=== PATIENT | female | born 1935 | race Caucasian/White ===

== ENCOUNTER 2017-06-20 13:46 | Inpatient (IN) | payer MEDICARE, OTHER ==
[~2017-06-20] VITALS: Ht 157.5 cm; Wt 68.0 kg
--- OUTSIDE RECORDS SUMMARY | ~2017-06-20 | XMS | Clinical Summary ---
Demographics + + + | Address | [address] | | | [place] [address] | + + + | Home Phone | | + + + | Preferred Language | Unknown | + + + | Marital Status | | + + + | Latter-Day Affiliation | 1077 | + + + | Race | Unknown | + + + | Ethnic Group | Unknown | + + + Author + + + | Author | [facility] | | | and Saurabhana | + + + | Organization | [facility] | | | and [...] Team Providers + +------+ + | Care Unix Administrator Name | Role | Phone | + +------+ + | Roderick Alexandra MD | PP | | + +------+ + Allergies + + + +--------+ + | Active Allergy | Reactions | Severity | Noted | Comments | | | | | Date | | + + + +--------+ + | Lipitor | Other (See Comments) | | | Myalgias | + + + +--------+ + | Wasp Venom Protein | Swelling | | | | + + + +--------+ + Current Medications + + +--------+---------+------+------+-------+ | Prescription | Sig. | Disp. | Refills | Star | End | Statu | | | | | | t | Date | s | | | | | | Date | | | + + +--------+---------+------+------+-------+ | Wysox-3 Fatty | Take 1,000 mg by | | | 10/17 | | Activ | | Acids ([facility] NATURAL | mouth Daily. | | | 05/05 | | e | | FISH OIL) 1000 MG | | | | 12 | | | | CAPS | | | | | | | + + +--------+---------+------+------+-------+ | ASPIRIN ADULT LOW | TBEC; Take one by | | | / | | Activ | | STRENGTH PO | mouth daily | | | 3/20 | | e | | | | | | 12 | | | + + +--------+---------+------+------+-------+ | Cholecalciferol | Take 2,000 Units by | | | 10/17 | | Activ | | (RA VITAMIN D-3) | mouth Daily. | | | 3/20 | | e | | 2000 UNITS CAPS | | | | 12 | | | + + +--------+---------+------+------+-------+ | Magnesium Oxide | TABS; Take one by | | | 1 | | Activ | | (MAG-OX 400 PO) | mouth daily | | | 3/20 | | e | | | | | | 12 | | | + + +--------+---------+------+------+-------+ | CALCIUM PO | TABS; 600 mg | | | 09/1 | | Activ | | | | | | 3/20 | | e | | | | | | 12 | | | + + +--------+---------+------+------+-------+ | artificial tears | Place 1 drop into | | | | | Activ | | (REFRESH PLUS) 0.5% | both eyes as needed. | | | | | e | | SOLN | | | | | | | + + +--------+---------+------+------+-------+ | Multiple | Take 2 capsules by | | | | | Activ | | Vitamins-Minerals | mouth Daily. | | | | | e | | (PRESERVISION AREDS | | | | | | | | 2) CAPS | | | | | | | + + +--------+---------+------+------+-------+ | raNITIdine | Take 1 tablet by | 180 | 2 | 02/0 | | Activ | | (ZANTAC) 150 mg | mouth 2 times daily. | tablet | | 6/20 | | e | | tablet | | | | 17 | | | + + +--------+---------+------+------+-------+ | pravastatin | take 1/2 tablet by | 45 | 1 | 01/ | | Activ | | (PRAVACHOL) 40 MG | mouth NIGHTLY | tablet | | 2/20 | | e | | tablet | | | | 18 | | | + + +--------+---------+------+------+-------+ | metoprolol | take 1 tablet by | 90 | 0 | 02/1 | | Activ | | succinate | mouth once daily | tablet | | 420 | | e | | (TOPROL-XL) 25 mg 24 | | | | 18 | | | | hr tablet | | | | | | | + + +--------+---------+------+------+-------+ | niacin (NIASPAN) | take 1 tablet by | 90 | 1 | 02/2 | | Activ | | 500 mg CR tablet | mouth at bedtime | tablet | | 2/20 | | e | | | | | | 18 | | | + + +--------+---------+------+------+-------+ Active Problems + + + | Problem | Noted Date | + + + | Gastroesophageal reflux disease without esophagitis | 03/24/2016 | + + + | Chest pressure | 03/24/2016 | + + + | Hx-TIA (transient ischemic attack) | 03/24/2016 | + + + | Hyperglycemia | 07/24/2014 | + + + | COPD (chronic obstructive pulmonary disease) (HCC) | 01/23/2014 | + + + | Routine history and physical examination of adult | 01/23/2014 | + + + | Right knee pain | 07/25/2013 | + + + + + | Overview: Torn meniscus | + + + + + | Vitamin D deficiency | 11/26/2012 | + + + | Hoarseness of voice | 05/26/2012 | + + + | CARDIAC MURMUR | 03/31/2011 | + + + + + | Last Assessment & Plan: Reviewed that murmur is less than | | last visit. This is usually a positive sign. Will monitor. Echo | | only if it worsens. | + + + + + | DYSPNEA ON EXERTION | 10/16/2010 | + + + | Hyperlipidemia | | + + + + + | Last Assessment & Plan: Well controlled. Reassurance given. | | Continue with current dose. Recheck level in 6 months. | + + + +---+ | Hypertension | | + +---+ | Diverticular disease of colon | | + +---+ + + | Overview: PLRU [id number] Decision | + + Resolved Problems + + + + | Problem | Noted | Resolved | | | Date | Date | + + + + | Preventative health care | 11/30/19 | | | | 13 | 7 | + + + + + + | Overview: Pap:None Found | | | | Mammogram:None Found | | | | Colonoscopy:None Found | | | | Dexa: None Found | + + + + + + | Lower extremity edema | 11/27/19 | | | | 12 | 7 | + + + + + + | Last Assessment & Plan: Due to varicosities. Reassurance | | given as it is position/activity dependant. | + + +-------+ + + | Cough | 10/17/19 | | | | 11 | 7 | +-------+ + + + + | Last Assessment & Plan: Reviewed that cough comes from | | allergy/sinus, reflux or underlying pulmonary disease. She denies | | the first two. Long history of second hand smoke exposure. She | | accepts a PFT order. Referral made. She will call and set up. She | | reports that she didn't like the Spiriva but wasn't really | | committed to taking it either. | + + + + + + | Diarrhea | 03/27/19 | | | | 11 | 7 | + + + + Encounters +--------+ + + + + | Date | Type | Specialty | Care Team | Description | +--------+ + + + + | 05/19/ | Telephone | | Roderick Alexandra, | Results | | 2017 | | | MD | | +--------+ + + + + | 05/18/ | Abstract | | Roderick Alexandra, | | | 2017 | | | MD | | +--------+ + + + + | 05/12/ | Telephone | | Roderick Alexandra, | Therapy | 2017 | | | MD | | +--------+ + + + + | 05/04/ | Abstract | | Roderick Alexandra, | | | 2017 | | | MD | | +--------+ + + + + | 04/30/ | Telephone | | Roderick Alexandra, | Arm Pain | | 2017 | | | MD | | +--------+ + + + + | 04/23/ | Office | | Roderick Alexandra, | Non-cardiac chest | | 2017 | Visit | | MD | pain (Primary Dx); | | | | | | Chronic obstructive | | | | | | pulmonary disease, | | | | | | unspecified COPD | | | | | | type (HCC); Left arm | | | | | | swelling; Left arm | | | | | | pain; Essential | | | | | | hypertension | +--------+ + + + + | 04/09/ | Refill | | Roderick Alexandra, | Medication Refill | 2017 | | | MD | | +--------+ + + + + | 04/01/ | Refill | | Roderick Alexandra, | Medication Refill | | 2017 | | | MD | | +--------+ + + + + from Last 3 Months Immunizations + + + + | Name | Dates Previously Given | Next Due | + + + + | INFLUENZA 63 Y OR >, | 10/12/2015 | | | TRIVALENT HIGH-DOSE | | | + + + + | INFLUENZA QUADR | 10/31/2014, 11/15/2013 | | | W/PRES | | | | (PED/ADOL/ADULT) | | | | MULTIDOSE | | | + + + + | INFLUENZA, | 10/18/2011 | | | W/Preservative | | | + + + + | PNEUMOCOCCAL | 07/24/2014 | | | CONJUGATE 13-VALENT | | | | (PCV13) | | | + + + + | PNEUMOCOCCAL | 05/20/2005 | | | POLYSACCHARIDE | | | | 23-VALENT (PPSV23) | | | + + + + | TDAP, (ADOL/ADULT) | 12/02/2005 | | + + + + | ZOSTER, 1 DOSE | 09/05/2011, 12/02/2005 | | | (ADULT) | | | + + + + Family History + + +--------+ + | Medical History | Relation | Name | Comments | + + +--------+ + | Prostate cancer | Father | Jd | | + + +--------+ + | * | Mother | Antonella | from pneumonia | + + +--------+ + | Parkinsonism | Mother | Antonella | | + + +--------+ + | Ovarian cancer | Sister | Gaile | | + + +--------+ + + +---------+ + + | Relation | Name | Status | Comments | + +---------+ + + | Father | Jd | | | + +---------+ + + | Maternal Grandfather | Unknown | | | + +---------+ + + | Maternal Grandmother | Unknown | | | + +---------+ + + | Mother | Antonella | | | + +---------+ + + | Paternal Grandfather | Unknown | | | + +---------+ + + | Paternal Grandmother | Unknown | | | + +---------+ + + | Sister | Gaile | Alive | | + +---------+ + + | Son | Rusty | Alive | | + +---------+ + + Social History + +-------+ +--------+------+ [...] + +---------+ + | Alcohol Use | Drinks/We | oz/Week | Comments | | | ek | | | + + +---------+ + | Yes | | | 3-4 times per year | + + +---------+ + + + + | Sex Assigned at | Date Recorded | | | | + + + | Not on file | | + + + Last Filed Vital Signs + + + + | Vital Sign | Reading | Time Taken | + + + + | Blood Pressure | 124/62 | 04/23/20171351 PST | + + + + | Pulse | 70 | 04/23/20171351 PST | + + + + | Temperature | 36.6 C (97.9 F) | 04/23/20171351 PST | + + + + | Respiratory Rate | 14 | 04/23/20171351 PST | + + + + | Oxygen Saturation | 97% | 04/23/20171351 PST | + + + + | Inhaled Oxygen | - | - | | Concentration | | | + + + + | Weight | 69.1 kg (152 lb 5.4 | 04/23/20171351 PST | | | oz) | | + + + + | Height | 154.9 cm (5' 1") | 04/23/20171351 PST | + + + + | Body Mass Index | 28.78 | 04/23/20171351 PST | + + + + Plan of Treatment +--------+---------+ + + + | Date | Type | Specialty | Care Team | Description | +--------+---------+ + + + | 10/29/ | Office | | Roderick Alexandra, | | | 2017 | Visit | | MD [address] | | | | | | [place] | | | | | | [id number] | | | | | | | | +--------+---------+ + + + + + + + + | Health Maintenance | Due Date | Last Done | Comments | + + + + + | Vaccine: | | 12/02/2005 | | | Dtap/Tdap/Td (2 - | 6 | | | | Td) | | | | + + + + + | Vaccine: Influenza | | 10/12/2015, 10/31/2014, | | | (Season Ended) | 8 | 11/15/2013, Additional history | | | | | exists | | + + + + + | BREAST CANCER | | 01/07/2017, 12/13/2015, | | | SCREENING (MAMM | 8 | 09/20/2014, Additional history | | | YEARLY) | | exists | | + + + + + | COLON CANCER | | 02/17/2008 | | | SCREENING | 9 | | | | (COLONOSCOPY EVERY | | | | | 10 YEARS <50 OR >75) | | | | + + + + + | Vaccine: | Completed | 07/24/2014, 05/20/2005 | | | Pneumococcal 65+ | | | | | Low/Medium Risk | | | | + + + + + Implants + +--------+--------+ +--------+--------+--------+ | Implanted | Type | Area | Manufacture | Device | Expira | Model | | | | | r | | tion | / | | | | | | Identi | Date | Serial | | | | | | fier | | / Lot | + +--------+--------+ +--------+--------+--------+ | Lens Ultrasert [id number] - | Generi | Left: | [facility] | | 05/16/ | [id number] | | [id number]: Qty: 1 on | c | Eye | - ALCN | | 2018 | .[id number] | | 06/30/2016 by Belkys, | | | | | | | | Vicenta Alvarado MD | | | | | | /[id number] | | | | | | | | 300 | | | | | | | | 112 / | + +--------+--------+ +--------+--------+--------+ Results IMAGING REPORT - EXTERNAL SCAN (05/06/2017)Only the most recent of 2 results within the ted e period is included. + + | Narrative | + + | Ordered by an unspecified provider. | + + LABS - EXTERNAL SCAN (05/06/2017)Only the most recent of 2 results within the time period i s included. + + | Narrative | + + | Ordered by an unspecified provider. | + + Triglycerides (05/06/2017) + +-------+ + | Component | Value | Ref Range | + +-------+ + | D-DIMER, | 100.0 | 400.0 D-DU ng/m AB | | QUANTITATIVE | | | + +-------+ + + + + | Specimen | Performing Laboratory | + + + | Blood | | + + + External Lab: Glucose (04/16/2017) + +-------+ + | Component | Value | Ref Range | + +-------+ + | Glucose, External | 97 | 70 - 100 | + +-------+ + External Lab: ALT (04/16/2017) + +-------+ + | Component | Value | Ref Range | + +-------+ + | ALT, External | 13 | 7 - 52 | + +-------+ + External Lab: AST (04/16/2017) + +-------+ + | Component | Value | Ref Range | + +-------+ + | AST, External | 16 | 13 - 39 | + +-------+ + External Lab: Alkaline Phosphatase (04/16/2017) + +-------+ + | Component | Value | Ref Range | + +-------+ + | ALP, External | 82 | 31 - 130 | + +-------+ + External Lab: Bilirubin, Total (04/16/2017) + +-------+ + | Component | Value | Ref Range | + +-------+ + | Bilirubin, Total, | 0.5 | 0 - 1.2 | | External | | | + +-------+ + External Lab: Albumin (04/16/2017) + +-------+ + | Component | Value | Ref Range | + +-------+ + | Albumin, External | 4.1 | 3.5 - 5 | + +-------+ + External Lab: Protein, Total (04/16/2017) + +-------+ + | Component | Value | Ref Range | + +-------+ + | Protein, Total, | 6.3 | 6 - 8 | | External | | | + +-------+ + External Lab: Calcium (04/16/2017) + +-------+ + | Component | Value | Ref Range | + +-------+ + | Calcium, External | 9.7 | 8.4 - 10.2 | + +-------+ + External Lab: Carbon Dioxide (04/16/2017) + +-------+ + | Component | Value | Ref Range | + +-------+ + | Carbon Dioxide, | 24 | 19 - 31 | | External | | | + +-------+ + External Lab: Chloride (04/16/2017) + +-------+ + | Component | Value | Ref Range | + +-------+ + | Chloride, External | 103 | 95 - 112 | + +-------+ + External Lab: Potassium (04/16/2017) + +-------+ + | Component | Value | Ref Range | + +-------+ + | Potassium, External | 4.1 | 3.6 - 5.1 | + +-------+ + External Lab: Sodium (04/16/2017) + +-------+ + | Component | Value | Ref Range | + +-------+ + | Sodium, External | 141 | 132 - 143 | + +-------+ + External Lab: Vitamin D, 25-Hydroxy (04/16/2017) + +--------+ + | Component | Value | Ref Range | + +--------+ + | Vitamin D, | 22 (A) | 30 - 100 | | 25-Hydroxy, External | | | + +--------+ + + + + | Specimen | Performing Laboratory | + + + | Blood | | + + + External Lab: Triglycerides (04/16/2017) + +---------+ + | Component | Value | Ref Range | + +---------+ + | Triglycerides, | 152 (A) | 30 - 150 | | External | | | + +---------+ + + + + | Specimen | Performing Laboratory | + + + | Blood | | + + + External Lab: Cholesterol, HDL (04/16/2017) + +-------+ + | Component | Value | Ref Range | + +-------+ + | HDL Cholesterol, | 43.3 | mg/dl | | External | | | + +-------+ + + + + | Specimen | Performing Laboratory | + + + | Blood | | + + + External Lab: Cholesterol, Total (04/16/2017) + +-------+ + | Component | Value | Ref Range | + +-------+ + | Cholesterol, Total, | 163 | mg/dl | | External | | | + +-------+ + + + + | Specimen | Performing Laboratory | + + + | Blood | | + + + External Lab: Cholesterol, LDL (04/16/2017) + +-------+ + | Component | Value | Ref Range | + +-------+ + | LDL Cholesterol, | 89 | | | External | | | + +-------+ + + + + | Specimen | Performing Laboratory | + + + | Blood | | + + + External Lab: Creatinine (04/16/2017) + + + + | Component | Value | Ref Range | + + + + | Creatinine, External | 0.57 (A) | 0.7 - 1.11 | + + + + + + + | Specimen | Performing Laboratory | + + + | Blood | | + + + Lipid Panel (04/16/2017) + +-------+ + | Component | Value | Ref Range | + +-------+ + | Chol/HDL Ratio | 3.8 | | + +-------+ + | VLDL Cholesterol Benjamin | 30 | 4 - 40 | + +-------+ + + + + | Specimen | Performing Laboratory | + + + | Blood | | + + + Hemoglobin A1C (04/16/2017) + +-------+ + | Component | Value | Ref Range | + +-------+ + | Hemoglobin A1c | 5.8 | % | + +-------+ + + + + | Specimen | Performing Laboratory | + + + | Blood | | + + + from Last 3 Months Insurance + +--------+ +--------+ + + | Payer | Benefi | Subscriber | Type | Phone | Address | | | t Plan | ID | | | | | | / | | | | | | | Group | | | | | + +--------+ +--------+ + + | MEDICARE | MEDICA | xxxxxxxxxx | Medica | [phone] | | | | RE | | re | [phone] | | | | PART A | | | | | | | AND B | | | | | + +--------+ +--------+ + + | MODA | MODA | xxxxxxxxx | Indemn | [id number] | [address] [address] | | | HEALTH | | ity | [phone] | [place] [address] | | | MDCR | | | | | | | SUPPL | | | | | + +--------+ +--------+ + + + +--------+ +--------+ + + | Guarantor Name | Accoun | Relation to | Date | Phone | Billing Address | | | t Type | Patient | of | | | | | | | | | | + +--------+ +--------+ + + | ERIS PATEL | Person | Self [birth year] Home: | [address] | | [place] | [place] | | [phone] | [phone] | [place] | | | [place] | | [phone] | + +--------+ +--------+ + +
--- OUTSIDE RECORDS SUMMARY | ~2017-06-20 | XMS | Encounter Summary ---
Demographics + + + | Address | [address] | | | [place] [address] | + + + | Home Phone | | + + + | Preferred Language | Unknown | + + + | Marital Status | | + + + | Baptism Affiliation | 1077 | + + + | Race | Unknown | + + + | Ethnic Group | Unknown | + + + Author + + + | Author | [facility] | | | and Saurabhana | + + + | Organization | [facility] | | | [...] Team Providers + +------+ + | Care Financial Dealers Name | Role | Phone | + [...] | Specialty | Physical | Diagnoses | Alexandra, | [facility] | | | Services | Therapy | Left arm | Roderick Ariza MD | HOSPITAL | | | Required | | pain Left | [address] | PHYSICAL | | | | | arm swelling | [address] [place] | [address] | | | | | | [place], [place] | [place] | | | | | | [address] | [place], [place] | | | | | | Phone: | [phone] | | | | | | [phone] | Phone: | | | | | | Fax: | [phone] | | | | | | [phone] | Fax: | | | | | | | [phone] | +--------+ + + + + + Reason for Visit +---------+ + | Reason | Comments | +---------+ + | Therapy | | +---------+ + Encounter Details +--------+ + + + + | Date | Type | Department | Care Team | Description | +--------+ + + + + | 05/12/ | Telephone | [facility] [place] [facility] | Roderick Alexandra, | Therapy | | 2018 | | MEDICINE [place] | [address] | | | | | [address] | [place] | | | | | [place] | [address] | | | | | [address] | | | | | | [phone] | | | +--------+ + + + [...] on file | | + + + as of this encounter Plan of Treatment +--------+---------+ + + + | Date | Type | Specialty | Care Team | Description | +--------+---------+ + + + | 10/29/ | Office | Family Medicine | Roderick Alexandra, | | | 2017 | Visit | | MD [address] | | | | | | [place] | | | | | | [address] | | | | | | | | +--------+---------+ + + + + +--------+ + + | Name | Priori | Associated Diagnoses | Order Schedule | | | ty | | | + +--------+ + + | [facility] Physical | Routin | Left arm pain | Ordered: 05/12/2017 | | Therapy, External - AMB Referral | e | Left arm swelling | | + +--------+ + + as of this encounter Visit Diagnoses + + | Diagnosis | + + | Left arm pain - Primary | + + | Pain in limb | + + | Left arm swelling | + + | Swelling of limb | + +"
--- OUTSIDE RECORDS SUMMARY | ~2017-06-20 | XMS | Encounter Summary ---
Demographics + + + | Address | [address] | | | [place] [address] | + + + | Home Phone | | + + + | Preferred Language | Unknown | + + + | Marital Status | | + + + | Adventism Affiliation | 1077 | + + + | Race | Unknown | + + + | Ethnic Group | Unknown | + + + Author + + + | Author | [facility] | | | and Saurabhana | + + + | Organization | [facility] | | | and [...] Team Providers + +------+ + | Care Submarine Advisory Team Watch Officer Name | Role | Phone | + [...] Refill | | 2017 | | MEDICINE [facility] | [address] | | | | | [address] | [place] | | | | | [place] | [address] | | | | | [address] | | | | | | [phone] | | | +--------+--------+ + + + [...] 2017 | Visit | | MD [address] | | | | | | [place] | | | | | | [phone] | | | | | | | | +--------+---------+ + + + as of this encounter Visit Diagnoses Not on filein this encounter"
--- OUTSIDE RECORDS SUMMARY | ~2017-06-20 | XMS | Encounter Summary ---
Demographics + + + | Address | [address] | | | [place] [address] | + + + | Home Phone | | + + + | Preferred Language | Unknown | + + + | Marital Status | | + + + | Faith Affiliation | 1077 | + + + | Race | Unknown | + + + | Ethnic Group | Unknown | + + + Author + + + | Author | [facility] | | | and Saurabhana | + + + | Organization | [facility] | | [...] Team Providers + +------+ + | Care Iv Rn Name | Role | Phone | + +------+ + | Roderick Alexandra MD | PCP | | + +------+ + Encounter Details +--------+ + + + + | Date | Type | Department | Care Team | Description | +--------+ + + + + | 05/18/ | Abstract | [facility] [place] [facility] | Roderick Alexandra, | | | 2017 | | [facility] | [address] | | | | | [address] | [place] | | | | | [place] | [address] | | | | | [address] | | | | | | [phone] | | | +--------+ + + + [...] | Office | Family Medicine | Roderick Alexandra | | | 2017 | Visit | | MD [address] | | | | | | [place] | | | | | | [address] | | | | | | | | +--------+---------+ + + + as of this encounter Results Triglycerides (05/06/2017) + +-------+ + | Component | Value | Ref Range | + +-------+ + | D-DIMER, | 100.0 | 400.0 D-DU ng/m AB | | QUANTITATIVE | | | + +-------+ + + + + | Specimen | Performing Laboratory | + + + | Blood | | + + + in this encounter Visit Diagnoses Not on filein this encounter"
--- OUTSIDE RECORDS SUMMARY | ~2017-06-20 | XMS | Clinical Summary ---
Demographics + + + | Address | [address] | | | [place] [address] | + + + | Home Phone | | + + + | Preferred Language | Unknown | + + + | Marital Status | Single | + + + | Yazidi Affiliation | Unknown | + + + | Race | Unknown | + + + | Ethnic Group | Other Race | + + + Author + + + | Author | [facility] | + + + | Organization | [facility] | + + + | Address | Unknown | + + + | Phone | Unavailable | + + + Care Team Providers + +------+ + | Care Superintendent Generating Plant Name | Role | Phone | + +------+ + PP | Unavailable | + +------+ + Source Comments GERMAINE is fully live on both [facility] Ambulatory and [facility] InPatient.[facility] Allergies Not on File Current Medications Not on file Active Problems Not [...] on file | | + + + Plan of Treatment Not on file Results Not on filefrom Last 3 Months"
--- OUTSIDE RECORDS SUMMARY | ~2017-06-20 | XMS | Encounter Summary ---
Demographics + + + | Address | [address] | | | [place] [address] | + + + | Home Phone | | + + + | Preferred Language | Unknown | + + + | Marital Status | | + + + | Jain Affiliation | 1077 | + + + | Race | Unknown | + + + | Ethnic Group | Unknown | + + + Author + + + | Author | [facility] | | | and Saurabhana | + + + | Organization | [facility] | | | [...] Team Providers + +------+ + | Care Press And Blow Machine Tender Name | Role | Phone | [...] [place] | | | | | | [address] | [place], [place] | | | | | | Phone: | [address] | | | | | | [phone] | Phone: | | | | | | Fax: | [phone] | | | | | | [phone] | Fax: | | | | | | | [phone] | +--------+ + + + + + [...] Therapy | | 2018 | | [facility] [place] | [address] | | | | | [address] | [place] | | | | | [place] | [address] | | | | | [address] | | | | | | [phone] | | | +--------+ + + + [...] [place] | | | | | | [address] | | | | | | | | +--------+---------+ + + + + +--------+ + + | Name | Priori | Associated Diagnoses | Order Schedule | | | ty | | | + +--------+ + + | [facility] Physical | Routin | Left arm pain [...]
--- OUTSIDE RECORDS SUMMARY | ~2017-06-20 | XMS | Encounter Summary ---
Demographics + + + | Address | [address] | | | [place] [address] | + + + | Home Phone | | + + + | Preferred Language | Unknown | + + + | Marital Status | | + + + | Hindu Affiliation | 1077 | + + + | Race | Unknown | + + + | Ethnic Group | Unknown | + + + Author + + + | Author | [facility] | | | and Saurabhana | + + + | Organization | [facility] | | | [...] Team Providers + +------+ + | Care Clarifier Operator Name | Role | Phone | + +------+ + | Roderick Alexandra MD | PCP | | + +------+ + Reason for Visit + + + | Reason | Comments | + + + | Hypertension | | + + + | Chest Pain | | + + + Encounter Details +--------+---------+ + + + | Date | Type | Department | Care Team | Description | +--------+---------+ + + + | 04/23/ | Office | [facility] | Roderick Alexandra, | Non-cardiac chest | | 2018 | Visit | [facility] [place] | [address] | pain (Primary Dx); | | | | [address] | [place] | Chronic obstructive | | | | [place] | [address] | pulmonary disease, | | | | [address] | | unspecified COPD | | | | [phone] | | type (HCC); Left arm | | | | | | swelling; Left arm | | | | | | pain; Essential | | | | | | hypertension | +--------+---------+ + + + Social History [...] + + + as of this encounter Last Filed Vital [...] + | Oxygen Saturation | 97% | 04/23/2017 135 PST | + + + + | Inhaled Oxygen | - | - | | Concentration | | | + + + + | Weight | 69.1 kg (152 lb 5.4 | 04/23/2017 135 PST | | | oz) | | + + + + | Height | 154.9 cm (5' 1") | 04/23/2017 1352 PST | + + + + | Body Mass Index | 28.78 | 04/23/2017 135 PST | + + + + in this encounter Progress Notes Roderick Alexandra MD - 04/23/2017 1330 PSTFormatting of this note may be different from the original. Rosalind Patel is a 81 y.o. female Chief Complaint: Hypertension and Chest Pain HPI Hypertension: Control and Compliance Medication compliance: good Home Blood Pressures: 120-130/60 Exercise: yes BP: 124/62 BP Readings from Last 3 Encounters: 04/23/17 124/62 10/02/16 152/70 06/30/16 143/63 Pt denies: No headache, visual symptoms, neurologic problems, syncope No chest pain, palpitations, GUTIÉRREZ, orthopnea, PND, peripheral edema No side effects from any antihypertensive medications Chest pain Patient has been experiencing substernal chest pain for the past year. She states that it i s worse with exersion. Patient does have some shortness of breathe with excertion as well. She had EKG June 2016 which was normal. She has not seen Cardiology. She states that it per iodically happens when she is sitting down, but has not happened when she is walking. She d oes have a little shortness of breath when walking.This is lasting only a few seconds. Patie nt states that the pain is not too frequent on a daily basis. Axillary pain Patient has been experiencing left rib cage and axillary pain for several years. She had a breast US about 20 years ago which did not reveal anything. Patient states that her arm go es to sleep when she puts pressure in the axilla. She described the pain as being more of a pressure and has noticed her left arm is a little larger than the right. She does not use an ything for treatment. PREVENTIVE CARE/PRIOR VISITS 1. Any recommendations from Health Maintenance: No Health Maintenance Due Topic Date Due Vaccine: Dtap/Tdap/Td (2 - Td) 12/03/2015 Vaccine: Influenza (1) 10/17/2016 Preventative Services TOPIC LAST DONE NEXT DUE Vaccine: Influenza 10/12/2015 10/17/2016 Breast Cancer Screening (Mamm Yearly) 01/07/2017 01/07/2018 Colon Cancer Screening (Colonoscopy Every 10 Years <50 Or >75) 02/17/2008 02/16/2018 Vaccine: Dtap/Tdap/Td 12/02/2005 12/03/2015 Vaccine: Pneumococcal 65+ Low/Medium Risk 07/24/2014 Vaccine: Zoster 09/05/2011 2. Any immunizations necessary: Tdap, flu 3. Has patient been involved in medical [...] (TOPROL-XL) 25 mg 24 hr tablet (Taking) take 1 tablet by mouth once daily Number of times this order has been changed since signin Order Audit [place] Multiple Vitamins-Minerals (PRESERVISION AREDS 2) CAPS (Taking) Take 2 capsules by mouth Daily. niacin (NIASPAN) 500 mg CR tablet (Taking) take 1 tablet by mouth at bedtime Number of times this order has been changed since signin Order Audit [place]-3 Fatty Acids ([facility] NATURAL FISH OIL) 1000 MG CAPS (Taking) Take 1,000 mg by mouth D aily. pravastatin (PRAVACHOL) 40 MG tablet (Taking) take 1/2 tablet by mouth NIGHTLY Number of times this order has been changed since signin Order Audit [place] raNITIdine (ZANTAC) 150 mg tablet (Taking) Take 1 tablet by mouth 2 times daily. 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 HENT: Negative for congestion and sore throat. Eyes: Negative for pain and visual disturbance. Respiratory: Positive for shortness of breath. Negative for chest tightness. Cardiovascular: Positive for chest pain. Negative for palpitations. Gastrointestinal: Negative for abdominal pain, constipation and diarrhea. Endocrine: Negative for polydipsia and polyuria. Genitourinary: Negative for difficulty urinating. Musculoskeletal: Negative for joint swelling. Skin: Negative for rash. Neurological: Negative for dizziness, light-headedness and headaches. Psychiatric/Behavioral: Negative for dysphoric mood and sleep disturbance. The patient is n ot nervous/anxious. Objective: Vitals: 04/23/17 1352 BP: 124/62 Pulse: 70 Resp: 14 Temp: 36.6 C (97.9 F) TempSrc: Temporal SpO2: 97% Weight: 69.1 kg (152 lb 5.4 oz) Height: 1.549 m (5' 1") Physical Exam Constitutional: She is oriented to person, place, and time. She appears well-developed and well-nourished. No distress. Appropriately dressed and groomed HENT: Head: Normocephalic and atraumatic. Eyes: Conjunctivae are normal. Cardiovascular: Normal rate and regular rhythm. Pulmonary/Chest: Effort normal and breath sounds normal. Musculoskeletal: She exhibits no edema. Arms: Right arm does look slightly bigger than the left arm. No significant edema or LAD. 23cm right forearm 24cm left forearm Lymphadenopathy: She has no axillary adenopathy. Right: No supraclavicular adenopathy present. Left: No supraclavicular adenopathy present. Neurological: She is alert and oriented to person, place, and time. Skin: Skin is warm and dry. Psychiatric: She has a normal mood and affect. Her behavior is normal. Nursing note and vitals reviewed. Ortho Exam Results for orders placed or performed in visit on 01/19/17 TASH External Image Result Value Ref Range EXT MAMMOGRAPHY 2-Benign finding(s) Assessment: 1. Non-cardiac chest pain 2. Chronic obstructive pulmonary disease, unspecified COPD type (HCC) 3. Left arm swelling 4. Left arm pain 5. Essential hypertension Plans: 1. Non-cardiac chest pain 2. Chronic obstructive pulmonary disease, unspecified COPD type (HCC) Reviewed that her shortness of breath is from COPD. Reassured patient that if pain was comi ng from the heart itself, the pain would be lasting minutes, not seconds like she is experie ncing. I do not believe her pain is cardiac related. Discussed that it could be referred p nildan from the stomach or elsewhere. Advised patient if she has chest pain that lasts several minutes, or when she is walking, stays there, that she needs to call 911. 3. Left arm swelling 4. Left arm pain Will consider imaging to see why her arm would be slighty swollen and what would be contrib uting to her axillary discomfort. There is no lymphadenopathy or thickening of the tissue. N o obvious edema. The left arm does look slightly bigger than the right. Will refer patient t o [facility]. 5. Essential hypertension Well controlled. The current medical regimen is effective; continue present plan and medica tions. I, Stephanie Yang CMA, am acting as a scribe on behalf of, and in the presence of MD Stephanie Antunez CMA 04/23/2017 I, Dr. Roderick Alexandra, personally performed the services described in this documentation, as scribed in my presence and it is both accurate and complete. Roderick Alexandra MD 04/30/17 in this encounter Plan of Treatment +--------+---------+ + + + | Date | Type | Specialty | Care Team | Description | +--------+---------+ + + + | 10/29/ | Office | Family Medicine | Roderick Alexandra, | | | 2017 | Visit | | MD [place] | | | | | | [place] | | | | | | [id number] | | | | | | | | +--------+---------+ + + + as of this encounter Results LABS - EXTERNAL SCAN (05/06/2017) + + | Narrative | + + | Ordered by an unspecified provider. | + + IMAGING REPORT - EXTERNAL SCAN (05/06/2017) + + | Narrative | + + | Ordered by an unspecified provider. | + + in this encounter Visit Diagnoses + + | Diagnosis | + + | Non-cardiac chest pain - Primary | + + | Other chest pain | + + | Chronic obstructive pulmonary disease, unspecified COPD type (HCC) | + + | Left arm swelling | + + | Swelling of limb | + + | Left arm pain | + + | Pain in limb | + + | Essential hypertension | + + | Unspecified essential hypertension | + +
--- OUTSIDE RECORDS SUMMARY | ~2017-06-20 | XMS | Clinical Summary ---
Demographics + + + | Address | [address] | | | [place] [address] | + + + | Home Phone [...] Team Providers + +------+ + | Care Transportation Supervisor Name | Role | Phone | [...] | | | + + +--------+---------+------+------+-------+ | [place]-3 Fatty | Take 1,000 mg by | [...] + +---+ + + | Overview: PLRU [id number] Decision | + + Resolved Problems + [...] | | 05/16/ | [id number] | | [id number]: Qty: 1 on | c | Eye | - ALCN | | 2018 | .19.0D | | 06/30/2016 by Belkys, | | | | | | | | Vicenta Alvarado MD | | | | | | /[id number] | | | | | | | [...] | MODA | [phone] | Indemn | [phone] | [address] [address] | | | HEALTH | | ity | [phone] | [place] [address] | | | MDCR | | | [...] Self | [birth year] | Home: | [address] | | [place] | [place] | | [phone] | [phone] | [place] | | | [place] | | | [phone] | [phone] | + +--------+ +--------+ + +
--- OUTSIDE RECORDS SUMMARY | ~2017-06-20 | XMS | Encounter Summary ---
Demographics + + + | Address | [address] | | | [place] [address] | + + + | Home Phone [...] Team Providers + +------+ + | Care Annual Campaign Manager Name | Role | Phone | + +------+ + | Roderick Alexandra MD | PCP | | + +------+ + Encounter Details +--------+ + + + + | Date | Type | Department | Care Team | Description | +--------+ + + + + | 05/04/ | Abstract | [facility] | Roedrick Alexandra, | | | 2017 | | [facility] | [address] | | | | | [address] | [place] | | | | | [place] | [address] | | | | | [address] | | | | | | [phone] | | | +--------+ + + + [...] [place] | | | | | | [address] | | | | | | | | +--------+---------+ + + + as of this encounter Results Hemoglobin A1C (04/16/2017) + +-------+ + | [...]
--- OUTSIDE RECORDS SUMMARY | ~2017-06-20 | XMS | Encounter Summary ---
Demographics + + + | Address | [address] | | | [place] [address] | + + + | Home Phone | | + + + | Preferred Language | Unknown | + + + | Marital Status | | + + + | Catholic Affiliation | 1077 | + + [...] Team Providers + +------+ + | Care Mainspring Reverse Winder Name | Role | Phone | + [...] + + | 04/23/ | Office | [facility] | Roderick Alexandra, | Non-cardiac chest | | 2018 | Visit | [facility] [place] | [address] | pain (Primary Dx); | | | | [address] | [place] | Chronic obstructive | | | | [place] | [address] | pulmonary disease, | | | | [address] | | unspecified COPD | | | | [phone] | | type (HCC); Left arm | [...] has been changed since signin Order Audit [place] Multiple Vitamins-Minerals (PRESERVISION AREDS 2) CAPS (Taking) Take 2 capsules by mouth Daily. niacin (NIASPAN) 500 mg CR tablet (Taking) take 1 tablet by mouth at bedtime Number of times this order has been changed since signin Order Audit [place]-3 Fatty Acids ([facility] NATURAL FISH OIL) 1000 MG CAPS (Taking) Take 1,000 mg by mouth D aily. 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 Will refer patient t o [place] PT. 5. Essential hypertension Well controlled. The [...] [place] | | | | | | [id number] | | | | | | | [...]
--- OUTSIDE RECORDS SUMMARY | ~2017-06-20 | XMS | Encounter Summary ---
Demographics + + + | Address | [address] | | | [place] [address] | + + + | Home Phone | | + + + | Preferred Language | Unknown | + + + | Marital Status | | + + + | Nondenominational Affiliation | 1077 | + + + | Race | Unknown | + + + | Ethnic Group | Unknown | + + + Author + + + | Author | [facility] | | | and Saurabhana | + + + | Organization | [facility] | | [...] Team Providers + +------+ + | Care Party Chief Name | Role | Phone | + +------+ + | Roderick Alexandra MD | PCP | | + +------+ + Encounter Details +--------+ + + + + | Date | Type | Department | Care Team | Description | +--------+ + + + + | 05/04/ | Abstract | [facility] | Roderick Alexandra, | | | 2017 | | [facility] | [address] | | | | | [address] | [place] | | | | | [place] | [address] | | | | | [address] | | | | | | [phone] | | | +--------+ + + + [...] [place] | | | | | | [address] | | | | | | | [...] | + +-------+ + | VLDL Cholesterol Bejnamin | 30 | 4 - 40 | [...]
--- OUTSIDE RECORDS SUMMARY | ~2017-06-20 | XMS | Encounter Summary ---
Demographics + + + | Address | [address] | | | [place] [address] | + + + | Home Phone [...] Team Providers + +------+ + | Care Booking Manager Name | Role | Phone | [...] + | 04/30/ | Telephone | [facility] | Roderick Alexandra, | Arm Pain | | 2018 | | [facility] [place] | [address] | | | | | [address] | [place] | | | | | [place], [place] | [address] | | | | | [address] | | | | | | [phone] | | | +--------+ + + + [...] Medicine | Roderick Alexandra, | | | 2018 | Visit | | MD [place] [facility] [facility] | | | | | | [place] | | | | | | [address] | | | | | | | | +--------+---------+ + + + + +--------+ + + | Name | Priori | Associated Diagnoses | Order Schedule | | | ty | | | + +--------+ + + | XR Chest PA and Lateral | Routin | Left arm swelling | Expected: | | | e | Chronic obstructive | 04/30/2017, Expires: | | | | pulmonary disease, | 04/30/2018 | | | | unspecified COPD | | | | | type (HCC) | | + +--------+ + + | D-Dimer | Routin | Left arm swelling | 1 Occurrences | | | e | | starting 04/30/2017 | | | | | until 04/30/2018 | + +--------+ + + as of this encounter Visit Diagnoses + + | Diagnosis | + + | Left arm swelling - Primary | + + | Swelling of limb | + + | Chronic obstructive pulmonary disease, unspecified COPD type (HCC) | + +"
--- OUTSIDE RECORDS SUMMARY | ~2017-06-20 | XMS | Clinical Summary ---
Demographics + + + | Address | [address] | | | [place] [address] | + + + | Home Phone | | + + + | Preferred Language | Unknown | + + + | Marital Status | Single | + + + | Cheondoism Affiliation | Unknown | + + + | Race | Unknown | + + + | Ethnic Group | Other Race | + + + Author + + + | Author | [facility] | + + + | Organization | [facility] | + + + | Address | Unknown | + + + | Phone | Unavailable | + + + Care Team Providers + +------+ + | Care Can Top Setter Name | Role | Phone | + +------+ + PP | Unavailable | + +------+ + Source Comments GERMAINE is fully live on both [facility] and [facility] Allergies Not on File Current Medications Not [...]
--- OUTSIDE RECORDS SUMMARY | ~2017-06-20 | XMS | Encounter Summary ---
Demographics + + + | Address | [address] | | | [place] [address] | + + + | Home Phone [...] Providers + +------+ + | Care Construction Rigger Name | Role | Phone | + +------+ + | Roderick Alexandra MD | PCP | | + +------+ + Encounter Details +--------+ + + + + | Date | Type | Department | Care Team | Description | +--------+ + + + + | 05/18/ | Abstract | [facility] | Roderick Alexandra, | | | 2017 | | [facility] | [address] | | | | | [address] | [place] | | | | | [place] | [address] | | | | | [address] | | | | | | [phone] | | | +--------+ + + + [...] [place] | | | | | | [address] | | | | | | | [...]
--- OUTSIDE RECORDS SUMMARY | ~2017-06-20 | XMS | Encounter Summary ---
Demographics + + + | Address | [address] [place] [address] | | | [place] [address] | + + + | Home Phone [...] Team Providers + +------+ + | Care Benefits Consultant Name | Role | Phone | [...] | | | 2017 | | [facility] | [address] | | | | | [address] | [place] | | | | | [place] | [address] | | | | | [address] | | | | | | [phone] | | | +--------+ + + + [...] [place] | | | | | | [address] | | | | | | | [...]
--- OUTSIDE RECORDS SUMMARY | ~2017-06-20 | XMS | Encounter Summary ---
Demographics + + + | Address | [address] [address] | | | [place] [address] | + + + | Home Phone [...] Team Providers + +------+ + | Care Iron Handler Name | Role | Phone | [...] Refill | | 2017 | | [facility] [place] | [address] | | | | | [address] | [place] | | | | | [place] | [address] | | | | | [address] | | | | | | [phone] | | | +--------+--------+ + + + [...] [place] | | | | | | [id number] | | | | | | | | +--------+---------+ + + + as of this encounter Visit Diagnoses Not on filein this encounter"
--- OUTSIDE RECORDS SUMMARY | ~2017-06-20 | XMS | Encounter Summary ---
Demographics + + + | Address | [address] | | | [place] [address] | + + + | Home Phone [...] Team Providers + +------+ + | Care Almond Huller Name | Role | Phone | + [...] + | 05/19/ | Telephone | [facility] | Roderick Alexandra, | Results | | 2018 | | MEDICINE [place] | [address] | | | | | [address] | [place] | | | | | [place] | [address] | | | | | [address] | | | | | | [phone] | | | +--------+ + + + [...] [place] | | | | | | [address] | | | | | | | | +--------+---------+ + + + as of this encounter Visit Diagnoses Not on filein this encounter"
--- OUTSIDE RECORDS SUMMARY | ~2017-06-20 | XMS | Encounter Summary ---
Demographics + + + | Address | [address] | | | [place] [address] | + + + | Home Phone [...] Team Providers + +------+ + | Care Template Cutter Name | Role | Phone | [...] Refill | | 2017 | | MEDICINE [place] | [address] | | | | | [address] | [place] | | | | | [place] | [address] | | | | | [address] | | | | | | [phone] | | | +--------+--------+ + + + [...] [place] | | | | | | [id number] | | | | | | | | +--------+---------+ + + + as of this encounter Visit Diagnoses Not on filein this encounter"
--- OUTSIDE RECORDS SUMMARY | ~2017-06-20 | XMS | Encounter Summary ---
Demographics + + + | Address | [address] [place] [address] | | | [place] [address] | + + + | Home Phone [...] Team Providers + +------+ + | Care Fish Hatchery Laborer Name | Role | Phone | [...] + | 04/30/ | Telephone | [facility] | Roderick Alexandra, | Arm Pain | | 2018 | | [facility] [place] | [address] | | | | | [address] | [place] | | | | | [place], [place] | [address] | | | | | [address] | | | | | | [phone] | | | +--------+ + + + [...] [place] | | | | | | [address] | | | | | | | [...]
--- OUTSIDE RECORDS SUMMARY | ~2017-06-20 | XMS | Encounter Summary ---
Demographics + + + | Address | [address] | | | [place] [address] | + + + | Home Phone [...] Providers + +------+ + | Care Water Superintendent Name | Role | Phone | [...] [place] | | | | | | [address] | [place], [place] | | | | | | Phone: | [phone] | | | | | | [phone] | Phone: | | | | | | Fax: | [phone] | | | | | | [phone] | Fax: | | | | | | | [phone] | +--------+ + + + + + [...] Therapy | | 2018 | | MEDICINE [place] | [address] | | | | | [address] | [place] | | | | | [place] | [address] | | | | | [address] | | | | | | [phone] | | | +--------+ + + + [...] [place] | | | | | | [address] | | | | | | | | +--------+---------+ + + + + +--------+ + + | Name | Priori | Associated Diagnoses | Order Schedule | | | ty | | | + +--------+ + + | [facility] Physical | Routin | Left arm [...]
--- OUTSIDE RECORDS SUMMARY | ~2017-06-20 | XMS | Encounter Summary ---
Demographics + + + | Address | [address] | | | [place] [address] | + + + | Home Phone [...] Providers + +------+ + | Care Process Project Engineer Name | Role | Phone | [...] + + | 04/23/ | Office | [facility] | Roderick Alexandra, | Non-cardiac chest | | 2018 | Visit | [facility] [place] | [address] | pain (Primary Dx); | | | | [address] | [place] | Chronic obstructive | | | | [place] | [address] | pulmonary disease, | | | | [address] | | unspecified COPD | | | | [phone] | | type (HCC); Left arm | [...] has been changed since signin Order [employer] Multiple Vitamins-Minerals (PRESERVISION AREDS 2) CAPS (Taking) Take 2 capsules by mouth Daily. niacin (NIASPAN) 500 mg CR tablet (Taking) take 1 tablet by mouth at bedtime Number of times this order has been changed since signin Order [employer] [place]-3 Fatty Acids ([employer] NATURAL FISH OIL) 1000 MG CAPS (Taking) Take 1,000 mg by mouth D aily. 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 Will refer patient t o [facility]. 5. Essential hypertension Well controlled. The [...] [place] | | | | | | [id number] | | | | | | | [...]
--- OUTSIDE RECORDS SUMMARY | ~2017-06-20 | XMS | Encounter Summary ---
Demographics + + + | Address | [address] | | | [place] [address] | + + + | Home Phone [...] | | + + +---------+ + | hSelli Tinajero | ECON | Unknown | | + + +---------+ + Care Team Providers + +------+ + | Care Vehicle Refinisher Name | Role | Phone | + [...] Refill | | 2017 | | MEDICINE [place] | [address] | | | | | [address] | [place] | | | | | [place] | [address] | | | | | [address] | | | | | | [phone] | | | +--------+--------+ + + + [...] [place] | | | | | | [phone] | | | | | | | | +--------+---------+ + + + as of this encounter Visit Diagnoses Not on filein this encounter"
--- OUTSIDE RECORDS SUMMARY | ~2017-06-20 | XMS | Encounter Summary ---
Demographics + + + | Address | [address] | | | [place] [address] | + + + | Home Phone [...] Providers + +------+ + | Care Director [employer] Name | Role | Phone | + [...] Refill | | 2017 | | [facility] [place] | [address] | | | | | [address] | [place] | | | | | [place] | [address] | | | | | [address] | | | | | | [phone] | | | +--------+--------+ + + + [...] [place] | | | | | | [phone] | | | | | | | | +--------+---------+ + + + as of this encounter Visit Diagnoses Not on filein this encounter"
--- OUTSIDE RECORDS SUMMARY | ~2017-06-20 | XMS | Encounter Summary ---
Demographics + + + | Address | [address] | | | [place] [address] | + + + | Home Phone [...] Team Providers + +------+ + | Care Hot Knife Foxing Cutter Name | Role | Phone | [...] Refill | | 2017 | | MEDICINE [place] | [address] | | | | | [address] | [place] | | | | | [place] | [address] | | | | | [address] | | | | | | [phone] | | | +--------+--------+ + + + [...] 10/29/ | Office | Family Medicine | Rodreick Alexandra, | | | 2017 | Visit | | MD [address] | | | | | | [place] | | | | | | [phone] | | | | | | | | +--------+---------+ + + + as of this encounter Visit Diagnoses Not on filein this encounter"
--- OUTSIDE RECORDS SUMMARY | ~2017-06-20 | XMS | Clinical Summary ---
Demographics + + + | Address | [address] | | | [place] [address] | + + + | Home Phone | | + + + | Preferred Language | Unknown | + + + | Marital Status | Single | + + + | Advent Affiliation | Unknown | + + + | Race | Unknown | + + + | Ethnic Group | Other Race | + + + Author + + + | Author | [facility] | + + + | Organization | [facility] | + + + | Address | Unknown | + + + | Phone | Unavailable | + + + Care Team Providers + +------+ + | Care Metal Burnisher Name | Role | Phone | + +------+ + PP | Unavailable | + +------+ + Source Comments GERMAINE is fully live on both [facility] and [facility] Allergies Not on File Current [...]
--- OUTSIDE RECORDS SUMMARY | ~2017-06-20 | XMS | Clinical Summary ---
Demographics + + + | Address | [address] | | | [place] [address] | + + + | Home Phone [...] Providers + +------+ + | Care Automobile Rental Clerk Name | Role | Phone | + +------+ + | Roderick Aleaxndra MD | PP | | + +------+ [...] | | | + + +--------+---------+------+------+-------+ | Higden-3 Fatty | Take 1,000 mg by | [...] + +---+ + + | Overview: PLRU [id number] Decision | + + Resolved Problems + [...] | 2017 | Visit | | MD iMlton LEWIS | | | | | | [...] | | 05/16/ | [id number] | | [id number]: Qty: 1 on | c | Eye | - ALCN | | 2018 | .19.0D | | 06/30/2016 by Belkys, | | | | | | | | Vicenta Alvarado MD | | | | | | /[id number] | | | | | | | [...] | MODA | [phone] | Indemn | [phone] | [address] [address] | | | HEALTH | | ity | [phone] | [place] [address] | | | MDCR | | | [...] Self | [birth year] | Home: | [address] | | [place] | milla/Tate | | [phone] | [phone] | [place] | | | [place] | | | [phone] | [phone] | + +--------+ +--------+ + +
--- OUTSIDE RECORDS SUMMARY | ~2017-06-20 | XMS | Encounter Summary ---
Demographics + + + | Address | [address] | | | [place] [address] | + + + | Home Phone [...] Providers + +------+ + | Care Manager Policy Name | Role | Phone | + [...] + | 05/19/ | Telephone | [facility] | Rodercik Alexandra, | Results | | 2018 | | MEDICINE [place] | [address] | | | | | [address] | [place] | | | | | [place] | [address] | | | | | [address] | | | | | | [phone] | | | +--------+ + + + [...] [place] | | | | | | [phone] | | | | | | | | +--------+---------+ + + + as of this encounter Visit Diagnoses Not on filein this encounter"
--- OUTSIDE RECORDS SUMMARY | ~2017-06-20 | XMS | Encounter Summary ---
Demographics + + + | Address | [address] | | | [place] [address] | + + + | Home Phone | | + + + | Preferred Language | Unknown | + + + | Marital Status | | + + + | Cheondoism Affiliation | [id number] | + + + | Race | Unknown | + + + | Ethnic Group | Unknown | + + + Author + + + | Author | [facility] | | | and Saurabhana | + + + | Organization | [facility] | | [...] Team Providers + +------+ + | Care Group Activities Aide Name | Role | Phone | [...] | | | 2017 | | [facility] | [address] | | | | | [address] | [place] | | | | | [place] | [address] | | | | | [address] | | | | | | [phone] | | | +--------+ + + + [...] [place] | | | | | | [phone] | | | | | | | [...]
--- OUTSIDE RECORDS SUMMARY | ~2017-06-20 | XMS | Encounter Summary ---
Demographics + + + | Address | [address] | | | [place] [address] | + + + | Home Phone [...] Team Providers + +------+ + | Care Pari Mutuel Ticket Seller Name | Role | Phone | + [...] + | 04/30/ | Telephone | [facility] | Roderick Alexandra, | Arm Pain | | 2018 | | MEDICINE [place] | [address] | | | | | [address] | [place] | | | | | [place], [place] | [address] | | | | | [address] | | | | | | [phone] | | | +--------+ + + + [...] [place] | | | | | | [phone] | | | | | | | [...]
--- OUTSIDE RECORDS SUMMARY | ~2017-06-20 | XMS | Encounter Summary ---
Demographics + + + | Address | [address] | | | [place] [address] | + + + | Home Phone [...] Providers + +------+ + | Care Operations Superintendent Name | Role | Phone | [...] + | 05/19/ | Telephone | [facility] | Roderick Alexandar, | Results | | 2018 | | MEDIC[facility] [place] | [address] | | | | | [address] | [place] | | | | | [place] | [address] | | | | | [address] | | | | | | [phone] | | | +--------+ + + + [...] [place] | | | | | | [phone] | | | | | | | | +--------+---------+ + + + as of this encounter Visit Diagnoses Not on filein this encounter"
[~2017-06-20 13:46] MED LIST: ALEVE220 M1 PO; ASPIRIN EC81 MG PO; FISH OIL300 MG PO; MAGOX 400400 MG PO; MOBIC7.5 MG PO; NIASPAN500 MG PO; PERCOCET 5-3251 EACH PO; PRAVACHOL40 MG PO; REFRESH OPTIVE15 ML OU; TOPROL XL25 MG PO; VITAMIN D2000 UNI1 PO; ZANTAC150 MG PO
[2017-06-20] MEDS ORDERED: NIASPAN500 MG PO (14:37)
--- NOTE | 2017-06-20 18:10 | NUR ---
NEW ED ADMIT. REGULAR DIET. SBA. LR @ 125. CALL IF UO <200 IN 4 HR. REACTION TO ROCEPHIN IN EMERGENCY DEPT. BENADRYL GIVEN IN ED. SLIGHT NAUSEA. NO PAIN. ZOSYN TO START IN THE MORNING.
--- NOTE | 2017-06-20 19:01 | NUR ---
RN IN ROOM.
--- NOTE | 2017-06-20 19:36 | NUR ---
RECIEVED BEDSIDE REPORT FROM SHASHI GREENE. PT APPEARS TO BE SLEEPING ON RIGHT SIDE. IV IN LAC. LR @ 100ML/HR. RESPIRATIONS EQUAL AND NONLABORED. CALL LIGHT WITHIN REACH. PERSONAL ITEMS AT BEDSIDE.
--- NOTE | 2017-06-20 19:39 | NUR ---
IN PT'S ROOM TO GET VS, SHE HAS THE CHILLS AT THIS TIME AND REQUESTED A BLANKET. ADVISED HER WE NEED HER TEMP TO COME DOWN, SO CANNOT GIVE HER A BLANKET AT THIS TIME. ALSO TURNED THE TEMP DOWN IN HER ROOM. WILL CONTINUE TO MONITOR.
--- NOTE | 2017-06-20 20:15 | NUR ---
CAME OUT TO THE NURSES STATION TO STATE THAT HIS IS SHAKING. ADVISED HIM THAT HER NURSE IS WITH ANOTHER PT BUT THIS RN CAN GET HER SOME TYLENOL TO HELP WITH THE CHILLS. ONCE IN ROOM PT AGAIN ASKED ABOUT A BLANKET AND ADVISED PT WE NEED TO KEEP HER TEMP DOWN. ADMINISTERED TYLENOL AND ASKE PT IF SHE IS HAVING ANY PAIN. SHE SAID NO, AND WOULD JUST LIKE THE SHAKING TO STOP. ADVISED PT WE WILL BE BACK SOON TO TAKE HER VS AGAIN.
--- NOTE | 2017-06-20 20:40 | NUR ---
PT UP TO BATHROOM TO VOID X1. UNABLE TO MEASURE VOID. BLADDER SCANNED WITH [address] DAWSON TO INFORM OF LOW URINE OUTPUT. ORDERS TO MEASURE NEXT VOID AND CALL IN <200. WILL CONT TO MONITOR.
--- NOTE | 2017-06-20 22:30 | NUR ---
REASSESSED VITAL SIGNS AND URINE OUTPUT. OUTPUT WAS 100ML. BLADDER SACN DON REVIELED 38ML. TEMP 100.9. B/P OF 125/36. HEART RASTE OF 80. CALLED DR DAWSON TO UPDATE ON LOW URINE OUTPUT AND TEMP. ORDERED 500 LR BOLUS TO BE ADMINISTERED AND 500MG TYLENOL ONCE TO BE GIVEN. WILL CONT TO MONITOR.
--- NOTE | 2017-06-20 22:40 | NUR ---
VITALS DONE AND CHARTED. BLADDER SCAN DONE WELL. SHE HAD 30ML. NOTIFIED HER RN BUTCH OF LOW B/P AND TEMP 100.9 BEDSIDE TABLE AND CALL LIGHT WITHIN REACH. PT NEEDS NOTHING ELSE AT THIS TIME.
--- NOTE | 2017-06-21 01:04 | NUR ---
MONITORING VS AND OUTPUT. PT HAS HAD 0ML OUT FOR 3.5 HR. VS CHECKED AND TEMP 101.2. DR DAWSON UPDATED ON FEVER AND DECREASED OUTPUT. MOTRIN 400MG ONCE ORDERED FOR FEVER. TO CALL IF BLADDER SCAN REVEALS <200. WILL CONT TO MONITOR
--- NOTE | 2017-06-21 01:19 | NUR ---
BLADDER SCANNED PT. 95 ML IN BLADDER.
--- NOTE | 2017-06-21 01:36 | NUR ---
VITALS AND I&OS DONE AND CHARTED. BEDSIDE TABLE AND CALL LIGHT WITHIN REACH. PT NEEDS NOTHING AT THIS TIME.
--- NOTE | 2017-06-21 01:43 | NUR ---
102 FEVER REPORTED FROM MAY ELECTRICAL HELPER. PT HAS RECIEVED MOTRIN. WILL RECHECK IN 30 MIN. 500ML LR BOLUS INFUSING. CALL LIGHT WITHIN REACH.
--- NOTE | 2017-06-21 02:20 | NUR ---
TEMP DECREASED TO 100.2. NO URINE OUTPUT YET. WILL CONT TO MONITOR. CALL LIGHT WITHIN REACH
--- NOTE | 2017-06-21 03:51 | NUR ---
VITALS AND I&OS DONE AND CHARTED. PER HER RN BUTCH I BLADDER SCANNED HER FOR 63ML. BEDSIDE TABLE AND CALL LIGHT WITHIN REACH. I STOOD BY HER SHE WENT INTO THE BATHROOM. SHE HAD A BM. PT WAS HELPED BACK TO BED. PT NEEDS NOTHING ELSE A T THIS TIME.
--- NOTE | 2017-06-21 04:19 | NUR ---
NO URINE OUTPUT. BLADDER SCAN REVEALED 65ML. INFORMED DR DAWSON. ORDER FOR CONNER CATH TO BE PLACED.
--- NOTE | 2017-06-21 06:14 | NUR ---
IN ROOM TO ADMINISTER ZOSYN, FRESH WATER IS AT BEDSIDE. PT DENIES FURTHER NEEDS.
--- NOTE | 2017-06-21 06:24 | NUR ---
VITALS AND I&OS DONE AND CHARTED. BEDSIDE TABLE AND CALL LIGHT WITHIN REACH.A WARM BLANKET WAS GIVEN PER REQUEST OF PT. SHE NEEDS NOTHING ELSE AT THIS TIME.
--- NOTE | 2017-06-21 08:00 | NUR ---
FULL BODY ASSESMENT DONE, PATIENT REPORTS " I DIDN'T GET ANY SLEEP LAST NIGHT, PEOPLE WERE IN MY ROOM EVERY HOUR". LUNG SOUNDS CLEAR. VS STABLE. PATIENT LOW GRADE TEMP 99.4, PROVIDED PATIENT WITH IS, ABLE TO REACH 750. NO COMPLAINTS OF PAIN AT THIS TIME. ORDERED PATIENT BREAKFAST.
--- NOTE | 2017-06-21 10:14 | NUR ---
ABX COMPLETE. PT RESTING IN BED. ALERT TO RN IN ROOM TO ADDRESS I.V. PUMP BEEPING. PT'S SPOUSE SITTING AT BEDSIDE
--- NOTE | 2017-06-21 11:58 | NUR ---
PATIENT AMBULATED 10 FEET OUT IN HALLLS BEFORE NEEDING TO RETUREN BACK TO ROOM. PATIENT REPORTS FEELING TIRED AND WEAK. ONCE BACK TO ROOM, DR. DAWSON ROUNDED ON PATIENT. ORAL TEMP OF 102.9 AND OXYGEN SATURATION 93% ON RA. BLOOD CULTURES ORDERED, AND PO MORTRIN AND TYLENOL ADMINISTERED. PLAN FOR PATIENT TO HAVE SOME LUNCH AND THEN HAVE CT OF THE ABDOMEN DONE. VS TO BE DONE MORE FREQUENTLY AND I&O.
--- NOTE | 2017-06-21 12:47 | NUR ---
RECHECKED PATIENT TEMP 99.9 ORAL. PATIENT RESTING BACK SUPINE WITH COLD CLOTH TO FOREHEAD. AT BEDSIDE. PATIENT DENIES ANY NEEDS AT THIS TIME. CALL LIGHT WITHIN REACH.
--- NOTE | 2017-06-21 15:00 | NUR ---
PATIENT SITTING UP IN BED, BACK FROM CT. TOLERATED ACTIVITY. NO COMPLAINTS OF PAIN. PATIENT AFEBRILE AT THIS TIME. AT BEDSIDE. PROVIDED PATIENT WITH PEANUT BUTTER SHAKE/ ENSURE. PATIENT ABLE TO EAT 90% OF SHAKE. STATED " THAT IS THE MOST I HAVE BEEN ABLE TO EAT IN DAYS." PATIENT USING IS ABLE TO REACH 750.
--- NOTE | 2017-06-21 15:44 | NUR ---
Medications reconciled using pharmacy records and patient interview
--- NOTE | 2017-06-21 17:00 | NUR ---
PATIENT URINE OUTPUT HAS INCREASED, DR. DAWSON REPORTED OKAY TO RETURN BACK TO I&OS Q4HR. REPORTS SOME PAIN IN LOWER ABDOMEN. BOWEL TONES ACTIVE. FULL BODY ASSESMENT DONE. STATES " I JUST FEEL LIKE SLEEPING" PATIENT SAT UP AT EDGE OF BED BUT REPORTED UNABLE TO WALK AT THIS TIME. PROVIDED CONNER CATH CARE.
--- NOTE | 2017-06-21 18:20 | NUR ---
FLAG MAKER REPORTED TO THIS NURSE PATIENT HAVING SOB, AND INCREASED WOB. TO ROOM, PATIENT REPORTS " I JUST CAN'T TAKE A FULL BREATH". RT TO ROOM. AUSCULTATED WHEEZES AND COURSNESS. CALL TO DR. DAWSON, NEW ORDERS FOR DUONEB TX AND THEN TO CALL
--- NOTE | 2017-06-21 18:45 | NUR ---
PATIENT WOB WORSENED WITH DUONEB, RT REPORTS PATIENT LUNG SOUNDS ARE MORE OPEN, AND MOST OF WHEEZING IS IN UPPER AIRWAY. CALL TO DR. DAWSON WHO CAME TO ROOM STAT, NEW ORDERS TO TRANSFER PATIENT TO CCU. BEDSIDE REPORT TO ERIS GREENE AND CPAP INITIATED. PATIENT NOW LESS SHAKY, APPEARS TO BE TOLERATED CPAP WELL. GIL AT BEDSIDE.
--- NOTE | 2017-06-21 18:55 | NUR ---
PT ARRIVED TO ROOM 129 VIA BED FROM MED/SURG. PT AWAKE AND SHAKY, R.T HERE AND APPLIED CPAP OF 8 AT 28%. SATS 98%. MONITOR ON BP 153/48 (70). WITH PT.
--- NOTE | 2017-06-21 19:45 | NUR ---
SHIFT REPORT RECEIVED FROM RAMONA SCHULTE. DR. DAWSON IN AT BEDSIDE, ASKED TO HAVE PT'S TEMP CHECKED, 102.2 TEMPORALLY, PRN MOTRIN GIVEN AT THIS TIME. PT WAS ON CPAP AND R.T. NOW IN TO INSTRUCT I.S. AND SWITCHED HER TO 2L O2 VIA NC.
--- NOTE | 2017-06-21 20:45 | NUR ---
ASSESSMENT COMPLETED. PT IS ALERT/ORIENTED. DENIES PAIN, NAUSEA, SOB, AND NUMBNESS/TINGLING IN EXTREMITIES. LUNGS HAVE EXPIRATORY WHEEZES IN UPPER LOBES AND ARE DIM IN BASES, 2L O2 VIA NC IN PLACE. HR REGULAR. BOWEL TONES ACTIVE. SKIN INTACT, NO EDEMA NOTED. IV PATENT, INFUSING WNL. CONNER PATENT, CHANGED OUT BAG FOR UROMETER. PT FINISHED EATING ABOUT 75% OF HER DINNER. AT BEDSIDE. CALL LIGHT WITHIN REACH.
--- NOTE | 2017-06-21 21:39 | NUR ---
TITRATED OXYGEN TO 3L VIA NC FOR SPO2:88-89%. SATS NOW IN HIGH 90'S.
--- NOTE | 2017-06-21 22:25 | NUR ---
RE-CHECKED PT'S TEMP: 98.8 ORALLY. IV ABX INFUSION STARTED. PT DENIES FURTHER REQUESTS AT THIS TIME, HER HAS GONE HOME FOR THE NIGHT. LIGHTS OFF PER REQUEST, WILL CONTINUE TO MONITOR.
--- NOTE | 2017-06-21 23:12 | NUR ---
PT CALLED AND STATED SHE WAS STARTING TO FEEL SHAKY. ORAL TEMP:98.5 AT THIS TIME. PULLED UP BLANKETS. 150ML URINE EMPTIED FROM CONNER. WILL CONTINUE TO MONITOR.
--- NOTE | 2017-06-22 00:16 | NUR ---
PT SLEEPING, NO APPARENT DISTRESS. RESPIRATIONS EVEN AND UNLABORED, RR:20, SPO2: 97% ON 3L O2 VIA NC. AUSCULTATED LUNGS: SLIGHT EXPIRATORY WHEEZE IN UPPER AIRWAY, OTHERWISE DIM. TEMPORAL TEMP 98.0 AT THIS TIME. IVF INFUSING WNL. CONNER PATENT, UO QS. WILL ALLOW FOR REST AND CONTINUE TO MONITOR.
--- NOTE | 2017-06-22 03:10 | NUR ---
CHECKED PT TEMP, 101.1 ORALLY, PRN MOTRIN GIVEN. PT RESTING, DENIES FURTHER REQUESTS.
--- NOTE | 2017-06-22 03:27 | NUR ---
PT UP TO BSC TO HAVE BM. BED CHANGE DONE, PT NOW HAS ATTENDS ON AND CHUX ON BED. PT BACK TO BED AND DENIES NEEDS.
--- NOTE | 2017-06-22 04:43 | NUR ---
ASSESSMENT COMPLETE. PT REPORTS FEELING SOB, LUNGS SOUND DIMINISHED THROUGHOUT, SLIGHT EXPIRATORY WHEEZE NOTED IN UPPER AIRWAY. ASKED R.T. TO EVALUATE, PT NOW BACK ON CPAP AT [address] @28%. DR[address] DAWSON NOTIFIED, NO NEW ORDERS RECEIVED. R.T. REMAINS AT BEDSIDE TO HELP KEEP PT CALM, WEARING THE CPAP MASK GIVES HER ANXIETY. WILL CONTINUE TO MONITOR.
--- NOTE | 2017-06-22 05:10 | NUR ---
PT TOLERATED CPAP FOR 45 MINUTES AND THEN NEEDED IT REMOVED, STATES IT MAKES HER FEEL CLAUSTROPHOBIC. PT STATES THAT SHE FEELS LESS SOB. 3L O2 VIA NC PLACED ON PT. PT DENIES FURTHER REQUESTS, WILL CONTINUE TO MONITOR.
--- NOTE | 2017-06-22 06:00 | NUR ---
RECHECKED TEMP: 98.2 TEMPORALLY.
--- NOTE | 2017-06-22 07:04 | NUR ---
CALLED AND SPOKE WITH DR. DAWSON REGARDING PT'S URINE OUTPUT WHICH HAS STARTED TO DECLINE. WILL CONTINUE TO MONITOR FOR NOW, NO NEW ORDERS RECEIVED.
--- NOTE | 2017-06-22 08:21 | NUR ---
PATIENT HELPED UP TO BSC AFTER HAVING SOME INCONTINENCE OF STOOL IN ATTENDS. PT HAD MORE LIQUID BM IN COMMODE. PT STATES SHE DOES FEEL A LITTLE SHORT OF BREATH, AND AN AUDIBLE EXP WHEEZE AUSCULTATED WITHOUT A STETHOSCOPE. PT HELPED BACK TO BED AND GIVEN AM MEDICATIONS. RR IS ELEVATED, AND NOTED TO BE AROUND 28-30 AT THIS TIME. CONNER DRAINING YELLOW URINE. CONTINUE TO MONITOR.
--- NOTE | 2017-06-22 08:33 | NUR ---
PT AWAKE, ASSESSMENT COMPLETED. LUNGS WITH FEW EXP WHEEZES. R.T. HERE TO ASSESS PT. RESP 28-30
--- NOTE | 2017-06-22 09:05 | NUR ---
DR. DAWSON IN TO ASSESS PT. PT SOB AND WHEEZY. IN ROOM WITH PT.
--- NOTE | 2017-06-22 10:24 | NUR ---
RT IN TO GIVE NEB TX, PT WITH DECREASED WHEEZES AFTER NEB TX. HOTEL ASSISTANT GENERAL MANAGER HERE FOR 2D ECHO.
[2017-06-22] MEDS ORDERED: PRESERVISION A1 EACH PO (11:49)
[2017-06-22] MEDS ORDERED: FISH OIL 1,0001 EAC6 PO (11:54)
[2017-06-22] MEDS ORDERED: MAG-OXIDE400 MG PO (11:55)
[2017-06-22] MEDS ORDERED: VITAMIN D-32000 UNIT PO (11:55)
--- NOTE | 2017-06-22 12:16 | NUR ---
PT UP TO BSC WITH MINIMAL ASSIST, PT HAD SMALL LOOSE BROWN STOOL. RETURNED TO BED, ASSESSMENT & VITAL SIGNS COMPLETED. TYLENOL 500 MG PO GIVE FOR TEMP 99.8. PT WITH EXP WHEEZES, RT NOTIFIED.
--- NOTE | 2017-06-22 12:46 | NUR ---
PT INCONT OF LOOSE STOOL X2, R.T. HERE AND NEB TX GIVEN. DR. DAWSON IN TO ASSESS PT. NEW ORDERS RECEIVED.
--- NOTE | 2017-06-22 13:31 | NUR ---
LASIX 20 MG GIVEN IV PER DR. ORDER. PT RESTING WITH HOB ELEVATED.
--- NOTE | 2017-06-22 13:51 | NUR ---
PT UP TO BSC AND HAD SMALL LIQ STOOL. SAMPLE SENT TO LAB PER DR. EUNICE VAZQUEZ. PT RETURNED TO BED, RESTING WITH HOB ELEVATED.
--- NOTE | 2017-06-22 17:25 | NUR ---
I/O'S COMPLETED AT 1500. PT RESTING WITH HOB ELEVATED. CONNER WITH GOOD URINE OUTPUT AFTER LASIX GIVEN. PT NOW C/O OF BEING COLD. PT CHILLING WITH RIGORS. ORAL TEMP 103.1. DR. MCLAUGHLIN NOTIFIED. NO NEW ORDERS AT THIS TIME. PT WITHOUT C/O OF CHEST PAIN.
--- NOTE | 2017-06-22 18:15 | NUR ---
PT ON CPAP 8 AT 28%. SATS 95%. BLANKETS OFF PER PT. AXILLARY TEMP 102.5.
--- NOTE | 2017-06-22 19:30 | NUR ---
PT ATE A FEW BITES OF DINNER AND IS NOW RESTING WITH HOB SLIGHTLY ELEVATED, TALKING WITH IN ROOM. NO C/O AT THIS TIME.
--- NOTE | 2017-06-22 21:48 | NUR ---
ADMINISTERED EVENING MEDICATIONS ALONG WITH PRN TYLENOL PER PT REQUEST TO AVOID GETTING THE CHILLS. PT'S TEMP IS 98.4 AT THIS TIME. SHE RECEIVED A NEB TRT AND IS READY FOR BED, SHE DENIES FURTHER NEEDS AT THIS TIME. R.T. WILL RETURN TO PUT HER ON CPAP AT 11PM.
--- NOTE | 2017-06-22 22:50 | NUR ---
PT IS AWAKE IN BED, SHE REMOVED PULSEOX, REPLACED PULSEOX. PT DENIES FURTHER NEEDS.
--- NOTE | 2017-06-23 00:10 | NUR ---
PT IS AWAKE IN BED, SHE HAD A SMEAR BM. PT IS VOIDING QS URINE. SHE DENIES PAIN AND DENIES NEEDS AT THIS TIME.
--- NOTE | 2017-06-23 02:34 | NUR ---
PT CALLED TO REQUEST A NEB TRT. SHE ALSO STATES SHE IS GETTING COLD. WILL ADMINISTER MOTRIN TO AVOID FEVER.
--- NOTE | 2017-06-23 03:02 | NUR ---
PT IS BACK ON CPAP AT THIS TIME D/T CRACKLES AUSCULTATED, INCREASED SOB, AND RR OF 30. PT'S TEMP IS 100.3 AND 400 MG OF MOTRIN WAS GIVEN. URINE OUTPUT SINCE MIDNIGHT IS 125 MLS WILL RECHECK IN 1 HOUR.
--- NOTE | 2017-06-23 04:11 | NUR ---
PT WAS ON CPAP FOR ABOUT 1 HOUR, HER LUNG SOUNDS HAVE IMPROVED AND SOB HAS DECREASED. SHE DENIES NEEDS AT THIS TIME. CALL LIGHT IS WITHIN REACH.
--- NOTE | 2017-06-23 05:11 | NUR ---
PT CALLED TO GET UP TO BEDSIDE CAMMODE. PT TOLERATED WELL. PT CONTINUES TO DEHY SOB AFTER USING THE CPAP MACHINE. PT WAS LAYING IN BED READING BOOK. PT STATES THIS IS THE BEST SHE HAS FELT. NO OTHER ISSUES AT THIS TIME. WILL CONTINUE TO CLOSELY MONITOR.
--- NOTE | 2017-06-23 05:14 | NUR ---
IN ROOM TO ADMINISTER TYLENOL AND ZOSYN, PT HAS FRESH WATER AT BEDSIDE. PT DENIES FURTHER NEEDS AT THIS TIME.
--- NOTE | 2017-06-23 06:32 | NUR ---
PT IS RESTING WITH EYES CLOSED, RESPIRATIONS ARE EVEN AND NONLABORED. CALL LIGHT IS WITHIN REACH.
--- NOTE | 2017-06-23 09:13 | NUR ---
DR. MCLAUGHLIN IN TO ASSESS PT.
--- NOTE | 2017-06-23 09:20 | NUR ---
UPDATED REPORT RECIEVED ALCON NORRIS RN. I WILL TAKE OVER PATIENT CARE. PATIENT IS UP TO COMMODE TO EXPELL LIQUID STOOL. IS EXTREMELY SHORT OF BREATH. LEFT LUNG DIMINISHED THROUGHOUT. CRACKLES BILAT. WORK OF BREATHING INCREASED WITH MOVEMENT. IS IN ROOM. BACK TO BED WITH ASSIST AFTER COMMODE AND BED LINEN CHANGED. HOB ELEVATED.
--- NOTE | 2017-06-23 09:20 | NUR ---
IVF DC'D PER ORDERS. TAKING FEW SIPS OF WATER.
--- NOTE | 2017-06-23 10:25 | NUR ---
PT VERY SOB CHANGED FROM CPAP OF 10 TO BIPAP 01/23 RATE OF 4 , 25%, I WILL CONTINUE TO MONITOR PATIENT AND TALKED TO DOCTOR ABOUT THE NEXT PLAN, PT GOT PRN BREATHING TREATMENT HOWEVER THIS MAY BE A FUILD ISSUE IT DID NOT SEEM TO GIVE PATIENT RELIEF. A FOLLOW UO CHEST XRAY MAY BE BENEFICIAL .
--- NOTE | 2017-06-23 10:25 | NUR ---
BIPAP STARTED. I-12,E-8. FIO2-25.
--- NOTE | 2017-06-23 11:15 | NUR ---
AWAKE. REQUESTING BIPAP OFF. THIS DONE. LUNCH ORDERED.
--- NOTE | 2017-06-23 13:54 | NUR ---
PT ASLEEP WITH BIPAP ON. GIL SITTING BY PT'S SIDE. HE WELCOMED ME IN, HAD A PLEASANT VISIT. STATED THAT HE FEELS INFORMED TO THIS POINT, BUT IS STILL WAITING FOR SOME TEST RESULTS THAT MAY HOLD ANOTHER PIECE OF THE PUZZLE TO HER EXTENDED A BLESSING, WILL CONITNUE TO FOLLOW NEEDED
--- NOTE | 2017-06-23 15:00 | NUR ---
UP TO COMMODE. VERY SMALL BM. THEN SAT AT BEDSIDE. SPONGE BATH GIVEN AND TEETH BRUSHED, HAS FEW SMALL PINK SPOTS ON BACK, STATES HAVE SOME ITCHING ON BACK.
--- NOTE | 2017-06-23 16:00 | NUR ---
ASSESSMENT DONE, CONTINUE WITH WHEEZES WITH FEW CRACKLES AND DIMINISHED. INCREASED SHORTNESS OF BREATH WITH EXERTION.
--- NOTE | 2017-06-23 18:43 | NUR ---
PATIENT HAS BEEN AT BEDSIDE MOST OF DAY. PATIENT IS RESTFUL WITH CPAP ON. CONNER CATH IS PATENT.
--- NOTE | 2017-06-23 19:07 | NUR ---
IS ON O2 AT 3 L NC AT THIS TIME. REPORT TO NEXT SHIFT.
--- NOTE | 2017-06-23 19:30 | NUR ---
PT SHIFT REPORT RECEIVED FROM DAY SHIFT RN. PT IS RESTING IN BED WITH AT BEDSIDE. PT DENIES ANY NEEDS AT THIS TIME. PT IS ON 3L NC NOW. WILL CONTINUE TO CLSOELY MONITOR.
--- NOTE | 2017-06-23 20:30 | NUR ---
PT SHIFT ASSESSMENT. PT IS RESTING IN BED. PT BOWEL TONES ACTIVE. BREATH SOUNDS HAVE WHEEZE THROUGHOUT AND CRACKLES IN BASES. PT DENIES ANY SOB AT THIS TIME. PT DENIES NEB TREATMENT AND CPAP. WILL CONTINUE TO CLOSELY MONITOR.
--- NOTE | 2017-06-23 21:15 | NUR ---
PT IS NOW RESTING AT THIS TIME ON HER SIDE PER REQUEST. PT DENIES CPAP AFTER EXPLAINING ITS PURPOSE. PT STATES " I ALREADY SPOKE WITH RT ABOUT IT AND WE PLANNED TO PUT IT ON A LITTLE LATER IN THE SHIFT". PT STATES "I JUST WANT A FEW HOURS OFF OF IT". PT CONTINUES TO DENY SOB. WILL CONTINUE TO CLOSELY MONITOR.
--- NOTE | 2017-06-23 22:30 | NUR ---
CALLED TO UPDATE THAT PT SPO2 WAS SUDDENLY DIPPED TO MID 80'S FROM 94%. WENT IN TO WAKE PT. HAD TO STERNAL RUB PT MULTIPLE TIMES TO GET PT TO RESPOND. PT IS CONFUSED AND SWONG ARMS AT STAFF. PT STATED "I THOUGHT YOU WERE THE BAD [place]". PLACED PT ON CPAP. CALLED RT. PER RASCH ORDER STAT ABG TO ASSESS CO2 LEVELS.
--- NOTE | 2017-06-23 23:18 | NUR ---
CALLED MD MCLAUGHLIN TO UPDATE REGUARDING PT ABG RESULTS. NO NEW ORDERS AT THIS TIME. WILL CONTINUE TO CLOSELY MONITOR.
--- NOTE | 2017-06-23 23:29 | NUR ---
PT REMAINS ON CPAP AFFTER ABG. PT WOKE MORE WITH ABG, BUT FELL BACK TO SLEEP AFTER COMPLETED. RT EXPLAINED TO PT WHY HE WAS DOING AN ABG AND PT OKAYED DRAW. PT DENIES ANY NEEDS AT THIS TIME. WILL CONTINUE TO CLOSELY MONITOR. BED ALARM ON FOR SAFETY.
--- NOTE | 2017-06-24 | NUR ---
PT REMOVED CPAP. PLACED BACK ON NC 3L. PT IS ABLE TO TELL ME WHERE SHE IS AND WHY SHE IS HERE. PT STATES SHE DOES NOT WANT THE MASK BACK ON AT THIS TIME. EXPLAINED THE CPAP PURPOSE AND WHY IT IS RECOMMENED, PT STILL REFUSING. WILL LET PT REST ON 3L NC AT THIS TIME AND CONTINUE TO CLSOELY MONITOR.
--- NOTE | 2017-06-24 02:00 | NUR ---
PT RESTING WELL AT THIS TIME. PT NASAL CANULLA HAS SLIPPED OFF SEVERAL TIMES. REPLACE DON PT. PT DENIES ANY NEEDS AT THIS TIME. WILL CONTINUE TO CLOSELY MONITOR.
--- NOTE | 2017-06-24 04:00 | NUR ---
PT RESTING IN BED. PT CALLED NAVAL ARCHITECT SPECIALIST LIGHT. PT TANGLED IN CORDS. ASSISTED WITH GETTING UNTANGLED. NO OTHER NEEDS AT THIS TIME. WILL CONTINUE TO CLOSELY MONITOR.
--- NOTE | 2017-06-24 05:20 | NUR ---
PT CALLED PT MORE AWAKE RIGHT NOW. PT ALERT TO NAME, MONTH, SITUATION, AND PLACE. PT REQUESTING WATER. REFILLED WATER. PT REQUESTING NEB TREATMENT. PT CONTINUES TO DENY CPAP EVEN WITH EXPLANATION OF ITS PURPOSE. PT STATES "I JUST CAN TOLERATE IT WELL.". WILL CALL RT FOR NEB TREATMENT. PT RR 24 WITH SPO2 97% ON 3L NC. WILL CONTINUE TO CLOSELY MONITOR.
--- NOTE | 2017-06-24 07:30 | NUR ---
BEDSIDE REPORT RECIEVED. RESTFUL.
--- NOTE | 2017-06-24 08:00 | NUR ---
ASSESSMNET DONE. TALKED WITH PATIENT ABOUT PLAN OF CARE OF DAY. IS UNDERSTANDING.
--- NOTE | 2017-06-24 08:10 | NUR ---
DR. MCLAUGHLIN HERE TO SEE PATIENT. ORDERS RECIEVED.
--- NOTE | 2017-06-24 08:30 | NUR ---
SITTING AT BEDSIDE TO EAT BREAKFAST.
--- NOTE | 2017-06-24 09:00 | NUR ---
CONNER CATH DC'D PER ORDERS AND EMPTIED FOR 275 ML YELLOW URINE.
--- NOTE | 2017-06-24 10:45 | NUR ---
CARE CONFRENCE ATTENDEES: PT AND HER GIL STAFF: DR MCLAUGHLIN, [facility]LF CASE MANAGEMENT, [facility], [facility], ADRIANNE Tillman RN, DR MCLAUGHLIN DISCUSSED PTS CONDITION WITH PT AND HER , STATED THAT SHE IS STARTING TO RESPOND TO THE ANTIBIOTICS, HER APPETITE IS IMPROVING, CONNER CATH WAS REMOVED. PT NEEDS TO CONTINUE WITH ANTIBX, AND RT, CHEST PHYSIOTHERAPY, RT TX. WITH HIGH FEVERS AND T[place]YNPEA PT IS TO REMAIN IN ICU WITH HOPES OF GOING TO THE FLOOR TOMORROW. I DISCUSSED THE NEED SHE WILL HAVE FOR REHAB WHEN SHE IS READY TO GO. SHE MAY NEED EITHER SWING BED OR SNF.
--- NOTE | 2017-06-24 11:10 | NUR ---
ON BIPAP. RESTFUL
--- NOTE | 2017-06-24 12:10 | NUR ---
SITTING AT BEDSIDE TO EAT LUNCH. O2 NOW AT 2 L NC. WHEH OFF BIPAP IS ON NC. TOLERATING WELL.
--- NOTE | 2017-06-24 13:49 | NUR ---
PT RESTING IN BED WITH CPAP ON. GIL BY HER SIDE. HE FEELS SHE IS MAKING STRIDES, BUT STILL IS HAVING PROBLEMS WITH THE CPAP. REQUEST A VISIT FROM THEIR DISH MACHINE OPERATOR, I CONTACTED AND GAVE MESSAGE TO SEC. WILL CONTINUE TO FOLLOW
--- NOTE | 2017-06-24 14:30 | NUR ---
AWAKE, OFF BIPAP. HAS BEEN ON CPAP/BIPAP FOR APPROX 4.5 HOURS SO FAR TODAY.
--- NOTE | 2017-06-24 14:39 | NUR ---
REMAINS VERY SHORT OF BREATH WITH EXERTION, AUDIBLE EXP WHEEZES.
--- NOTE | 2017-06-24 15:10 | NUR ---
ASSESSMENT DONE. LUNGS WITH LESS WHEEZES. BREATHING EASIER. IS LESS SHORT OF BREATH. MORE ENERGY IN VOICE.
--- NOTE | 2017-06-24 16:30 | NUR ---
STOOD AT BEDSIDE, MARCHED IN PLACE. DID WELL.
--- NOTE | 2017-06-24 18:00 | NUR ---
TOOK DINNER FAIR. DENIES NAUSEA. OFF BIPAP AT THIS TIME. HAS BEEN ON BIPAP APPROX 5.5 HRS TODAY. PATIENT IS DOING MUCH BETTER THIS AFTERNOON. IS IN ROOM.
--- NOTE | 2017-06-24 19:35 | NUR ---
REPORT RECEIVED FROM ADRIANNE GREENE. IN TO SEE PT, UP TO BSC TO VOID. BECOMES SOMEWHAT SOB WITH ACTIVITY BUT IS ABLE TO COMPLETE SENTENCES THROUGHOUT ACTIVITY, PT STATES EARLIER IN THE DAY SHE WAS "ONLY ABLE TO SAY THREE WORDS WITHOUT GASPING FOR A BREATH" HR 70'S AND SPO2 97% ON 2L/NC REMAIN STEADY WHILE UP. ASSESSMENT DONE, LUNGS CLEAR BUT DIM THROUGHOUT. DENIES PAIN/NAUSEA, IN BED WATCHING TV WITH AT BEDSIDE.
--- NOTE | 2017-06-24 22:00 | NUR ---
PT IS READY FOR BED NOW AND ATTEMPTING TO WEAR BIPAP FOR LONG POSSIBLE.
--- NOTE | 2017-06-25 00:30 | NUR ---
PT HAS NOT BEEN ABLE TO TOLERATE BIPAP, RT IN SEVERAL TIMES TO TRY TO HELP ADJUST MASK.
--- NOTE | 2017-06-25 03:00 | NUR ---
PT UP TO VOID, THEN BACK TO BED WITH BIPAP OFF, 2L/O2 IN PLACE.
--- NOTE | 2017-06-25 04:22 | NUR ---
PT SLEEPING WITH BIPAPP OFF, 2L/NC. SPO2 94%.
--- NOTE | 2017-06-25 04:40 | NUR ---
UP TO BSC FOR LOOSE STOOL, BACK TO BED WITH 2L/NC ON, STATES SHE HAS SLEPT VERY LITTLE SO FAR TONIGHT.
--- NOTE | 2017-06-25 07:43 | NUR ---
pt resting in bed. at bedside. discussed how pt was feeling this am. reports not having a good night sleep and being tired. had difficulty with c-pap throughout the night.
--- NOTE | 2017-06-25 08:04 | NUR ---
ADMINISTERED MORNING MEDICATIONS, PATIENT SITTING AT EDGE OF BED, CONVERSING WITH AND EATING. NOTED MINIMAL SOB, O2 SATURATION 94% 2L NC. PATIENT APPEARS TO BE IN GOOD SPIRITS, LAUGHING WITH .
--- NOTE | 2017-06-25 08:46 | NUR ---
PT UP TO BEDSIDE COMMODE AND BACK TO BED. PT SHORT OF BREATH WITH EXCERTION. PT STILL ABLE TO MAINTAIN CONVERSATION WHILE UP. SATS STAYED IN THE 90'S ON 2L NC.
--- NOTE | 2017-06-25 09:24 | NUR ---
MD IN ROOM WITH PT. DISCUSSED TRANSFER TO MEDICAL FLOOR TODAY. PT AND VERBALIZED UNDERSTANDING.
--- NOTE | 2017-06-25 10:10 | NUR ---
PT UP TO BEDSIDE COMMODE AND BACK TO BED. PT SHORT OF BREATH WITH EXCERTION. RECOVERS EASILY ONCE BACK IN BED.
--- NOTE | 2017-06-25 12:30 | NUR ---
PATIENT ARRIVED FROM CCU VIA W/C TO ROOM 115. PATIENT IS ON 1L OF OXYGEN AND IS ALERT AND ORIENTED. PATIENT IS SOB WITH ANY EXERTION BUT RESOLVES SOB EASILY WITH REST. GEORGE IS IN THE ROOM WITH HER AND BOTH ARE ORIENTED TO THE ROOM. PATIENTS RAILS ARE UP AND CALL LIGHT WITHIN REACH. PATIENT SALINE LOCKED.
--- NOTE | 2017-06-25 12:45 | NUR ---
TRANSFERED PT TO MEDICAL FLOOR VIA WHEELCHAIR. ORIENTED TO ROOM AND CALL LIGHT. TRANSFERED CARE TO [facility] GRE[facility].
--- NOTE | 2017-06-25 13:04 | NUR ---
PT MOVED TO M\S RM 113. NOTICABLE IMPROVEMENT IN PT'S CONDITION. GIL BY HER SIDE. EXTENDED A BLESSING, PT AND NO NEEDS AT THIS TIME
--- NOTE | 2017-06-25 13:43 | NUR ---
IV ABX STARTED AT THIS TIME. PATIENT IS RESTING WITH EYES CLOSED ON THE RIGHT SIDE.
--- NOTE | 2017-06-25 15:30 | NUR ---
PATIENT PLACED ON HER BIPAP AT THIS TIME
--- NOTE | 2017-06-25 17:35 | NUR ---
THIS PATIENT WAS TRANSFERRED OVER FROM THE ICU THIS AFTERNOON WITH A DIAGNOSIS OF PNEUMONIA. THE PATIENT IS ON 1 LITER OF OXYGEN AT ALL TIMES BUT USES THE BIPAP MACHINE A COUPLE TIMES A DAY SHE TOLERATES IT. SHE IS SALINE LOCKED EXCEPT FOR WHEN SHE HAS HER IV ZOSYN RUNNING. SHE IS A STANDBY ASSIST UP TO THE BATHROOM AND HER REMAINS AT HER SIDE. HE IS VERY HELPFUL TO HER. SHE HAS BEEN AFEBRILE TODAY AND HAD A NEGATIVE CDIFF RESULT.
--- NOTE | 2017-06-25 19:00 | NUR ---
IV SALINE LOCKED AT THIS TIME.
--- NOTE | 2017-06-25 20:00 | NUR ---
RECEIVED REPORT AT 1900, FOUND PT IN BED SLEEPING.
--- NOTE | 2017-06-25 21:57 | NUR ---
VITALS AND I&OS DONE AND CHARTED. BEDSIDE TABLE AND CALL LIGHT WITHIN REACH.
--- NOTE | 2017-06-25 22:00 | NUR ---
V/S ARE WDL. RIGHT SIDED LOBES HAVE EXPIRATORY WHEEZING. LEFT LOBES ARE CLEAR. ABD SOUNDS ARE PRESENT, PT MOVES INDEPENDENT IN ROOM. PT DENIES PAIN. PT IS WILLING TO WEAR C-PAP TONIGHT. RT TO BE CALLED.
--- NOTE | 2017-06-26 | NUR ---
PT IS SLEEPING AT THIS TIME. C-PAP IS ON.
--- NOTE | 2017-06-26 02:00 | NUR ---
ASSITSTED PT TO BATHROOM. PT IS BACK IN BED. C-PAP IS STILL ON.
--- NOTE | 2017-06-26 04:00 | NUR ---
PT IS SLEEPING AT THIS TIME.
--- NOTE | 2017-06-26 05:16 | NUR ---
PT SLEPT MOST OF THE NIGHT. PT ALSO HAD C-PAP ON FROM [id number]. WITH FIRST ASSESSMENT, ALL LOBES ON RIGHT SIDE HAD WHEEZING. LEFT LOBES WERE CLEAR. WITH 2ND ASSESSMENT RUL HAD WHEEZING, ALL OTHER LOBES WERE CLEAR. ABD SOUNDS ARE PRESENT. PT HAD A BM. URINE OUTPUT IS ADEQUATE. PT HAS BILATERAL TRACE EDEMA ON LOWER LEGS. PT IS INDEPENDENT IN ROOM. NO NEW CONCERNS FOR THIS PT. V/S WDL SO FAR.
--- NOTE | 2017-06-26 06:26 | NUR ---
VITALS AND I&OS DONE AND CHARTED. ROOM CLEANED UP, GARBAGES EMPTIED. BEDSIDE TABLE AND CALL LIGHT WITHIN REACH. PT NEEDS NOTHING ELSE AT THIS TIME.
--- NOTE | 2017-06-26 07:20 | NUR ---
BEDSIDE HANDOFF REPORT RECEIVED FROM CLIENT SOLUTIONS SPECIALIST RN. PT SLEEPING, LEFT UNDISTURBED.
--- NOTE | 2017-06-26 10:20 | NUR ---
PT SALINE LOCKED. PROVIDED WITH ROBE TO WALK IN [place]. NURSE AIDE TO WALK WITH PT.
--- NOTE | 2017-06-26 14:15 | NUR ---
PT RESTING IN BED. PT ON ROOM AIR, TOLERATING WELL. LUNG SOUNDS CONTINUE TO BE COARSE. PT GIVEN CALAMINE LOTION TO BACK AND CHEST. BENADRYL GIVEN. PT REQUESTING TO NAP. PT DENIES OTHER NEEDS AT THIS TIME.
--- NOTE | 2017-06-26 14:21 | NUR ---
PT UP AND WALKING FOR THE FIRST TIME, OR SHE PUT IT,HER "MAIDEN" VOYAGE. PT WALKING THE HALLS, BY HER SIDE. ALL STAFF GAVE HER ENCOURAGEMENT. SHE WAS PLEASED WITH THE PROGRESS SHE HAS MADE
--- NOTE | 2017-06-26 18:00 | NUR ---
PT RESTING IN BED, SLEEPY AFTER BENADRYL. PT ENCOURAGED TO SIT AT EDGE OF BED AND EATING DINNER. GIVEN AUGMENTIN, CULTURELLE AND PRAVASTATIN. PT DENIES OTHER NEEDS AT THIS TIME.
--- NOTE | 2017-06-26 18:02 | NUR ---
PT TRANSITIONED TO ORAL ABX TODAY. PT WITH SLIGHTLY IMPROVED APPETITE, CONTINUE TO ENCOURAGE. SALINE LOCKED. PT WALKED IN [place] TODAY, PT/OT ORDERED. PT WEANED TO ROOM AIR, TOLERATING WELL. PT VOIDING QS, HAD LOOSE STOOL TODAY.
--- NOTE | 2017-06-26 18:26 | NUR ---
PATIENT AND AND I WALKED TWO LAPS AROUND MED SURG THIS MORNING AROUND 11AM. THAN I SET UP THE SHOWER. HER ALSO HELPED HER TAKE A SHOWER. I CHANGED THE BED LINENS.
--- NOTE | 2017-06-26 18:30 | NUR ---
PATIENT IS SLEEPING RIGHT NOW. HASN'T ATE HER DINNER. IN ROOM
--- NOTE | 2017-06-26 19:00 | NUR ---
BEDSIDE REPORT RECEIVED FROM OFFGOING RN. PT LYING IN BED WITH AT BEDSIDE. PT DENIES NEEDS AT THIS TIME. CALL LIGHT WITHIN REACH.
--- NOTE | 2017-06-26 20:48 | NUR ---
PT ASSESSMENT COMPLETE. PT DENIES PAIN, NAUSEA. STATES THAT SHE FEELS BLAH. PT REPORTS HAVING FELT SOB PRIOR TO USING BIPAP, BUT DOES NOT FEEL SOB AT THIS TIME. O2 @ 1.5 LPM. RASH CONTINUES TO PT'S BACK, SCHEDULED BENADRYL ADMINISTERED. PT DENIES ITCHING, STATES THAT CALAMINE LOTION HAS BEEN HELPFUL. PT DENIES OTHER NEEDS AT THIS TIME. CALL LIGHT WITHIN REACH.
--- NOTE | 2017-06-26 22:24 | NUR ---
PT RESTING IN BED WITH SITTING AT END OF BED. PT STATES THAT SHE HAS BEEN UP TO USE THE BATHROOM AND FLUSHED THE TOILET. REPORTS THAT STOOL AND URINE WERE MIXED. PT AND HER DENY NEEDS AT THIS TIME. CALL LIGHT WITHIN REACH.
--- NOTE | 2017-06-27 01:15 | NUR ---
PT RESTING IN BED WITH EYES CLOSED. RESPIRATIONS ARE EVEN AND UNLABORED. SLEEPING AT BEDSIDE. PT DOES NOT WAKE WHILE WRTIER AT DOORWAY, NO S/SX OF DISTRESS PRESENT. CALL LIGHT WITHIN REACH.
--- NOTE | 2017-06-27 02:15 | NUR ---
PT ASSSESSMENT COMPLETE. PT RESTING WITH EYES CLOSED. RESPIRATIONS EVEN AND UNLABORED. PT APPEARS TO BE SLEEPING. WKES TO VOICE AND TOUCH. ASSESSMENT UNCHANGED FROM PRIOR. PT DENIES NEEDS AT THIS TIME. PT'S CONTINUES TO SLEEP AT BEDSIDE. CALL LIGHT WITHIN REACH.
--- NOTE | 2017-06-27 05:18 | NUR ---
PT RESTING IN BED ON HER R SIDE. RESPIRATIONS EVEN AND UNLABORED. NO S/SX OF DISTRESS PRESENT. PT'S SLEEPING AT BEDSIDE. CALL LIGHT WITHIN PT REACH.
--- NOTE | 2017-06-27 05:21 | NUR ---
PT SLEPT THROUGHOUT SHIFT WITH AT BEDSIDE OVERNIGHT. O2 @ 1.5 LPM. UO QS. PT CONTINUES TO HAVE LOOSE STOOL. APPETITE DECREASED, IMPROVING. TOLERATING PO ABX WELL. IV SL.
--- NOTE | 2017-06-27 06:23 | NUR ---
VITALS AND I&OS DONE AND CHARTED. FRESH WATER GIVEN. EMPTIED GARBAGES. BEDSIDE TABLE AND CALL LIGHT WITHIN REACH.
--- NOTE | 2017-06-27 09:05 | NUR ---
PATIENT MEDICATION PASSED AND VITALS TAKEN. LINEN CHANGED AT THIS TIME, PATIENT SPILLED TEA ON HER SHEETS. SHE ATE 100% OF HER BREAKFAST. SHE HAS NO C/O SOB OR PAIN THIS AM. SHE HAS BEEN AFEBRILE THROUGH THE NIGHT.
--- NOTE | 2017-06-27 10:10 | NUR ---
PATIENT AMBULATED WITH PHYSICAL THERAPY. PATIENT WAS 93% WHILE AMBULATING ON RA. PATIENT WILL BE TAKEN OFF OF OXYGEN AND LEFT OFF AT THIS TIME.
--- NOTE | 2017-06-27 10:26 | NUR ---
PT IS SITTING UP IN CHAIR WITH CALL LIGHT IN REACH VISITING WITH SPOUSE PT DID NOT NEE ANYTHING AT THE MOMENT
--- NOTE | 2017-06-27 12:17 | NUR ---
PATIENT SITTING UP AT THE SIDE OF THE BED EATING LUNCH PATIENT REMAINS ON RA WITH O2 SATURATION OF 96%. SHE DENIES ANY SOB OR PAIN.
--- NOTE | 2017-06-27 15:22 | NUR ---
PATIENT UP AMBULATING THE HALLWAY WITH HER AT THIS TIME, PATIENT WAS ABLE TO WALK AROUND THE NURSES STATION X4 TIMES.
--- NOTE | 2017-06-27 16:52 | NUR ---
patient working on papers from home, pm medications given. o2 saturations on ra continue to be good, currently 96% on RA. patient is alert and oriented and has no c/o sob.
--- NOTE | 2017-06-27 17:53 | NUR ---
PATIENT IS NOW ON RA WITH O2 SATURATIONS AT 96% AND NO C/O SOB. SHE WILL D/C HOME IN THE AM. SHE IS ON ORAL ANTIBIOTICS AND HAS BEEN UP SEVERAL TIMES TODAY AMBULATING IN THE HALLWAY WITH HER . SHE IS STEADY ON HER FEET WHILE AMBULATING AND HAS HAD NO C/O PAIN.
--- NOTE | 2017-06-27 18:03 | NUR ---
PT IS RESTING IN BED SAFELY WITH CALL LIGHT IN REACH. PT ASKED FOR FRESH WATER
--- NOTE | 2017-06-27 19:19 | NUR ---
BEDSIDE REPORT RECEIVED FROM OFFGOING RN. PT SITTING IN BED WITH AT BEDSIDE. DENIES NEEDS AT THIS TIME. CALL LIGHT WITHIN REACH.
--- NOTE | 2017-06-27 20:20 | NUR ---
PT UP WALKING IN [place] WITH 'S ASSISTANCE. PT REPORTS HAVING WALKED 3 LAPS IN TOTAL, PT TOLERATED WELL. NO REPORTS OF SOB.
--- NOTE | 2017-06-27 20:59 | NUR ---
PT ASSESSMENT COMPLETE. LUNG SOUNDS CLEAR, DIMINISHED IN BASES. PT DENIES PAIN, NAUSEA, OR SOB. PT DENIES OTHER NEEDS AT THIS TIME. PT'S PLANS TO STAY THE NIGHT AGAIN WITH PT. CALL LIGHT WITHIN REACH.
--- NOTE | 2017-06-27 23:48 | NUR ---
PT RESTING IN BED TURNED ON L SIDE, FIDGETING UNDER BLANKETS. PACE ANALYST ENTERS ROOM, PT WAKES EASILY. STATES THAT SHE JUST WAS UP TO THE BATHROOM. DENIES NEEDS AT THIS TIME. CALL LIGHT WITHIN REACH, SLEEPING AT BEDSIDE.
--- NOTE | 2017-06-28 01:26 | NUR ---
PT RESTING IN BED ON L SIDE. RESPIRATIONS EVEN AND UNLABORED. NO S/SX OF DISTRESS NOTED. PT APPEARS TO BE SLEEPING. PT SLEEPING AT BEDSIDE. CALL LIGHT WITHIN REACH.
--- NOTE | 2017-06-28 02:56 | NUR ---
PT RESTING IN BED WITH EYES CLOSED. APPEARS TO BE SLEEPING, WAKES EASILY TO TOUCH. PT ASSESSMENT COMPLETE, UNCHAGED FROM PREVIOUS. PT DENIES PAIN, NAUSEA, OR SOB. PT DENIES NEEDS AT THIS TIME. CALL LIGHT WITHIN REACH. PT'S SLEEPING IN RECLINER AT BEDSIDE.
--- NOTE | 2017-06-28 05:30 | NUR ---
PT RESTING IN BED ON L SIDE. RESPIRATIONS ARE EVEN AND UNLABORED. NO S/SX OF DISTRESS PRESENT. PT APPEARS TO BE SLEEPING. PT'S CONTINUES TO SLEEP IN RECLINER AT BEDSIDE.
--- NOTE | 2017-06-28 06:05 | NUR ---
PT SLEPT THROUGHOUT SHIFT. NO EPISODES OF SOB. PT TOLERATING RA WELL. UP TO WALK X 3 LAPS EARLY IN SHIFT, TOLERATED WELL. PROBABLE DC IN AM.
--- NOTE | 2017-06-28 08:30 | NUR ---
PATIENT AT EDGE OF BED, EATING BREAKFAST WITH . GARBAGE EMPTIED. CALL LIGHT IN REACH NO OTHER NEEDS.
--- NOTE | 2017-06-28 09:36 | NUR ---
patient ambulating halls with now.
[2017-06-28] MEDS ORDERED: AMOX TR-K CLV1 EAC1 PO (10:55)
[2017-06-28] MEDS ORDERED: CULTURELLE1 EAC1 PO (10:56)
== END 2017-06-28 12:35 | disposition home or self-care (01) | DRG 178 ==
LOC: ED 13:46 → MS 16:38 → CCU 16:38 → MS 06-25 12:30
PROVIDERS: ADMIT Internal Medicine
PROC: 5A09357 Assistance with Respiratory Ventilation, Less than 24 Consecutive Hours, Continuous Positive Airway Pressure (ICD-10-PCS; principal; 2017-06-21)
DX: J15.6 Pneumonia due to other Gram-negative bacteria (principal); I47.1 Supraventricular tachycardia; K52.1 Toxic gastroenteritis and colitis; E87.6 Hypokalemia; I10 Essential (primary) hypertension; I51.89 Other ill-defined heart diseases; M62.81 Muscle weakness (generalized); I08.3 Combined rheumatic disorders of mitral, aortic and tricuspid valves; E78.5 Hyperlipidemia, unspecified; K21.9 Gastro-esophageal reflux disease without esophagitis; T36.95XA Adverse effect of unspecified systemic antibiotic, initial encounter; Y92.239 Unspecified place in hospital as the place of occurrence of the external cause; Z88.1 Allergy status to other antibiotic agents; Z79.82 Long term (current) use of aspirin; Z79.899 Other long term (current) drug therapy
CPT/HCPCS: 36415; 36600; 51798; 71045; 74176; 80048; 80053; 81001; 82803; 83605; 83690; 83735; 83880; 85025; 87040; 87088; 87493; 87502; 93306; 94640; 94660; 94668; 97161; J0456; J0696; J1200; J2405; J2543; J3475; J7030; J7050; J7120

== ENCOUNTER 2019-02-11 22:57 | Inpatient (IN) | payer MEDICARE, OTHER ==
[~2019-02-11] VITALS: Ht 157.5 cm; Wt 71.6 kg
--- OUTSIDE RECORDS SUMMARY | ~2019-02-11 | XMS | Encounter Summary ---
Demographics + + + | Address | [address] | | | [place] [address] | + + + | Home Phone | | + + + | Preferred Language | Unknown | + + + | Marital Status | | + + + | Episcopal Affiliation | 1077 | + + + | Race | Unknown | + + + | Ethnic Group | Unknown | + + + Author + + + | Author | [facility] | | | and [place] | + + + | Organization | [facility] | | | and [place] | + + + | Address | Unknown | + + + | Phone | Unavailable | + + + Support + + +---------+ + | Name | Relationship | Address | Phone | + + +---------+ + | Addy Moore | ECON | Unknown | | + + +---------+ + | Shelli Lior | ECON | Unknown | | + + +---------+ + Care Team Providers + +------+ + | Care Marketing Administrator Name | Role | Phone | + +------+ + PCP | Unavailable | + +------+ + Encounter Details +--------+ + + + + | Date | Type | Department | Care Team | Description | +--------+ + + + + | 08/22/ | Hospital | [facility] | | | | 2005 | Encounter | [facility] | | | | | | [address] [place] | | | | | | [place], [place] | | | | | | [address] | | | | | | [phone] | | | +--------+ + + + + Social History + +-------+ +--------+------+ | Tobacco Use | Types | Packs/Day | Years | Date | | | | | Used | | + +-------+ +--------+------+ | Never Assessed | | | | | + +-------+ +--------+------+ + + + | Sex Assigned at | Date Recorded | | | | + + + | Not on file | | + + + + + + + | Job Start Date | Occupation | Industry | + + + + | Not on file | Not on file | Not on file | + + + + + + + + | Travel History | Travel Start | Travel End | + + + + + + | No recent travel history available. | + + documented as of this encounter Plan of Treatment Not on filedocumented as of this encounter Visit Diagnoses Not on filedocumented in this encounter"
--- OUTSIDE RECORDS SUMMARY | ~2019-02-11 | XMS | Encounter Summary ---
Demographics + + + | Address | [address] | | | [place] [address] | + + + | Home Phone | | + + + | Preferred Language | Unknown | + + + | Marital Status | | + + + | Adventism Affiliation | 1077 | + + + | Race | Unknown | + + + | Ethnic Group | Unknown | + + + Author + + + | Author | [facility] | | | and [place] | + + + | Organization | [facility] | | | [...] Team Providers + +------+ + | Care Engineer Intern Name | Role | Phone | + +------+ + | Roderick Alexandra MD | PCP | | + +------+ + Encounter Details +--------+ + + + + | Date | Type | Department | Care Team | Description | +--------+ + + + + | 07/26/ | Abstract | [facility] | Roderick Alexandra, | | | 2014 | | [facility] [place] | [address] | | | | | [address] | [place] | | | | | [place] | [address] | | | | | [address] | | | | | | [phone] | | | +--------+ + + + [...] Not on filedocumented as of this encounter Procedures + +--------+ + + + | Procedure Name | Priori | Date/Time | Associated Diagnosis | Comments | | | ty | | | | + +--------+ + + + | EXTERNAL LAB: | Routin | 07/21/2014 | | Results for this | | GLUCOSE | e | | | procedure are in the | | | | | | results section. | + +--------+ + + + | EXTERNAL LAB: ALT | Routin | 07/21/2014 | | Results for this | | | e | | | procedure are in the | | | | | | results section. | + +--------+ + + + | EXTERNAL LAB: AST | Routin | 07/21/2014 | | Results for this | | | e | | | procedure are in the | | | | | | results section. | + +--------+ + + + | EXTERNAL LAB: | Routin | 07/21/2014 | | Results for this | | ALKALINE PHOSPHATASE | e | | | procedure are in the | | | | | | results section. | + +--------+ + + + | EXTERNAL LAB: | Routin | 07/21/2014 | | Results for this | | BILIRUBIN, TOTAL | e | | | procedure are in the | | | | | | results section. | + +--------+ + + + | EXTERNAL LAB: | Routin | 07/21/2014 | | Results for this | | ALBUMIN | e | | | procedure are in the | | | | | | results section. | + +--------+ + + + | EXTERNAL LAB: | Routin | 07/21/2014 | | Results for this | | PROTEIN, TOTAL | e | | | procedure are in the | | | | | | results section. | + +--------+ + + + | EXTERNAL LAB: | Routin | 07/21/2014 | | Results for this | | CALCIUM | e | | | procedure are in the | | | | | | results section. | + +--------+ + + + | EXTERNAL LAB: CARBON | Routin | 07/21/2014 | | Results for this | | DIOXIDE | e | | | procedure are in the | | | | | | results section. | + +--------+ + + + | EXTERNAL LAB: | Routin | 07/21/2014 | | Results for this | | CHLORIDE | e | | | procedure are in the | | | | | | results section. | + +--------+ + + + | EXTERNAL LAB: | Routin | 07/21/2014 | | Results for this | | POTASSIUM | e | | | procedure are in the | | | | | | results section. | + +--------+ + + + | EXTERNAL LAB: SODIUM | Routin | 07/21/2014 | | Results for this | | | e | | | procedure are in the | | | | | | results section. | + +--------+ + + + | EXTERNAL LAB: | Routin | 07/21/2014 | | Results for this | | VITAMIN D, | e | | | procedure are in the | | 25-HYDROXY | | | | results section. | + +--------+ + + + | EXTERNAL LAB: | Routin | 07/21/2014 | | Results for this | | TRIGLYCERIDES | e | | | procedure are in the | | | | | | results section. | + +--------+ + + + | EXTERNAL LAB: | Routin | 07/21/2014 | | Results for this | | CHOLESTEROL, HDL | e | | | procedure are in the | | | | | | results section. | + +--------+ + + + | EXTERNAL LAB: | Routin | 07/21/2014 | | Results for this | | CHOLESTEROL, TOTAL | e | | | procedure are in the | | | | | | results section. | + +--------+ + + + | EXTERNAL LAB: | Routin | 07/21/2014 | | Results for this | | CHOLESTEROL, LDL | e | | | procedure are in the | | | | | | results section. | + +--------+ + + + | EXTERNAL LAB: | Routin | 07/21/2014 | | Results for this | | MICROALBUMIN/CREATIN | e | | | procedure are in the | | INE RATIO, URINE | | | | results section. | + +--------+ + + + | EXTERNAL LAB: EGFR | Routin | 07/21/2014 | | Results for this | | | e | | | procedure are in the | | | | | | results section. | + +--------+ + + + | EXTERNAL LAB: | Routin | 07/21/2014 | | Results for this | | CREATININE | e | | | procedure are in the | | | | | | results section. | + +--------+ + + + documented in this encounter Results External Lab: Glucose (07/21/2014) + +-------+ + + + | Component | Value | Ref Range | Performed | Pathologist | | | | | At | Signature | + +-------+ + + + | Glucose, | 113 | | | | | External | | | | | + +-------+ + + + External Lab: ALT (07/21/2014) + +-------+ + + + | Component | Value | Ref Range | Performed | Pathologist | | | | | At | Signature | + +-------+ + + + | ALT, | 16 | | | | | External | | | | | + +-------+ + + + External Lab: AST (07/21/2014) + +-------+ + + + | Component | Value | Ref Range | Performed | Pathologist | | | | | At | Signature | + +-------+ + + + | AST, | 19 | | | | | External | | | | | + +-------+ + + + External Lab: Alkaline Phosphatase (07/21/2014) + +-------+ + + + | Component | Value | Ref Range | Performed | Pathologist | | | | | At | Signature | + +-------+ + + + | ALP, | 91 | | | | | External | | | | | + +-------+ + + + External Lab: Bilirubin, Total (07/21/2014) + +-------+ + + + | Component | Value | Ref Range | Performed | Pathologist | | | | | At | Signature | + +-------+ + + + | Bilirubin, | 0.4 | | | | | Total, | | | | | | External | | | | | + +-------+ + + + External Lab: Albumin (07/21/2014) + +-------+ + + + | Component | Value | Ref Range | Performed | Pathologist | | | | | At | Signature | + +-------+ + + + | Albumin, | 4.0 | | | | | External | | | | | + +-------+ + + + External Lab: Protein, Total (07/21/2014) + +-------+ + + + | Component | Value | Ref Range | Performed | Pathologist | | | | | At | Signature | + +-------+ + + + | Protein, | 6.5 | | | | | Total, | | | | | | External | | | | | + +-------+ + + + External Lab: Calcium (07/21/2014) + +-------+ + + + | Component | Value | Ref Range | Performed | Pathologist | | | | | At | Signature | + +-------+ + + + | Calcium, | 9.0 | | | | | External | | | | | + +-------+ + + + External Lab: Carbon Dioxide (07/21/2014) + +-------+ + + + | Component | Value | Ref Range | Performed | Pathologist | | | | | At | Signature | + +-------+ + + + | Carbon | 23 | | | | | Dioxide, | | | | | | External | | | | | + +-------+ + + + External Lab: Chloride (07/21/2014) + +-------+ + + + | Component | Value | Ref Range | Performed | Pathologist | | | | | At | Signature | + +-------+ + + + | Chloride, | 104 | | | | | External | | | | | + +-------+ + + + External Lab: Potassium (07/21/2014) + +-------+ + + + | Component | Value | Ref Range | Performed | Pathologist | | | | | At | Signature | + +-------+ + + + | Potassium, | 4.0 | | | | | External | | | | | + +-------+ + + + External Lab: Sodium (07/21/2014) + +-------+ + + + | Component | Value | Ref Range | Performed | Pathologist | | | | | At | Signature | + +-------+ + + + | Sodium, | 139 | | | | | External | | | | | + +-------+ + + + External Lab: Vitamin D, 25-Hydroxy (07/21/2014) + +-------+ + + + | Component | Value | Ref Range | Performed | Pathologist | | | | | At | Signature | + +-------+ + + + | Vitamin D, | 25 | | | | | 25-Hydroxy, | | | | | | External | | | | | + +-------+ + + + + + | Specimen | + + | Blood specimen | | (specimen) | + + External Lab: Triglycerides (07/21/2014) + +-------+ + + + | Component | Value | Ref Range | Performed | Pathologist | | | | | At | Signature | + +-------+ + + + | Triglycerid | 148 | | | | | es, | | | | | | External | | | | | + +-------+ + + + + + | Specimen | + + | Blood specimen | | (specimen) | + + External Lab: Cholesterol, HDL (07/21/2014) + +-------+ + + + | Component | Value | Ref Range | Performed | Pathologist | | | | | At | Signature | + +-------+ + + + | HDL | 45.9 | mg/dl | | | | Cholesterol | | | | | | , External | | | | | + +-------+ + + + + + | Specimen | + + | Blood specimen | | (specimen) | + + External Lab: Cholesterol, Total (07/21/2014) + +-------+ + + + | Component | Value | Ref Range | Performed | Pathologist | | | | | At | Signature | + +-------+ + + + | Cholesterol | 173 | mg/dl | | | | , Total, | | | | | | External | | | | | + +-------+ + + + + + | Specimen | + + | Blood specimen | | (specimen) | + + External Lab: Cholesterol, LDL (07/21/2014) + +-------+ + + + | Component | Value | Ref Range | Performed | Pathologist | | | | | At | Signature | + +-------+ + + + | LDL | 98 | | | | | Cholesterol | | | | | | , Direct, | | | | | | External | | | | | + +-------+ + + + + + | Specimen | + + | Blood specimen | | (specimen) | + + External Lab: Microalbumin/Creatinine Ratio, Urine (07/21/2014) + +-------+ + + + | Component | Value | Ref Range | Performed | Pathologist | | | | | At | Signature | + +-------+ + + + | Microalbumi | 14.5 | | | | | n/Creatinin | | | | | | e Ratio, | | | | | | External | | | | | + +-------+ + + + + + | Specimen | + + | Blood specimen | | (specimen) | + + External Lab: eGFR (07/21/2014) + +-------+ + + + | Component | Value | Ref Range | Performed | Pathologist | | | | | At | Signature | + +-------+ + + + | eGFR, | 94 | | | | | External | | | | | + +-------+ + + + + + | Specimen | + + | Blood specimen | | (specimen) | + + External Lab: Creatinine (07/21/2014) + +-------+ + + + | Component | Value | Ref Range | Performed | Pathologist | | | | | At | Signature | + +-------+ + + + | Creatinine, | 0.61 | | | | | External | | | | | + +-------+ + + + + + | Specimen | + + | Blood specimen | | (specimen) | + + documented in this encounter Visit Diagnoses Not on filedocumented in this encounter"
--- OUTSIDE RECORDS SUMMARY | ~2019-02-11 | XMS | Encounter Summary ---
Demographics + + + | Address | [address] | | | [place] [address] | + + + | Home Phone | | + + + | Preferred Language | Unknown | + + + | Marital Status | | + + + | Sabianism Affiliation | 1077 | + + + | Race | Unknown | + + + | Ethnic Group | Unknown | + + + Author + + + | Author | [facility] | | | and [place] | + + + | Organization | [facility] | | | and [...] Team Providers + +------+ + | Care Rotary Adjuster Name | Role | Phone | + +------+ + | Prashanth Sunshine MD | PCP | | + +------+ + Reason for Visit +--------+ + | Reason | Comments | +--------+ + | Other | PCP REFERRAL AND NOTES | +--------+ + Encounter Details +--------+ + + + + | Date | Type | Department | Care Team | Description | +--------+ + + + + | 10/13/ | Documentati | [facility] | [place] | Lasha (PCP REFERRAL | | 2019 | on | CARDIOLOGY KIERRA Tran, Broach Setter | AND NOTES ) | | | | [address] | | | | | | [address] [place] | | | | | | [address] | | | | | | [phone] | | | +--------+ + + + [...]
--- OUTSIDE RECORDS SUMMARY | ~2019-02-11 | XMS | Encounter Summary ---
Demographics + + + | Address | [address] | | | [place] [address] | + + + | Home Phone | | + + + | Preferred Language | Unknown | + + + | Marital Status | | + + + | Shinto Affiliation | [id number] | + + + | Race | Unknown | + + + | Ethnic Group | Unknown | + + + Author + + + | Author | [facility] | | | and [place] | + + + | Organization | [facility] | | | [...] Team Providers + +------+ + | [facility] Name | Role | Phone | + +------+ + | Roderick Alexandra MD | PCP | | + +------+ + Reason for Visit + + + | Reason | Comments | + + + | Medicare Wellness | | + + + | Chest Pressure | | + + + Encounter Details +--------+---------+ + + + | Date | Type | Department | Care Team | Description | +--------+---------+ + + + | 01/29/ | Office | [facility] | Roderick Alexandra, | Medicare annual | | 2015 | Visit | [facility] [place] | [address] | wellness visit, | | | | [address] | [place] | subsequent (Primary | | | | [place] | [address] | Dx); Urinary tract | | | | [address] | | infection, site | | | | [phone] | | unspecified; Chest | | | | | | pressure; Cervical | | | | | | cancer screening; | | | | | | Hyperlipidemia, | | | | | | unspecified | | | | | | hyperlipidemia; | | | | | | Essential | | | | | | hypertension; | | | | | | Vitamin D | | | | | | deficiency; Chronic | | | | | | obstructive | | | | | | pulmonary disease, | | | | | | unspecified COPD | | | | | | type (HCC); | | | | | | Postmenopausal | +--------+---------+ + + + Social History + +-------+ [...] + + documented as of this encounter Last Filed Vital Signs + + + + + | Vital Sign | Reading | Time Taken | Comments | + + + + + | Blood Pressure | 128/56 | 01/29/2015 8:59 AM | | | | | PST | | + + + + + | Pulse | 64 | 01/29/2015 8:59 AM | | | | | PST | | + + + + + | Temperature | 37 C (98.6 F) | 01/29/2015 8:59 AM | | | | | PST | | + + + + + | Respiratory Rate | 16 | 01/29/2015 8:59 AM | | | | | PST | | + + + + + | Oxygen Saturation | 97% | 01/29/2015 8:59 AM | Room air | | | | PST | | + + + + + | Inhaled Oxygen | - | - | | | Concentration | | | | + + + + + | Weight | 70.5 kg (155 lb 6.4 | 01/29/2015 8:59 AM | | | | oz) | PST | | + + + + + | Height | 154.9 cm (5' 1") | 01/29/2015 8:59 AM | | | | | PST | | + + + + + | Body Mass Index | 29.36 | 01/29/2015 8:59 AM | | | | | PST | | + + + + + documented in this encounter Patient Instructions Patient Instructions Candy Cano LPN - 01/29/2015 9:36 AM PSTIncrease your Zantac to take 150 mg twice a day. If you are forgetting the evening dose just take 300 mg once a day . Pay attention to the abdominal discomfort to see if the increased zantac would help Stop your aspirin for now A M PST documented in this encounter Progress Notes Roderick Alexandra MD - 01/29/2015 9:17 AM PSTFormatting of this note might be different fro m the original. Medicare Annual Wellness Visit Eris Patel is a 79 y.o. female who presents for a Medicare Wellness visit tod ay: HEALTH RISK ASSESSMENT: The patient or their surrogate filled out the HRA and the responses were incorporated into the notes below. GENERAL HEALTH 1. How would you describe your general health? : Good 2. How would you rate your health compared to others your age?: Better HEARING AND VISION 1. Do you feel that a hearing or vision difficulty limits or hampers your personal life?: N o 2. Do you wear hearing aids?: Yes 3. Do you wear glasses?: Yes FUNCTIONAL AND ACTIVITIES OF DAILY LIVING 1. Do you need help with dressing, eating, bathing or going to the bathroom?: No 2. Do you need help with preparing meals, transportation, shopping, managing your finances, or taking your medicine?: No 3. Do you drive?: Yes 4. Have you ever been told that you should stop driving?: No HOME SAFETY SCREENING: Does your home have throw rugs, poor lighting, or a slippery bathtub or shower?: No FALL RISK SCREENING QUESTIONS 1. Have you fallen in the past year?: No 2. Do you feel unsteady when standing or walking?: No 3. Do you worry about falling?: (!) Yes (At times- not always) STEADI Fall risk questionnaire score: 1 DETECTION OF COGNITIVE IMPAIRMENT (MINI-COG): Performed in clinic Repeat three objects. Score one point for each correctly repeated item (e.g., banana, sunri se, chair): (!) 2 Clock drawing test: normal DIET AND EXERCISE HISTORY 1. How is your appetite ? : Good 2. Do you eat fewer than two times a day? : No 3. Do you eat at least 2 serving of fruits and vegetables per day?: Yes 4. How many times per week do you exercise? : 1-3 INCONTINENCE SCREENING Do you have trouble holding your bowels or bladder?: (!) Yes ADVANCED CARE PLANNING 1. Do you have an Advanced Directive?: Yes 2. Have you completed a POLST form?: (!) No 3. If you have a designated health care ocean import representative, give their name and contact informa tion: (Javier Patel, ) PHQ-2 DEPRESSION SCREENING: Over the last 2 weeks, have you been bothered by any of the fol lowing? Little interest/pleasure in doing things? : No Feeling down, depressed/hopeless?: No PHQ-9 Depression Screening: Over the last 2 weeks, how often have you been bothered by any of the following problems? Little interest or pleasure in doing things?: Not at all Feeling down, depressed, or hopeless: Not at all Trouble falling or staying asleep, or sleeping too much?: Not at all Feeling tired or having little energy?: Not at all Poor appetite or overeating: Not at all Feeling bad about yourself - or that you are a failure or have let yourself or your family down?: Not at all Trouble concentrating on things, such as reading the newspaper or watching television: Not at all Moving or speaking so slowly that other people could have noticed. Or the opposite - being so fidgety or restless that you have been moving around a lot more than usual?: Not at all Thoughts that you would be better off , or of hurting yourself in some way?: Not at all PHQ-9 Total Score (Patient Health Questionnaire): 0 Patient Active Problem List Diagnosis DIARRHEA DYSPNEA ON EXERTION COUGH CARDIAC MURMUR Hyperlipidemia Hypertension Diverticular disease of colon Lower extremity edema Hoarseness of voice Vitamin d deficiency Preventative health care Right knee pain COPD (chronic obstructive pulmonary disease) Routine history and physical examination of adult Need for pneumococcal vaccination Hyperglycemia Past Medical History: Past Medical History Diagnosis Date Diarrhea 03/27/2010 Dyspnea on exertion 10/16/2010 Cough 10/16/2010 Cardiac murmur 03/31/2011 Hyperlipidemia Hypertension Diverticulosis, colon Palpitations Vertigo Left breast lump 05/2006 Hepatitis B infection Left carotid bruit 12/31/1999 COPD (chronic obstructive pulmonary disease) (HCC) Past Family History: Family History Problem Relation Age of Onset Parkinsonism Mother * Mother 78 from pneumonia Prostate cancer Father Social History: Patient Status: [2]. Patient lives with their spouse Currently working? Retired Substance Use: Eris's Tobacco Use: History Smoking status Never Smoker Smokeless tobacco Never Used . Eris's alcohol use: History Alcohol Use Yes Comment: 3-4 times per year . The Past Medical, Surgical, and Family History has been reviewed and updated at this visit. yes Today's Visit: Current Medications Current Outpatient Prescriptions Medication Sig Dispense Refill artificial tears (REFRESH PLUS) 0.5% SOLN Place 1 drop into both eyes as needed. ASPIRIN ADULT LOW STRENGTH PO TBEC; Take one by mouth daily CALCIUM PO TABS; 600 mg Cholecalciferol (RA VITAMIN D-3) 2000 UNITS CAPS Take 2,000 Units by mouth Daily. Magnesium Oxide (MAG-OX 400 PO) TABS; Take one by mouth daily metoprolol succinate (TOPROL-XL) 25 mg 24 hr tablet Take 1 tablet by mouth Daily. 90 ta blet 1 Multiple Vitamins-Minerals (PRESERVISION AREDS 2) CAPS Take 2 capsules by mouth Daily. niacin (NIASPAN) 500 mg CR tablet take 1 tablet by mouth at bedtime 90 tablet 3 Mcalpin-3 Fatty Acids ([employer] NATURAL FISH OIL) 1000 MG CAPS Take 1,000 mg by mouth Daily. pravastatin (PRAVACHOL) 40 MG tablet Take 0.5 tablets by mouth nightly. 45 tablet 3 ranitidine (ZANTAC) 150 mg tablet Take 150 mg by mouth nightly. No current facility-administered medications for this visit. Allergies Allergies Allergen Reactions Lipitor Other (See Comments) Myalgias Wasp Venom Protein Swelling Current list of Providers and DME Suppliers Patient Care Team: Roderick Alexandra MD as PCP - General Current Medicare Suppliers: [facility] - [place] - [address] [place] [address] Immunizations Immunization History Administered Date(s) Administered INFLUENZA, QUADRIVALENT W/PRESERVATIVE (PED/ADOL/ADULT) 11/15/2013, 10/31/2014 INFLUENZA, W/Preservative 10/18/2011 PNEUMOCOCCAL CONJUGATE 13-VALENT (PCV13) 07/24/2014 PNEUMOCOCCAL POLYSACCHARIDE 23-VALENT (PPSV23) 05/20/2005 TDAP, (ADOL/ADULT) 12/02/2005 ZOSTER, 1 DOSE (ADULT) 12/02/2005, 09/05/2011 Preventative Care and Screening (Attestation) The following health maintenance items are reviewed in [facility] and correct as of today: Health Maintenance Topic Date Due INFLUENZA VACCINE (YEARLY) 09/17/2015 BREAST CANCER SCREENING (MAMM YEARLY) 09/21/2015 COLON CANCER SCREENING (COLONOSCOPY EVERY 10 YEARS <50 OR >75) 02/16/2018 PNEUMOCOCCAL VACCINE (ONCE,AGE 65 AND OLDER) Completed REVIEW OF SYSTEMS: Constitutional: well groomed Eyes: no discharge Ears, Nose, Mouth, Throat; no discharge Cardiovascular: occasional chest pressure Respiratory: some shortness of breath GI:no constipation Neuro: alert, and oriented Psych: mood and behavior PHYSICAL EXAM: Vitals: BP 128/56 mmHg | Pulse 64 | Temp(Src) 37 C (98.6 F) (Temporal) | Resp 16 | Ht 1.549 m (5' 1") | Wt 70.489 kg (155 lb 6.4 oz) | BMI 29.38 kg/m2 | SpO2 97% BMI: Estimated body mass index is 29.38 kg/(m^2) as calculated from the following: Height as of this encounter: 1.549 m (5' 1"). Weight as of this encounter: 70.489 kg (155 lb 6.4 oz). Vision Screening and Audiometry Results: No exam data present General appearance: alert, appears stated age and cooperative Head: Normocephalic, without obvious abnormality, atraumatic Eyes: conjunctivae/corneas clear. PERRL, EOM's intact. Fundi benign. Ears: normal TM's and external ear canals both ears Throat: lips, mucosa, and tongue normal; teeth and gums normal Neck: no adenopathy, no carotid bruit, no JVD, supple, symmetrical, trachea midline and thy roid not enlarged, symmetric, no tenderness/mass/nodules Lungs: clear to auscultation bilaterally Breasts: normal appearance, no masses or tenderness Heart: regular rate and rhythm, S1, S2 normal, no murmur, click, rub or gallop Abdomen: soft, non-tender; bowel sounds normal; no masses, no organomegaly Pelvic: cervix normal in appearance, external genitalia normal, no adnexal masses or tender ness, no cervical motion tenderness, uterus normal size, shape, and consistency and vagina n ormal without discharge Extremities: extremities normal, atraumatic, no cyanosis or edema Skin: Skin color, texture, turgor normal. No rashes or lesions Neurologic: Alert and oriented X 3, normal strength and tone. Normal symmetric reflexes. No rmal coordination and gait ASSESSMENT AND PLANS: CHRONIC CONDITION REVIEW: (Required for all Medicare Advantage AWV's) 1. Urinary tract infection, site unspecified POCT Urinalysis Dipstick Automated 2. Chest pressure ECG 12 lead 3. Cervical cancer screening Pap Smear 4. Hyperlipidemia, unspecified hyperlipidemia 5. Essential hypertension 6. Vitamin D deficiency 7. Chronic obstructive pulmonary disease, unspecified COPD type (HCC) Hyperlipidemia Hypertension Vitamin D deficiency COPD Well controlled on all of above No change in conditions or medications RECOMMENDATIONS: The following recommendations were made as a result of this visit, and the HRA Is a Care Management Referral indicated for this patient? no Diet: continue with current diet Exercise: continue with your current exercise Immunizations: None due this visit Screening Labs: None due this visit Screening Exams: DEXA scan (bone density testing) Referral placed HEALTH RISK APPRAISAL (Attestation) Health Risk Assessment Form was reviewed with the patient and recommendations made to Beccasammy Pologiovani based on her risk factors. PERSONALIZED PREVENTATIVE PLAN: (Attestation) A Personalized Care Plan for Ms. Patel has been established and reviewed with patient and made available to the patient. ICandy am acting as a scribe on behalf of, and in the presence of Roderick Alexandra MD. Candy Cano LPN 01/29/15 Roderick Alexandra MD Eris Patel is a 79 y.o. female Chief Complaint: Medicare Wellness and Chest Pressure HPI Chest pressure Started a couple of months ago Did not alarm her Just an ache Doesn't radiate No prespiration No epigastric distress Nothing makes it worse or better Restarted the zantac once daily Zantac has helped the GI distress is she watches her diet No chest pressure during the night Notices it when she is sitting No cough that is worsening Pressure is not happening every day Chest pressure and acid reflux do not always happen at the same time She will take a tums if she has something not on the bland side Shortness of breath When she is at 7000 feet and packing in things to her cabin Sometimes going up a hill No change in the SOB when she has chest pressure She will get a wheeze if she has a deep cough PREVENTIVE CARE/PRIOR VISITS 1. Any recommendations from Health Maintenance: No Preventative Services TOPIC LAST DONE NEXT DUE Influenza Vaccine (Yearly) 10/31/2014 09/17/2015 Breast Cancer Screening (Mamm Yearly) 09/20/2014 09/21/2015 Colon Cancer Screening (Colonoscopy Every 10 Years <50 Or >75) 02/17/2008 02/16/2018 Pneumococcal Vaccine (Once,Age 65 And Older) 07/24/2014 2. Any immunizations necessary: No Immunization History Administered Date(s) Administered INFLUENZA, QUADRIVALENT W/PRESERVATIVE (PED/ADOL/ADULT) 11/15/2013, 10/31/2014 INFLUENZA, W/Preservative 10/18/2011 PNEUMOCOCCAL CONJUGATE 13-VALENT (PCV13) 07/24/2014 PNEUMOCOCCAL POLYSACCHARIDE 23-VALENT (PPSV23) 05/20/2005 TDAP, (ADOL/ADULT) 12/02/2005 ZOSTER, 1 DOSE (ADULT) 12/02/2005, 09/05/2011 3. Has patient been involved in medical events/hospitalizations since their last visit: No Allergies Allergen Reactions Lipitor Other (See Comments) Myalgias Wasp Venom Protein Swelling Medications: Patient Reported Taking Dosage artificial tears (REFRESH PLUS) 0.5% SOLN (Taking) Place 1 drop into both eyes as needed. ASPIRIN ADULT LOW STRENGTH PO (Taking) TBEC; Take one by mouth daily CALCIUM PO (Taking) TABS; 600 mg Cholecalciferol (RA VITAMIN D-3) 2000 UNITS CAPS (Taking) Take 2,000 Units by mouth Daily . Magnesium Oxide (MAG-OX 400 PO) (Taking) TABS; Take one by mouth daily metoprolol succinate (TOPROL-XL) 25 mg 24 hr tablet (Taking) Take 1 tablet by mouth Daily . Multiple Vitamins-Minerals (PRESERVISION AREDS 2) CAPS (Taking) Take 2 capsules by mouth Daily. niacin (NIASPAN) 500 mg CR tablet (Taking) take 1 tablet by mouth at bedtime Mcalpin-3 Fatty Acids ([employer]S NATURAL FISH OIL) 1000 MG CAPS (Taking) Take 1,000 mg by mouth D aily. pravastatin (PRAVACHOL) 40 MG tablet (Taking) Take 0.5 tablets by mouth nightly. ranitidine (ZANTAC) 150 mg tablet (Taking) Take 150 mg by mouth nightly. Past Medical History She has a past medical history of Diarrhea (03/27/2010); Dyspnea on exertion (10/16/2010); Cou gh (10/16/2010); Cardiac murmur (03/31/2011); Hyperlipidemia; Hypertension; Diverticulosis, co david; Palpitations; Vertigo; Left breast lump (05/2006); Hepatitis B infection (); Left carotid bruit (12/31/1999); and COPD (chronic obstructive pulmonary disease) ([facility]). Past Surgical History She has past surgical history that includes Appendectomy (1940); Tonsillectomy; Dilation an d curettage of uterus (, 2001); Cholecystectomy (1973); Skin cancer excision (9449-1543); hy steroscopy (08/2001); and Cataract Removal (02/2011). Family History: Her family history includes * (age of onset: 78) in her mother; Parkinsonism in her mother; Prostate cancer in her father. 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 HENT: Negative for congestion. Respiratory: Negative for cough. Chest tightness: only intermittently. Cardiovascular: Negative for leg swelling. Gastrointestinal: Negative for constipation. Objective: Filed Vitals: 01/29/15 0859 BP: 128/56 Pulse: 64 Temp: 37 C (98.6 F) TempSrc: Temporal Resp: 16 Height: 1.549 m (5' 1") Weight: 70.489 kg (155 lb 6.4 oz) SpO2: 97% Physical Exam Constitutional: She is oriented to person, place, and time. She appears well-developed and well-nourished. No distress. Appropriately dressed and groomed HENT: Head: Normocephalic and atraumatic. Eyes: Conjunctivae are normal. Cardiovascular: Normal rate, regular rhythm and normal heart sounds. Exam reveals no frict ion rub. No murmur heard. Pulmonary/Chest: Effort normal and breath sounds normal. No respiratory distress. She has n o wheezes. She has no rales. Musculoskeletal: She exhibits no edema. Neurological: She is alert and oriented to person, place, and time. Skin: Skin is warm and dry. Psychiatric: She has a normal mood and affect. Her behavior is normal. Nursing note and vitals reviewed. Results for orders placed or performed in visit on 01/29/15 POCT Urinalysis Dipstick Automated Result Value Ref Range POC COLOR UA Yellow Yellow, Light Yellow POC CLARITY UA Clear POC GLUCOSE UA Negative Negative POC BILIRUBIN UA Negative Negative POC KETONES UA Negative Negative, 100 mg/dL POC SPECIFIC GRAVITY UA 1.015 1.001 - 1.030 POC BLOOD UA Negative Negative POC PH UA 7.0 5.0, 6.0, 7.0, 8.0, 5.5, 6.5, 7.5 POC PROTEIN UA Negative Negative POC UROBILINOGEN UA 0.2 0.2, Negative, Normal, < 0.2 mg/dL, 1 mg/dL, < 0.2 E.U./dl, 1.0 E. U./dL, 0.2 mg/dL POC NITRITE UA Negative POC LEUKOCYTE ESTERASE UA Negative Negative RED SUB UA ICTOTEST Negative REMARK ECG 12 lead Result Value Ref Range INTERPRETATION TEXT Not Confirmed Assessment and Plans: 1. Chest pressure Symptoms correlate Most consistently with GERD EKG unchanged Increase Zantac to 150 mg BID Stop aspirin Call if no improvements within 2 weeks I, Candy [place] am acting as a scribe on behalf of, and in the presence of Roderick Alexandra MD. Candy Jerome SHETTY 01/29/15 Roderick Alexandra MD documented in this en counter Plan of Treatment + + +--------+ + + | Name | Type | Priori | Associated Diagnoses | Order Schedule | | | | ty | | | + + +--------+ + + | Pap Smear | Pathology | Routin | Cervical cancer | Ordered: 01/29/2015 | | | and | e | screening | | | | Cytology | | | | + + +--------+ + + | DEXA Bone Density | Imaging | Routin | Postmenopausal | Expected: | | Study WO Vert FX | | e | | 01/29/2015, Expires: | | Asses | | | | 01/30/2016 | + + +--------+ + + documented as of this encounter Procedures + +--------+ + + + | Procedure Name | Priori | Date/Time | Associated Diagnosis | Comments | | | ty | | | | + +--------+ + + + | LABS - EXTERNAL SCAN | | 01/28/2016 | | Results for this | | | | 12:00 AM | | procedure are in the | | | | PST | | results section. | + +--------+ + + + | IMAGING REPORT - | | 12/13/2015 | | Results for this | | EXTERNAL SCAN | | 12:00 AM | | procedure are in the | | | | PDT | | results section. | + +--------+ + + + | ECG 12 LEAD | Routin | 01/29/2015 | Chest pressure | Results for this | | | e | 9:54 AM | | procedure are in the | | | | PST | | results section. | + +--------+ + + + | POCT URINALYSIS, | Routin | 01/29/2015 | Urinary tract | Results for this | | AUTO WITH CONF | e | 9:14 AM | infection, site | procedure are in the | | | | PST | unspecified | results section. | + +--------+ + + + | PAP SMEAR | Routin | 01/29/2015 | | Results for this | | | e | 12:00 AM | | procedure are in the | | | | PST | | results section. | + +--------+ + + + documented in this encounter Results LABS - EXTERNAL SCAN (01/28/2016 12:00 AM PST) + + + | Narrative | Performed At | + + + | Ordered by an | | | unspecified provider. | | + + + IMAGING REPORT - EXTERNAL SCAN (12/13/2015 12:00 AM PDT) + + + | Narrative | Performed At | + + + | Ordered by an | | | unspecified provider. | | + + + ECG 12 lead (01/29/2015 9:54 AM PST) + + + + + + | Component | Value | Ref Range | Performed | Pathologist | | | | | At | Signature | + + + + + + | VENTRICULAR | 59 | BPM | [facility] | | | RATE EKG | | | | | + + + + + + | ATRIAL RATE | 59 | BPM | [facility] | | + + + + + + | P-R | 174 | ms | [facility] | | | INTERVAL | | | | | + + + + + + | QRS | 82 | ms | [facility] | | | DURATION | | | | | + + + + + + | Q-T | 428 | ms | [facility] | | | INTERVAL | | | | | + + + + + + | Q-T | 423 | ms | [facility] | | | INTERVAL | | | | | | (CORRECTED) | | | | | + + + + + + | P WAVE AXIS | 5 | degrees | [facility] | | + + + + + + | QRS AXIS | 9 | degrees | [facility] | | + + + + + + | T AXIS | 25 | degrees | [facility] | | + + + + + + | INTERPRETAT | Sinus | | [facility] | | | ION TEXT | bradycardiaOtherwise | | | | | | normal ECGNo previous | | | | | | ECGs availableConfirmed | | | | | | by LEANA SERVIN MD | | | | | | ([id number]) on 01/30/2015 | | | | | | 7:11:11 AM | | | | + + + + + + + + | Specimen | + + | | + + + + + | Narrative | Performed At | + + + | | | + + + + +---------+ + + | Performing | Address | City/State/Zipcode | Phone Number | | Organization | | | | + +---------+ + + | [facility] | | | | + +---------+ + + POCT Urinalysis Dipstick Automated (01/29/2015 9:14 AM PST) + + + + + + | Component | Value | Ref Range | Performed | Pathologist | | | | | At | Signature | + + + + + + | Color, UA, | Yellow | Yellow, Light | | | | POC | | Yellow | | | + + + + + + | Clarity, | Clear | | | | | UA, POC | | | | | + + + + + + | Glucose, | Negative | Negative | | | | UA, POC | | | | | + + + + + + | Bilirubin, | Negative | Negative | | | | UA, POC | | | | | + + + + + + | Ketones, | Negative | Negative, 100 | | | | UA, POC | | mg/dL | | | + + + + + + | Specific | 1.015 | 1.001 - 1.030 | | | | [place], | | | | | | UA, POC | | | | | + + + + + + | Blood, UA, | Negative | Negative | | | | POC | | | | | + + + + + + | pH, UA, POC | 7.0 | 5.0, 6.0, 7.0, | | | | | | 8.0, 5.5, 6.5, | | | | | | 7.5 | | | + + + + + + | Protein, | Negative | Negative | | | | UA, POC | | | | | + + + + + + | Urobilinoge | 0.2 | 0.2, Negative, | | | | n, UA, POC | | Normal, < 0.2 | | | | | | mg/dL, 1 mg/dL, | | | | | | < 0.2 E.U./dl, | | | | | | 1.0 E.U./dL, | | | | | | 0.2 mg/dL | | | + + + + + + | Nitrite, | Negative | | | | | UA, POC | | | | | + + + + + + | Leukocyte | Negative | Negative | | | | Esterase, | | | | | | UA, POC | | | | | + + + + + + | Reducing | | | | | | Substances, | | | | | | Urine | | | | | + + + + + + | Ictotest | | Negative | | | + + + + + + | Remark | | | | | + + + + + + + + | Specimen | + + | Urine specimen | | (specimen) | + + Pap Smear (01/29/2015 12:00 AM PST) + + | Specimen | + + | | + + + + + | Narrative | Performed At | + + + | ORDERING PHYSICIAN: Roderick Alexandra MD PATIENT NAME: | [facility] | | ERIS PATEL GENDER: F : 1935 | INCYTE | | Prior History: DATE CASE NUM ADEQUACY | | | DIAGNOSIS HPV RESULTS PHYSICIAN 04/01/11 [id number] | | | Satisfactory NIL Roderick Alexandra MD The 5 most | | | recent reports are included. This history does not include results | | | of pap smears performed at another laboratory. SPECIMEN(S): | | | Cervical/ Endocervical CLINICAL HISTORY: Routine Pap Smear, | | | Menopausal/Postmenopausal CYTOLOGIC INTERPRETATION: Negative for | | | intraepithelial lesion or malignancy. TECHNICAL NOTES: To improve | | | disease detection, this slide is screened using automated | | | intelligence technology. This specimen was received in a vial of | | | liquid-based fixative and was processed using thin layer Pap | | | technology. SPECIMEN ADEQUACY: Satisfactory for evaluation. | | | Endocervical and/or metaplastic are not identified. The patient's | | | menopausal status is noted. Samples from postmenopausal women with | | | an intact cervix often lack an endocervical component in pap | | | collections. Studies suggest there is no reason to advise women with a | | | normal Pap test without an endocervical component to undergo an | | | additional test merely to collect endocervical cells, (Am J Clin | | | Patho 2002;117(1) :199-7), unless clinically indicated. PERFORMING | | | LABORATORY: Technical preparation was performed by [employer] | | | [employer], [address] [place] [address] | | | (Carbon Brush Maker: Andrew Hathaway M.D.; [facility]#: [id number]). | | | Diagnostician: Chet CARTER([facility]) Meter Shop Superintendent Electronically | | | Signed 02/01/2015 | | + + + + +---------+ + + | Performing | Address | City/State/Zipcode | Phone Number | | Organization | | | | + +---------+ + + | [facility] | | | | | [facility] | | | | + +---------+ + + documented in this encounter Visit Diagnoses + + | Diagnosis | + + | Medicare annual wellness visit, subsequent - Primary Routine general medical | | examination at a health care facility | + + | Urinary tract infection, site unspecified | + + | Chest pressure Other chest pain | + + | Cervical cancer screening Screening for malignant neoplasm of the cervix | + + | Hyperlipidemia, unspecified hyperlipidemia | + + | Essential hypertension Unspecified essential hypertension | + + | Vitamin D deficiency Unspecified vitamin D deficiency | + + | Chronic obstructive pulmonary disease, unspecified COPD type (HCC) | + + | Postmenopausal Asymptomatic postmenopausal status (age-related) (natural) | + + documented in this encounter
--- OUTSIDE RECORDS SUMMARY | ~2019-02-11 | XMS | Encounter Summary ---
Demographics + + + | Address | [address] | | | [place] [address] | + + + | Home Phone | | + + + | Preferred Language | Unknown | + + + | Marital Status | | + + + | Hindu Affiliation | 1077 | + + + | Race | Unknown | + + + | Ethnic Group | Unknown | + + + Author + + + | Author | [facility] | | | and S[place]abhana | + + + | Organization | [facility] | | | [...] Team Providers + +------+ + | Care Clerk To Justice Name | Role | Phone | + +------+ + | Roderick Alexandra MD | PCP | | + +------+ + Encounter Details +--------+ + + + + | Date | Type | Department | Care Team | Description | +--------+ + + + + | 06/30/ | Anesthesia | [facility] | Tomer Castro MD | | | 2017 | Event | MED CTR OR [facility]TRA OP | [address] | | | | | [address] | [place], [place] | | | | | [place], [place] | [address] | | | | | [address] | | | | | | [phone] | | | +--------+ + + + + Anesthesia Record + + + + + | Procedure Name | Responsible | Anesthesia Start | Anesthesia Stop Time | | | Anesthesiologist | Time | | + + + + + | LEFT Cataract | Tomer Castro MD | 06/30/16840 | 06/30/16 09 | | Extraction w/ Lens | | | | | Implant (Left Eye) | | | | + + + + + +----+---+ + + | Da | T | Event | Comment | | te | i | | | | | m | | | | | e | | | +----+---+ + + | 05 | 0 | | | | /1 | 7 | | | | 5/ | 3 | | | | 20 | 0 | | | | 17 | | | | +----+---+ + + | | 0 | An Checkout | Pre-use anesthesia machine/equipment checkout. | | | 8 | | | | | 4 | | | | | 0 | | | +----+---+ + + | | 0 | An Start | Reassessment prior to anesthesia induction/procedure. | | | 8 | | | | | 4 | | | | | 1 | | | +----+---+ + + | | 0 | Preoxygenat | | | | 8 | ed | | | | 4 | | | | | 5 | | | +----+---+ + + | | 0 | An | | | | 8 | Induction | | | | 4 | | | | | 6 | | | +----+---+ + + | | 0 | An | | | | 8 | Intubation | | | | 4 | | | | | 8 | | | +----+---+ + + | | 0 | Pre-Procedu | | | | 8 | ral Timeout | | | | 5 | Completed | | | | 4 | | | +----+---+ + + | | 0 | First | | | | 8 | Inc/Proc St | | | | 5 | | | | | 5 | | | +----+---+ + + | | 0 | Breathing | | | | 9 | Spontaneous | | | | 1 | ly | | | | 5 | | | +----+---+ + + | | 0 | Extubated | | | | 9 | Awake | | | | 1 | | | | | 8 | | | +----+---+ + + | | 0 | An Stop | Patient handed off to recovery nurse. | | | 2 | | | | | 0 | | | +----+---+ + + +------+ | Meds | +------+ + +--------+ | Name | Total | + +--------+ | fentaNYL injection (2 mL) | 50 mcg | + +--------+ | propofol (DIPRIVAN) injection | 80 mg | | (bolus) (20 mL) | | + +--------+ | lidocaine 2% | 50 mg | + +--------+ | ondansetron | 4 mg | + +--------+ | lactated ringers (LR) infusion | 300 mL | + +--------+ + + | Name | + + | N2O Flow Rate (L/Min) | + + | O2 Flow Rate (L/Min) | + + | Insp O2 | + + | Exp SEV | + + | Air Flow Rate (L/Min) | + + + + | No blood administrations on file. | + + +--------+ + + + | Type | Details | Placement | Removal | +--------+ + + + | Periph | 06/30/16; 0752; Right; | 06/30/16 0752 by | 06/30/16 1040 by | | eral | Antecubital; [id number] | Makayla De Los Santos | Melody Montes RN | | IV | catheter system; 20 gauge, 1 / | | | | | in length; distraction, | | | | | intradermal injection, tolerated | | | | | well; no longer indicated, | | | | | catheter/device intact, removed | | | | | per policy/procedure, site care | | | | | per policy/procedure; Performed | | | | | by Season RN; short term use; | | | | | 06/30/16; 1040 | | | +--------+ + + + | Airway | Placement Date: 06/30/16; | 06/30/16 0848 by | 06/30/16 0916 by | | | Placement Time: 0848 (created via | Tomer Castro MD | Annia Hilario RN | | | procedure documentation); Mask | | | | | Ventilation: EZ; Attempts: 1; | | | | | Airway Type: laryngeal mask; | | | | | Size: 3; Trauma: none; Placement | | | | | Check: exhaled CO2 detection | | | | | device, bilateral chest rise; | | | | | Removal Date: 06/30/16; Removal | | | | | Time: 915; Additional Comments: | | | | | Removed by anesthesia prior to | | | | | patient arrival in PACU | | | +--------+ + + + | Read | 06/30/16; 908; Left; eye; | 06/30/16 0909 by | 06/30/16 1045 by | | only - | healing within expectations; | Vijaya Avendaño, RAMONA | Melody Montes RN | | | 06/30/16; 1045 | | | | [facility] | | | | | on | | | | +--------+ + + + documented in this encounter Social History + +-------+ +--------+------+ | Tobacco [...] | + +--------+ + + + | ANE AIRWAY NOTE | Routin | 06/30/2016 | | Results for this | | | e | 8:57 AM | | procedure are in the | | | | PDT | | results section. | + +--------+ + + + documented in this encounter Results Anesthesia Airway Note (06/30/2016 8:57 AM PDT) + + + | Narrative | Performed At | + + + | Tomer Castro MD 06/30/2016 8:57 Anesthesia Airway | | | Placement 06/30/2016 8:48 Preprocedure check: patient identified, | | | suction, oxygen, airway equipment checked, airway assessed and | | | patient reassessment prior to induction Rapid Sequence Induction: | | | no Mask ventilation: easy Attempts: 1 Airway type: laryngeal mask | | | Size: 3 Tube secured with: adhesive tape Trauma: none Tube | | | placement verification: bilateral chest rise and carbon dioxide | | | detection Performing provider: TOMER CASTRO Electronically | | | Signed by: Tomer Castro MD | | | ESig date/time: 06/30/2016 8:56 | | + + + documented in this encounter Visit Diagnoses Not on filedocumented in this encounter Administered Medications + +--------+ +--------+------+------+ | Medication Order | MAR | Action | Dose | Rate | Site | | | Action | Date | | | | + +--------+ +--------+------+------+ | fentaNYL (PF) injection | Given | 07/01/19 | 25 mcg | | | | Intravenous, PRN, Pain, Starting | | 17 9:00 | | | | | 06/30/16 at 0844, Anesthesia | | AM PDT | | | | | Intra-op | | | | | | + +--------+ +--------+------+------+ +-------+ +--------+---+---+ | Given | 07/01/19 | 25 mcg | | | | | 17 8:44 | | | | | | AM PDT | | | | +-------+ +--------+---+---+ +---+---+ | | | +---+---+ + +-------+ +-------+---+---+ | lidocaine (PF) 2% injection | Given | 07/01/19 | 50 mg | | | | Intravenous, PRN, Starting Mon | | 8:46 | | | | | 06/30/16 at 0846, Anesthesia | | AM PDT | | | | | Intra-op | | | | | | + +-------+ +-------+---+---+ +---+---+ | | | +---+---+ + +-------+ +------+---+---+ | ondansetron (ZOFRAN) injection | Given | 07/01/19 | 4 mg | | | | Intravenous, PRN, Nausea, | | 17 8:55 | | | | | Vomiting, Starting Thu06/30/16 at | | AM PDT | | | | | 0855, Anesthesia Intra-op | | | | | | + +-------+ +------+---+---+ +---+---+ | | | +---+---+ + +-------+ +-------+---+---+ | propofol (DIPRIVAN) injection | Given | 07/01/19 | 80 mg | | | | Intravenous, PRN, Starting Mon | | 8:46 | | | | | 06/30/16 at 0846, Anesthesia | | AM PDT | | | | | Intra-op | | | | | | + +-------+ +-------+---+---+ +---+---+ | | | +---+---+ documented in this encounter"
--- OUTSIDE RECORDS SUMMARY | ~2019-02-11 | XMS | Encounter Summary ---
Demographics + + + | Address | [address] | | | [place] [address] | + + + | Home Phone | | + + + | Preferred Language | Unknown | + + + | Marital Status | | + + + | Rastafari Affiliation | 1077 | + + + | Race | Unknown | + + + | Ethnic Group | Unknown | + + + Author + + + | Author | [facility] | | | and [place]aur[place]ana | + + + | Organization | [facility] | | [...] Team Providers + +------+ + | Care Crate Tier Name | Role | Phone | + +------+ + | Roderick Alexandra MD | PCP | | + +------+ + Reason for Referral Evaluate & Treat (Urgent) +--------+ + + + + + | Status | Reason | Specialty | Diagnoses / | Referred By | Referred To | | | | | Procedures | Contact | Contact | +--------+ + + + + + | Closed | Specialty | Physical | Diagnoses | [facility] | [facility] | | | Services | Therapy | Left arm | Roderick Ariza MD | [facility] | | | Required | | pain Left | [address] | PHYSICAL | | | | | arm swelling | [address] [place] | [address] | | | | | | [place], [place] | [place] | | | | | | [address] | [place], [place] | | | | | | Phone: | [phone] | | | | | | [phone] | Phone: | | | | | | Fax: | [phone] | | | | | | [phone] | Fax: | | | | | | | [phone] | +--------+ + + + + + Reason for Visit +---------+ + | Reason | Comments | +---------+ + | Therapy | | +---------+ + Encounter Details +--------+ + + + + | Date | Type | Department | Care Team | Description | +--------+ + + + + | 05/12/ | Telephone | [facility] | Roderick Alexandra, | Therapy | | 2018 | | MEDICINE [place] | [address] | | | | | [address] | [place] | | | | | [place] | [address] | | | | | [address] | | | | | | [phone] | | | +--------+ + + + [...] as of this encounter Plan of Treatment + + +--------+ + + | Name | Type | Priori | Associated Diagnoses | Order Schedule | | | | ty | | | + + +--------+ + + | [facility] | Outpatient | Routin | Left arm pain | Ordered: 05/12/2017 | | Hospital Physical | Referral | e | Left arm swelling | | | Therapy, External - | | | | | | AMB Referral | | | | | + + +--------+ + + documented as of this encounter Visit Diagnoses + + | Diagnosis | + + | Left arm pain - Primary Pain in limb | + + | Left arm swelling Swelling of limb | + + documented in this encounter"
--- OUTSIDE RECORDS SUMMARY | ~2019-02-11 | XMS | Encounter Summary ---
Demographics + + + | Address | [address] | | | [place] [address] | + + + | Home Phone | | + + + | Preferred Language | Unknown | + + + | Marital Status | | + + + | Evangelical Affiliation | 1077 | + + + | Race | Unknown | + + + | Ethnic Group | Unknown | + + + Author + + + | Author | [facility] | | | and Saurab[place]ana | + + + | Organization | [facility] | | | and [...] Team Providers + +------+ + | Care Customer Marketing Manager Name | Role | Phone | + [...] + + | 10/13/ | Documentati | [facility] | [place] | Lasha (PCP REFERRAL | | 2019 | on | CARDIOLOGY KIERRA Tran, Senior Scheduler | AND NOTES ) | | | | [address] | | | | | [address] [place] | | | | | | [address] | | | | | | [phone] | | | +--------+ + + + [...]
--- OUTSIDE RECORDS SUMMARY | ~2019-02-11 | XMS | Encounter Summary ---
Demographics + + + | Address | [address] | | | [place] [address] | + + + | Home Phone | | + + + | Preferred Language | Unknown | + + + | Marital Status | | + + + | Protestant Affiliation | 1077 | + + + | Race | Unknown | + + + | Ethnic Group | Unknown | + + + Author + + + | Author | [facility] | | | and [place]aurab[place]ana | + + + | Organization | [facility] | | [...] Team Providers + +------+ + | Care Panel Edge Sealer Name | Role | Phone | + +------+ + | Prashanth Sunshine MD | PCP | | + +------+ + Reason for Visit +--------+ + | Reason | Comments | +--------+ + | Other | Patient Documented BP | +--------+ + Encounter Details +--------+ + + + + | Date | Type | Department | Care Team | Description | +--------+ + + + + | 10/25/ | Documentati | [facility] | [place] | Lasha (Patient | | 2019 | on | CARDIOLOGY KATHY Tran, Chemical Plant Operator Supervisor | Documented BP) | | | | [address] | | | | | | [facility] [place] | | | | | | [address] | | | | | | [phone] | | | +--------+ + + + [...]
--- OUTSIDE RECORDS SUMMARY | ~2019-02-11 | XMS | Encounter Summary ---
Demographics + + + | Address | [address] | | | [place] [address] | + + + | Home Phone | | + + + | Preferred Language | Unknown | + + + | Marital Status | | + + + | Spiritism Affiliation | 1077 | + + + | Race | Unknown | + + + | Ethnic Group | Unknown | + + + Author + + + | Author | [facility] | | | and Saurab[place]ana | + + + | Organization | [facility] | | | [...] Team Providers + +------+ + | Care Licensed Tax Consultant Name | Role | Phone | + +------+ + PCP | Unavailable | + +------+ + Encounter Details +--------+ + + + + | Date | Type | Department | Care Team | Description | +--------+ + + + + | 02/01/ | Hospital | [facility] | | | | 1997 | Encounter | MED CTR XRAY [address] | | | | | | [place] | | | | | | [place] [address] | | | | | | [phone] | | | +--------+ + + + [...]
--- OUTSIDE RECORDS SUMMARY | ~2019-02-11 | XMS | Encounter Summary ---
Demographics + + + | Address | [address] | | | [place] [address] | + + + | Home Phone | | + + + | Preferred Language | Unknown | + + + | Marital Status | | + + + | Temple Affiliation | 1077 | + + + | Race | Unknown | + + + | Ethnic Group | Unknown | + + + Author + + + | Author | [facility] | | | and Saurabhana | + + + | Organization | [facility] | | [...] Team Providers + +------+ + | Care Chapter Relations Administrator Name | Role | Phone | + +------+ + | Roderick Alexandra MD | PCP | | + +------+ + Reason for Visit + + + | Reason | Comments | + + + | Lab Order | | + + + Encounter Details +--------+ + + + + | Date | Type | Department | Care Team | Description | +--------+ + + + + | 01/16/ | Telephone | [facility] | Roderick Alexandra, | Lab Order | | 2013 | | MEDICINE [place] | [address] | | | | | [address] | [place] | | | | | [place] | [address] | | | | | [address] | | | | | | [phone] | | | +--------+ + + + [...] filedocumented as of this encounter Visit Diagnoses + + | Diagnosis | + + | Hyperlipidemia - Primary Other and unspecified hyperlipidemia | + + | Hypertension Unspecified essential hypertension | + + documented in this encounter"
--- OUTSIDE RECORDS SUMMARY | ~2019-02-11 | XMS | Encounter Summary ---
Demographics + + + | Address | [address] | | | [place] [address] | + + + | Home Phone | | + + + | Preferred Language | Unknown | + + + | Marital Status | | + + + | Jew Affiliation | 1077 | + + + | Race | Unknown | + + + | Ethnic Group | Unknown | + + + Author + + + | Author | [facility] | | | and [place]aurab[place]ana | + + + | Organization | [facility] | | | and [...] Team Providers + +------+ + | Care Automobile Carpets Molder Name | Role | Phone | + +------+ + | Roderick Alexandra MD | PCP | | + +------+ + Encounter Details +--------+ + + + + | Date | Type | Department | Care Team | Description | +--------+ + + + + | 03/03/ | Hospital | [facility] | Vicenta Rizvi | | | 2011 | Encounter | MED CTR MP INTRA OP | [address] | | | | | [address] | [place], | | | | | [place], [place] | [place] [address] | | | | | [address] | [phone] | | | | | [phone] | | | +--------+ + + + [...] + + documented as of this encounter Medications at Time of Discharge + + + +---------+ + + | Medication | Sig | Dispensed | Refills | Start | End Date | | | | | | Date | | + + + +---------+ + + | metoprolol | Take 25 mg by mouth | | 0 | 11/12/19 | | | succinate | Daily. | | | 11 | 3 | | (TOPROL-XL) 25 mg 24 | | | | | | | hr tablet | | | | | | + + + +---------+ + + | niacin (NIASPAN) | Take 500 mg by mouth | | 0 | 07/26/19 | | | 500 mg CR tablet | nightly. | | | 10 | 3 | + + + +---------+ + + | pravastatin | Take one-half tablet | | 0 | 12/06/19 | | | (PRAVACHOL) 80 MG | by mouth every day | | | 11 | 3 | | tablet | | | | | | + + + +---------+ + + documented as of this encounter Plan of Treatment Not on filedocumented as of this encounter Visit Diagnoses Not on filedocumented in this encounter"
--- OUTSIDE RECORDS SUMMARY | ~2019-02-11 | XMS | Encounter Summary ---
Demographics + + + | Address | [address] | | | [place] [address] | + + + | Home Phone | | + + + | Preferred Language | Unknown | + + + | Marital Status | | + + + | Bahai Affiliation | 1077 | + + + | Race | Unknown | + + + | Ethnic Group | Unknown | + + + Author + + + | Author | [facility] | | | and Saurabhana | + + + | Organization | [facility] | | | [...] Team Providers + +------+ + | Care [employer]house Electrician Name | Role | Phone | + +------+ + | Prashanth Sunshine MD | PCP | | + +------+ + Encounter Details +--------+ + + + + | Date | Type | Department | Care Team | Description | +--------+ + + + + | 06/22/ | Orders Only | [facility] | Mariana King V, | | | 2017 | | CONVERSION 888 | MD [address] | | | | | [address] | [address] [place], [place] | | | | | [place], [place] | [address] | | | | | [address] | | | | | | [phone] | | | +--------+ + + + [...] | + +--------+ + + + | ECHO INTERPRETATION | Routin | 06/22/2017 | | Results for this | | OF OUTSIDE FILMS | e | 12:18 PM | | procedure are in the | | | | PDT | | results section. | + +--------+ + + + documented in this encounter Results ECHO Interpretation of Outside Films (06/22/2017 12:18 PM PDT) + + | Specimen | + + | | + + + + + | Impressions | Performed At | + + + | 1. Left ventricular systolic function is hyperdynamic with an | | | estimated EF of >70%. 2. Pseudonormal LV diastolic filling pattern, | | | consistent with elevated LA pressure and moderate dysfunction (Grade | | | II). 3. The right ventricle is normal in size and function. 4. There | | | is mild aortic regurgitation. 5. Nopo-ec-lkmadqff mitral | | | regurgitation is present. 6. Mild mitral stenosis is present, with a | | | peak transvalvular gradient of 16 mm Hg, and mean gradient of 6 mm Hg. | | | The MVA (by VTI) is 1.65 cm 7. Moderate tricuspid | | | regurgitation present. 8. There is mild to moderate pulmonary | | | hypertension. The right ventricular systolic pressure (pulmonary | | | artery systolic pressure), as measured by Doppler, is48.2 - 53.2 mm | | | Hg. | | + + + + + + | Narrative | Performed At | + + + | Patient Name: Rosalind Patel Date of : 1935 | | | Performing Physician: JAVI ARAIZA MD | | | | | | INDICATIONS INPATIENT: SVT CONCLUSIONS | | | 1. Left ventricular systolic function is hyperdynamic | | | with an estimated EF of >70%. 2. Pseudonormal LV diastolic filling | | | pattern, consistent with elevated LA pressure and moderate dysfunction | | | (Grade II). 3. The right ventricle is normal in size and function. | | | 4. There is mild aortic regurgitation. 5. Ticy-xu-ltcgotgh mitral | | | regurgitation is present. 6. Mild mitral stenosis is present, with a | | | peak transvalvular gradient of 16 mm Hg, and mean gradient of 6 mm Hg. | | | The MVA (by VTI) is 1.65 cm 7. Moderate tricuspid | | | regurgitation present. 8. There is mild to moderate pulmonary | | | hypertension. The right ventricular systolic pressure (pulmonary | | | artery systolic pressure), as measured by Doppler, is48.2 - 53.2 mm | | | Hg. FINDINGS -------- ECG rhythm: Sinus rhythm. Study: A | | | 2-dimensional transthoracic echocardiogram with m-mode, spectral and | | | color flow Doppler was perfomed. Study: This was a technically | | | adequate study. Left Ventricle: Left ventricular systolic function is | | | hyperdynamic with an estimated EF of >70%. Left Ventricle: The left | | | ventricle cavity size is normal. Left Ventricle: Left ventricular | | | wall thickness is normal. Left Ventricle: No regional wall motion | | | abnormalities. Left Ventricle: Pseudonormal LV diastolic filling | | | pattern, consistent with elevated LA pressure and moderate dysfunction | | | (Grade II). Right Ventricle: The right ventricle is normal in size | | | and function. Left Atrium: The left atrial size is normal. Left | | | Atrium: The left atrium is mildly dilated. Right Atrium: The right | | | atrial size is normal. Aortic Valve: The aortic valve appears to be | | | trileaflet. Aortic Valve: There is mild aortic valve sclerosis | | | without stenosis. Aortic Valve: There is mild aortic regurgitation. | | | Aortic Valve: There is no evidence of aortic stenosis. Aortic Valve: | | | The aortic valve area by continuity equation is 2.0cm Mitral | | | Valve: Mitral valve is thickened. Mitral Valve: Aoik-cw-moohnphh | | | mitral regurgitation is present. Mitral Valve: No evidence of MVP. | | | Mitral Valve: Moderate mitral annular calcification present. Mitral | | | Valve: Mild mitral stenosis is present, with a peak transvalvular | | | gradient of 16 mm Hg, and mean gradient of 6 mm Hg. The MVA (by VTI) | | | is 1.65 cm Tricuspid Valve: The tricuspid valve appears | | | structurally normal. Tricuspid Valve: Moderate tricuspid | | | regurgitation present. Tricuspid Valve: There is mild to moderate | | | pulmonary hypertension. Tricuspid Valve: The right ventricular | | | systolic pressure (pulmonary artery systolic pressure), as measured by | | | Doppler, is 48.2 - 53.2 mm Hg. Pulmonic Valve: The pulmonic valve is | | | normal. Pulmonic Valve: Trace pulmonic regurgitation. | | | Pericardium: There is no pericardial effusion. IVC/Hepatic Veins: The | | | IVC is normal size (1.5-2.5cm) and collapses >50% with sniff, | | | consistent with central venous pressures of 5-10mmHg. Aorta: The | | | aortic root and ascending aorta are at the upper limits of normal in | | | size. The a Aorta: ortic arch was not imaged. Mass: No mass | | | visualized Thrombus: No clot visualized Thrombus: No vegetation | | | visualized. Septum: No ASD observed. Septum: No VSD observed. | | | MEASUREMENTS Ao asc: 3.71 cm Ao Diam: 2.87 cm | | | Ao sinus: 3.[address] junct: 2.84 cm IVC: 2.08 cm LA | | | Diam: 4.14 cm LA Major: 4.78 cm EDV(Teich): 61.79 ml IVSd: | | | 0.98 cm LVIDd: 3.79 cm LVPWd: 0.99 cm LVOT Area: 2.71 | | | cm2 LVOT Diam: 1.86 cm %FS: 43.93 % EF(Teich): 75.88 % | | | ESV(Teich): 14.90 ml LVIDs: 2.12 cm SV(Teich): 46.89 ml RA | | | Major: 3.57 cm RV Major: 6.04 cm RVIDd: 2.24 cm LVEF MOD | | | A2C: 77.99 % SV MOD A2C: 47.94 ml LVEF MOD A4C: 76.03 % SV | | | MOD A4C: 45.79 ml EF Biplane: 76.58 % LVEDV MOD BP: 61.37 | | | ml LVESV MOD BP: 14.37 ml LVEDV MOD A2C: 61.46 ml LVLd A2C: | | | 6.94 cm LVEDV MOD A4C: 60.22 ml LVLd A4C: 7.16 cm LVESV | | | MOD A2C: 13.52 ml LVLs A2C: 5.52 cm LVESV MOD A4C: 14.43 ml | | | LVLs A4C: 5.96 cm LAESV(A-L): 53.55 ml LAESV Index (A-L): | | | 34.11 ml/m2 LAAs A2C: 20.70 cm2 LAESV A-L A2C: 63.38 ml LALs | | | A2C: 5.74 cm LAAs A4C: 13.77 cm2 LAESV A-L A4C: 35.64 ml | | | LALs A4C: 4.52 cm RAAs: 8.74 cm2 RAESV A-L: 17.58 ml RAESV | | | MOD: 15.26 ml RALs: 3.69 cm TAPSE: 2.38 cm AV maxPG: | | | 18.23 mmHg AV meanP.04 mmHg AV Vmax: 2.13 m/s AV Vmean: | | | 1.39 m/s AV VTI: 34.72 cm HEATH Vmax: 1.84 cm2 HEATH (VTI): | | | 2.03 cm2 AVAI Vmax: 0.00 cm2/m2 AVAI (VTI): 0.00 cm2/m2 LVOT | | | maxP.40 mmHg LVOT meanP.20 mmHg LVSI Dopp: 45.01 | | | ml/m2 LVSV Dopp: 70.67 ml LVOT Vmax: 1.44 m/s LVOT Vmean: | | | 0.95 m/s LVOT VTI: 26.02 cm MV A Lisandro: 1.02 m/s MV DecT: | | | 183.90 ms MV E Lisandro: 1.60 m/s MV E/A Ratio: 1.56 MV PHT: | | | 53.33 ms MVA By PHT: 4.12 cm2 MV maxP.40 mmHg MV meanPG: | | | 5.56 mmHg MV Vmax: 2.02 m/s MV Vmean: 1.09 m/s MV VTI: | | | 42.78 cm MVA (VTI): 1.65 cm2 Septal e': 0.06 m/s Septal | | | E/e': 25.05 Lateral e': 0.07 m/s Lateral E/e': 22.15 RAP: | | | 5 mmHg RVSP: 49.30 mmHg TR maxP.30 mmHg TR Vmax: | | | 3.32 m/s Evs Tech: Authenticated by: JAVI ARAIZA MD | | | Report Date/Time: 06-22-2017 17:0:1 | | + + + + + | Procedure Note | + + | Thierry Polk Conversion - 10/07/2018 5:32 PM PDT Patient Name: Augusto Patel | | of : 1935 Performing Physician: JAVI ARAIZA, | | INDICATIONS I | | NPATIENT: SVT CONCLUSIONS 1. Left ventricular systolic function is | | hyperdynamic with an estimated EF of >70%.2. Pseudonormal LV diastolic filling pattern, | | consistent with elevated LA pressure and moderate dysfunction (Grade II).3. The right | | ventricle is normal in size and function.4. There is mild aortic regurgitation.5. | | Lrza-wu-yzhgoydf mitral regurgitation is present.6. Mild mitral stenosis is present, | | with a peak transvalvular gradient of 16 mm Hg, and mean gradient of 6 mm Hg. The MVA | | (by VTI) is 1.65 cm 7. Moderate tricuspid regurgitation present.8. There is mild to | | moderate pulmonary hypertension. The right ventricular systolic pressure (pulmonary | | artery systolic pressure), as measured by Doppler, is48.2 - 53.2 mm Hg. | | FINDINGS--------ECG rhythm: Sinus rhythm.Study: A 2-dimensional transthoracic | | echocardiogram with m-mode, spectral and color flow Doppler was perfomed.Study: This was | | a technically adequate study.Left Ventricle: Left ventricular systolic function is | | hyperdynamic with an estimated EF of >70%.Left Ventricle: The left ventricle cavity size | | is normal.Left Ventricle: Left ventricular wall thickness is normal.Left Ventricle: No | | regional wall motion abnormalities.Left Ventricle: Pseudonormal LV diastolic filling | | pattern, consistent with elevated LA pressure and moderate dysfunction (Grade II).Right | | Ventricle: The right ventricle is normal in size and function.Left Atrium: The left | | atrial size is normal.Left Atrium: The left atrium is mildly dilated.Right Atrium: The | | right atrial size is normal.Aortic Valve: The aortic valve appears to be | | trileaflet.Aortic Valve: There is mild aortic valve sclerosis without stenosis.Aortic | | Valve: There is mild aortic regurgitation.Aortic Valve: There is no evidence of aortic | | stenosis.Aortic Valve: The aortic valve area by continuity equation is 2.0cm Mitral | | Valve: Mitral valve is thickened.Mitral Valve: Iyje-nc-yhcxbsno mitral regurgitation is | | present.Mitral Valve: No evidence of MVP.Mitral Valve: Moderate mitral annular | | calcification present.Mitral Valve: Mild mitral stenosis is present, with a peak | | transvalvular gradient of 16 mm Hg, and mean gradient of 6 mm Hg. The MVA (by VTI) is | | 1.65 cm Tricuspid Valve: The tricuspid valve appears structurally normal.Tricuspid | | Valve: Moderate tricuspid regurgitation present.Tricuspid Valve: There is mild to | | moderate pulmonary hypertension.Tricuspid Valve: The right ventricular systolic pressure | | (pulmonary artery systolic pressure), as measured by Doppler, is 48.2 - 53.2 mm | | Hg.Pulmonic Valve: The pulmonic valve is normal.Pulmonic Valve: Trace pulmonic | | regurgitation.Pericardium: There is no pericardial effusion.IVC/Hepatic Veins: The IVC | | is normal size (1.5-2.5cm) and collapses >50% with sniff, consistent with central venous | | pressures of 5-10mmHg.Aorta: The aortic root and ascending aorta are at the upper | | limits of normal in size. The aAorta: ortic arch was not imaged.Mass: No mass | | visualizedThrombus: No clot visualizedThrombus: No vegetation visualized.Septum: No ASD | | observed.Septum: No VSD observed. MEASUREMENTS Ao asc: 3.71 cmAo Diam: | | 2.87 cmAo sinus: 3.[address] junct: 2.84 cmIVC: 2.08 cmLA Diam: 4.14 cmLA | | Major: 4.78 cmEDV(Teich): 61.79 mlIVSd: 0.98 cmLVIDd: 3.79 cmLVPWd: 0.99 | | cmLVOT Area: 2.71 [id number] Diam: 1.86 cm%FS: 43.93 %EF(Teich): 75.88 %ESV(Teich): | | 14.90 mlLVIDs: 2.12 cmSV(Teich): 46.89 mlRA Major: 3.57 cmRV Major: 6.04 | | cmRVIDd: 2.24 cmLVEF MOD A2C: 77.99 %SV MOD A2C: 47.94 mlLVEF MOD A4C: 76.03 %SV | | MOD A4C: 45.79 mlEF Biplane: 76.58 %LVEDV MOD BP: 61.37 mlLVESV MOD BP: 14.37 | | mlLVEDV MOD A2C: 61.46 mlLVLd A2C: 6.94 cmLVEDV MOD A4C: 60.22 mlLVLd A4C: 7.16 | | cmLVESV MOD A2C: 13.52 mlLVLs A2C: 5.52 cmLVESV MOD A4C: 14.43 mlLVLs A4C: 5.96 | | cmLAESV(A-L): 53.55 mlLAESV Index (A-L): 34.11 ml/m2LAAs A2C: 20.70 [id number] A-L | | A2C: 63.38 mlLALs A2C: 5.74 cmLAAs A4C: 13.77 [id number] A-L A4C: 35.64 mlLALs | | A4C: 4.52 cmRAAs: 8.74 [id number] A-L: 17.58 mlRAESV MOD: 15.26 mlRALs: 3.69 | | cmTAPSE: 2.38 cmAV maxP.23 mmHgAV meanP.04 mmHgAV Vmax: 2.13 m/Adal | | Vmean: 1.39 m/Adal VTI: 34.72 cmAVA Vmax: 1.84 cm2AVA (VTI): 2.03 [id number] Vmax: | | 0.00 cm2/m2AVAI (VTI): 0.00 cm2/m2LVOT maxP.40 mmHgLVOT meanP.20 mmHgLVSI | | Dopp: 45.01 ml/m2LVSV Dopp: 70.67 mlLVOT Vmax: 1.44 m/sLVOT Vmean: 0.95 m/sLVOT | | VTI: 26.02 cmMV A Lisandro: 1.02 m/sMV DecT: 183.90 msMV E Lisandro: 1.60 m/sMV E/A | | Ratio: 1.56MV PHT: 53.33 msMVA By PHT: 4.12 cm2MV maxP.40 mmHgMV meanPG: | | 5.56 mmHgMV Vmax: 2.02 m/sMV Vmean: 1.09 m/sMV VTI: 42.78 cmMVA (VTI): 1.65 | | [id number] e': 0.06 m/sSeptal E/e': 25.05Lateral e': 0.07 m/sLateral E/e': | | 22.15RAP: 5 mmHgRVSP: 49.30 mmHgTR maxP.30 mmHgTR Vmax: 3.32 m/s | | Evs Tech:Authenticated by: NICHOLE COELLOsaint francis [facility] Date/Time: 06-22-2017 17:0:1 | | IMPRESSION: 1. Left ventricular systolic function is hyperdynamic with an estimated EF | | of >70%.2. Pseudonormal LV diastolic filling pattern, consistent with elevated LA | | pressure and moderate dysfunction (Grade II).3. The right ventricle is normal in size | | and function.4. There is mild aortic regurgitation.5. Chap-rg-wmpscuja mitral | | regurgitation is present.6. Mild mitral stenosis is present, with a peak transvalvular | | gradient of 16 mm Hg, and mean gradient of 6 mm Hg. The MVA (by VTI) is 1.65 cm 7. | | Moderate tricuspid regurgitation present.8. There is mild to moderate pulmonary | | hypertension. The right ventricular systolic pressure (pulmonary artery systolic | | pressure), as measured by Doppler, is48.2 - 53.2 mm Hg. | |LA Diam: 4.14 cm | |LA Major: 4.78 cm | |EDV(Teich): 61.79 ml | |IVSd: 0.98 cm | |LVIDd: 3.79 cm | |LVPWd: 0.99 cm | |LVOT Area: 2.71 cm2 | |LVOT Diam: 1.86 cm | |%FS: 43.93 % | |EF(Teich): 75.88 % | |ESV(Teich): 14.90 ml | |LVIDs: 2.12 cm | |SV(Teich): 46.89 ml | |RA Major: 3.57 cm | |RV Major: 6.04 cm | |RVIDd: 2.24 cm | |LVEF MOD A2C: 77.99 % | |SV MOD A2C: 47.94 ml | |LVEF MOD A4C: 76.03 % | |SV MOD A4C: 45.79 ml | |EF Biplane: 76.58 % | |LVEDV MOD BP: 61.37 ml | |LVESV MOD BP: 14.37 ml | |LVEDV MOD A2C: 61.46 ml | |LVLd A2C: 6.94 cm | |LVEDV MOD A4C: 60.22 ml | |LVLd A4C: 7.16 cm | |LVESV MOD A2C: 13.52 ml | |LVLs A2C: 5.52 cm | |LVESV MOD A4C: 14.43 ml | |LVLs A4C: 5.96 cm | |LAESV(A-L): 53.55 ml | |LAESV Index (A-L): 34.11 ml/m2 | |LAAs A2C: 20.70 cm2 | |LAESV A-L A2C: 63.38 ml | |LALs A2C: 5.74 cm | |LAAs A4C: 13.77 cm2 | |LAESV A-L A4C: 35.64 ml | |LALs A4C: 4.52 cm | |RAAs: 8.74 cm2 | |RAESV A-L: 17.58 ml | |RAESV MOD: 15.26 ml | |RALs: 3.69 cm | |TAPSE: 2.38 cm | |AV maxP.23 mmHg | |AV meanP.04 mmHg | |AV Vmax: 2.13 m/s | |AV Vmean: 1.39 m/s | |AV VTI: 34.72 cm | |HEATH Vmax: 1.84 cm2 | |HEATH (VTI): 2.03 cm2 | |AVAI Vmax: 0.00 cm2/m2 | |AVAI (VTI): 0.00 cm2/m2 | |LVOT maxP.40 mmHg | |LVOT meanP.20 mmHg | |LVSI Dopp: 45.01 ml/m2 | |LVSV Dopp: 70.67 ml | |LVOT Vmax: 1.44 m/s | |LVOT Vmean: 0.95 m/s | |LVOT VTI: 26.02 cm | |MV A Lisandro: 1.02 m/s | |MV DecT: 183.90 ms | |MV E Lisandro: 1.60 m/s | |MV E/A Ratio: 1.56 | |MV PHT: 53.33 ms | |MVA By PHT: 4.12 cm2 | |MV maxP.40 mmHg | |MV meanP.56 mmHg | |MV Vmax: 2.02 m/s | |MV Vmean: 1.09 m/s | |MV VTI: 42.78 cm | |MVA (VTI): 1.65 cm2 | |Septal e': 0.06 m/s | |Septal E/e': 25.05 | |Lateral e': 0.07 m/s | |Lateral E/e': 22.15 | |RAP: 5 mmHg | |RVSP: 49.30 mmHg | |TR maxP.30 mmHg | |TR Vmax: 3.32 m/s | | | |Evs Tech: | |Authenticated by: JAVI ARAIZA MD | |Report Date/Time: 06-22-2017 17:0:1 | | | |IMPRESSION: | |1. Left ventricular systolic function is hyperdynamic with an estimated EF of >70%. | |2. Pseudonormal LV diastolic filling pattern, consistent with elevated LA pressure and mode rate dysfunction (Grade II). | |3. The right ventricle is normal in size and function. | |4. There is mild aortic regurgitation. | |5. Xtnv-tk-viqpifxu mitral regurgitation is present. | |6. Mild mitral stenosis is present, with a peak transvalvular gradient of 16 mm Hg, and adrián n gradient of 6 mm Hg. The MVA (by VTI) is 1.65 cm | |7. Moderate tricuspid regurgitation present. | |8. There is mild to moderate pulmonary hypertension. The right ventricular systolic pressu re (pulmonary artery systolic pressure), as measured by Doppler, is48.2 - 53.2 mm Hg. | + + documented in this encounter Visit Diagnoses Not on filedocumented in this encounter"
--- OUTSIDE RECORDS SUMMARY | ~2019-02-11 | XMS | Encounter Summary ---
Demographics + + + | Address | [address] | | | [place] [address] | + + + | Home Phone | | + + + | Preferred Language | Unknown | + + + | Marital Status | | + + + | Mandaen Affiliation | 1077 | + + + | Race | Unknown | + + + | Ethnic Group | Unknown | + + + Author + + + | Author | [facility] | | | and Saurabhana | + + + | Organization | [facility] | | [...] Team Providers + +------+ + | Care Process Treater Name | Role | Phone | + +------+ + | Roderick Alexandra MD | PCP | | + +------+ + Reason for Visit + + + | Reason | Comments | + + + | Annual Exam | | + + + | Hypertension | | + + + | Hyperlipidemia | | + + + | Abdominal Pain | | + + + | Referral | | | (PreAuthorization) | | + + + | Transient Ischemic | | | Attack | | + + + Encounter Details +--------+---------+ + + + | Date | Type | Department | Care Team | Description | +--------+---------+ + + + | 03/24/ | Office | [facility] | Roderick Alexandra, | Routine history and | | 2017 | Visit | [facility] | [address] | physical examination | | | | [address] | [place] | of adult (Primary | | | | [place], [place] | [address] | Dx); Chest pressure; | | | | [address] | | Essential | | | | [phone] | | hypertension; | | | | | | Hyperlipidemia, | | | | | | unspecified | | | | | | hyperlipidemia type; | | | | | | Gastroesophageal | | | | | | reflux disease | | | | | | without esophagitis; | | | | | | Hx-TIA (transient | | | | | | ischemic attack); | | | | | | Cerebrovascular | | | | | | accident (CVA), | | | | | | unspecified | | | | | | mechanism (HCC) | +--------+---------+ + + + Social History [...] + + + | Blood Pressure | 154/60 | 03/24/2016 11:31 AM | | | | | PST | | + + + + + | Pulse | 65 | 03/24/2016 11:31 AM | | | | | PST | | + + + + + | Temperature | 36.8 C (98.3 F) | 03/24/2016 11:31 AM | | | | | PST | | + + + + + | Respiratory Rate | 16 | 03/24/2016 11:31 AM | | | | | PST | | + + + + + | Oxygen Saturation | 97% | 03/24/2016 11:31 AM | Room air | | | | PST | | + + + + + | Inhaled Oxygen | - | - | | | Concentration | | | | + + + + + | Weight | 71 kg (156 lb 8 oz) | 03/24/2016 11:31 AM | | | | | PST | | + + + + + | Height | 154.9 cm (5' 1") | 03/24/2016 11:31 AM | | | | | PST | | + + + + + | Body Mass Index | 29.57 | 03/24/2016 11:31 AM | | | | | PST | | + + + + + documented in this encounter Patient Instructions Patient Instructions Candy Cano LPN - 03/24/2016 12:01 PM PSTContinue with current me dications. Stress test will schedule and will call to schedule Zantac every day is ok to take for the rest of your life. Will order an MRI and OK for patient to schedule documented in this encounter Progress Notes Roderick Alexandra MD - 03/24/2016 11:41 AM PSTFormatting of this note might be different fro m the original. Medicare Annual Wellness Visit Rosalind Patel is a 80 y.o. female who presents for a Medicare [...] difficulty limits or hampers your personal life?: ( !) Yes 2. Do you wear hearing aids?: Yes [...] or a slippery bathtub or shower?: No Fall Risk Screening ([facility]) 1. Have you fallen in the past year?: No 2. Do you feel unsteady when standing or walking?: (!) Yes 3. Do you worry about falling?: (!) Yes 4. Do you use (or were you told to use) a cane or walker to get around safely?: No 5. Do you have to steady yourself by holding onto furniture when moving about your home?: N o 6. Do you need to push with your hands to stand up from a chair?: (!) Yes 7. Do you have trouble stepping up onto a curb?: No 8. Do you often have to saxena to the toilet?: (!) Yes 9. Have you lost some of the feeling in your feet?: No 10. Do you take any medicine that makes you feel light-headed or tired?: No STEADI Fall risk questionnaire score: 5 GET UP AND GO TEST: Performed in clinic Seconds it takes to get up from an arm chair, walk to a specified point (8-10 feet) turn ar ound, walk back, and sit again: <12 Seconds: Low Fall Risk DETECTION OF COGNITIVE IMPAIRMENT (MINI-COG): Performed in clinic Repeat three objects. Score one point for each correctly repeated item (e.g., banana, sunri se, chair): (Not needed) DIET AND EXERCISE HISTORY 1. How is [...] If you have a designated health care senior account representative, give their name and contact informa tion: Addy Patel PHQ-2 DEPRESSION SCREENING: Over the last 2 weeks, have you been bothered by any of the fol lowing? Little interest/pleasure in doing things? : No Feeling down, depressed/hopeless?: No PHQ2 Screening: Negative Meaningful Use Calculation Row: 0 PHQ-9 Depression Screening: Over the last 2 [...] PHQ-9 Total Score (Patient Health Questionnaire): 0 1 indicates PHQ-9 total >= 5 : 0 If you checked off any problems, how difficult have these problems made it for you to do yo ur work, take care of things at home, or get along with other people?: Not difficult at all Hypertension: Control and Compliance Medication compliance: good Home Blood Pressures: 120/60 Exercise: 2-3 times per week BP: 154/60 mmHg BP Readings from Last 3 Encounters: 03/24/16 154/60 01/29/15 128/56 07/24/14 120/58 Pt denies: No headache, visual symptoms, neurologic problems, syncope No chest pain, palpitations, GUTIÉRREZ, orthopnea, PND, peripheral edema No side effects from any antihypertensive medications HYPERLIPIDEMIA: Patient is compliant with medications. Diet: Low fat, low carb dietary compliance:moderately so Denies side effects of medications. Denies Myalgias, abdominal pain, jaundice, constipatio n. No evidence of medication toxicity Denies chest pain, shortness of breath Additional measures started by the patient to reduce lipids include: aerobic exercise :2-3 times per day weight reduction:No No results found for: LDL Abdominal pain if she does not take her Zantac every day Wondering if ok to take daily forever Referral to podiatry professor Had another episode this last [place] of shortness of breath when going up stairs and also feels chest pressure when going up stairs. She will also notice shortness of breath when she has exertion going up hills No chest pain but chest pressure Had this same type of episode a year and a half ago and had an EKG done TIA? While on a trip. She had been driving all afternoon and they stopped at motel and was abou t an hour before she was going to eat dinner had about a 5 minute episode where she was not making sense. She knew where she was at and recognized Javier. She waited a little while an d declined going to the hospital and they went to dinner and no symptoms since. Occurred in December. Javier asked her a question and she made an inappropriate remark. No pain noted. Has not happened since. She does keep a travel diary. She noticed that the w riting was very small but the note did make sense. Patient Active Problem List Diagnosis DIARRHEA DYSPNEA ON EXERTION COUGH CARDIAC MURMUR Hyperlipidemia Hypertension Diverticular disease of colon Lower extremity edema Hoarseness of voice Vitamin D deficiency Preventative health care Right knee pain COPD (chronic obstructive pulmonary disease) Routine history and physical examination of adult Need for pneumococcal vaccination Hyperglycemia Gastroesophageal reflux disease without esophagitis Chest pressure Hx-TIA (transient ischemic attack) Past Medical History: Past Medical History Diagnosis Date Diarrhea 03/27/2010 Dyspnea on exertion 10/16/2010 Cough 10/16/2010 Cardiac murmur 03/31/2011 Hyperlipidemia Hypertension Diverticulosis, colon Palpitations Vertigo Left breast lump 05/2006 Hepatitis B infection Left carotid bruit 12/31/1999 COPD (chronic obstructive pulmonary disease) (HCC) Retinal hemorrhage of left eye Chest pressure 03/24/2016 Hx-TIA (transient ischemic attack) 03/24/2016 Past Family History: Family History Problem Relation Age of Onset Parkinsonism Mother * Mother 78 from pneumonia Prostate cancer Father Cancer Sister Ovarian cancer Social History: Patient Status: [2]. Patient lives with their spouse Currently working? Retired Substance Use: Noemí Tobacco Use: History Smoking status Never Smoker Smokeless tobacco Never Used . Noemí alcohol use: History Alcohol Use Yes Comment: [...] succinate (TOPROL-XL) 25 mg 24 hr tablet take 1 tablet by mouth once daily 3 0 tablet 0 Multiple Vitamins-Minerals (PRESERVISION AREDS 2) CAPS Take 2 capsules by mouth Daily. niacin (NIASPAN) 500 mg CR tablet take 1 tablet by mouth at bedtime 30 tablet 0 Roxie-3 Fatty Acids ([employer] NATURAL FISH OIL) 1000 MG CAPS Take 1,000 mg by mouth Daily. pravastatin (PRAVACHOL) 40 MG tablet Take 0.5 tablets by mouth nightly. 45 tablet 0 ranitidine (ZANTAC) 150 mg tablet Take 150 mg by mouth nightly. No current facility-administered medications for this visit. Allergies Allergies Allergen Reactions Lipitor Other (See Comments) Myalgias Wasp Venom Protein Swelling Current list of Providers and DME Suppliers Patient Care Team: Roderick Alexandra MD as PCP - General Current Medicare Suppliers: [facility] [facility] [place] [place] - [address] [facility] [address] [place] [place] [address] Immunizations Immunization History Administered Date(s) Administered INFLUENZA 65 Y OR >, TRIVALENT HIGH-DOSE 10/12/2015 INFLUENZA QUADR W/PRES (PED/ADOL/ADULT) MULTIDOSE 11/15/2013, 10/31/2014 INFLUENZA, W/Preservative 10/18/2011 PNEUMOCOCCAL CONJUGATE 13-VALENT (PCV13) 07/24/2014 PNEUMOCOCCAL POLYSACCHARIDE 23-VALENT (PPSV23) 05/20/2005 TDAP, (ADOL/ADULT) 12/02/2005 ZOSTER, 1 DOSE (ADULT) 12/02/2005, 09/05/2011 Preventative Care and Screening (Attestation) The following health maintenance items are reviewed in [facility] and correct as of today: Health Maintenance Topic Date Due DTaP/Tdap/Td IMM (2 - Td) 12/03/2015 BREAST CANCER SCREENING (MAMM YEARLY) 12/12/2016 COLON CANCER SCREENING (COLONOSCOPY EVERY 10 YEARS <50 OR >75) 02/16/2018 Influenza IMM (yearly) Completed Pneumo Imm PCV13/PPSV23 (65+) Completed Zostavax IMM Completed REVIEW OF SYSTEMS: A comprehensive review of systems was negative. PHYSICAL EXAM: Vitals: BP 154/60 mmHg | Pulse 65 | Temp(Src) 36.8 C (98.3 F) (Temporal) | Resp 16 | H t 1.549 m (5' 1") | Wt 70.988 kg (156 lb 8 oz) | BMI 29.59 kg/m2 | SpO2 97% | ? No BMI: Estimated body mass index is 29.59 kg/(m^2) as calculated from the following: Height as of this encounter: 1.549 m (5' 1"). Weight as of this encounter: 70.988 kg (156 lb 8 oz). Vision Screening and Audiometry Results: No [...] thy roid not enlarged, symmetric, no tenderness/mass/nodules Back: symmetric, no curvature. ROM normal. No CVA tenderness. Lungs: clear to auscultation bilaterally Breasts: normal appearance, no masses or tenderness Heart: regular rate and rhythm, S1, S2 normal, no murmur, click, rub or gallop Abdomen: soft, non-tender; bowel sounds normal; no masses, no organomegaly Extremities: extremities normal, atraumatic, no cyanosis or edema Pulses: 2+ and symmetric Skin: Skin color, texture, turgor normal. No rashes or lesions Lymph nodes: Cervical, supraclavicular, and axillary nodes normal. Neurologic: Grossly normal ASSESSMENT AND PLANS: CHRONIC CONDITION REVIEW: (Required for all Medicare Advantage AWV's) 1. Chest pressure 2. Essential hypertension 3. Hyperlipidemia, unspecified hyperlipidemia type 4. Gastroesophageal reflux disease without esophagitis 5. Hx-TIA (transient ischemic attack) 6. Routine history and physical examination of adult Will schedule Stress test and patient prefers Thursday, late am will schedule once a pproved. -. Blood pressure stable and goals discussed -. Continue current medications - Advised low salt diet - Advised regular cardiovascular exercise -. Labs reviewed and discussed with the patient - Follow up as needed if blood pressures are above goal -. Take meds as directed, Please inform us of any side effects or problems with your medic ations -. Discussed regular cardiovascular exercise and maintaining healthy wt. -. Avoid high fat/cholesterol diet -. Lipid panel and LFT's reviewed. and f/u labs ordered Continue with Zantac bid MRI of the brain with out contrast ordered and patient will schedule at [facility] . RTC in 6 months for follow up hypertension, lipid, GERD and chest pressure, TIA. RECOMMENDATIONS: The following recommendations were made as a result of this visit, and the HRA Is a Care Management Referral indicated for this patient? no Diet: Continue with current diet Exercise: Advised to start, increase, or maintain level of exercise in order to reach goal of 30 minutes moderate activity at least 4 days per week. Immunizations: None due this visit Screening Labs: None due this visit Screening Exams: None due this visit HEALTH RISK APPRAISAL (Attestation) Health Risk Assessment Form was reviewed with the patient and recommendations made to Becca kiesha Patel based on her risk factors. PERSONALIZED PREVENTATIVE PLAN: (Attestation) A Personalized Care Plan for Ms. Patel has been established and reviewed with patient and made available to the patient. ICandy am acting as a scribe on behalf of, and in the presence of Roderick Alexandra MD. Candy Cano LPN 03/24/16 Roderick Lebron MD, personally performed the services described in this documentation, as s cribed in my presence and it is both accurate and complete.: Roderick Alexandra MD 03/24/16 documented in this en counter Plan of Treatment + +------+--------+ + + | Name | Type | Priori | Associated Diagnoses | Order Schedule | | | | ty | | | + +------+--------+ + + | Stress ECG | ECG | Routin | Chest pressure | 1 Occurrences | | | | e | | starting 03/24/2016 | | | | | | until 03/24/2017 | + +------+--------+ + + documented as of this encounter Procedures + +--------+ + + + | Procedure Name | Priori | Date/Time | Associated Diagnosis | Comments | | | ty | | | | + +--------+ + + + | IMAGING REPORT - | | 06/13/2016 | | Results for this | | EXTERNAL SCAN | | 12:00 AM | | procedure are in the | | | | PDT | | results section. | + +--------+ + + + documented in this encounter Results IMAGING REPORT - EXTERNAL SCAN (06/13/2016 12:00 AM PDT) + + + | Narrative | Performed At | + + + | Ordered by an | | | unspecified provider. | | + + + documented in this encounter Visit Diagnoses + + | Diagnosis | + + | Routine history and physical examination of adult - Primary Routine general medical | | examination at a health care facility | + + | Chest pressure Other chest pain | + + | Essential hypertension Unspecified essential hypertension | + + | Hyperlipidemia, unspecified hyperlipidemia type | + + | Gastroesophageal reflux disease without esophagitis Esophageal reflux | + + | Hx-TIA (transient ischemic attack) Transient ischemic attack (TIA), and cerebral | | infarction without residual deficits | + + | Cerebrovascular accident (CVA), unspecified mechanism (HCC) | + + documented in this encounter
--- OUTSIDE RECORDS SUMMARY | ~2019-02-11 | XMS | Encounter Summary ---
Demographics + + + | Address | [address] | | | [place] [address] | + + + | Home Phone | | + + + | Preferred Language | Unknown | + + + | Marital Status | Single | + + + | Jewish Affiliation | Unknown | + + + | Race | Unknown | + + + | Ethnic Group | Other Race | + + + Author + + + | Author | [facility] | + + + | Organization | [facility] | + + + | Address | Unknown | + + + | Phone | Unavailable | + + + Care Team Providers + +------+ + | Care Repeater Operator Name | Role | Phone | + +------+ + PCP | Unavailable | + +------+ + Encounter Details +--------+ + + + + | Date | Type | Department | Care Team | Description | +--------+ + + + + | 06/27/ | Hospital | Dermatopathology | | | | 2013 | Encounter | [address] | | | | | | Mailcode: [id number] | | | | | | [facility] | | | | | | and Healing, | | | | | | Building [address], [address] | | | | | | Floor [place], [place] | | | | | | [address] | | | | | | [phone] | | | +--------+ + + + [...] | + +--------+ + + + | DERM PATHOLOGY | Routin | 06/27/2013 | | Results for this | | | e | | | procedure are in the | | | | | | results section. | + +--------+ + + + documented in this encounter Results DERM PATHOLOGY (06/27/2013) + + + + + + | Component | Value | Ref Range | Performed | Pathologist | | | | | At | Signature | + + + + + + | DERMATOPATH | SOURCE OF SPECIMEN:A Lt. | | [facility] | | | OLOGY(WET | forearm, shave biopsy | | DERMATOPATH | | | MNT) | CLINICAL | | OLOGY | | | | DESCRIPTION:Subtle | | | | | | change in pre-existing | | | | | | pigmented patch; solar | | | | | | lentigo; r/o melanoma. | | | | | | GROSS | | | | | | DESCRIPTION:Received in | | | | | | formalin is a specimen | | | | | | labeled Cristler, | | | | | | Rosalind:A: Specimen is | | | | | | labeled "Lt forearm" and | | | | | | consists of an | | | | | | irregular shave ofbrown | | | | | | skin, [id number]. The | | | | | | surgical margin is inked | | | | | | black; the tissue | | | | | | isserially sectioned, | | | | | | and entirely submitted | | | | | | in cassette A1. | | | | | | MICROSCOPIC | | | | | | DESCRIPTION:The left | | | | | | forearm biopsy is | | | | | | characterized by a | | | | | | broad, symmetrical | | | | | | neoplasmcharacterized by | | | | | | basketweave | | | | | | hyperkeratosis overlying | | | | | | slightly elongatedand | | | | | | hyperpigmented rete | | | | | | ridges. The epithelial | | | | | | nuclei are uniform, | | | | | | andthere is marked solar | | | | | | elastosis. In one area, | | | | | | there is papillated | | | | | | epidermalhyperplasia | | | | | | containing horn | | | | | | pseudocysts with | | | | | | anastomoses of | | | | | | hyperplasticrete ridges. 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 NOTE: | | | | | | In the left forearm | | | | | | biopsy, there is no | | | | | | evidence of a | | | | | | melanocyticproliferation | | | | | | . CRW:[id number]/30/14 | | | | | | My electronic | | | | | | signature indicates that | | | | | | I have personally | | | | | | reviewed alldiagnostic | | | | | | slides, the gross and/or | | | | | | microscopic portion of | | | | | | thisreport and | | | | | | formulated the final | | | | | | diagnosis. | | | | | | Rendering Diagnostician: | | | | | | Ajya Romeo Jr., | | | | | | | | | | | | MPeriPathologistOmegai | | | | | | rosie Signed 06/30/2013 | | | | | | 1:28PM | | | | + + + + + + + + | Specimen | + + | | + + + + + + + | Performing | Address | City/State/Zipcode | Phone Number | | Organization | | | | + + + + + | [facility] | Mailcode CH5D, [address] | [place] [address] | | | DERMATOPATHOLOGY | [address] | | | + + + + + documented in this encounter Visit Diagnoses Not on filedocumented in this encounter
--- OUTSIDE RECORDS SUMMARY | ~2019-02-11 | XMS | Encounter Summary ---
Demographics + + + | Address | [address] | | | [place] [address] | + + + | Home Phone | | + + + | Preferred Language | Unknown | + + + | Marital Status | | + + + | Taoist Affiliation | 1077 | + + + | Race | Unknown | + + + | Ethnic Group | Unknown | + + + Author + + + | Author | [facility] | | | and Saurabhana | + + + | Organization | [facility] | | | [...] Team Providers + +------+ + | Care Career Agent Name | Role | Phone | + +------+ + | Roderick Alexandra MD | PCP | | + +------+ + Encounter Details +--------+ + + + + | Date | Type | Department | Care Team | Description | +--------+ + + + + | 03/26/ | Abstract | [facility] | Roderick Alexandra, | | | 2018 | | MEDICINE [place] | [address] | | | | | [address] | [place] | | | | | [place] | [address] | | | | | [address] | | | | | | [phone] | | | +--------+ + + + [...] | + +--------+ + + + | DEXA BONE DENSITY | Routin | 03/15/2018 | | Results for this | | STUDY RAMYA OLSON | e | | | procedure are in the | | ASSESSMENT | | | | results section. | + +--------+ + + + documented in this encounter Results DEXA Bone Density ramya Floyd (03/15/2018) + +-------+ + + + | Component | Value | Ref Range | Performed | Pathologist | | | | | At | Signature | + +-------+ + + + | EXT LOWEST | -1.8 | | | | | T-SCORE | | | | | + +-------+ + + + documented in this encounter Visit Diagnoses Not on filedocumented in this encounter"
--- OUTSIDE RECORDS SUMMARY | ~2019-02-11 | XMS | Encounter Summary ---
Demographics + + + | Address | [address] | | | [place] [address] | + + + | Home Phone | | + + + | Preferred Language | Unknown | + + + | Marital Status | | + + + | Pentecostal Affiliation | 1077 | + + + | Race | Unknown | + + + | Ethnic Group | Unknown | + + + Author + + + | Author | [facility] | | | and Saurabhana | + + + | Organization | [facility] | | | [...] Team Providers + +------+ + | Care Bracelet Form Coverer Name | Role | Phone | + [...] Description | +--------+--------+ + + + | 03/03/ | Refill | [facility] | Roderick Alexandra, | Medication Refill | | 2016 | | [facility] | [address] | | | | | [address] | [place] | | | | | [place] | [address] | | | | | [address] | | | | | | [phone] | | | +--------+--------+ + + + [...]
--- OUTSIDE RECORDS SUMMARY | ~2019-02-11 | XMS | Encounter Summary ---
Demographics + + + | Address | [address] | | | [place] [address] | + + + | Home Phone | | + + + | Preferred Language | Unknown | + + + | Marital Status | | + + + | Faith Affiliation | 1077 | + + + | Race | Unknown | + + + | Ethnic Group | Unknown | + + + Author + + + | Author | [facility] | | | and [place]aurab[place]ana | + + + | Organization | [facility] | | | and [place] | + + + | Address | Unknown | + + + | Phone | Unavailable | + + + Support + + +---------+ + | Name | Relationship | Address | Phone | + + +---------+ + | Adyd Moore | ECON | Unknown | | + + +---------+ + | Shelli Tinajero | ECON | Unknown | | + + +---------+ + Care Team Providers + +------+ + | Care Displayer Merchandise Name | Role | Phone | + [...] Description | +--------+--------+ + + + | 08/26/ | Refill | [facility] | Roderick Alexandra, | Medication Refill | | 2013 | | [facility] | [address] | | | | | [address] | [address] | | | | | [place] | [address] | | | | | [address] | | | | | | [phone] | | | +--------+--------+ + + + [...]
--- OUTSIDE RECORDS SUMMARY | ~2019-02-11 | XMS | Encounter Summary ---
Demographics + + + | Address | [address] | | | [place] [address] | + + + | Home Phone [...] + + | Author | [facility] | | | and Saurabhana | + + + | Organization | [facility] | | | [...] Team Providers + +------+ + | Care Enchilada Maker Name | Role | Phone | + [...] | | | | | [address] | [place], [place] | | | | | [place], [place] | [address] | | | | | [address] | | | | | | [phone] | | | +--------+ + + + [...] [address] | | eral | Antecubital; [id number] | Makayla De Los Santos | Melody [...]
--- OUTSIDE RECORDS SUMMARY | ~2019-02-11 | XMS | Encounter Summary ---
Demographics + + + | Address | [address] | | | [place] [address] | + + + | Home Phone | | + + + | Preferred Language | Unknown | + + + | Marital Status | | + + + | Mosque Affiliation | 1077 | + + + [...] Team Providers + +------+ + | Care Sexual Assault Response Coordinator Name | Role | Phone | + +------+ + PCP | Unavailable | + +------+ + Encounter Details +--------+ + + + + | Date | Type | Department | Care Team | Description | +--------+ + + + + | 08/06/ | Hospital | [facility] | | | | 2005 | Encounter | [facility] | | | | | | [address] [place] | | | | | | [place], [place] | | | | | | [address] | | | | | | [phone] | | | +--------+ + + + [...]
--- OUTSIDE RECORDS SUMMARY | ~2019-02-11 | XMS | Encounter Summary ---
Demographics + + + | Address | [address] | | | [place] [address] | + + + | Home Phone | | + + + | Preferred Language | Unknown | + + + | Marital Status | | + + + | Denominational Affiliation | 1077 | + + + | Race | Unknown | + + + | Ethnic Group | Unknown | + + + Author + + + | Author | [facility] | | | and Saurabhana | + + + | Organization | [facility] | | | and [...] Team Providers + +------+ + | Care Chef Passenger Vessel Name | Role | Phone | + +------+ + | Roderick Alexandra MD | PCP | | + +------+ + Encounter Details +--------+ + + + + | Date | Type | Department | Care Team | Description | +--------+ + + + + | 06/30/ | Hospital | [facility] | Vicenta Rizvi | | | 2017 | Encounter | MED CTR OR INTRA OP | MD [address] | | | | | [address] | [place], | | | | | [place], [place] | [place] [address] | | | | | [address] | [phone] | | | | | [phone] | | | +--------+ + + + [...] + + + | Blood Pressure | 143/63 | 06/30/2016 10:40 AM | | | | | PDT | | + + + + + | Pulse | 57 | 06/30/2016 10:40 AM | | | | | PDT | | + + + + + | Temperature | 36 C (96.8 F) | 06/30/2016 9:18 AM | | | | | PDT | | + + + + + | Respiratory Rate | 16 | 06/30/2016 10:40 AM | | | | | PDT | | + + + + + | Oxygen Saturation | 97% | 06/30/2016 10:40 AM | | | | | PDT | | + + + + + | Inhaled Oxygen | - | - | | | Concentration | | | | + + + + + | Weight | 69.9 kg (154 lb) | 06/30/2016 7:19 AM | | | | | PDT | | + + + + + | Height | 154.9 cm (5' 1") | 06/30/2016 7:19 AM | | | | | PDT | | + + + + + | Body Mass Index | 29.1 | 06/30/2016 7:19 AM | | | | | PDT | | + + + + + documented in this encounter Discharge Instructions Instructions Melody Montes RN - 06/30/2016Leave patch on until 6 pm tonight. Remove pat ch at 6 pm and begin ofloxacin and ketorolac eyedrops every 6 hours. Procedural Sedation (Adult) You have been given medicine by vein to make you sleep during your surgery. This may have i ncluded both a pain medicine and sleeping medicine. Most of the effects have worn off. But y ou may still have some drowsiness for the next 6 to 8 hours. Home care Follow these guidelines when you get home: For the next 8 hours, you should be watched by a responsible adult. This person should m ankit sure your condition is not getting worse. Don't take any medicine by mouth for pain or for sleep during the next 4 hours. These mi ght react with the medicines you were given in the hospital. This could cause a much stronge r response than usual. Don't drink any alcoholfor the next [address], operate dangerous machinery, or make important business or personal decisio nsduring the next 24 hours. Follow-up care Follow up with your healthcare provider if you are not alert and back to your usual level o f activity within 12 hours. When to seek medical advice Call your healthcare provider right away if any of these occur: Drowsiness gets worse Weakness or dizziness gets worse Repeated vomiting You cannot be awakened Date Last Reviewed: 12/04/201519997942-3123 [employer]. [address] [place] [address], [place] [address]. All righ ts reserved. This information is not intended as a substitute for professional medical care. Always follow your healthcare professional's instructions. documented in this encounter Medications at Time of Discharge + + + +---------+ + + | Medication | Sig | Dispensed | Refills | Start | End Date | | | | | | Date | | + + + +---------+ + + | artificial tears | Place 1 drop into | | 0 | | | | (REFRESH PLUS) 0.5% | both eyes as needed. | | | | | | SOLN | | | | | | + + + +---------+ + + | CALCIUM PO | TABS; 600 mg | | 0 | 10/30/19 | | | | | | | 12 | | + + + +---------+ + + | Cholecalciferol | Take 2,000 Units by | | 0 | 10/30/19 | | | (RA VITAMIN D-3) | mouth Daily. | | | 12 | | | 2000 UNITS CAPS | | | | | | + + + +---------+ + + | Magnesium Oxide | TABS; Take one by | | 0 | 10/30/19 | | | (MAG-OX 400 PO) | mouth daily | | | 12 | | + + + +---------+ + + | Multiple | Take 2 capsules by | | 0 | | | | Vitamins-Minerals | mouth Daily. | | | | | | (PRESERVISION AREDS | | | | | | | 2) CAPS | | | | | | + + + +---------+ + + | raNITIdine | Take 1 tablet by | 180 | 2 | 03/24/19 | | | (ZANTAC) 150 mg | mouth 2 times daily. | tablet | | 17 | | | tablet | | | | | | + + + +---------+ + + | ASPIRIN ADULT LOW | TBEC; Take one by | | 0 | 10/30/19 | | | STRENGTH PO | mouth daily | | | 12 | 9 | + + + +---------+ + + | ketorolac (ACULAR) | instill 1 drop into | | 0 | 06/17/19 | | | 0.4 % SOLN | both eyes four times | | | 17 | 7 | | | a day STARTING | | | | | | | 06/23/2016 | | | | | + + + +---------+ + + | metoprolol | take 1 tablet by | 90 | 3 | 03/24/19 | | | succinate | mouth once daily | tablet | | 17 | 8 | | (TOPROL-XL) 25 mg 24 | | | | | | | hr tablet | | | | | | + + + +---------+ + + | niacin (NIASPAN) | take 1 tablet by | 90 | 3 | 03/24/19 | | | 500 mg CR tablet | mouth at bedtime | tablet | | 17 | 8 | + + + +---------+ + + | ofloxacin | instill 1 drop into | | 0 | 06/17/19 | | | (OCUFLOX) 0.3% | left eye four times | | | 17 | 7 | | ophthalmic solution | a day STARTING | | | | | | | 06/23/2016 | | | | | + + + +---------+ + + | [place]-3 Fatty | Take 1,000 mg by | | 0 | 10/30/19 | | | Acids ([facility] NATURAL | mouth Daily. | | | 12 | 9 | | FISH OIL) 1000 MG | | | | | | | CAPS | | | | | | + + + +---------+ + + | pravastatin | Take 0.5 tablets by | 45 | 2 | 05/14/19 | | | (PRAVACHOL) 40 MG | mouth nightly. | tablet | | 17 | 8 | | tablet | | | | | | + + + +---------+ + + documented as of this encounter Plan of Treatment Not on filedocumented as of this encounter Procedures + +--------+ + + + | Procedure Name | Priori | Date/Time | Associated Diagnosis | Comments | | | ty | | | | + +--------+ + + + | EXTRACTION CATARACT | | 06/30/2016 | Age-related | | | W/ OR W/O LENS | | 8:42 AM | nuclear cataract of | | | IMPLANT | | PDT | left eye | | + +--------+ + + + | ECG 12 LEAD | STAT | 06/30/2016 | | Results for this | | | | 7:32 AM | | procedure are in the | | | | PDT | | results section. | + +--------+ + + + documented in this encounter Results ECG 12 lead (06/30/2016 7:32 AM PDT) + + + + + + | Component | Value | Ref Range | Performed | Pathologist | | | | | At | Signature | + + + + + + | VENTRICULAR | 60 | BPM | [facility] | | | RATE EKG | | | | | + + + + + + | ATRIAL RATE | 60 | BPM | [facility] | | + + + + + + | P-R | 180 | ms | [facility] | | | INTERVAL | | | | | + + + + + + | QRS | 80 | ms | [facility] | | | DURATION | | | | | + + + + + + | Q-T | 436 | ms | [facility] | | | INTERVAL | | | | | + + + + + + | Q-T | 436 | ms | [facility] | | | INTERVAL | | | | | | (CORRECTED) | | | | | + + + + + + | P WAVE AXIS | 8 | degrees | [facility] | | + + + + + + | QRS AXIS | -2 | degrees | [facility] | | + + + + + + | T AXIS | 21 | degrees | [facility] | | + + + + + + | INTERPRETAT | Normal sinus | | [facility] | | | ION TEXT | rhythmNormal ECGWhen | | | | | | compared with ECG of | | | | | | 29-JAN-2015 09:54,No | | | | | | significant change was | | | | | | foundConfirmed by | | | | | | LEANA SERVIN MD ([id number]) | | | | | | on 06/30/2016 5:41:15 PM | | | | + + + [...] | | | + +--------+ +--------+------+------+ | acetaZOLAMIDE (DIAMOX) tablet | Given | 07/01/19 | 250 mg | | | | 250 mg 250 mg, Oral, ONCE, Thu | 7:42 | | | | | 06/30/16 at 0745, For 1 dose, | | AM PDT | | | | | Pre-op | | | | | | + +--------+ +--------+------+------+ +---+---+ | | | +---+---+ + +-------+ +--------+---+---+ | cyclopentolate (CYCLOGYL) 1% | Given | 07/01/19 | 1 drop | | | | ophthalmic solution 1 drop 1 | | 7:54 | | | | | drop, Left Eye, EVERY 10 MIN, | | AM PDT | | | | | First dose on Thu06/30/16 at | | | | | | | 0745, For 3 doses, May hold third | | | | | | | dose if pupil is at least 6mm., | | | | | | | Pre-op | | | | | | + +-------+ +--------+---+---+ +-------+ +--------+---+---+ | Given | 07/01/19 | 1 drop | | | | | 17 7:41 | | | | | | AM PDT | | | | +-------+ +--------+---+---+ +---+---+ | | | +---+---+ + +-------+ +--------+---+---+ | flurbiprofen (OCUFEN) 0.03% | Given | 07/01/19 | 1 drop | | | | ophthalmic solution 1 drop 1 | | 17 7:53 | | | | | drop, Left Eye, EVERY 10 MIN, | | AM PDT | | | | | First dose on 06/30/16 at | | | | | | | 0745, For 3 doses, May hold third | | | | | | | dose if pupil is at least 6mm., | | | | | | | Pre-op | | | | | | + +-------+ +--------+---+---+ +-------+ +--------+---+---+ | Given | 07/01/19 | 1 drop | | | | | 17 7:40 | | | | | | AM PDT | | | | +-------+ +--------+---+---+ +---+---+ | | | +---+---+ + +---------+ +---+-------+---+ | lactated ringers (LR) infusion | New Bag | 07/01/19 | | 100 | | | at 10-100 mL/hr, Intravenous, | | 17 7:55 | | mL/hr | | | CONTINUOUS, Starting 06/30/16 | | AM PDT | | | | | at 0745, TKO., Pre-op | | | | | | + +---------+ +---+-------+---+ +---+---+ | | | +---+---+ + +-------+ +--------+---+---+ | phenylephrine (SALLY-SYNEPHRINE) | Given | 07/01/19 | 1 drop | | | | 2.5% ophthalmic solution 1 drop | | 17 7:54 | | | | | 1 drop, Left Eye, EVERY 10 MIN, | | AM PDT | | | | | First dose on 06/30/16 at | | | | | | | 0745, For 3 doses, May hold third | | | | | | | dose if pupil is at least 6mm., | | | | | | | Pre-op | | | | | | + +-------+ +--------+---+---+ +-------+ +--------+---+---+ | Given | 07/01/19 | 1 drop | | | | | 17 7:42 | | | | | | AM PDT | | | | +-------+ +--------+---+---+ +---+---+ | | | +---+---+ + +-------+ +--------+---+---+ | proparacaine (ALCAINE) 0.5% | Given | 07/01/19 | 1 drop | | | | ophthalmic solution 1 drop 1 | | 17 7:39 | | | | | drop, Left Eye, ONCE, Thu06/30/16 | | AM PDT | | | | | at 0745, For 1 dose, Pre-op | | | | | | + +-------+ +--------+---+---+ +---+---+ | | | +---+---+ documented in this encounter
--- OUTSIDE RECORDS SUMMARY | ~2019-02-11 | XMS | Encounter Summary ---
Demographics + + + | Address | [address] | | | [place] [address] | + + + | Home Phone | | + + + | Preferred Language | Unknown | + + + | Marital Status | | + + + | Synagogue Affiliation | 1077 | + + + | Race | Unknown | + + + | Ethnic Group | Unknown | + + + Author + + + | Author | [facility] | | | and Saurabhana | + + + | Organization | [facility] | | | [...] Team Providers + +------+ + | Care Tenderizer Tender Name | Role | Phone | + [...] | +--------+ + + + + | 06/07/ | Telephone | [facility] | Roderick Alexandra, | Lab Order | | 2013 | | MEDICINE [place] | [address] | | | | | [address] | [place] | | | | | [place] | [address] | | | | | [address] | | | | | | [phone] | | | +--------+ + + + [...] of this encounter Plan of Treatment + +------+--------+ + + | Name | Type | Priori | Associated Diagnoses | Order Schedule | | | | ty | | | + +------+--------+ + + | Lipid Panel | Lab | Routin | Hyperlipidemia | 1 Occurrences | | | | e | Hypertension | starting 06/08/2013 | | | | | | until 06/08/2014 | + +------+--------+ + + | Comprehensive | Lab | Routin | Hyperlipidemia | 1 Occurrences | | Metabolic Panel | | e | Hypertension | starting 06/08/2013 | | | | | | until 06/08/2014 | + +------+--------+ + + | Microalbumin/Creatin | Lab | Routin | Hypertension | 1 Occurrences | | ine Ratio, Urine | | e | | starting 06/08/2013 | | | | | | until 06/08/2014 | + +------+--------+ + + documented as of this encounter Visit Diagnoses + + | Diagnosis | + + | Hyperlipidemia - Primary Other and unspecified hyperlipidemia | + + | Hypertension Unspecified essential hypertension | + + | Fatigue Other malaise and fatigue | + + | Vitamin D deficiency Unspecified vitamin D deficiency | + + documented in this encounter"
--- OUTSIDE RECORDS SUMMARY | ~2019-02-11 | XMS | Encounter Summary ---
Demographics + + + | Address | [address] | | | [place] [address] | + + + | Home Phone | | + + + | Preferred Language | Unknown | + + + | Marital Status | | + + + | Taoism Affiliation | 1077 | + + + [...] Team Providers + +------+ + | Care Internal Carver Name | Role | Phone | + +------+ + | Roderick Alexandra MD | PCP | | + +------+ + Reason for Visit +---------+ + | Reason | Comments | +---------+ + | Results | | +---------+ + Encounter Details +--------+ + + + + | Date | Type | Department | Care Team | Description | +--------+ + + + + | 12/13/ | Telephone | [facility] | Mariluz Shields [place] | Results | | 2012 | | MEDICINE [place] | [address] [facility] | | | | | [address] | [address] [place], [place] | | | | | [place], [place] | [address] | | | | | [address] | | | | | | [phone] | | | +--------+ + + + [...]
--- OUTSIDE RECORDS SUMMARY | ~2019-02-11 | XMS | Encounter Summary ---
Demographics + + + | Address | [address] | | | [place] [address] | + + + | Home Phone | | + + + | Preferred Language | Unknown | + + + | Marital Status | | + + + | Yazidism Affiliation | 1077 | + + + | Race | Unknown | + + + | Ethnic Group | Unknown | + + + Author + + + | Author | [facility] | | | and Saurabhana | + + + | Organization | [facility] | | [...] Team Providers + +------+ + | Care Auto Vinyl Top Installer Name | Role | Phone | + [...] Description | +--------+--------+ + + + | 03/02/ | Refill | [facility] [place] [facility] | Roderick Alexandra, | Medication Refill | | 2013 | | [facility] | [address] | | | | | [address] | [place] | | | | | [place] | [address] | | | | | [address] | | | | | | [phone] | | | +--------+--------+ + + + [...]
--- OUTSIDE RECORDS SUMMARY | ~2019-02-11 | XMS | Encounter Summary ---
Demographics + + + | Address | [address] | | | [place] [address] | + + + | Home Phone | | + + + | Preferred Language | Unknown | + + + | Marital Status | | + + + | Rastafari Affiliation | 1077 | + + + | Race | Unknown | + + + | Ethnic Group | Unknown | + + + Author + + + | Author | [facility] | | | and Saur[place]ana | + + + | Organization | [facility] | [...] Team Providers + +------+ + | Care Dry Heat Room Attendant Name | Role | Phone | + [...] Description | +--------+--------+ + + + | 04/01/ | Refill | [facility] [place] [facility] | Roderick Alexandra, | Medication Refill | | 2017 | | MEDICINE [facility] | [address] | | | | | [address] | [place] | | | | | [place] | [address] | | | | | [address] | | | | | | [phone] | | | +--------+--------+ + + + [...]
--- OUTSIDE RECORDS SUMMARY | ~2019-02-11 | XMS | Encounter Summary ---
Demographics + + + | Address | [address] | | | [place] [address] | + + + | Home Phone | | + + + | Preferred Language | Unknown | + + + | Marital Status | | + + + | Confucianism Affiliation | 1077 | + + + [...] Team Providers + +------+ + | Care Artificial Marble Worker Name | Role | Phone | [...] + | 01/16/ | Telephone | [facility] | Roderick Alexandra, | Lab Order | | 2013 | | MEDICINE [place] | [address] | | | | | [address] | [place] | | | | | [place] | [address] | | | | | [address] | | | | | | [phone] | | | +--------+ + + + [...]
--- OUTSIDE RECORDS SUMMARY | ~2019-02-11 | XMS | Clinical Summary ---
Demographics + + + | Address | [address] | | | [place] [address] | + + + | Home Phone | | + + + | Preferred Language | Unknown | + + + | Marital Status | Single | + + + | Scientologist Affiliation | Unknown | + + + | Race | Unknown | + + + | Ethnic Group | Other Race | + + + Author + + + | Author | [facility] | + + + | Organization | [facility] | + + + | Address | Unknown | + + + | Phone | Unavailable | + + + Care Team Providers + +------+ + | Care Valuation Manager Name | Role | Phone | + +------+ + PCP | Unavailable | + +------+ + Source Comments GERMAINE is fully live on both [facility] Ambulatory and [facility] InPatient.[facility] Allergies Not on File Medications Not on [...] | | | | | | | [address] | | + +--------+ +--------+ + +--------+ [...] aliyah | | | [address] (Home) | [address] | + +--------+ +--------+ + +"
--- OUTSIDE RECORDS SUMMARY | ~2019-02-11 | XMS | Encounter Summary ---
Demographics + + + | Address | [address] | | | [place] [address] | + + + | Home Phone | | + + + | Preferred Language | Unknown | + + + | Marital Status | | + + + | Nondenominational Affiliation | 1077 | + + + | Race | Unknown | + + + | Ethnic Group | Unknown | + + + Author + + + | Author | [facility] | | | and Saurabhana | + + + | Organization | [facility] | | | and [...] Team Providers + +------+ + | Care Passenger Tire Builder Name | Role | Phone | + [...] Description | +--------+--------+ + + + | 08/11/ | Refill | [facility] [place] [facility] | Roderick Alexandra, | Medication Refill | | 2012 | | [facility] | [address] | | | | | [address] | [place] | | | | | [place] | [address] | | | | | [address] | | | | | | [phone] | | | +--------+--------+ + + + [...]
--- OUTSIDE RECORDS SUMMARY | ~2019-02-11 | XMS | Encounter Summary ---
Demographics + + + | Address | [address] | | | [place] [address] | + + + | Home Phone | | + + + | Preferred Language | Unknown | + + + | Marital Status | | + + + | Synagogue Affiliation | 1077 | + + + | Race | Unknown | + + + | Ethnic Group | Unknown | + + + Author + + + | Author | [facility] | | | and Saurabhana | + + + | Organization | [facility] | | | [...] Team Providers + +------+ + | Care Conciliation Court Judge Name | Role | Phone | + +------+ + | Roderick Alexandra MD | PCP | | + +------+ + Encounter Details +--------+ + + + + | Date | Type | Department | Care Team | Description | +--------+ + + + + | 10/28/ | Abstract | [place] [facility] | [facility] | | | 2011 | | Conversion Location | [facility] | | | | | [phone] | | | +--------+ + + + [...] + + + | Blood Pressure | 116/68 | 03/31/2011 12:00 AM | | | | | PST | | + + + + + | Pulse | - | - | | + + + + + | Temperature | - | - | | + + + + + | Respiratory Rate | - | - | | + + + + + | Oxygen Saturation | - | - | | + + + + + | Inhaled Oxygen | - | - | | | Concentration | | | | + + + + + | Weight | 68.2 kg (150 lb 6.4 | 03/31/2011 12:00 AM | | | | oz) | PST | | + + + + + | Height | 156.2 cm (5' 1.5") | 06/08/2007 12:00 AM | | | | | PDT | | + + + + + | Body Mass Index | 27.96 | 06/08/2007 12:00 AM | | | | | PDT | | + + + + + documented in this encounter Plan of Treatment Not on filedocumented as of this encounter Procedures + +--------+ + + + | Procedure Name | Priori | Date/Time | Associated Diagnosis | Comments | | | ty | | | | + +--------+ + + + | TASH SCREENING | Routin | 08/13/2011 | | Results for this | | BILATERAL | e | 12:00 AM | | procedure are in the | | | | PDT | | results section. | + +--------+ + + + | PAP SMEAR | Routin | 03/31/2011 | | Results for this | | | e | 12:00 AM | | procedure are in the | | | | PST | | results section. | + +--------+ + + + | TASH SCREENING | Routin | 07/16/2010 | | Results for this | | BILATERAL | e | 12:00 AM | | procedure are in the | | | | PDT | | results section. | + +--------+ + + + | ENDOSCOPY, COLON, | Routin | 02/17/2008 | | Results for this | | DIAGNOSTIC | e | 12:00 AM | | procedure are in the | | | | PST | | results section. | + +--------+ + + + documented in this encounter Results TASH Screening Bilateral (08/13/2011 12:00 AM PDT) + + | Specimen | + + | | + + + + + | Narrative | Performed At | + + + | | | + + + Pap Smear (03/31/2011 12:00 AM PST) + + | Specimen | + + | | + + + + + | Narrative | Performed At | + + + | | | + + + TASH Screening Bilateral (07/16/2010 12:00 AM PDT) + + | Specimen | + + | | + + + + + | Narrative | Performed At | + + + | | | + + + ENDOSCOPY, COLON, DIAGNOSTIC (02/17/2008 12:00 AM PST) + + | Specimen | + + | | + + + + + | Narrative | Performed At | + + + | | | + + + documented in this encounter Visit Diagnoses Not on filedocumented in this encounter
--- OUTSIDE RECORDS SUMMARY | ~2019-02-11 | XMS | Encounter Summary ---
Demographics + + + | Address | [address] | | | [place] [address] | + + + | Home Phone | | + + + | Preferred Language | Unknown | + + + | Marital Status | | + + + | Worship Affiliation | 1077 | + + + [...] Team Providers + +------+ + | Care Supervisor Plate Forming Name | Role | Phone | + +------+ + | Roderick Alexandra MD | PCP | | + +------+ + Encounter Details +--------+---------+ + + + | Date | Type | Department | Care Team | Description | +--------+---------+ + + + | 06/30/ | Surgery | [facility] | [facility] | LEFT Cataract | | 2017 | | MED CTR OR INTRA OP | MD [address] | Extraction w/ Lens | | | | [address] | [place], | Implant | | | | [place], [place] | [place] [address] | | | | | [address] | [phone] | | | | | [phone] | | | +--------+---------+ + + + [...] You cannot be awakened Date Last Reviewed: 12/04/201519993106-3189 [employer]. [address] [place] [address], [place] [address]. All righ ts reserved. 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 | + + documented in this encounter Administered Medications + +--------+ +--------+------+------+ | Medication Order | MAR | Action | Dose | Rate | Site | | | Action | Date | | | | + +--------+ +--------+------+------+ | acetaZOLAMIDE (DIAMOX) tablet | Given | 07/01/19 | 250 mg | | | | 250 mg 250 mg, Oral, ONCE, Thu | | 17 7:42 | | | | | 06/30/16 at 0745, For 1 dose, | | AM PDT | | | | | Pre-op | | | | | | + +--------+ +--------+------+------+ +---+---+ | | | +---+---+ + +-------+ + +---+ + | balanced salts sterile | Given | 07/01/19 | 1 | | Eye-Left | | ophthalmic irrigation solution | | 17 8:52 | Applicat | | | | PRN, Starting Thu06/30/16 at | | AM PDT | ion | | | | 0852, Intra-op | | | | | | + +-------+ + +---+ + +---+---+ | | | +---+---+ + +-------+ +------+---+ + | betamethasone (CELESTONE | Given | 07/01/19 | 3 mg | | Eye-Left | | SOLUSPAN) injection PRN, | | 17 8:55 | | | | | Starting Thu06/30/16 at 0855, | | AM PDT | | | | | Intra-op | | | | | | + +-------+ +------+---+ + +---+---+ | | | +---+---+ + +-------+ +---------+---+ + | ceFAZolin (ANCEF) ophthalmic | Given | 07/01/19 | 12.5 mg | | Eye-Left | | solution PRN, Starting Thu | | 17 8:56 | | | | | 06/30/16 at 0856, Intra-op | | AM PDT | | | | + +-------+ +---------+---+ + +---+---+ | | | +---+---+ + +-------+ +--------+---+---+ | cyclopentolate (CYCLOGYL) 1% | Given | 07/01/19 | 1 drop | | | | ophthalmic solution 1 drop 1 | | 17 7:54 | | | | | drop, [...] +---+---+ | | | +---+---+ + +-------+ +--------+---+ + | EPINEPHrine 1 mg/mL injection | Given | 07/01/19 | 0.4 mg | | Eye-Left | | PRN, Starting 06/30/16 at | | 17 8:52 | | | | | 0852, Intra-op | | AM PDT | | | | + +-------+ +--------+---+ + +---+---+ | | | +---+---+ + +-------+ [...] +---+---+ | | | +---+---+ + +-------+ +-------+---+ + | hyaluronate & chondroitin | Given | 07/01/19 | 1 kit | | Eye-Left | | hyaluronate (DUOVISC) intraocular | | 17 8:51 | | | | | kit PRN, Starting Thu06/30/16 | | AM PDT | | | | | at 0851, Intra-op | | | | | | + +-------+ +-------+---+ + +---+---+ | | | +---+---+ + +---------+ +---+-------+---+ | lactated ringers (LR) infusion | New Bag | 07/01/19 | | 100 | | | at 10-100 mL/hr, Intravenous, | | 17 7:55 | | mL/hr | | | CONTINUOUS, Starting Thu06/30/16 | | AM PDT | | | | | at 0745, TKO., Pre-op | | | | | | + +---------+ +---+-------+---+ +---+---+ | | | +---+---+ + +-------+ +-------+---+ + | lidocaine (PF) 2% injection | Given | 07/01/19 | 2 mLs | | Eye-Left | | PRN, Starting Thu06/30/16 at | | 17 8:55 | | | | | 0855, Intra-op | | AM PDT | | | | + +-------+ +-------+---+ + +---+---+ | | | +---+---+ + +-------+ + +---+ + | duofomfw-exftprcri-dkbveyrfhy | Given | 07/01/19 | 1 | | Eye-Left | | (NEOSPORIN) ophthalmic ointment | | 17 9:01 | Applicat | | | | PRN, Starting Thu06/30/16 at | | AM PDT | ion | | | | 0901, Intra-op | | | | | | + +-------+ + +---+ + +---+---+ | | | +---+---+ + +-------+ [...] +---+---+ | | | +---+---+ + +-------+ +---------+---+ + | povidone-iodine 5 % ophthalmic | Given | 07/01/19 | 2 drops | | Eye-Left | | solution PRN, Starting Mon | | 17 8:51 | | | | | 06/30/16 at 0851, Intra-op | | AM PDT | | | | + +-------+ +---------+---+ + +---+---+ | | | +---+---+ + +-------+ +--------+---+---+ | proparacaine (ALCAINE) 0.5% | Given | 07/01/19 | 1 drop | | | | ophthalmic solution 1 drop 1 | | 17 7:39 | | | | | drop, Left Eye, ONCE, 06/30/16 | | AM PDT | | | | | at 0745, For 1 dose, Pre-op | | | | | | + +-------+ +--------+---+---+ +---+---+ | | | +---+---+ documented in this encounter
--- OUTSIDE RECORDS SUMMARY | ~2019-02-11 | XMS | Encounter Summary ---
Demographics + + + | Address | [address] | | | [place] [address] | + + + | Home Phone | | + + + | Preferred Language | Unknown | + + + | Marital Status | | + + + | Restoration Affiliation | 1077 | + + + | Race | Unknown | + + + | Ethnic Group | Unknown | + + + Author + + + | Author | [facility] | | | and [place] | + + + | Organization | [facility] | | [...] Team Providers + +------+ + | Care Government Documents Librarian Name | Role | Phone | + [...] Description | +--------+--------+ + + + | 02/20/ | Refill | [facility] | Roderick Alexandra, | Medication Refill | | 2015 | | [facility] | [address] | | | | | [address] | [place] | | | | | [place] | [address] | | | | | [address] | | | | | | [phone] | | | +--------+--------+ + + + [...]
--- OUTSIDE RECORDS SUMMARY | ~2019-02-11 | XMS | Encounter Summary ---
Demographics + + + | Address | [address] | | | [place] [address] | + + + | Home Phone | | + + + | Preferred Language | Unknown | + + + | Marital Status | | + + + | Gnosticism Affiliation | 1077 | + + + | Race | Unknown | + + + | Ethnic Group | Unknown | + + + Author + + + | Author | [facility] | | | and [place] | + + + | Organization | [facility] | | | [...] Team Providers + +------+ + | Care Anatomic Pathology Assistant Name | Role | Phone | + +------+ + | Roderick Alexandra MD | PCP | | + +------+ + Encounter Details +--------+ + + + + | Date | Type | Department | Care Team | Description | +--------+ + + + + | 10/16/ | Hospital | [facility] | Roderick Alexandra, | | | 2010 | Encounter | MED CTR XRAY [address] | MD [address] | | | | | [place] | [place], [place] | | | | | [place] [address] | [address] | | | | | [phone] | | | +--------+ + + + [...] | + +--------+ + + + | XR CHEST PA AND | | 10/16/2010 | | Results for this | | LATERAL | | 12:26 PM | | procedure are in the | | | | PDT | | results section. | + +--------+ + + + documented in this encounter Results XR Chest PA and Lateral (10/16/2010 12:26 PM PDT) + + | Specimen | + + | | + + + + + | Narrative | Performed At | + + + | [facility] Diagnostic Imaging Department | [facility] | | [address] [facility] | [facility] | | PA AND LATERAL CHEST, 10/16/2010 | DIAG IMG | | CLINICAL HISTORY: COUGH. COMPARISON: None. FINDINGS: | | | There is atherosclerotic calcification of the thoracic aorta. | | | Heart, mediastinum and pulm onary vasculature are otherwise | | | unremarkable. The lungs are clear, without pneumothorax or pleural e | | | ffusion. Diffuse osteopenia is suggested. There is multilevel | | | thoracic spondylosis. IMPRESSION: 1. NO EVIDENCE OF ACTIVE | | | DISEASE IN THE CHEST. 2. OSTEOPENIA AND SPONDYLOSIS. | | | Dictated Date/Time: 10/16/2010 13:47 Transcribed Date/Time: | | | 10/16/2010 13:54 Roll Edge Machine Operator: <Electronically Signed | | | by Greg Denny MD> 10/16/10 1737 | | + + + + + | Procedure Note | + + | Jam, Rad Conversion - 03/25/2013 3:42 PM [facility] | | Diagnostic Imaging Department [address] [place] [address] | | PA AND LATERAL CHEST, 10/16/2010 CLINICAL HISTORY: | | COUGH. COMPARISON: None. FINDINGS: There is atherosclerotic calcification of the | | thoracic aorta. Heart, mediastinum and pulmonary vasculature are otherwise | | unremarkable. The lungs are clear, without pneumothorax or pleural effusion. Diffuse | | osteopenia is suggested. There is multilevel thoracic spondylosis. IMPRESSION: 1. NO | | EVIDENCE OF ACTIVE DISEASE IN THE CHEST. 2. OSTEOPENIA AND SPONDYLOSIS. Dictated | | Date/Time: 10/16/2010 13:47Transcribed Date/Time: 10/16/2010 13:54Transcriptionist: | | <Electronically Signed by Greg Denny MD> 10/16/101736 | |COMPARISON: None. | | | |FINDINGS: There is atherosclerotic calcification of the thoracic aorta. Heart, mediastinu m and pulm | |onary vasculature are otherwise unremarkable. The lungs are clear, without pneumothorax or pleural e | |ffusion. Diffuse osteopenia is suggested. There is multilevel thoracic spondylosis. | | | |IMPRESSION: | |1. NO EVIDENCE OF ACTIVE DISEASE IN THE CHEST. | | | |2. OSTEOPENIA AND SPONDYLOSIS. | | | |Dictated Date/Time: 10/16/2010 13:47 | |Transcribed Date/Time: 10/16/2010 13:54 | |Roll Edge Machine Operator: | |<Electronically Signed by Greg Denny MD> 10/16/10 1737 | + + + +---------+ + + | Performing | Address | City/State/Zipcode | Phone Number | | Organization | | | | + +---------+ + + | [place] | | | | | [place] | | | | + +---------+ + + documented in this encounter Visit Diagnoses Not on filedocumented in this encounter"
--- OUTSIDE RECORDS SUMMARY | ~2019-02-11 | XMS | Encounter Summary ---
Demographics + + + | Address | [address] | | | [place] [address] | + + + | Home Phone [...] Providers + +------+ + | Care Process Server Name | Role | Phone | + [...] + + | 10/13/ | Documentati | [facility] | [place] | Lasha (PCP REFERRAL | | 2019 | on | CARDIOLOGY KIERRA Tran, Senior Accounting Clerk | AND NOTES ) | | | | [address] | | | | | | [address] [place] | | | | | | [address] | | | | | | [phone] | | | +--------+ + + + [...]
--- OUTSIDE RECORDS SUMMARY | ~2019-02-11 | XMS | Encounter Summary ---
Demographics + + + | Address | [address] | | | [place] [address] | + + + | Home Phone | | + + + | Preferred Language | Unknown | + + + | Marital Status | | + + + | Congregation Affiliation | 1077 | + + + | Race | Unknown | + + + | Ethnic Group | Unknown | + + + Author + + + | Author | [facility] | | | and [place]ana | + + + | Organization | [facility] | [...] Team Providers + +------+ + | Care Child Attendant Name | Role | Phone | + +------+ + | Roderick Alexandra MD | PCP | | + +------+ + Encounter Details +--------+ + + + + | Date | Type | Department | Care Team | Description | +--------+ + + + + | 06/13/ | Abstract | [facility] [place] [facility] | Roderick Alexandra, | | | 2013 | | MEDIC[facility] | [address] | | | | | [address] | [place] | | | | | [place] | [address] | | | | | [address] | | | | | | [phone] | | | +--------+ + + + [...] + | EXTERNAL LAB: | Routin | 06/13/2013 | | Results for this | | CHOLESTEROL, NON HDL | e | | | procedure are in the | | LP | | | | results section. | + +--------+ + + + | EXTERNAL LAB: | Routin | 06/13/2013 | | Results for this | | TRIGLYCERIDES | e | | | procedure are in the | | | | | | results section. | + +--------+ + + + | EXTERNAL LAB: | Routin | 06/13/2013 | | Results for this | | CHOLESTEROL, HDL | e | | | procedure are in the | | | | | | results section. | + +--------+ + + + | EXTERNAL LAB: | Routin | 06/13/2013 | | Results for this | | CHOLESTEROL, TOTAL | e | | | procedure are in the | | | | | | results section. | + +--------+ + + + | EXTERNAL LAB: | Routin | 06/13/2013 | | Results for this | | CHOLESTEROL, LDL | e | | | procedure are in the | | DIRECT | | | | results section. | + +--------+ + + + | EXTERNAL LAB: | Routin | 06/13/2013 | | Results for this | | CHOLESTEROL, LDL | e | | | procedure are in the | | | | | | results section. | + +--------+ + + + | EXTERNAL LAB: | Routin | 06/13/2013 | | Results for this | | MICROALBUMIN/CREATIN | e | | | procedure are in the | | INE RATIO, URINE | | | | results section. | + +--------+ + + + | EXTERNAL LAB: | Routin | 06/13/2013 | | Results for this | | MICROALBUMIN, URINE | e | | | procedure are in the | | | | | | results section. | + +--------+ + + + | EXTERNAL LAB: EGFR | Routin | 06/13/2013 | | Results for this | | | e | | | procedure are in the | | | | | | results section. | + +--------+ + + + | EXTERNAL LAB: | Routin | 06/13/2013 | | Results for this | | CREATININE | e | | | procedure are in the | | | | | | results section. | + +--------+ + + + | CREATININE, URINE | Routin | 06/13/2013 | | Results for this | | | e | | | procedure are in the | | | | | | results section. | + +--------+ + + + | COMPREHENSIVE | Routin | 06/13/2013 | | Results for this | | METABOLIC PANEL | e | | | procedure are in the | | | | | | results section. | + +--------+ + + + documented in this encounter Results Creatinine, Urine (06/13/2013) + +-------+ + + + | Component | Value | Ref Range | Performed | Pathologist | | | | | At | Signature | + +-------+ + + + | Creatinine, | 75 | mg/dL | | | | Urine | | | | | + +-------+ + + + + + | Specimen | + + | Urine specimen | | (specimen) | + + Comprehensive Metabolic Panel (06/13/2013) + +-------+ + + + | Component | Value | Ref Range | Performed | Pathologist | | | | | At | Signature | + +-------+ + + + | Na | 138 | 132 - 143 | [facility] | | | | | mmol/L | [facility] | | | | | | [facility] | | | | | [facility] - | | | | | | LAB[facility]ATORY | | + +-------+ + + + | K | 4.2 | 3.6 - 5.1 | [facility] | | | | | mmol/L | [facility] | | | | | | [facility] | | | | | | [facility] - | | | | | | LABORATORY | | + +-------+ + + + | Chloride | 102 | 95 - 112 | [facility] | | | | | | [facility] | | | | | | [facility] | | | | | | [facility] - | | | | | | LABORATORY | | + +-------+ + + + | CO2 | 25 | 19 - 31 mmol/L | [facility] | | | | | | [facility] | | | | | | [facility] | | | | | | [facility] - | | | | | | LABORATORY | | + +-------+ + + + | Anion Gap | 15 | 7 - 21 mmol/L | [facility] | | | | | | [facility] | | | | | | [facility] | | | | | | [facility] - | | | | | | LABORATORY | | + +-------+ + + + | Glucose | 96 | 70 - 100 mg/dL | [facility] | | | | | | [facility] | | | | | | [facility] | | | | | | [facility] - | | | | | | LABORATORY | | + +-------+ + + + | BUN | 16 | 6 - 23 mg/dL | [facility] | | | | | | [facility] | | | | | | [facility] | | | | | | [facility] - | | | | | | LABORATORY | | + +-------+ + + + | Bun/Creatin | 24.2 | 6.0 - 28.6 | [facility] | | | ine | | | [facility] | | | | | | [facility] | | | | | | C[facility] - | | | | | | LABORATORY | | + +-------+ + + + | Calcium | 9.4 | 8.4 - 10.2 | [facility] | | | | | mg/dL | [facility] | | | | | | [facility] | | | | | | [facility] - | | | | | | LABORATORY | | + +-------+ + + + | Alkaline | 80 | 30 - 128 U/L | [facility] | | | Phosphatase | | | [facility] | | | | | | [facility] | | | | | | C[facility] - | | | | | | LABORATORY | | + +-------+ + + + | Bilirubin | 0.4 | 0.0 - 1.2 mg/dL | [facility] | | | Total | | | [facility] | | | | | | [facility] | | | | | | [facility] - | | | | | | LABORATORY | | + +-------+ + + + | Total | 6.4 | 6.1 - 8.4 g/dL | [facility] | | | Protein | | | [facility] | | | | | | [facility] | | | | | | [facility] - | | | | | | LABORATORY | | + +-------+ + + + | Albumin | 4.3 | 3.3 - 4.8 g/dL | [facility] | | | | | | [facility] | | [facility] | | | [facility] | | | | | | [facility] - | | | | | | LABORATORY | | + +-------+ + + + | Globulin | 2.1 | 1.8 - 3.5 | [facility] | | | | | | [facility] | | | [facility] | | [facility] | | | | | | [facility] - | | | | | | LABORATORY | | + +-------+ + + + | Albumin/Monae | 2.0 | 1.2 - 2.4 | [facility] | | | bulin Ratio | | | [facility] | | | | | | [facility] | | | | | | CENTER - | | | | | | LABORATORY | | + +-------+ + + + + + | Specimen | + + | Blood specimen | | (specimen) | + + + + + + + | Performing | Address | City/State/Zipcode | Phone Number | | Organization | | | | + + + + + | [facility] | [address] | [place] | [phone] | | [facility] | | [address] | | | - LABORATORY | | | | + + + + + | [facility] | [address] | [place], [place] | | | [facility] | | [address] | | | - LABORATORY | | | | + + + + + External Lab: Cholesterol, Non HDL LP (06/13/2013) + +-------+ + + + | Component | Value | Ref Range | Performed | Pathologist | | | | | At | Signature | + +-------+ + + + | Cholesterol | 126 | | | | | , Total, | | | | | | Non HDL-C | | | | | | (LDL+VLDL), | | | | | | External | | | | | + +-------+ + + + + + | Specimen | + + | Blood specimen | | (specimen) | + + + + | Resulting Agency Comment | + + | [facility] | + + External Lab: Triglycerides (06/13/2013) + +-------+ + + + | Component | Value | Ref Range | Performed | Pathologist | | | | | At | Signature | + +-------+ + + + | Triglycerid | 153 | | | | | es, | | | | | | External | | | | | + +-------+ + + + + + | Specimen | + + | Blood specimen | | (specimen) | + + + + | Resulting Agency Comment | + + | [facility] | + + External Lab: Cholesterol, HDL (06/13/2013) + +-------+ + + + | Component | Value | Ref Range | Performed | Pathologist | | | | | At | Signature | + +-------+ + + + | HDL | 44.9 | | | | | Cholesterol | | | | | | , External | | | | | + +-------+ + + + + + | Specimen | + + | Blood specimen | | (specimen) | + + + + | Resulting Agency Comment | + + | [facility] | + + External Lab: Cholesterol, Total (06/13/2013) + +-------+ + + + | Component | Value | Ref Range | Performed | Pathologist | | | | | At | Signature | + +-------+ + + + | Cholesterol | 171 | | | | | , Total, | | | | | | External | | | | | + +-------+ + + + + + | Specimen | + + | Blood specimen | | (specimen) | + + + + | Resulting Agency Comment | + + | [facility] | + + External Lab: Cholesterol, LDL Direct (06/13/2013) + +-------+ + + + | Component | Value | Ref Range | Performed | Pathologist | | | | | At | Signature | + +-------+ + + + | LDL | 31 | | | | | Cholesterol | | | | | | , Direct, | | | | | | External | | | | | + +-------+ + + + + + | Specimen | + + | Blood specimen | | (specimen) | + + + + | Resulting Agency Comment | + + | [facility] | + + External Lab: Cholesterol, LDL (06/13/2013) + +-------+ + + + | Component | Value | Ref Range | Performed | Pathologist | | | | | At | Signature | + +-------+ + + + | LDL | 96 | | | | | Cholesterol | | | | | | , Direct, | | | | | | External | | | | | + +-------+ + + + + + | Specimen | + + | Blood specimen | | (specimen) | + + + + | Resulting Agency Comment | + + | [facility] | + + External Lab: Microalbumin/Creatinine Ratio, Urine (06/13/2013) + +-------+ + + + | Component | Value | Ref Range | Performed | Pathologist | | | | | At | Signature | + +-------+ + + + | Microalbumi | 9.3 | | | | | n/Creatinin | | | | | | e Ratio, | | | | | | External | | | | | + +-------+ + + + + + | Specimen | + + | Blood specimen | | (specimen) | + + + + | Resulting Agency Comment | + + | [facility] | + + External Lab: Microalbumin, Urine (06/13/2013) + +-------+ + + + | Component | Value | Ref Range | Performed | Pathologist | | | | | At | Signature | + +-------+ + + + | Microalbumi | 0.7 | | | | | n, Urine, | | | | | | External | | | | | + +-------+ + + + + + | Specimen | + + | Blood specimen | | (specimen) | + + + + | Resulting Agency Comment | + + | [facility] | + + External Lab: eGFR (06/13/2013) + +-------+ + + + | Component | Value | Ref Range | Performed | Pathologist | | | | | At | Signature | + +-------+ + + + | eGFR, | 86 | | | | | External | | | | | + +-------+ + + + | eGFR, | | | | | | | | | | | | Zambian, | | | | | | External | | | | | + +-------+ + + + + + | Specimen | + + | Blood specimen | | (specimen) | + + + + | Resulting Agency Comment | + + | [facility] | + + External Lab: Creatinine (06/13/2013) + +-------+ + + + | Component | Value | Ref Range | Performed | Pathologist | | | | | At | Signature | + +-------+ + + + | Creatinine, | 0.66 | | | | | External | | | | | + +-------+ + + + + + | Specimen | + + | Blood specimen | | (specimen) | + + + + | Resulting Agency Comment | + + | [facility] | + + documented in this encounter Visit Diagnoses Not on filedocumented in this encounter"
--- OUTSIDE RECORDS SUMMARY | ~2019-02-11 | XMS | Encounter Summary ---
Demographics + + + | Address | [address] | | | [place] [address] | + + + | Home Phone | | + + + | Preferred Language | Unknown | + + + | Marital Status | | + + + | Mormon Affiliation | 1077 | + + + | Race | Unknown | + + + | Ethnic Group | Unknown | + + + Author + + + | Author | [facility] | | | and [place]ana | + + + | Organization | [facility] | | [...] Team Providers + +------+ + | Care Compliance Director Name | Role | Phone | + [...] | | | | [place] | [address] | | | | | [address] | | | | | | [phone] | | | +--------+ + + + [...]
--- OUTSIDE RECORDS SUMMARY | ~2019-02-11 | XMS | Encounter Summary ---
Demographics + + + | Address | [address] | | | [place] [address] | + + + | Home Phone | | + + + | Preferred Language | Unknown | + + + | Marital Status | | + + + | Nondenominational Affiliation | 1077 | + + + | Race | Unknown | + + + | Ethnic Group | Unknown | + + + Author + + + | Author | [facility] | | | and [place]aur[place]ana | + + + | Organization | [facility] | | | [...] Team Providers + +------+ + | Care Cinder Worker Name | Role | Phone | [...] Description | +--------+--------+ + + + | 08/30/ | Refill | [facility] | Roderick Alexandra, | Medication Refill | | 2012 | | [facility] | [address] | | | | | [address] | [place] | | | | | [place] | [address] | | | | | [address] | | | | | | [phone] | | | +--------+--------+ + + + [...]
--- OUTSIDE RECORDS SUMMARY | ~2019-02-11 | XMS | Encounter Summary ---
Demographics + + + | Address | [address] | | | [place] [address] | + + + | Home Phone | | + + + | Preferred Language | Unknown | + + + | Marital Status | | + + + | Yarsanism Affiliation | 1077 | + + + | Race | Unknown | + + + | Ethnic Group | Unknown | + + + Author + + + | Author | [facility] | | | and [place] | + + + | Organization | [facility] | | | [...] Providers + +------+ + | Care Auto Claim Representative Name | Role | Phone | + [...] Refill | | 2015 | | [facility] | [address] | | | | | [address] | [place] | | | | | [place] | [address] | | | | | [address] | | | | | | [phone] | | | +--------+--------+ + + + [...]
--- OUTSIDE RECORDS SUMMARY | ~2019-02-11 | XMS | Encounter Summary ---
Demographics + + + | Address | [address] | | | [place] [address] | + + + | Home Phone [...] Team Providers + +------+ + | Care Professor Of Finance Name | Role | Phone | + [...] + + | 07/25/ | Office | [facility] | Roderick Alexandra, | Hypertension | | 2013 | [facility] | [facility] | [address] | (Primary Dx); Right | | | | [address] | [place] | knee pain | | | | [place] | [address] | | | | | [address] | | | | | | [phone] | | | +--------+---------+ + + + [...] appt with ortho this after noon in [place]. Leaving for a 2 week trip. Hypertension [...] tablet by mouth nightly. 90 tablet 1 [place]-3 Fatty Acids ([facility] NATURAL FISH OIL) 1000 [...] (, 2001); Cholecystectomy (1973); Skin cancer excision (8470-1959); hy steroscopy (08/2001); and Cataract Removal (02/2011). [...] her get through her upcoming travel to [place]. 2. Hypertension. Well controlled. No changes in [...]
--- OUTSIDE RECORDS SUMMARY | ~2019-02-11 | XMS | Encounter Summary ---
Demographics + + + | Address | [address] | | | [place] [address] | + + + | Home Phone | | + + + | Preferred Language | Unknown | + + + | Marital Status | | + + + | Yazdanism Affiliation | 1077 | + + + [...] Team Providers + +------+ + | Care Regional Vice President Life Sales Name | Role | Phone | + +------+ + | Roderick Alexanrda MD | PCP | | + +------+ [...] | | | | [place] | [address] | | | | | [address] | | | | | | [phone] | | | +--------+ + + + [...] + | [facility] | [address] | [place] | [phone] | | [facility] | | [address] | | | - LABORATORY | | | | + + + + + | [facility] | [address] | [place], [place] | | | [facility] | | [address] | | | - LABORATORY | | [...] | | | | | | | [place], | | | | | | External [...]
--- OUTSIDE RECORDS SUMMARY | ~2019-02-11 | XMS | Encounter Summary ---
Demographics + + + | Address | [address] | | | [place] [address] | + + + | Home Phone | | + + + | Preferred Language | Unknown | + + + | Marital Status | | + + + | Yazdanism Affiliation | 1077 | + + + | Race | Unknown | + + + | Ethnic Group | Unknown | + + + Author + + + | Author | [facility] | | | and Saurabhana | + + + | Organization | [facility] | | [...] Team Providers + +------+ + | Care Girls Swimming Coach Name | Role | Phone | + [...] + + + + | 05/18/ | Telephone | [facility] | Roderick Alexandra, | Lab Order | | 2012 | | [facility] [place] | [address] | | | | | [address] | [place] | | | | | [place] | [address] | | | | | [address] | | | | | | [phone] | | | +--------+ + + + [...] Unspecified essential hypertension | + + | Hypomagnesemia Disorders of magnesium metabolism | + + | Vitamin D deficiency Unspecified vitamin D deficiency | + + documented in this encounter"
--- OUTSIDE RECORDS SUMMARY | ~2019-02-11 | XMS | Encounter Summary ---
Demographics + + + | Address | [address] | | | [place] [address] | + + + | Home Phone | | + + + | Preferred Language | Unknown | + + + | Marital Status | | + + + | Judaism Affiliation | 1077 | + + + [...] Providers + +------+ + | Care Factory Process Workers Name | Role | Phone | + [...] Refill | | 2012 | | [facility] | [address] | | | | | [address] | [place] | | | | | [place] | [address] | | | | | [address] | | | | | | [phone] | | | +--------+--------+ + + + [...]
--- OUTSIDE RECORDS SUMMARY | ~2019-02-11 | XMS | Encounter Summary ---
Demographics + + + | Address | [address] | | | [place] [address] | + + + | Home Phone | | + + + | Preferred Language | Unknown | + + + | Marital Status | | + + + | Roman Catholic Affiliation | 1077 | + + + [...] Team Providers + +------+ + | Care Electrocardiograph Repairer Name | Role | Phone | + +------+ + PCP | Unavailable | + +------+ + Encounter Details +--------+ + + + + | Date | Type | Department | Care Team | Description | +--------+ + + + + | 02/01/ | Hospital | [facility] | | | | 1997 | Encounter | MED CTR XRAY [address] | | | | | | [place] | | | | | | [place] [address] | | | | | | [phone] | | | +--------+ + + + [...]
--- OUTSIDE RECORDS SUMMARY | ~2019-02-11 | XMS | Encounter Summary ---
Demographics + + + | Address | [address] | | | [place] [address] | + + + | Home Phone | | + + + | Preferred Language | Unknown | + + + | Marital Status | | + + + | Confucianist Affiliation | 1077 | + + + | Race | Unknown | + + + | Ethnic Group | Unknown | + + + Author + + + | Author | [facility] | | | and Saurabhana | + + + | Organization | [facility] [...] Team Providers + +------+ + | Care Answering Service Agent Name | Role | Phone | [...] Description | +--------+--------+ + + + | 08/08/ | Refill | [facility] | Roderick Alexandra, | Medication Refill | | 2014 | | [facility] | [address] | | | | | [address] | [place] | | | | | [place] | [address] | | | | | [address] | | | | | | [phone] | | | +--------+--------+ + + + [...]
--- OUTSIDE RECORDS SUMMARY | ~2019-02-11 | XMS | Encounter Summary ---
Demographics + + + | Address | [address] | | | [place] [address] | + + + | Home Phone | | + + + | Preferred Language | Unknown | + + + | Marital Status | | + + + | Jainism Affiliation | 1077 | + + + [...] Team Providers + +------+ + | Care Director Of Intelligence Name | Role | Phone | + [...] Left arm | Roderick Ariza MD | [facility] | | | Required | | pain Left | [address] | PHYSICAL | | | | | arm swelling | [address] [place] | [address]AP[address] | | | | | | [place], [place] | [place] | | | | | | [address] | [place], [place] | | | | | | Phone: | [address] | | | | | | [phone] | Phone: | | | | | | Fax: | [phone] | | | | | | [phone] | Fax: | | | | | | | [phone] | +--------+ + + + + + Reason for Visit +---------+ + | Reason | Comments | +---------+ + | Therapy | | +---------+ + Encounter Details +--------+ + + + + | Date | Type | Department | Care Team | Description | +--------+ + + + + | 05/12/ | Telephone | [facility] | Roderick Alexandra, | Therapy | | 2018 | | [facility] [place] | [address] | | | | | [address] | [place] | | | | | [place] | [address] | | | | | [address] | | | | | | [phone] | | | +--------+ + + + [...]
--- OUTSIDE RECORDS SUMMARY | ~2019-02-11 | XMS | Encounter Summary ---
Demographics + + + | Address | [address] | | | [place] [address] | + + + | Home Phone | | + + + | Preferred Language | Unknown | + + + | Marital Status | | + + + | Pentecostal Affiliation | 1077 | + + + | Race | Unknown | + + + | Ethnic Group | Unknown | + + + Author + + + | Author | [facility] | | | and [place] | + + + | Organization | [facility] | | | and [place] | + + + | Address | Unknown | + + + | Phone | Unavailable | + + + Support + + +---------+ + | Name | Relationship | Address | Phone | + + +---------+ + | Addy Mooer | ECON | Unknown | | + + +---------+ + | Shelli Tinajero | ECON | Unknown | | + + +---------+ + Care Team Providers + +------+ + | Care Foundry Supervisor Name | Role | Phone | + [...] Description | +--------+--------+ + + + | 08/21/ | Refill | [facility] | Roderick Alexandra, | Medication Refill | | 2015 | | [facility] | [address] | | | | | [address] | [place] | | | | | [place] | [address] | | | | | [address] | | | | | | [phone] | | | +--------+--------+ + + + [...]
--- OUTSIDE RECORDS SUMMARY | ~2019-02-11 | XMS | Encounter Summary ---
Demographics + + + | Address | [address] | | | [place] [address] | + + + | Home Phone | | + + + | Preferred Language | Unknown | + + + | Marital Status | | + + + | Jehovah'S Witness Affiliation | 1077 | + + + [...] Providers + +------+ + | Care Financial Officer Name | Role | Phone | [...] Refill | | 2012 | | [facility] | [address] | | | | | [address] | [place] | | | | | [place] | [address] | | | | | [address] | | | | | | [phone] | | | +--------+--------+ + + + [...]
--- OUTSIDE RECORDS SUMMARY | ~2019-02-11 | XMS | Encounter Summary ---
Demographics + + + | Address | [address] | | | [place] [address] | + + + | Home Phone | | + + + | Preferred Language | Unknown | + + + | Marital Status | | + + + | Mosque Affiliation | 1077 | + + + | Race | Unknown | + + + | Ethnic Group | Unknown | + + + Author + + + | Author | [facility] | | | and [place] | + + + | Organization | [facility] | | [...] Team Providers + +------+ + | Care Coil Placer Name | Role | Phone | + +------+ + | Prashanth Sunshine MD | PCP | | + +------+ + Reason for Referral Diagnostic/Screening (Routine) + +--------+ + + + + | Status | Reason | Specialty | Diagnoses / | Referred By | Referred To | | | | | Procedures | Contact | Contact | + +--------+ + + + + | Authorized | | Radiology | Diagnoses | Bridges, | [facility] | | | | | Mitral | Skylar DO | [address] | | | | | valve | [address] | | | | | insufficienc | [address] | [place], [place] | | | | | y, | [place] | [address] | | | | | unspecified | [place], [place] | Phone: | | | | | etiology | [address] | [phone] | | | | | Procedures | Phone: | Fax: | | | | | ECHO | [phone] | [phone] | | | | | Complete | Fax: | | | | | | | [phone] | | + +--------+ + + + + Reason for Visit + + + | Reason | Comments | + + + | Follow-up | 8 week / ECHO / STRESS TEST | + + + Encounter Details +--------+---------+ + + + | Date | Type | Department | Care Team | Description | +--------+---------+ + + + | 12/22/ | Office | [facility] | Skylar Bridges DO | Mitral valve | | 2019 | Visit | CARDIOLOGY [place] | [address] | insufficiency, | | | | [address] | [place], [place] | unspecified etiology | | | | [address] [place], [place] | [id number] | (Primary Dx); | | | | [address] | | Essential | | | | [phone] | | hypertension; | | | | | | Cardiac murmur; Pure | | | | | | | | | | | | hypercholesterolemia | +--------+---------+ + + + Social History [...] + + + | Blood Pressure | 136/60 | 12/22/2018 10:35 AM | | | | | PST | | + + + + + | Pulse | 62 | 12/22/2018 10:35 AM | | | | | PST | | + + + + + | Temperature | - | - | | + + + + + | Respiratory Rate | - | - | | + + + + + | Oxygen Saturation | 95% | 12/22/2018 10:35 AM | | | | | PST | | + + + + + | Inhaled Oxygen | - | - | | | Concentration | | | | + + + + + | Weight | 68.9 kg (152 lb) | 12/22/2018 10:35 AM | | | | | PST | | + + + + + | Height | 156.2 cm (5' 1.5") | 12/22/2018 10:35 AM | | | | | PST | | + + + + + | Body Mass Index | 28.26 | 12/22/2018 10:35 AM | | | | | PST | | + + + + + documented in this encounter Progress Notes Skylar Bridges DO - 12/22/2018 10:40 AM PST [facility] Cardiology Cardiology Follow Up Note Reason for Consultation: murmur, clearance for EGD HISTORY OF PRESENT ILLNESS: The patient is an 83-year-old female who presents to the cardiology office for initial cons ultation regarding a murmur and clearance for EGD. The patient has noticed recently that sh e has been experiencing some shortness of breath on exertion. She had a hospitalization a y ear ago in April at [facility] for pneumonia. Since that time, she has noticed that her breathing has never gotten back to normal. She spent most of her summer in a cabin and not iced some difficulty with her breathing, particularly when she was going up and down stairs. She also gets some occasional chest pressures; they are not always with exertion, but occa sionally are. These last less than a minute at a time. She describes it as somebody sittin g on her chest. She gets this sensation about once or twice per week. The discomfort is on ly rated a 2/10 in intensity. She also admits to some lower extremity swelling. She repor ts that this has been present throughout her hospitalization for pneumonia. She denies any orthopnea or PND. She denies any palpitations. She denies any episodes of syncope or presy ncope. She had a recent echocardiogram done on 06/22/2017, which demonstrated an ejection fraction of 70 percent, diastolic dysfunction, mild to moderate mitral regurgitation, mild mitral st enosis, moderate tricuspid regurgitation, moderate pulmonary hypertension with a right ventr icular systolic pressure estimated of about 50. Interim history I last saw the patient on 10/21/2018. At that time, we ordered a complete echocardiogram a nd a nuclear stress test. Her echocardiogram was done on 11/22/2018 and demonstrated an EF of 75 percent. No regional wall motion abnormalities. Normal right ventricular size and fu nction. Moderate mitral regurgitation. Mild to moderate aortic insufficiency. Her nuclear stress test was negative for ischemia. Since we last saw each other, she reports that she has been feeling okay. She recently went to [facility] at 7000 feet elevation and notice d that she had some mild shortness of breath during this trip, but otherwise her breathing h as been normal. She denies any chest pains. Review of Systems Constitutional: Negative for fatigue. HENT: Negative for nosebleeds. Eyes: Negative for visual disturbance. Respiratory: Negative for cough and positive for shortness of breath. Cardiovascular: see HPI Gastrointestinal: Negative for nausea, vomiting, abdominal pain and blood in stool. Genitourinary: Negative for hematuria or dysuria. Musculoskeletal: Negative for myalgias, back pain and arthralgias. Skin: Negative for color change. Neurological: Negative for dizziness, syncope and numbness. Hematological: Does not bruise/bleed easily. Psychiatric/Behavioral: The patient is not nervous/anxious. PAST MEDICAL & SURGICAL HISTORY Past Medical History: Diagnosis Date Cardiac murmur 03/31/2011 Cataract Chest pain 10/24/2018 Chest pressure 03/24/2016 COPD (chronic obstructive pulmonary disease) (HCC) Cough 10/16/2010 Diarrhea 03/27/2010 Diverticulosis, colon Dyspnea on exertion 10/16/2010 Endocarditis Hepatitis B infection Hx-TIA (transient ischemic attack) 03/24/2016 Hyperlipidemia Hypertension Left breast lump 05/2006 Left carotid bruit 12/31/1999 Palpitations Retinal hemorrhage of left eye Vertigo Past Surgical History: Procedure Laterality Date APPENDECTOMY 194 CATARACT REMOVAL 02/2011 CATARACT REMOVAL Left 06/30/2016 Procedure: LEFT Cataract Extraction w/ Lens Implant; Surgeon: Vicenta Rizvi MD; L ocation: [facility] MAIN OR CHOLECYSTECTOMY 1973 DILATION AND CURETTAGE OF UTERUS , 2001 EYE SURGERY Left 06/2016 HYSTEROSCOPY 08/2001 SKIN CANCER EXCISION [id number] Basal Cell TONSILLECTOMY MEDICATIONS Home Medications Outpatient Encounter Medications as of 12/22/2018 Medication Sig Dispense Refill artificial tears (REFRESH PLUS) 0.5% SOLN Place 1 drop into both eyes as needed. ascorbic acid (VITAMIN C) 250 MG tablet Take 250 mg by mouth Daily. CALCIUM PO TABS; 600 mg Cholecalciferol (RA VITAMIN D-3) 2000 UNITS CAPS Take 2,000 Units by mouth Daily. COPPER PO Take by mouth. Magnesium Oxide (MAG-OX 400 PO) TABS; Take one by mouth daily [DISCONTINUED] metoprolol succinate (TOPROL-XL) 25 mg 24 hr tablet take 1 tablet by jhoan once daily 90 tablet 0 Misc Natural Products (LUTEIN 20 PO) Take by mouth. Multiple Vitamins-Minerals (PRESERVISION AREDS 2) CAPS Take 2 capsules by mouth Daily. raNITIdine (ZANTAC) 150 mg tablet Take 1 tablet by mouth 2 times daily. 180 tablet 2 TURMERIC PO Take by mouth. Vitamin E 200 units TABS Take by mouth Daily. Zinc Sulfate (ZINC 15 PO) Take by mouth. No facility-administered encounter medications on file as of 12/22/2018. Allergies Allergies Allergen Reactions Ceftriaxone Rash Palm tingles and rash Lipitor Other (See Comments) Myalgias Wasp Venom Protein Swelling FAMILY HISTORY Family History Problem Relation Age of Onset Parkinsonism Mother * Mother 78 from pneumonia Prostate cancer Father Ovarian cancer Sister SOCIAL HISTORY Social History Socioeconomic History Marital status: Spouse name: Not on file Number of children: 2 Years of education: Not on file Highest education level: Not on file Social Needs Financial resource strain: Not on file Food insecurity - worry: Not on file Food insecurity - inability: Not on file Transportation needs - medical: Not on file Transportation needs - non-medical: Not on file Occupational History 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: retired Tobacco Use Smoking status: Never Smoker Smokeless tobacco: Never Used Substance and Sexual Activity Alcohol use: Yes Comment: 3-4 times per year Drug use: No Sexual activity: Not Currently Partners: Male control/protection: No Other Topics Concern Not on file Social History Narrative Marital Status: Children: 2 children 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 Appears approximately stated age . HEENT: Normocephalic, atraumatic. EYES: PERRL, sclerae anicteric, no xanthelsasmas NECK: No JVD, lymphadenopathy, thyromegaly, bruits. Carotid pulses are 2+ bilaterally LUNGS: Clear bilaterally, with no rales, rhonchi or wheezing noted, respirations unlabored HEART: Nondisplaced PMI, regular rate and rhythm, S1, S2 normal. II/ systolic murmur, no rubs or gallops noted. ABDOMEN: Soft, nontender, no organomegaly, masses or bruits. Bowel sounds are normal in a ll 4 quadrants. EXTREMITIES: No edema. Radial pulses 2+ bilaterally. DP and PT pulses are 2+ bilaterally. SKIN: Warm and dry, capillary refill is normal, no lesions. NEUROLOGIC: Awake, alert and oriented x 3. No focal motor deficits. PSYCHIATRIC: Appropriate, affect appears normal DATA Lab Results Component Value Date WBC 6.3 10/29/2017 HGB 14.4 10/29/2017 HCT 43.1 10/29/2017 PLT 193 10/29/2017 No results found for: INR, PTT Lab Results Component Value Date NA 139 10/29/2017 K 4.1 10/29/2017 CL 104 10/29/2017 CO2 30 10/29/2017 BUN 12 10/29/2017 CREA 0.60 10/29/2017 AST 20 10/29/2017 ALT 24 10/29/2017 No results found for: CHOL, TRIG, HDL, LDL, TSH EK10/22/18 ordered and reviewed by myself normal sinus rhythm 64BPM, voltage criteria for LVH Last Echo: 06/22/17 CONCLUSIONS 1. Left ventricular systolic function is hyperdynamic with an estimated EF of >70%. 2. Pseudonormal LV diastolic filling pattern, consistent with elevated LA pressure and mode rate dysfunction (Grade II). 3. The right ventricle is normal in size and function. 4. There is mild aortic regurgitation. 5. Jdyr-mk-ciimlwbx mitral regurgitation is present. 6. Mild mitral stenosis is present, with a peak transvalvular gradient of 16 mm Hg, and adrián n gradient of 6 mm Hg. The MVA (by VTI) is 1.65 cm 7. Moderate tricuspid regurgitation present. 8. There is mild to moderate pulmonary hypertension. The right ventricular systolic press ure (pulmonary artery systolic pressure), as measured by Doppler, is48.2 - 53.2 mm Hg. Last stress test: 11/15/18 Lexiscan Cardiolite- No evidence of infarct or ischemia Last cath: Carotid US: AAA screening: Lower extremity US: OTHERS: ASSESSMENT & PLAN 1. GUTIÉRREZ 2. Atypcial chest pains 3. 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 Moderate TR 7. Pulmonary HTN - The patient is an 83 yo female who presents to the cardiology office for follow up regard ing a murmur and surgical clearance for an endoscopy. Recently, she has been having GUTIÉRREZ and atypical chest pains. She underwent a recent pharmacologic nuclear stress test which was ne gative for infarct or ischemia. Recent complete echocardiogram demonstrated an ejection fra ction of 75%, no regional wall motion abnormalities, she had moderate mitral regurgitation a nd mild to moderate aortic regurgitation. She has been doing well recently from a cardiac [facility]. No further cardiac testing is indicated prior to upcoming endoscopy. Her valvul ar heart disease will need to be monitored with repeat echo in 1 year. - Follow up in 1 year Thank you for allowing me to participate in the care of this patient. Primary Care Physician: MD Skylar Asif DO 12/23/2018 documented in this enco unter Plan of Treatment + + +--------+ + + | Name | Type | Priori | Associated Diagnoses | Order Schedule | | | | ty | | | + + +--------+ + + | ECHO Complete | Echocardiog | Routin | Mitral valve | Expected: | | | steven | e | insufficiency, | 12/23/2019, Expires: | | | | | unspecified etiology | 06/21/2020 | + + +--------+ + + documented as of this encounter Visit Diagnoses + + | Diagnosis | + + | Mitral valve insufficiency, unspecified etiology - Primary | + + | Essential hypertension Unspecified essential hypertension | + + | Cardiac murmur Undiagnosed cardiac murmurs | + + | Pure hypercholesterolemia | + + documented in this encounter
--- OUTSIDE RECORDS SUMMARY | ~2019-02-11 | XMS | Encounter Summary ---
Demographics + + + | Address | [address] | | | [place] [address] | + + + | Home Phone | | + + + | Preferred Language | Unknown | + + + | Marital Status | | + + + | Holiness Affiliation | 1077 | + + + | Race | Unknown | + + + | Ethnic Group | Unknown | + + + Author + + + | Author | [facility] | | | and Saurabhana | + + + | Organization | [facility] | | | [...] Team Providers + +------+ + | Care Gold Charmer Name | Role | Phone | + +------+ + | Roderick Alexandra MD | PCP | | + +------+ + Encounter Details +--------+ + + + + | Date | Type | Department | Care Team | Description | +--------+ + + + + | 03/01/ | Abstract | [facility] | Roderick Alexandra, | | | 2015 | | MEDICINE [place] | [address] | | | | | [address] | [place] | | | | | [place] | [address] | | | | | [address] | | | | | | [phone] | | | +--------+ + + + [...] +--------+ + + + | EXTERNAL LAB: CHRISTOPHE | Routin | 01/25/2015 | | Results for this | | | e | | | procedure are in the | | | | | | results section. | + +--------+ + + + | EXTERNAL LAB: | Routin | 01/25/2015 | | Results for this | | GLUCOSE | e | | | procedure are in the | | | | | | results section. | + +--------+ + + + | EXTERNAL LAB: ALT | Routin | 01/25/2015 | | Results for this | | | e | | | procedure are in the | | | | | | results section. | + +--------+ + + + | EXTERNAL LAB: AST | Routin | 01/25/2015 | | Results for this | | | e | | | procedure are in the | | | | | | results section. | + +--------+ + + + | EXTERNAL LAB: | Routin | 01/25/2015 | | Results for this | | ALKALINE PHOSPHATASE | e | | | procedure are in the | | | | | | results section. | + +--------+ + + + | EXTERNAL LAB: | Routin | 01/25/2015 | | Results for this | | BILIRUBIN, TOTAL | e | | | procedure are in the | | | | | | results section. | + +--------+ + + + | EXTERNAL LAB: | Routin | 01/25/2015 | | Results for this | | ALBUMIN | e | | | procedure are in the | | | | | | results section. | + +--------+ + + + | EXTERNAL LAB: | Routin | 01/25/2015 | | Results for this | | PROTEIN, TOTAL | e | | | procedure are in the | | | | | | results section. | + +--------+ + + + | EXTERNAL LAB: | Routin | 01/25/2015 | | Results for this | | CALCIUM | e | | | procedure are in the | | | | | | results section. | + +--------+ + + + | EXTERNAL LAB: CARBON | Routin | 01/25/2015 | | Results for this | | DIOXIDE | e | | | procedure are in the | | | | | | results section. | + +--------+ + + + | EXTERNAL LAB: | Routin | 01/25/2015 | | Results for this | | CHLORIDE | e | | | procedure are in the | | | | | | results section. | + +--------+ + + + | EXTERNAL LAB: | Routin | 01/25/2015 | | Results for this | | POTASSIUM | e | | | procedure are in the | | | | | | results section. | + +--------+ + + + | EXTERNAL LAB: SODIUM | Routin | 01/25/2015 | | Results for this | | | e | | | procedure are in the | | | | | | results section. | + +--------+ + + + | EXTERNAL LAB: | Routin | 01/25/2015 | | Results for this | | VITAMIN D, | e | | | procedure are in the | | 25-HYDROXY | | | | results section. | + +--------+ + + + | EXTERNAL LAB: | Routin | 01/25/2015 | | Results for this | | TRIGLYCERIDES | e | | | procedure are in the | | | | | | results section. | + +--------+ + + + | EXTERNAL LAB: | Routin | 01/25/2015 | | Results for this | | CHOLESTEROL, HDL | e | | | procedure are in the | | | | | | results section. | + +--------+ + + + | EXTERNAL LAB: | Routin | 01/25/2015 | | Results for this | | CHOLESTEROL, TOTAL | e | | | procedure are in the | | | | | | results section. | + +--------+ + + + | EXTERNAL LAB: | Routin | 01/25/2015 | | Results for this | | CHOLESTEROL, LDL | e | | | procedure are in the | | | | | | results section. | + +--------+ + + + | EXTERNAL LAB: EGFR | Routin | 01/25/2015 | | Results for this | | | e | | | procedure are in the | | | | | | results section. | + +--------+ + + + | EXTERNAL LAB: | Routin | 01/25/2015 | | Results for this | | CREATININE | e | | | procedure are in the | | | | | | results section. | + +--------+ + + + | LIPID PANEL | Routin | 01/25/2015 | | Results for this | | | e | | | procedure are in the | | | | | | results section. | + +--------+ + + + | HEPATIC FUNCTION | Routin | 01/25/2015 | | Results for this | | PANEL | e | | | procedure are in the | | | | | | results section. | + +--------+ + + + | BASIC METABOLIC | Routin | 01/25/2015 | | Results for this | | PANEL | e | | | procedure are in the | | | | | | results section. | + +--------+ + + + documented in this encounter Results Hepatic Function Panel (01/25/2015) + +-------+ + + + | Component | Value | Ref Range | Performed | Pathologist | | | | | At | Signature | + +-------+ + + + | Globulin | 2.5 | 1.8 - 3.5 | [facility] - | | | | | | LABORATORY | | + +-------+ + + + | Albumin/Monae | 1.7 | 1.1 - 2.4 | [facility] | | | [...] + | [facility] | [address] | [place] | [phone] | | [facility] | | [address] | | | - LABORATORY | | | | + + + + + Basic Metabolic Panel (01/25/2015) + +-------+ + + + | Component [...] +-------+ + + + | Bun/Creatin | 18.8 | 6.0 - 28.6 | [facility] | | | ine | | | [facility] | | | | | | [...] | + + + + + | [facility] | [address] | [place] | [phone] | | [facility] | | [address] | | | - LABORATORY | | | | + + + + + External Lab: BUN (01/25/2015) + +-------+ + + + | Component | Value | Ref Range | Performed | Pathologist | | | | | At | Signature | + +-------+ + + + | BUN, | 12 | | | | | External | | | | | + +-------+ + + + External Lab: Glucose (01/25/2015) + +-------+ + + + | Component | Value | Ref Range | Performed | Pathologist | | | | | At | Signature | + +-------+ + + + | Glucose, | 106 | | | | | External | | | | | + +-------+ + + + External Lab: ALT (01/25/2015) + +-------+ + + + | Component | Value | Ref Range | Performed | Pathologist | | | | | At | Signature | + +-------+ + + + | ALT, | 19 | | | | | External | | | | | + +-------+ + + + External Lab: AST (01/25/2015) + +-------+ + + + | Component | Value | Ref Range | Performed | Pathologist | | | | | At | Signature | + +-------+ + + + | AST, | 19 | | | | | External | | | | | + +-------+ + + + External Lab: Alkaline Phosphatase (01/25/2015) + +-------+ + + + | Component | Value | Ref Range | Performed | Pathologist | | | | | At | Signature | + +-------+ + + + | ALP, | 97 | | | | | External | | | | | + +-------+ + + + External Lab: Bilirubin, Total (01/25/2015) + +-------+ + + + | Component | Value | Ref Range | Performed | Pathologist | | | | | At | Signature | + +-------+ + + + | Bilirubin, | 0.4 | | | | | Total, | | | | | | External | | | | | + +-------+ + + + External Lab: Albumin (01/25/2015) + +-------+ + + + | Component | Value | Ref Range | Performed | Pathologist | | | | | At | Signature | + +-------+ + + + | Albumin, | 4.3 | | | | | External | | | | | + +-------+ + + + External Lab: Protein, Total (01/25/2015) + +-------+ + + + | Component | Value | Ref Range | Performed | Pathologist | | | | | At | Signature | + +-------+ + + + | Protein, | 6.8 | | | | | Total, | | | | | | External | | | | | + +-------+ + + + External Lab: Calcium (01/25/2015) + +-------+ + + + | Component | Value | Ref Range | Performed | Pathologist | | | | | At | Signature | + +-------+ + + + | Calcium, | 10.3 | | | | | External | | | | | + +-------+ + + + External Lab: Carbon Dioxide (01/25/2015) + +-------+ + + + | Component | Value | Ref Range | Performed | Pathologist | | | | | At | Signature | + +-------+ + + + | Carbon | 27 | | | | | Dioxide, | | | | | | External | | | | | + +-------+ + + + External Lab: Chloride (01/25/2015) + +-------+ + + + | Component | Value | Ref Range | Performed | Pathologist | | | | | At | Signature | + +-------+ + + + | Chloride, | 100 | | | | | External | | | | | + +-------+ + + + External Lab: Potassium (01/25/2015) + +-------+ + + + | Component | Value | Ref Range | Performed | Pathologist | | | | | At | Signature | + +-------+ + + + | Potassium, | 4.3 | | | | | External | | | | | + +-------+ + + + External Lab: Sodium (01/25/2015) + +-------+ + + + | Component | Value | Ref Range | Performed | Pathologist | | | | | At | Signature | + +-------+ + + + | Sodium, | 138 | | | | | External | | | | | + +-------+ + + + External Lab: Vitamin D, 25-Hydroxy (01/25/2015) + +-------+ + + + | Component | Value | Ref Range | Performed | Pathologist | | | | | At | Signature | + +-------+ + + + | Vitamin D, | 39 | | | | | 25-Hydroxy, | | | | | | External | | | | | + +-------+ + + + + + | Specimen | + + | Blood specimen | | (specimen) | + + External Lab: eGFR (01/25/2015) + +-------+ + + + | Component | Value | Ref Range | Performed | Pathologist | | | | | At | Signature | + +-------+ + + + | eGFR, | 89 | | | | | External | | | | | + +-------+ + + + + + | Specimen | + + | Blood specimen | | (specimen) | + + External Lab: Creatinine (01/25/2015) + +-------+ + + + | Component | Value | Ref Range | Performed | Pathologist | | | | | At | Signature | + +-------+ + + + | Creatinine, | 0.64 | | | | | External | | | | | + +-------+ + + + + + | Specimen | + + | Blood specimen | | (specimen) | + + Lipid Panel (01/25/2015) + +-------+ + + + | Component | Value | Ref Range | Performed | Pathologist | | | | | At | Signature | + +-------+ + + + | VLDL | 27 | 4 - 40 | | | | Cholesterol | | | | | | Benjamin | | | | | + +-------+ + + + | Chol/HDL | 4.1 | <4.44 | | | | Ratio | | | | | + +-------+ + + + | Non HDL | 144 | <130 | | | | Chol. | | | | | | (LDL+VLDL) | | | | | + +-------+ + + + + + | Specimen | + + | Blood specimen | | (specimen) | + + External Lab: Triglycerides (01/25/2015) + +-------+ + + + | Component | Value | Ref Range | Performed | Pathologist | | | | | At | Signature | + +-------+ + + + | Triglycerid | 137 | | | | | es, | | | | | | External | | | | | + +-------+ + + + + + | Specimen | + + | Blood specimen | | (specimen) | + + External Lab: Cholesterol, HDL (01/25/2015) + +-------+ + + + | Component | Value | Ref Range | Performed | Pathologist | | | | | At | Signature | + +-------+ + + + | HDL | 46.8 | mg/dl | | | | Cholesterol | | | | | | , External | | | | | + +-------+ + + + + + | Specimen | + + | Blood specimen | | (specimen) | + + External Lab: Cholesterol, Total (01/25/2015) + +-------+ + + + | Component | Value | Ref Range | Performed | Pathologist | | | | | At | Signature | + +-------+ + + + | Cholesterol | 191 | mg/dl | | | | , Total, | | | | | | External | | | | | + +-------+ + + + + + | Specimen | + + | Blood specimen | | (specimen) | + + External Lab: Cholesterol, LDL (01/25/2015) + +-------+ + + + | Component | Value | Ref Range | Performed | Pathologist | | | | | At | Signature | + +-------+ + + + | LDL | 117 | | | | | Cholesterol | [...]
--- OUTSIDE RECORDS SUMMARY | ~2019-02-11 | XMS | Encounter Summary ---
Demographics + + + | Address | [address] | | | [place] [address] | + + + | Home Phone | | + + + | Preferred Language | Unknown | + + + | Marital Status | | + + + | Samaritan Affiliation | 1077 | + + + [...] Team Providers + +------+ + | Care Sas Etl Developer Name | Role | Phone | + +------+ + | Roderick Alexandra MD | PCP | | + +------+ + Reason for Visit + + + | Reason | Comments | + + + | Hypertension | medication follow up tdap and pneumo 2006 zoster and flu 2012 | + + + Encounter Details +--------+---------+ + + + | Date | Type | Department | Care Team | Description | +--------+---------+ + + + | 05/26/ | Office | [facility] | Roderick Alexandra, | Dyspnea on exertion | | 2012 | Visit | [facility]ICINE [facility] | [address] | (Primary Dx); | | | | [address] | [place] | Hoarseness of voice; | | | | [place] | [address] | Hyperlipidemia | | | | [address] | | | | | | [phone] | | | +--------+---------+ + + + [...] + + + | Blood Pressure | 120/66 | 05/26/2012 9:15 AM | | | | | PDT | | + + + + + | Pulse | 66 | 05/26/2012 9:15 AM | | | | | PDT | | + + + + + | Temperature | - | - | | + + + + + | Respiratory Rate | 14 | 05/26/2012 9:15 AM | | | | | PDT | | + + + + + | Oxygen Saturation | - | - | | + + + + + | Inhaled Oxygen | - | - | | | Concentration | | | | + + + + + | Weight | 70.3 kg (155 lb) | 05/26/2012 9:15 AM | | | | | PDT | | + + + + + | Height | - | - | | + + + + + | Body Mass Index | 29.05 | 11/27/2011 8:07 AM | | | | | PDT | | + + + + + documented in this encounter Progress Notes Roderick Alexandra MD - 05/26/2012 9:48 AM PDTFormatting of this note might be different fro m the original. Subjective: Rosalind Patel is a 76 y.o. female patient of Roderick Alexandra. Chief Complaint: Hypertension She eports that she likes grapefruit and wonders if she can eat it with Pravachol. She want ed to be sure that it would not hurt her to have a half of a grapefruit now and again during grapefruit season. Update on lungs - She reports that she can walk on a flat surface for miles without shortne ss of breath. When she is up at her cabin at 7000 feet she will get more short of breath. Sh amari will also get short of breath if she walks on a lot of hills. She reports that it is not b ad. If she walks up 3 flights of stairs she may also get a little winded. She does notice a little bit of a dry cough unrelated to activity. No chest pain or pressure. Hoarse voice - She has noticed intermittent hoarseness of her voice. She denies acid reflu x pain or significant allergies. Review labs 0 LDL is 104. Triglycerides is 156. Vitamin D is a little low again at 26. Revi ewed PFT that was completed this last fall. Allergies Allergen Reactions Lipitor Other (See Comments) Myalgias Wasp Venom Protein Swelling Medications: She has a current medication list which includes the following prescription(s): niacin, met oprolol succinate, [facility] natural fish oil, aspirin, ra vitamin d-3, magnesium oxide, pravastat in, calcium, and multiple vitamins-minerals. Past Medical History She has a past [...] (, 2001); Cholecystectomy (1973); Skin cancer excision (9240-5715); hy steroscopy (08/2001); and Cataract Removal (02/2011). [...] items are noted in HPI. Objective: BP 120/66 | Pulse 66 | Resp 14 | Wt 70.308 kg (155 lb) | ? No General Appearance: Alert, cooperative, no distress, appears stated age, breathing easily with not shortness of breath or cough noticed. Head: Normocephalic, without obvious abnormality, atraumatic Lungs: Clear to auscultation bilaterally, respirations unlabored Heart: Regular rate and rhythm, S1, S2 normal, no murmur, rub or gallop Assessment and Plans: 1. Shortness of breath on exertion - PFT showed minimal COPD. We engaged in a discussion ab out the severity of her symptoms which she reports is tolerable. Reviewed the the small amou nt of COPD that she has may not account for her shortness of breath in its entirety. She can be very active and perform most daily activities without significant shortness of breath. A t this time we have decided to hold off on any further testing including the cardiac testing . 2. Hoarse voice - question silent acid reflux. Asked her to try Zantac 150 mg daily for at least 30 days. Other option would be to try treatment for post nasal drip if the Zantac is n ot helpful. 3. Hyperlipidemia - Ok to eat a small amount of grapefruit while she is taking a statin. Over 30 min was spent in face to face time with Rosalind with at least 50% of it in counseli on the above issues. Tdocumented in this encounter Plan of Treatment Not on filedocumented as of this encounter Visit Diagnoses + + | Diagnosis | + + | Dyspnea on exertion - Primary Other dyspnea and respiratory abnormality | + + | Hoarseness of voice Dysphonia | + + | Hyperlipidemia Other and unspecified hyperlipidemia | + + documented in this encounter"
--- OUTSIDE RECORDS SUMMARY | ~2019-02-11 | XMS | Encounter Summary ---
Demographics + + + | Address | [address] | | | [place] [address] | + + + | Home Phone | | + + + | Preferred Language | Unknown | + + + | Marital Status | | + + + | Samaritan Affiliation | 1077 | + + + | Race | Unknown | + + + | Ethnic Group | Unknown | + + + Author + + + | Author | [facility] | | | and Saurabhana | + + + | Organization | [facility] | | | [...] Team Providers + +------+ + | Care Medical Referral Coordinator Name | Role | Phone | + +------+ + PCP | Unavailable | + +------+ + Reason for Visit + + + | Reason | Comments | + + + | Medication Refill | | + + + Encounter Details +--------+--------+ + + + | Date | Type | Department | Care Team | Description | +--------+--------+ + + + | 01/04/ | Refill | [facility] | Roderick Alexandra, | Medication Refill | | 2017 | | MEDICINE [place] | [address] | | | | | [address] | [place] | | | | | [place] | [address] | | | | | [address] | | | | | | [phone] | | | +--------+--------+ + + + [...]
--- OUTSIDE RECORDS SUMMARY | ~2019-02-11 | XMS | Encounter Summary ---
Demographics + + + | Address | [address] | | | [place] [address] | + + + | Home Phone | | + + + | Preferred Language | Unknown | + + + | Marital Status | | + + + | Moravian Affiliation | 1077 | + + + | Race | Unknown | + + + | Ethnic Group | Unknown | + + + Author + + + | Author | [facility] | | | and Saurabhana | + + + | Organization | [facility] | | | [...] Team Providers + +------+ + | Care Multi Site Leasing Consultant Name | Role | Phone | + +------+ + | Roderick Alexandra MD | PCP | | + +------+ + Encounter Details +--------+ + + + + | Date | Type | Department | Care Team | Description | +--------+ + + + + | 06/30/ | Hospital | [facility] | Vicenta Rizvi | | | 2017 | Encounter | MED CTR OR INTRA OP | MD [address] | | | | | [address] | [place], | | | | | [place], [place] | [place] [address] | | | | | [address] | [phone] | | | | | [phone] | | | +--------+ + + + [...] You cannot be awakened Date Last Reviewed: 12/04/201519997464-0777 [employer] [address] [place] [address], [place] [address]. All righ ts reserved. This information is [...] + + + +---------+ + + | [place]-3 Fatty | Take 1,000 mg by | [...] | | | | LEANA SERVIN MD ([id number]) | | | | | | on [...]
--- OUTSIDE RECORDS SUMMARY | ~2019-02-11 | XMS | Encounter Summary ---
Demographics + + + | Address | [address] | | | [place] [address] | + + + | Home Phone | | + + + | Preferred Language | Unknown | + + + | Marital Status | | + + + | Zoroastrianism Affiliation | 1077 | + + + | Race | Unknown | + + + | Ethnic Group | Unknown | + + + Author + + + | Author | [facility] | | | and Saurabhana | + + + | Organization | [facility] | | [...] Providers + +------+ + | Care Director On Air Name | Role | Phone | + [...] Refill | | 2017 | | [facility] | [address] | | | | | [address] | [place] | | | | | [place] | [address] | | | | | [address] | | | | | | [phone] | | | +--------+--------+ + + + [...]
--- OUTSIDE RECORDS SUMMARY | ~2019-02-11 | XMS | Encounter Summary ---
Demographics + + + | Address | [address] | | | [place] [address] | + + + | Home Phone [...] Team Providers + +------+ + | Care Precision Farming Coordinator Name | Role | Phone | [...] | | | | [place] | [address] | | | | | [address] | | | | | | [phone] | | | +--------+ + + + [...]
--- OUTSIDE RECORDS SUMMARY | ~2019-02-11 | XMS | Encounter Summary ---
Demographics + + + | Address | [address] | | | [place] [address] | + + + | Home Phone | | + + + | Preferred Language | Unknown | + + + | Marital Status | | + + + | Voodoo Affiliation | 1077 | + + + | Race | Unknown | + + + | Ethnic Group | Unknown | + + + Author + + + | Author | [facility] | | | and Saurabhana | + + + | Organization | [facility] | | [...] Team Providers + +------+ + | Care Display Artist Name | Role | Phone | + [...] Lens | | | | [address] | [place], | Implant | | | | [place], [place] | [place] [address] | | | | | [address] | [phone] | | | | | [phone] | | | +--------+---------+ + + + [...] You cannot be awakened Date Last Reviewed: 12/04/[id number] [employer] [address] [place] [address], [place] [address]. All righ ts reserved. This information is [...] + + + +---------+ + + | [place]-3 Fatty | Take 1,000 mg by | [...] | | | | LEANA SERVIN MD ([id number]) | | | | | | on [...] +---+---+ + +-------+ + +---+ + | [id number] | Given | 07/01/19 | 1 | [...]
--- OUTSIDE RECORDS SUMMARY | ~2019-02-11 | XMS | Encounter Summary ---
Demographics + + + | Address | [address] | | | [place] [address] | + + + | Home Phone | | + + + | Preferred Language | Unknown | + + + | Marital Status | | + + + | Anglican Affiliation | 1077 | + + + | Race | Unknown | + + + | Ethnic Group | Unknown | + + + Author + + + | Author | [facility] | | | and Saurabhana | + + + | Organization | [facility] | | | [...] Team Providers + +------+ + | Care Craft Manager Name | Role | Phone | + +------+ + | Roderick Alexandra MD | PCP | | + +------+ + Reason for Visit + + + | Reason | Comments | + + + | Hypertension | | + + + | Hyperlipidemia | | + + + | COPD | | + + + Encounter Details +--------+---------+ + + + | Date | Type | Department | Care Team | Description | +--------+---------+ + + + | 07/24/ | Office | [facility] | Roderick Alexandra, | Essential | | 2015 | Visit | MEDICINE [place] | [address] | hypertension | | | | [address] | [place] | (Primary Dx); | | | | [place], [place] | [address] | Hyperlipidemia; COPD | | | | [address] | | (chronic | | | | [phone] | | obstructive | | | | | | pulmonary disease) | | | | | | ([facility]); Need for | | | | | | pneumococcal | | | | | | vaccination; | | | | | | Hyperglycemia | +--------+---------+ + + + Social History [...] + + + | Blood Pressure | 120/58 | 07/24/2014 10:57 AM | | | | | PDT | | + + + + + | Pulse | 62 | 07/24/2014 10:57 AM | | | | | PDT | | + + + + + | Temperature | 36.2 C (97.2 F) | 07/24/2014 10:57 AM | | | | | PDT | | + + + + + | Respiratory Rate | 16 | 07/24/2014 10:57 AM | | | | | PDT | | + + + + + | Oxygen Saturation | 95% | 07/24/2014 10:57 AM | | | | | PDT | | + + + + + | Inhaled Oxygen | - | - | | | Concentration | | | | + + + + + | Weight | 71.4 kg (157 lb 6.4 | 07/24/2014 10:57 AM | | | | oz) | PDT | | + + + + + | Height | 154.9 cm (5' 1") | 07/24/2014 10:57 AM | | | | | PDT | | + + + + + | Body Mass Index | 29.74 | 07/24/2014 10:57 AM | | | | | PDT | | + + + + + documented in this encounter Progress Notes Roderick Alexandra MD - 07/24/2014 10:59 AM PDTFormatting of this note might be different fro m the original. Rosalind Patel is a 78 y.o. female Chief Complaint: Hypertension; Hyperlipidemia; and Chronic Obstructive Pulmonary Disease Patient bought her blood pressure log, she is doing well but had torn cartliage in right kn ee. Has kept her from exercising, and is gaining weight. Would like to go over her lab repor t from Reports swelling of right leg. Hypertension Associated symptoms include shortness of breath (sometimes at higher elevations, with no pa in ). Pertinent negatives include no chest pain or headaches. Hyperlipidemia Associated symptoms include shortness of breath (sometimes at higher elevations, with no pa in ). Pertinent negatives include no chest pain. Hypertension: Control and Compliance Medication compliance: good Home Blood Pressures: 07/19/14 110/58 bought log Exercise: yes but has a torn cartilage in right knee that has slowed her down. When she knott s exercise she walks and recumbent bike, does a class she goes to 3X week BP: 120/58 mmHg BP Readings from Last 3 Encounters: 07/24/14 120/58 01/23/14 124/64 07/25/13 142/80 Pt denies: No headache, visual symptoms, neurologic problems, syncope No chest pain, palpitations, KNOTT, orthopnea, PND, peripheral edema No side effects from any antihypertensive medications PREVENTIVE CARE/PRIOR VISITS 1. Any recommendations from Health Maintenance: No Preventative Services TOPIC LAST DONE NEXT DUE Influenza Vaccine (Yearly) 11/15/2013 09/16/2014 Breast Cancer Screening (Mamm Yearly) 08/15/2013 08/15/2014 Colon Cancer Screening (Colonoscopy Every 10 Years <50 Or >75) 02/17/2008 02/16/2018 Pneumococcal Vaccine (Once,Age 65 And Older) 05/20/2005 2. Any immunizations necessary: Pneumonia shot Immunization History Administered Date(s) Administered INFLUENZA, QUADRIVALENT W/PRESERVATIVE (PED/ADOL/ADULT) 11/15/2013 INFLUENZA, W/Preservative 10/18/2011 PNEUMOCOCCAL POLYSACCHARIDE 23-VALENT (PPSV23) 05/20/2005 TDAP, (ADOL/ADULT) [...] tablet by mouth Daily . Multiple Vitamins-Minerals (OCUVITE ADULT FORMULA PO) (Taking) Take 2 tablets by mouth 2 times daily. niacin (NIASPAN) 500 mg CR tablet (Taking) take 1 tablet by mouth at bedtime [place]-3 Fatty Acids ([employer] NATURAL FISH OIL) 1000 MG CAPS (Taking) Take 1,000 mg by mouth D aily. pravastatin (PRAVACHOL) 40 MG tablet (Taking) Take 0.5 tablets by mouth nightly. Past Medical History She has a past medical history of Diarrhea (03/27/2010); Dyspnea on exertion (10/16/2010); Cou gh (10/16/2010); Cardiac murmur (03/31/2011); Hyperlipidemia; Hypertension; Diverticulosis, co david; Palpitations; Vertigo; Left breast lump (05/2006); Hepatitis B infection (); Left carotid bruit (12/31/1999); and COPD (chronic obstructive pulmonary disease) ([facility]). Past Surgical History She has past surgical history that includes Appendectomy (1940); Tonsillectomy; Dilation an d curettage of uterus (, 2001); Cholecystectomy (1973); Skin cancer excision (0684-7132); hy steroscopy (08/2001); and Cataract Removal (02/2011). 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 Respiratory: Positive for shortness of breath (sometimes at higher elevations, with no pain ). Negative for wheezing. Cardiovascular: Positive for leg swelling (some right leg). Negative for chest pain. Endocrine: Negative. Skin: Negative. Neurological: Negative for dizziness and headaches. Objective: Filed Vitals: 07/24/14 1057 BP: 120/58 Pulse: 62 Temp: 36.2 C (97.2 F) TempSrc: Temporal Resp: 16 Height: 1.549 m (5' 1") Weight: 71.396 kg (157 lb 6.4 oz) SpO2: 95% Physical Exam Constitutional: She is oriented to person, place, and time. No distress. Well dressed and groomed HENT: Head: Normocephalic and atraumatic. Eyes: Conjunctivae are normal. Right eye exhibits no discharge. Left eye exhibits no discha rge. Neck: Neck supple. No JVD present. Cardiovascular: Normal rate, regular rhythm and normal heart sounds. No murmur heard. Pulmonary/Chest: Effort normal and breath sounds normal. No respiratory distress. She has n o wheezes. She has no rales. Abdominal: Lymphadenopathy: She has no cervical adenopathy. Neurological: She is alert and oriented to person, place, and time. Skin: Skin is warm and dry. She is not diaphoretic. Blister right lower leg Psychiatric: She has a normal mood and affect. Her behavior is normal. Nursing note and vitals reviewed. Results for orders placed in visit on 08/15/13 [facility] Result Value Ref Range EXT MAMMOGRAPHY 1-Negative Assessment and Plans: 1. Essential hypertension - Well controlled no change in medication 2. Hyperlipidemia - Improved no change in medication 3. COPD (chronic obstructive pulmonary disease) (HCC) - Mild SOB going upstairs. Encouraged to continue with exercise. 4. Need for pneumococcal vaccination - - Pneumococcal conjugate vaccine, IM given today 5. Hyperglycemia - Mild continue to monitor I, Claudia Joseph am acting as a scribe on behalf of, and in the presence of Roderick merritt MD. Claudia Joseph cma 07/24/2014 documented in this en counter Plan of Treatment Not on filedocumented as of this encounter Visit Diagnoses + + | Diagnosis | + + | Essential hypertension - Primary Unspecified essential hypertension | + + | Hyperlipidemia Other and unspecified hyperlipidemia | + + | COPD (chronic obstructive pulmonary disease) (HCC) Chronic airway obstruction, not | | elsewhere classified | + + | Need for pneumococcal vaccination Need for prophylactic vaccination against | | streptococcus pneumoniae (pneumococcus) | + + | Hyperglycemia Other abnormal glucose | + + documented in this encounter
--- OUTSIDE RECORDS SUMMARY | ~2019-02-11 | XMS | Encounter Summary ---
Demographics + + + | Address | [address] | | | [place] [address] | + + + | Home Phone [...] Team Providers + +------+ + | Care Returned Case Inspector Name | Role | Phone | + [...] | Roderick Ariza MD | [address] | | | | | hypertension | [address] | [place], | | | | | (HCC) | [place]VE [place] | [place] | | | | | Procedures | [place], [place] | [address] | | | | | ECHO | [address] | Phone: | | | | | Complete | Phone: | [phone] | | | | | | [phone] | Fax: | | | | | | Fax: | [phone] | | | | | | [phone] | | +--------+--------+ + + + + Reason for Visit + + + | Reason | Comments | + + + | Follow-up | | + + + Encounter Details +--------+---------+ + + + | Date | Type | Department | Care Team | Description | +--------+---------+ + + + | 10/29/ | Office | [facility] | Roderick Alexandra, | History of pneumonia | | 2018 | Visit | MEDICINE [place] | [address] | (Primary Dx); | | | | [address] | [place] | History of recent | | | | [place] | [address] | hospitalization; | | | | [address] | | Preventative health | | | | [phone] | | care; Pulmonary | | | [...] was also seen in the ED in [facility] [place] in June of 2017 for fever [...] - Received in September. [facility] in [place], [place]. 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 Plan to refer to livestock auctioneer if neede d post echo reading. Additional [...] | | | | mg/dL | [facility] | | | | | | MEDICAL | | | | | | PARK | | | | | | LABORATORY | | + + + + + + | eGFR if not | >60Comment: GLOMERULAR | >=60 | [facility] | | | | FILTRATION | mL/min/1.73m2 | [facility] | | | SENEGALESE | RATE,ESTIMATED | | MEDICAL | | | | mL/min/1.26u0Sped than | | PARK | | | [...] + + + | [facility] | [address] | [place], [place] | [phone] | | [facility] | | [address] | | | PARK LABORATORY | | [...] + + + | N[facility] | [address] [place] | [place] | [phone] | | [facility] | | [address] | | | [facility] | | | | + + + + + documented in this encounter Visit Diagnoses + + | Diagnosis | + + | History of pneumonia - Primary Personal history of pneumonia (recurrent) | + + | History of recent hospitalization | + + | Preventative health care Routine general medical examination at a [facility] care | | facility | + + | Pulmonary hypertension (HCC) Other chronic pulmonary heart diseases | + + | Anemia, unspecified type | + + | Pneumonia due to infectious organism, unspecified laterality, unspecified part of lung | + + documented in this encounter
--- OUTSIDE RECORDS SUMMARY | ~2019-02-11 | XMS | Encounter Summary ---
Demographics + + + | Address | [address] | | | [place] [address] | + + + | Home Phone | | + + + | Preferred Language | Unknown | + + + | Marital Status | | + + + | Mormon Affiliation | 1077 | + + + | Race | Unknown | + + + | Ethnic Group | Unknown | + + + Author + + + | Author | [facility] | | | and Saurabhana | + + + | Organization | [facility] [...] Team Providers + +------+ + | Care Postdoctoral Scientist Name | Role | Phone | + [...] Description | +--------+--------+ + + + | 08/10/ | Refill | [facility] [place] [facility] | Roderick Alexandra, | Medication Refill | | 2012 | | [facility] | [address] | | | | | [address] | [place] | | | | | [place] | [address] | | | | | [address] | | | | | | [phone] | | | +--------+--------+ + + + [...]
--- OUTSIDE RECORDS SUMMARY | ~2019-02-11 | XMS | Encounter Summary ---
Demographics + + + | Address | [address] | | | [place] [address] | + + + | Home Phone [...] Team Providers + +------+ + | Care Railway Signal Operator Name | Role | Phone | [...] | Roderick Ariza MD | [address] | | | | | hypertension | [address] | [place], | | | | | (HCC) | AVE [place] | [place] | | | | | Procedures | [place], [place] | [address] | | | | | ECHO | [address] | Phone: | | | | | Complete | Phone: | [phone] | | | | | | [phone] | Fax: | | | | | | Fax: | [phone] | | | | | | [phone] | | +--------+--------+ + + + + Reason for Visit + + + | Reason | Comments | + + + | Follow-up | | + + + Encounter Details +--------+---------+ + + + | Date | Type | Department | Care Team | Description | +--------+---------+ + + + | 10/29/ | Office | [facility] | Roderick Alexandra, | History of pneumonia | | 2018 | Visit | MEDICINE [place] | [address] | (Primary Dx); | | | | [address] | [place] | History of recent | | | | [place] | [address] | hospitalization; | | | | [address] | | Preventative health | | | | [phone] | | care; Pulmonary | | | [...] was also seen in the ED in [facility] [place] in June of 2017 for fever [...] - Received in September. [facility] in [place], [place]. 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 Plan to refer to wireless store manager if neede d post echo reading. Additional [...] | | | | | mg/dL | [facility] | | | | | | MEDICAL | | | | | | PARK | | | | | | LABORATORY | | + + + + + + | eGFR if not | >60Comment: GLOMERULAR | >=60 | [facility] | | | | FILTRATION | mL/min/1.73m2 | [facility] | | | DJIBOUTIAN | RATE,ESTIMATED | | MEDICAL | | | | mL/min/1.26n4Uogf than | | PARK | | | [...] + + + | [facility] | [address] | [place], [place] | [phone] | | [facility] | | [address] | | | PARK LABORATORY | | [...] + + + | NIL[facility] | [address] [place] | [place] | [phone] | | [facility] | | [address] | | | [facility] | | | | + + + + + documented in this encounter Visit Diagnoses + + | Diagnosis | + + | History of pneumonia - Primary Personal history of pneumonia (recurrent) | + + | History of recent hospitalization | + + | Preventative health care Routine general medical examination at a [facility] | | facility | + + | Pulmonary hypertension (HCC) Other chronic pulmonary heart diseases | + + | Anemia, unspecified type | + + | Pneumonia due to infectious organism, unspecified laterality, unspecified part of lung | + + documented in this encounter
--- OUTSIDE RECORDS SUMMARY | ~2019-02-11 | XMS | Encounter Summary ---
Demographics + + + | Address | [address] | | | [place] [address] | + + + | Home Phone | | + + + | Preferred Language | Unknown | + + + | Marital Status | | + + + | Uatsdin Affiliation | 1077 | + + + [...] Team Providers + +------+ + | Care Boiler Control Technician Name | Role | Phone | + [...] Description | +--------+--------+ + + + | 03/10/ | Refill | [facility] [place] [facility] | Roderick Alexandra, | Medication Refill | | 2012 | | [facility] | [address] | | | | | [address] | [place] | | | | | [place] | [address] | | | | | [address] | | | | | | [phone] | | | +--------+--------+ + + + [...]
--- OUTSIDE RECORDS SUMMARY | ~2019-02-11 | XMS | Encounter Summary ---
Demographics + + + | Address | [address] | | | [place] [address] | + + + | Home Phone | | + + + | Preferred Language | Unknown | + + + | Marital Status | | + + + | Alevism Affiliation | 1077 | + + + | Race | Unknown | + + + | Ethnic Group | Unknown | + + + Author + + + | Author | [facility] | | | and Saurabhana | + + + | Organization | [facility] | | | [...] Team Providers + +------+ + | Care Shellfish Manager Name | Role | Phone | [...] Description | +--------+--------+ + + + | 02/19/ | Refill | [facility] [place] [facility] | Roderick Alexandra, | Medication Refill | | 2016 | | [facility] | [address] | | | | | [address] | [place] | | | | | [place] | [address] | | | | | [address] | | | | | | [phone] | | | +--------+--------+ + + + [...]
--- OUTSIDE RECORDS SUMMARY | ~2019-02-11 | XMS | Encounter Summary ---
Demographics + + + | Address | [address] | | | [place] [address] | + + + | Home Phone | | + + + | Preferred Language | Unknown | + + + | Marital Status | | + + + | Episcopalian Affiliation | 1077 | + + + | Race | Unknown | + + + | Ethnic Group | Unknown | + + + Author + + + | Author | [facility] | | | and Saurabhana | + + + | Organization | [facility] | | [...] Team Providers + +------+ + | Care Manager Social Media Name | Role | Phone | + +------+ + | Roderick Alexandra MD | PCP | | + +------+ + Encounter Details +--------+ + + + + | Date | Type | Department | Care Team | Description | +--------+ + + + + | 08/15/ | Abstract | [facility] [place] [facility] | Roderick Alexandra, | | | 2013 | | MEDICINE [place] | [address] | | | | | [address] | [place] | | | | | [place] | [address] | | | | | [address] | | | | | | [phone] | | | +--------+ + + + [...] | [facility] EXTERNAL IMAGE | Routin | 08/15/2013 | | Results for this | | | e | 8:30 AM | | procedure are in the | | | | PDT | | results section. | + +--------+ + + + documented in this encounter Results [facility] External Image (08/15/2013 8:30 AM PDT) + + + + + + | Component | Value | Ref Range | Performed | Pathologist | | | | | At | Signature | + + + + + + | EXT | 1-Negative | | | | | MAMMOGRAPHY | | | | | + + + + + + documented in this encounter Visit Diagnoses Not on filedocumented in this encounter"
--- OUTSIDE RECORDS SUMMARY | ~2019-02-11 | XMS | Encounter Summary ---
Demographics + + + | Address | [address] | | | [place] [address] | + + + | Home Phone [...] Team Providers + +------+ + | Care Stoner Out Name | Role | Phone | + [...] Refill | | 2012 | | MEDICINE [facility] | [address] | | | | | [address] | [place] | | | | | [place] | [address] | | | | | [address] | | | | | | [phone] | | | +--------+--------+ + + + [...]
--- OUTSIDE RECORDS SUMMARY | ~2019-02-11 | XMS | Encounter Summary ---
Demographics + + + | Address | [address] | | | [place] [address] | + + + | Home Phone | | + + + | Preferred Language | Unknown | + + + | Marital Status | | + + + | Zoroastrianism Affiliation | 1077 | + + + | Race | Unknown | + + + | Ethnic Group | Unknown | + + + Author + + + | Author | [facility] | | | and Saurabhana | + + + | Organization | [facility] | | [...] Team Providers + +------+ + | Care Office Services Manager Name | Role | Phone | [...] Refill | | 2015 | | [facility] | [address] | | | | | [address] | [place] | | | | | [place] | [address] | | | | | [address] | | | | | | [phone] | | | +--------+--------+ + + + [...]
--- OUTSIDE RECORDS SUMMARY | ~2019-02-11 | XMS | Encounter Summary ---
Demographics + + + | Address | [address] | | | [place] [address] | + + + | Home Phone | | + + + | Preferred Language | Unknown | + + + | Marital Status | | + + + | Pentecostalism Affiliation | 1077 | + + + | Race | Unknown | + + + | Ethnic Group | Unknown | + + + Author + + + | Author | [facility] | | | and Saurabhana | + + + | Organization | [facility] | | [...] Team Providers + +------+ + | Care Forest Fire Prevention Specialist Name | Role | Phone | + +------+ + | Roderick Alexandra MD | PCP | | + +------+ + Encounter Details +--------+ + + + + | Date | Type | Department | Care Team | Description | +--------+ + + + + | 03/03/ | Hospital | [facility] | Vicenta Rizvi | | | 2011 | Encounter | MED CTR [facility] INTRA OP | MD [address] | | | | | [address] | [place], | | | | | [place], [place] | [place] [address] | | | | | [address] | [phone] | | | | | [phone] | | | +--------+ + + + [...]
--- OUTSIDE RECORDS SUMMARY | ~2019-02-11 | XMS | Encounter Summary ---
Demographics + + + | Address | [address] | | | [place] [address] | + + + | Home Phone | | + + + | Preferred Language | Unknown | + + + | Marital Status | | + + + | Baptism Affiliation | 1077 | + + + | Race | Unknown | + + + | Ethnic Group | Unknown | + + + Author + + + | Author | [facility] | | | and [place] | + + + | Organization | [facility] | | [...] Team Providers + +------+ + | Care Frame Changer Name | Role | Phone | + +------+ + | Roderick Alexandra MD | PCP | | + +------+ + Reason for Visit + + + | Reason | Comments | + + + | Annual Exam | last mammo 07/2013 normal | + + + | Cough | Chronic cough has been worse "annoying" | + + + Encounter Details +--------+---------+ + + + | Date | Type | Department | Care Team | Description | +--------+---------+ + + + | 01/23/ | Office | [facility] | Roderick Alexandra, | Routine history and | | 2013 | Visit | [facility] [place] | [address] | physical examination | | | | [address] | [place] | of adult (Primary | | | | [place] | [address] | Dx); COPD (chronic | | | | [address] | | obstructive | | | | [phone] | | pulmonary disease) | | | | | | ([facility]); Hypertension; | | | | | | Hyperlipidemia; | | | | | | Right knee pain | +--------+---------+ + + + Social History [...] + + + | Blood Pressure | 124/64 | 01/23/2014 10:46 AM | | | | | PST | | + + + + + | Pulse | 62 | 01/23/2014 10:46 AM | | | | | PST | | + + + + + | Temperature | 36.2 C (97.2 F) | 01/23/2014 10:46 AM | | | | | PST | | + + + + + | Respiratory Rate | 16 | 01/23/2014 10:46 AM | | | | | PST | | + + + + + | Oxygen Saturation | 96% | 01/23/2014 10:46 AM | | | | | PST | | + + + + + | Inhaled Oxygen | - | - | | | Concentration | | | | + + + + + | Weight | 70.8 kg (156 lb) | 01/23/2014 10:46 AM | | | | | PST | | + + + + + | Height | 154.9 cm (5' 1") | 01/23/2014 10:46 AM | | | | | PST | | + + + + + | Body Mass Index | 29.48 | 01/23/2014 10:46 AM | | | | | PST | | + + + + + documented in this encounter Progress Notes Roderick Alexandra MD - 01/23/2014 5:45 PM PSTFormatting of this note might be different fro m the original. MEDICARE WELLNESS VISIT : Rosalind Patel is a 78 y.o. female who presents for a Medicare Wellness visit tod ay: SUBSEQUENT ANNUAL VISIT WITH PPPS (F/U AWV /PPPS) HPI: Reviewed and patient's blood pressure log which shows that her blood pressure is well- controlled. Patient reports that she has not been able to exercise quite as much as usual d o to right knee meniscus tear. Patient reports that she is knows modifying exercise and is able to start again. She is hopeful that she will lose some weight and her cholesterol will come back down. Patient reports that overall her cough is doing fine. She has been diagno sed with COPD. She reports that she and has a hard time with aerosol sprays area they tend to flare her coughing. Past Medical History: Past Medical History Diagnosis Date Diarrhea 03/27/2010 Dyspnea on exertion 10/16/2010 Cough 10/16/2010 Cardiac murmur 03/31/2011 Hyperlipidemia Hypertension Diverticulosis, colon Palpitations Vertigo Left breast lump 05/2006 Hepatitis B infection 1979's Left carotid bruit 12/31/1999 Past Surgical History: Past Surgical History Procedure Date Appendectomy 1941 Tonsillectomy Dilation and curettage of uterus , 2002 Cholecystectomy 1974 Skin cancer excision 8816-9840 Basal Cell Hysteroscopy 08/2001 Cataract removal 02/2011 Past Family History: Family History Problem Relation Age of Onset Parkinsonism Mother * Mother 78 from pneumonia Prostate cancer Father Social History: Patient Status: [2]. Rosalind's Tobacco Use: History Smoking status Never Smoker Smokeless tobacco Never Used . Rosalind's alcohol use: History Alcohol Use Yes Comment: 3-4 times per year . Rosalind exercises likes to exercise by elliptical guide dog trainer. She watches her diet for sodium , low fat and low cholesterol. Today's Visit: Current Outpatient Prescriptions Medication Sig Dispense Refill [...] tablet by mouth Daily. 90 t ablet 1 Multiple Vitamins-Minerals (OCUVITE ADULT FORMULA PO) Take 2 tablets by mouth 2 times d aily. niacin (NIASPAN) 500 mg CR tablet take 1 tablet by mouth at bedtime 90 tablet 1 [place]-3 Fatty Acids ([employer] NATURAL FISH OIL) 1000 MG CAPS Take 1,000 mg by mouth Daily. pravastatin (PRAVACHOL) 40 MG tablet Take 0.5 tablets by mouth nightly. 45 tablet 3 ranitidine (ZANTAC) 150 MG capsule Take 150 mg by mouth Daily. Allergies Allergen Reactions Lipitor Other (See Comments) Myalgias Wasp Venom Protein Swelling Current list of Providers and DME Suppliers Patient Care Team: Roderick Alexandra MD as PCP - General Current Medicare Suppliers: [facility] [facility] [place] - [address] [place] [address] HEALTH RISK ASSESSMENT: : The patient or their surrogate filled out the HRA and the responses were incorporated into the notes below. General Health 1. How do you describe your current health? Good 2. Have you had a dental exam in the last year? Yes 3. Have you had an eye exam in the last year? Yes Hearing Loss Screen 1. Do you have trouble hearing the television or radio when others do not? No 2. Do you have to strain or struggle to hear/understand conversations? No Functional Screen 1. Do you need help with dressing, eating, voiding or toileting and transferring oneself fr om seated to standing and getting in and out of bed? No 2. Do you need help with preparing meals, transportation, shopping, taking your medicine, m anaging your finances, or other activities of daily living? No 3. Who do you turn to for problems with health, transportation, etc? 4. How do you get around the community? 5. Do you drive a car? IF Yes: a. Have you ever been involved in a motor vehicle accident? b. If yes, how many? c. When was the last motor vehicle accident? d. Was anyone hurt? e. Was the accident reported? 6. Do you use your seatbelt 100% of the time? Yes 7. Do you feel you spend too much time at home alone? 8. Are you the sole support for anyone other than yourself or your spouse? IF yes, is that person a minor child? Home Safety Screen 1. Does your home have throw rugs, poor lighting, or a slippery bathtub/shower? No 2. Does your home have adequate grab bars in bathrooms, handrails on stairs and steps? Ye s 3. Does your home have functioning smoke alarms? Yes 4. Do you feel physically safe in your home? Yes 5. Do you feel you are being emotionally, financially or physically abused by someone in y our family? No 6. Within the last 12 months have you been hit, pushed or slapped by anyone? No Risk for Falls Screen 1. Have you fallen in the past 6 months? No 2. Do you ever feel like you might lose your balance? No 3. Did the patient pass the "get up and go" test? yes Important Dates Have you had a Colonoscopy? Yes When was the last one done? Where was it done? Doctor? Have you had a pneumonia shot? Date: Have you had a Shingles Vaccine Shot? Date: When was your last Tetanus shot? Date: For Women When was your last Mammogram? Date: When was your last Pap Smear/Pelvic? Date: Have you had a scan for Osteoporosis? For Men When was your last prostate exam? Date: When was your last PSA blood test? Date: Depression Screen PHQ-2 1. Over the past two weeks, have you felt down, depressed or hopeless? No 2. Over the past two weeks, have you felt little interest or pleasure in doing things? No Health Risk Appraisal : Health Risk Assessment Form was reviewed with the patient and recommendations made to Becca Patel based on her risk factors. I did complete a risk assessment for falls.The patient does not have a history of falls. A plan of care for falls was not documented in the personal prevention plan. Depression screening performed: Yes - Result is negative Immunizations Immunization History Administered Date(s) Administered INFLUENZA, 18+ W/PRESERVATIVE (Adult) 10/18/2011 PNEUMOCOCCAL POLYSACCHARIDE 23-VALENT (PPSV23) 05/20/2005 QUADRIVALENT INFLUENZA, W/PRESERVATIVE (PED/ADOL/ADULT) 11/15/2013 TDAP, (ADOL/ADULT) 12/02/2005 ZOSTER, 1 DOSE (ADULT) 09/05/2011 Preventive Care and Screening: : The following health maintenance items are reviewed in [facility] and correct as of today: Health Maintenance Topic Date Due Breast Cancer Screening (Mamm Yearly) 08/15/2014 Influenza Vaccine (Yearly) 11/15/2014 Pneumococcal Vaccine (Once,age 65 And Older) Completed Recommendations: : Diet: Increase soluble fiber Reduce saturated fat, "trans" monounsaturated fatty acids, and cholesterol Services Recommended: Yearly flu shot. She plans to continue yearly mammography. Review of Systems : : Pertinent items are noted in HPI. Physical Exam: : Vitals: BP 124/64 | Pulse 62 | Temp 36.2 C (97.2 F) (Temporal) | Resp 16 | Ht 1.549 m (5' 1") | Wt 70.761 kg (156 lb) | BMI 29.49 kg/m2 | SpO2 96% | ? No BMI: Body mass index is 29.49 kg/(m^2). Vision Screening and Audiometry Results: Visual Acuity Screening Right eye Left eye Both eyes Without correction: 20/30 20/30 20/25 With correction: Detection of Cognitive Impairment - not detected General appearance: alert, appears stated age and cooperative Head: Normocephalic, without obvious abnormality, atraumatic Ears: normal TM's and external ear canals both ears Throat: lips, mucosa, and tongue normal; teeth and gums normal Lungs: clear to auscultation bilaterally Heart: regular rate and rhythm, S1, S2 normal, no murmur, click, rub or gallop Abdomen: soft, non-tender; bowel sounds normal; no masses, no organomegaly Extremities: extremities normal, atraumatic, no cyanosis or edema Skin: Skin color, texture, turgor normal. No rashes or lesions Neurologic: Grossly normal Assessment and Plans: : MEDICARE WELLNESS AND PREVENTIVE SCREENING VISIT Hypertension. Adequately controlled. No change in medication Hyperlipidemia. Minimally elevated. Continue with diet changes. COPD. Minimal disease. Patient does not need medication at this time. Knee pain. Secondary to torn meniscus. She will start with exercise. I reviewed that she needs to start slow and increase in intensity slowly over time. A Personalized Care Plan for Ms. Patel has been established and reviewed with patient and made available to the patient. documented in this en counter Plan of Treatment Not on filedocumented as of this encounter Visit Diagnoses + + | Diagnosis | + + | Routine history and physical examination of adult - Primary Routine general medical | | examination at a health care facility | + + | COPD (chronic obstructive pulmonary disease) (HCC) Chronic airway obstruction, not | | elsewhere classified | + + | Hypertension Unspecified essential hypertension | + + | Hyperlipidemia Other and unspecified hyperlipidemia | + + | Right knee pain Pain in joint, lower leg | + + documented in this encounter
--- OUTSIDE RECORDS SUMMARY | ~2019-02-11 | XMS | Clinical Summary ---
Demographics + + + | Address | [address] | | | [place] [address] | + + + | Home Phone | | + + + | Preferred Language | Unknown | + + + | Marital Status | | + + + | Islam Affiliation | Unknown | + + + | Race | Unknown | + + + | Ethnic Group | Unknown | + + + Author + + + | Author | [employer] (Historical as of | | | 10-02-18) | + + + | Organization | [facility] [employer] (Historical as of | | | 10-02-18) | + + + | Address | Unknown | + + + | Phone | Unavailable | + + + Support + + +---------+ + | Name | Relationship | Address | Phone | + + +---------+ + | Addy Patel | ECON | Unknown | | + + +---------+ + Care Team Providers + +------+ + | Care Financial Institution Treasurer Name | Role | Phone | + +------+ + | Prashanth Sunshine MD | PP | | + +------+ + Allergies Not on File Current Medications Not [...] | + + + Plan of Treatment + + + + + | Health Maintenance | Due Date | Last Done | Comments | + + + + + | DEXA SCAN SCREENING | | | | | | 9 | | | + + + + + | Vaccine: Zoster (2 | | 09/05/2011, 02/16/2011, | | | of 3) | 2 | 12/02/2005 | | + + + + + | Vaccine: Influenza | | 10/12/2015, 10/31/2014, | | | (#1) | 9 | 11/15/2013 | | + + + + + | Vaccine: | | 02/16/2017, 12/02/2005 | | | Dtap/Tdap/Td (3 - | 8 | | | | Td) | | | | + + + + + | Vaccine: | Completed | 07/24/2014, 02/17/2012, | | | Pneumococcal 65+ | | 05/20/2005, Additional history | | | Low/Medium Risk | | exists | | + + + + + Results Not on filefrom Last 3 Months Insurance + +--------+ +------+-------+ + | Payer | Benefi | Subscriber | Type | Phone | Address | | | t Plan | ID | | | | | | / | | | | | | | Group | | | | | + +--------+ +------+-------+ + | MEDICARE | MEDICA | [id number] | | | [address] | | | [place] | | | | [place] [address] | | | IP-OP | | | | | + +--------+ +------+-------+ + | [employer]AN | ODS | [id number] | | | | | | HEALTH | | | | | | | PLAN | | | | | + +--------+ +------+-------+ + + +--------+ +--------+ + + | Guarantor Name | Accoun | Relation to | Date | Phone | Billing Address | | | t Type | Patient | of | | | | | | | | | | + +--------+ +--------+ + + | ROSALIND PATEL | Person | Self [birth year] Home: | [address] | | | [place] | | 1936 | [phone] [place] | | | [place] | | | [phone] | [phone] | + +--------+ +--------+ + +"
--- OUTSIDE RECORDS SUMMARY | ~2019-02-11 | XMS | Encounter Summary ---
Demographics + + + | Address | [address] | | | [place] [address] | + + + | Home Phone | | + + + | Preferred Language | Unknown | + + + | Marital Status | | + + + | Jehovah'S Witness Affiliation | 1077 | + + + | Race | Unknown | + + + | Ethnic Group | Unknown | + + + Author + + + | Author | [facility] | | | and [place] | + + + | Organization | [facility] | | [...] Team Providers + +------+ + | Care Oracle Drm Consultant Name | Role | Phone | + +------+ + | Roderick Alexandra MD | PCP | | + +------+ + Reason for Visit + + + | Reason | Comments | + + + | ED Follow-up | | + + + Encounter Details +--------+ + + + + | Date | Type | Department | Care Team | Description | +--------+ + + + + | 12/14/ | Telephone | [facility] | Rylee Robert RN | ED Follow-up | | 2011 | | [facility] [place] | | | | | | [address] | | | | | | [place] | | | | | | [address] | | | | | | [phone] | | | +--------+ + + + [...]
--- OUTSIDE RECORDS SUMMARY | ~2019-02-11 | XMS | Encounter Summary ---
Demographics + + + | Address | [address] | | | [place] [address] | + + + | Home Phone | | + + + | Preferred Language | Unknown | + + + | Marital Status | | + + + | Adventist Affiliation | 1077 | + + + | Race | Unknown | + + + | Ethnic Group | Unknown | + + + Author + + + | Author | [facility] [...] | | + + +---------+ + | Shleli Tinajero | ECON | Unknown | | + + +---------+ + Care Team Providers + +------+ + | Care Manager Rehab Name | Role | Phone | + [...] Refill | | 2014 | | [facility] | [address] | | | | | [address] | [place] | | | | | [place] | [address] | | | | | [address] | | | | | | [phone] | | | +--------+--------+ + + + [...]
--- OUTSIDE RECORDS SUMMARY | ~2019-02-11 | XMS | Encounter Summary ---
Demographics + + + | Address | [address] | | | [place] [address] | + + + | Home Phone | | + + + | Preferred Language | Unknown | + + + | Marital Status | | + + + | Sabianist Affiliation | 1077 | + + + | Race | Unknown | + + + | Ethnic Group | Unknown | + + + Author + + + | Author | [facility] | | | and [place] | + + + | Organization | [facility] | | | and [place] | + + + | Address | Unknown | + + + | Phone | Unavailable | + + + Support + + +---------+ + | Name | Relationship | Address | Phone | + + +---------+ + | dAdy Moore | ECON | Unknown | | + + +---------+ + | Shelli Tinajero | ECON | Unknown | | + + +---------+ + Care Team Providers + +------+ + | Care Associate Software Engineer Name | Role | Phone | + [...] Refill | | 2016 | | [facility] | [address] | | | | | [address] | [place] | | | | | [place] | [address] | | | | | [address] | | | | | | [phone] | | | +--------+--------+ + + + [...]
--- OUTSIDE RECORDS SUMMARY | ~2019-02-11 | XMS | Encounter Summary ---
Demographics + + + | Address | [address] | | | [place] [address] | + + + | Home Phone | | + + + | Preferred Language | Unknown | + + + | Marital Status | | + + + | Advent Affiliation | 1077 | + + + [...] Team Providers + +------+ + | Care Business Continuity Manager Name | Role | Phone | [...] + | 06/07/ | Telephone | [facility] | Roderick Alexandra, | Lab Order | | 2013 | | [facility] [place] | [address] | | | | | [address] | [place] | | | | | [place] | [address] | | | | | [address] | | | | | | [phone] | | | +--------+ + + + [...]
--- OUTSIDE RECORDS SUMMARY | ~2019-02-11 | XMS | Encounter Summary ---
Demographics + + + | Address | [address] | | | [place] [address] | + + + | Home Phone | | + + + | Preferred Language | Unknown | + + + | Marital Status | | + + + | Christian Affiliation | 1077 | + + + [...] Team Providers + +------+ + | Care Ldr Nurse Name | Role | Phone | + [...] | | | | [place] | [address] | | | | | [address] | | | | | | [phone] | | | +--------+ + + + [...]
--- OUTSIDE RECORDS SUMMARY | ~2019-02-11 | XMS | Encounter Summary ---
Demographics + + + | Address | [address] | | | [place] [address] | + + + | Home Phone | | + + + | Preferred Language | Unknown | + + + | Marital Status | | + + + | Mormon Affiliation | 1077 | + + + | Race | Unknown | + + + | Ethnic Group | Unknown | + + + Author + + + | Author | [facility] | | | and [place] | + + + | Organization | [facility] | | | [...] Team Providers + +------+ + | Care Health Information Tech Name | Role | Phone | + [...] | | [address] [place] | [place], [place] | | | | | [place], [place] [address] | [address] | | | | | [phone] | | | +--------+ + + + [...]
--- OUTSIDE RECORDS SUMMARY | ~2019-02-11 | XMS | Encounter Summary ---
Demographics + + + | Address | [address] | | | [place] [address] | + + + | Home Phone [...] Team Providers + +------+ + | Care Rapid Outsole Stitcher Name | Role | Phone | + [...] Refill | | 2012 | | [facility] | [address] | | | | | [address] | [place] | | | | | [place] | [address] | | | | | [address] | | | | | | [phone] | | | +--------+--------+ + + + [...]
--- OUTSIDE RECORDS SUMMARY | ~2019-02-11 | XMS | Encounter Summary ---
Demographics + + + | Address | [address] | | | [place] [address] | + + + | Home Phone | | + + + | Preferred Language | Unknown | + + + | Marital Status | | + + + | Jainism Affiliation | 1077 | + + + | Race | Unknown | + + + | Ethnic Group | Unknown | + + + Author + + + | Author | [facility] | | | and [place] | + + + | Organization | [facility] | | | [...] Team Providers + +------+ + | Care Terrazzo Layer Name | Role | Phone | + [...] + | 02/06/ | Telephone | [facility] | Roderick Alexandra, | Results | | 2015 | | MEDIC[facility] [place] | [address] | | | | | [address] | [place] | | | | | [place] | [address] | | | | | [address] | | | | | | [phone] | | | +--------+ + + + [...]
--- OUTSIDE RECORDS SUMMARY | ~2019-02-11 | XMS | Encounter Summary ---
Demographics + + + | Address | [address] | | | [place] [address] | + + + | Home Phone | | + + + | Preferred Language | Unknown | + + + | Marital Status | | + + + | Taoist Affiliation | 1077 | + + + | Race | Unknown | + + + | Ethnic Group | Unknown | + + + Author + + + | Author | [facility] | | | and [place] | + + + | Organization | [facility] | | [...] Team Providers + +------+ + | Care Home Supervisor Name | Role | Phone | [...] + + | 07/24/ | Office | [facility] | Roderick Alexandra, | Essential | | 2015 | Visit | [facility] [place] | [address] | hypertension | | | | [address] | [place] | (Primary Dx); | | | | [place], [place] | [address] | Hyperlipidemia; COPD | | | | [address] | | (chronic | | | | [phone] | | obstructive | | | | | | pulmonary disease) | | | | | | ([facility]); Need for | | | | | [...] take 1 tablet by mouth at bedtime [place]-3 Fatty Acids ([facility] NATURAL FISH OIL) 1000 [...] (12/31/1999); and COPD (chronic obstructive pulmonary disease) ([facility]). Past Surgical History She has past surgical history that includes Appendectomy (1940); Tonsillectomy; Dilation an d curettage of uterus (, 2001); Cholecystectomy (1973); Skin cancer excision (3059-7408); hy steroscopy (08/2001); and Cataract Removal (02/2011). 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
--- OUTSIDE RECORDS SUMMARY | ~2019-02-11 | XMS | Encounter Summary ---
Demographics + + + | Address | [address] | | | [place] [address] | + + + | Home Phone | | + + + | Preferred Language | Unknown | + + + | Marital Status | | + + + | Judaism Affiliation | 1077 | + + + | Race | Unknown | + + + | Ethnic Group | Unknown | + + + Author + + + | Author | [facility] | | | and [place] | + + + | Organization | [facility] | | | [...] Team Providers + +------+ + | Care Staff Design Engineer Name | Role | Phone | [...] + + | 05/19/ | Telephone | [facility] | Roderick Alexandra, | Results | | 2018 | | MEDICINE [place] | [address] | | | | | [address] | [place] | | | | | [place] | [address] | | | | | [address] | | | | | | [phone] | | | +--------+ + + + [...]
--- OUTSIDE RECORDS SUMMARY | ~2019-02-11 | XMS | Encounter Summary ---
Demographics + + + | Address | [address] | | | [place] [address] | + + + | Home Phone | | + + + | Preferred Language | Unknown | + + + | Marital Status | | + + + | Adventist Affiliation | 1077 | + + + | Race | Unknown | + + + | Ethnic Group | Unknown | + + + Author + + + | Author | [facility] | | | and [place] | + + + | Organization | [facility] | [...] Team Providers + +------+ + | Care Parts Remover Name | Role | Phone | + +------+ + PCP | Unavailable | + +------+ + Encounter Details +--------+ + + + + | Date | Type | Department | Care Team | Description | +--------+ + + + + | 01/13/ | Hospital | [facility] | | | | 2000 | Encounter | MED CTR XRAY [address] | | | | | | [place] | | | | | | [place] [address] | | | | | | [phone] | | | +--------+ + + + [...]
--- OUTSIDE RECORDS SUMMARY | ~2019-02-11 | XMS | Encounter Summary ---
Demographics + + + | Address | [address] | | | [place] [address] | + + + | Home Phone | | + + + | Preferred Language | Unknown | + + + | Marital Status | | + + + | Sikh Affiliation | 1077 | + + + [...] Team Providers + +------+ + | Care Restaurant Greeter Name | Role | Phone | + [...] | | | | [place] | [address] | | | | | [address] | | | | | | [phone] | | | +--------+ + + + [...]
--- OUTSIDE RECORDS SUMMARY | ~2019-02-11 | XMS | Encounter Summary ---
Demographics + + + | Address | [address] | | | [place] [address] | + + + | Home Phone [...] Team Providers + +------+ + | Care Linux Server Administrator Name | Role | Phone | [...] Description | +--------+--------+ + + + | 08/15/ | Refill | [facility] | Roderick Alexandra, | Medication Refill | | 2013 | | [facility] | [address] | | | | | [address] | [place] | | | | | [place] | [address] | | | | | [address] | | | | | | [phone] | | | +--------+--------+ + + + [...]
--- OUTSIDE RECORDS SUMMARY | ~2019-02-11 | XMS | Encounter Summary ---
Demographics + + + | Address | [address] | | | [place] [address] | + + + | Home Phone | | + + + | Preferred Language | Unknown | + + + | Marital Status | | + + + | Confucianism Affiliation | 1077 | + + + | Race | Unknown | + + + | Ethnic Group | Unknown | + + + Author + + + | Author | [facility] | | | and Saurabhana | + + + | Organization | [facility] | | | and [...] Team Providers + +------+ + | Care Senior Benefits Analyst Name | Role | Phone | + [...] | [address] | [place] | | | | | [place] | [address] | | | | | [address] | | | | | | [phone] | | | +--------+ + + + [...]
--- OUTSIDE RECORDS SUMMARY | ~2019-02-11 | XMS | Clinical Summary ---
Demographics + + + | Address | [address] | | | [place] [address] | + + + | Home Phone | | + + + | Preferred Language | Unknown | + + + | Marital Status | Single | + + + | Temple Affiliation | Unknown | + + + | Race | Unknown | + + + | Ethnic Group | Other Race | + + + Author + + + | Author | [facility] | + + + | Organization | [facility] | + + + | Address | Unknown | + + + | Phone | Unavailable | + + + Care Team Providers + +------+ + | Care Water Pump Operator Name | Role | Phone | + +------+ + PCP | Unavailable | + +------+ + Source Comments GERMAINE is fully live on both [facility] Ambulatory and [facility] InPatient.[facility] Allergies Not on File Medications Not on [...] | | | | | | | [address] | | + +--------+ +--------+ + +--------+ [...] aliyah | | | 3 (Home) | [address] | + +--------+ +--------+ + +"
--- OUTSIDE RECORDS SUMMARY | ~2019-02-11 | XMS | Encounter Summary ---
Demographics + + + | Address | [address] | | | [place] [address] | + + + | Home Phone | | + + + | Preferred Language | Unknown | + + + | Marital Status | | + + + | Jew Affiliation | 1077 | + + + | Race | Unknown | + + + | Ethnic Group | Unknown | + + + Author + + + | Author | [facility] | | | and Saurabhana | + + + | Organization | [facility] | | [...] Team Providers + +------+ + | Care Diet Therapist Name | Role | Phone | + +------+ + | Roderick Alexandra MD | PCP | | + +------+ + Reason for Visit + + + | Reason | Comments | + + + | Results, Imaging | | + + + Encounter Details +--------+ + + + + | Date | Type | Department | Care Team | Description | +--------+ + + + + | 06/16/ | Telephone | [facility] | Roderick Alexandra, | Results, Imaging | | 2017 | | MEDICINE [place] | [address] | | | | | [address] | [place] | | | | | [place] | [address] | | | | | [address] | | | | | | [phone] | | | +--------+ + + + [...]
--- OUTSIDE RECORDS SUMMARY | ~2019-02-11 | XMS | Encounter Summary ---
Demographics + + + | Address | [address] | | | [place] [address] | + + + | Home Phone | | + + + | Preferred Language | Unknown | + + + | Marital Status | | + + + | Restoration Affiliation | 1077 | + + + | Race | Unknown | + + + | Ethnic Group | Unknown | + + + Author + + + | Author | [facility] | | | and Saurabhana | + + + | Organization | [facility] | | | [...] Team Providers + +------+ + | Care Communications Department Chair Name | Role | Phone | + +------+ + PCP | Unavailable | + +------+ + Encounter Details +--------+ + + + + | Date | Type | Department | Care Team | Description | +--------+ + + + + | 12/28/ | Hospital | [facility] | | | | 2001 | Encounter | MED CTR XRAY [address] | | | | | | [place] | | | | | | [place] [address] | | | | | | [phone] | | | +--------+ + + + [...]
--- OUTSIDE RECORDS SUMMARY | ~2019-02-11 | XMS | Encounter Summary ---
Demographics + + + | Address | [address] | | | [place] [address] | + + + | Home Phone | | + + + | Preferred Language | Unknown | + + + | Marital Status | | + + + | Congregational Affiliation | 1077 | + + + [...] Team Providers + +------+ + | Care Information Services Tech Name | Role | Phone | + +------+ + PCP | Unavailable | + +------+ + Encounter Details +--------+ + + + + | Date | Type | Department | Care Team | Description | +--------+ + + + + | 08/22/ | Hospital | [facility] | | | | 2005 | Encounter | MED CTR LABORATORY | | | | | | [address] [place] | | | | | | [place], [place] | | | | | | [address] | | | | | | [phone] | | | +--------+ + + + [...]
--- OUTSIDE RECORDS SUMMARY | ~2019-02-11 | XMS | Encounter Summary ---
Demographics + + + | Address | [address] | | | [place] [address] | + + + | Home Phone | | + + + | Preferred Language | Unknown | + + + | Marital Status | | + + + | Baptist Affiliation | 1077 | + + + [...] Team Providers + +------+ + | Care Tin Plater Name | Role | Phone | + [...] + | 12/23/ | Telephone | [facility] | Roderick Alexandra, | Results | | 2011 | | [facility] | [address] | | | | | [address] | [place] | | | | | [place] | [address] | | | | | [address] | | | | | | [phone] | | | +--------+ + + + [...]
--- OUTSIDE RECORDS SUMMARY | ~2019-02-11 | XMS | Encounter Summary ---
Demographics + + + | Address | [address] | | | [place] [address] | + + + | Home Phone | | + + + | Preferred Language | Unknown | + + + | Marital Status | | + + + | Jain Affiliation | 1077 | + + + | Race | Unknown | + + + | Ethnic Group | Unknown | + + + Author + + + | Author | [facility] | | | and Saurabhana | + + + | Organization | [facility] [place] | | [...] Team Providers + +------+ + | Care Procurement Representative Name | Role | Phone | + +------+ + PCP | Unavailable | + +------+ + Encounter Details +--------+ + + + + | Date | Type | Department | Care Team | Description | +--------+ + + + + | 02/01/ | Hospital | [facility] | | | | 1997 | Encounter | MED CTR XRAY [address] | | | | | | [place] | | | | | | [place] [address] | | | | | | [phone] | | | +--------+ + + + [...]
--- OUTSIDE RECORDS SUMMARY | ~2019-02-11 | XMS | Encounter Summary ---
Demographics + + + | Address | [address] | | | [place] [address] | + + + | Home Phone [...] Team Providers + +------+ + | Care Car Starter Name | Role | Phone | + [...] + + | Authorized | | Radiology - | Diagnoses | Bridges, | [facility] | | | | Nuclear | Dyspnea on | Skylar, | [facility] | | | | Radiology | exertion | [address] | | | | | Chest pain, | [address] | [address] | | | | | unspecified | [place]ASH[place] | [place], [place] | | | | | type | [place] | [address] | | | | | Procedures | [address] | Phone: | | | | | [place] Nuclear | Phone: | [phone] | | | | | Stress Test | [phone] | Fax: | | | | | (Vasodilator | Fax: | [phone] | | | | | ) | [phone] | | + +--------+ + + + + Diagnostic/Screening (Routine) + +--------+ + + + + | Status | Reason | Specialty | Diagnoses / | Referred By | Referred To | | | | | Procedures | Contact | Contact | + +--------+ + + + + | Authorized | | Diagnostic | Diagnoses | Bridges, | [facility] | | | | Radiology | Dyspnea on | Skylar, DO | HOSPITAL | | | | | exertion | [address] | | | | | Chest pain, | [address] | [address] | | | | | unspecified | RASHID F | [place], [place] | | | | | type | [place] | [address] | | | | | Procedures | [address] | Phone: | | | | | ECHO | Phone: | [phone] | | | | | Complete | [phone] | Fax: | | | | | | Fax: | [phone] | | | | | | [phone] | | + +--------+ + + + + Reason for Visit + + + | Reason | Comments | + + + | New Patient | CONSULT | + + + Encounter Details +--------+---------+ + + + | Date | Type | Department | Care Team | Description | +--------+---------+ + + + | 10/21/ | Office | [facility] | Skylar Bridges DO | Essential | | 2019 | Visit | [facility] [place] | [address] | hypertension | | | | [address] | [place] | (Primary Dx); | | | | [place], [place] | [address] | Dyspnea on exertion; | | | | [address] | | Chest pain, | | | | [phone] | | unspecified type; | | | | | | Pulmonary HTN (HCC) | +--------+---------+ + + + Social [...] + + + | Blood Pressure | 142/50 | 10/21/2018 12:58 PM | | | | | PDT | | + + + + + | Pulse | 71 | 10/21/2018 12:58 PM | | | | | PDT | | + + + + + | Temperature | - | - | | + + + + + | Respiratory Rate | - | - | | + + + + + | Oxygen Saturation | 94% | 10/21/2018 12:58 PM | | | | | PDT | | + + + + + | Inhaled Oxygen | - | - | | | Concentration | | | | + + + + + | Weight | 69.1 kg (152 lb 4.8 | 10/21/2018 12:58 PM | | | | oz) | PDT | | + + + + + | Height | 156.2 cm (5' 1.5") | 10/21/2018 12:58 PM | | | | | PDT | | + + + + + | Body Mass Index | 28.31 | 10/21/2018 12:58 PM | | | | | PDT | | + + + + + documented in this encounter Progress Notes Skylar Bridges DO - 10/21/2018 1:00 PM PDT [facility] Cardiology Cardiology Consult Note Reason for Consultation: murmur, clearance for EGD HISTORY OF PRESENT ILLNESS: The patient is an 83-year-old female who presents to the cardiology office for initial cons ultation regarding a murmur and clearance for EGD. The patient has noticed recently that nicole fitzpatrick has been experiencing some shortness of breath on exertion. She had a hospitalization a y ear ago in April at [facility] for pneumonia. Since that time, she [...] icular systolic pressure estimated of about 50. Review of Systems Constitutional: Negative for fatigue. [...] Diagnosis Date Cardiac murmur 03/31/2011 Cataract Chest pressure 03/24/2016 COPD (chronic obstructive pulmonary [...] MD; L ocation: [facility] MAIN OR CHOLECYSTECTOMY 1974 DILATION AND CURETTAGE OF UTERUS , 2001 EYE SURGERY Left 06/2016 HYSTEROSCOPY 08/2001 SKIN CANCER EXCISION 0421-2108 Basal Cell TONSILLECTOMY MEDICATIONS Home Medications Outpatient Encounter Medications as of 10/21/2018 Medication Sig Dispense Refill artificial tears (REFRESH PLUS) 0.5% SOLN Place 1 drop into both eyes as needed. ascorbic acid (VITAMIN C) 250 MG tablet Take 250 mg by mouth Daily. [DISCONTINUED] ASPIRIN ADULT LOW STRENGTH PO TBEC; Take one by mouth daily (Patient not taking: Reported on 10/21/2018) CALCIUM PO TABS; 600 mg Cholecalciferol (RA VITAMIN D-3) 2000 UNITS CAPS Take 2,000 Units by mouth Daily. COPPER PO Take by mouth. Magnesium Oxide (MAG-OX 400 PO) TABS; Take one by mouth daily metoprolol succinate (TOPROL-XL) 25 mg 24 hr tablet take 1 tablet by mouth once daily 9 0 tablet 0 Misc Natural Products (LUTEIN 20 PO) Take by mouth. Multiple Vitamins-Minerals (PRESERVISION AREDS 2) CAPS Take 2 capsules by mouth Daily. [DISCONTINUED] niacin (NIASPAN) 500 mg CR tablet take 1 tablet by mouth at bedtime (Pat ient not taking: Reported on 10/21/2018) 90 tablet 2 [DISCONTINUED] [place]-3 Fatty Acids ([facility] NATURAL FISH OIL) 1000 MG CAPS Take 1,000 mg by mouth Daily. (Patient not taking: Reported on 10/21/2018) [DISCONTINUED] pravastatin (PRAVACHOL) 40 MG tablet take 1/2 tablet by mouth NIGHTLY (P atient not taking: Reported on 10/21/2018) 45 tablet 1 raNITIdine (ZANTAC) 150 mg tablet Take 1 tablet by mouth 2 times daily. 180 tablet 2 TURMERIC PO Take by mouth. Vitamin E 200 units TABS Take by mouth Daily. Zinc Sulfate (ZINC 15 PO) Take by mouth. No facility-administered encounter medications on file as of 10/21/2018. 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 There is mild aortic regurgitation. 5. Hzbm-dq-zlwdlrre mitral regurgitation is present. 6. Mild mitral [...] - 53.2 mm Hg. Last stress test: Last cath: Carotid US: AAA screening: Lower extremity US: OTHERS: ASSESSMENT & PLAN 1. GUTIÉRREZ 2. Atypcial chest pains 3. 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 Moderate TR 7. Pulmonary HTN - The patient is an 83 yo female who presents to the cardiology office for initial consulta tion regarding a murmur and surgical clearance for an endoscopy. Recently, she has been havi ng GUTIÉRREZ and atypical chest pains. - Obtain a complete echocardiogram - obtain a pharmacologic nuclear stress test - Follow up in 2 months Thank you for allowing me to participate in the care of this patient. Primary Care Physician: MD Skylar Asif DO 10/24/2018 documented in this enco unter Plan of Treatment + + +--------+ + + | Name | Type | Priori | Associated Diagnoses | Order Schedule | | | | ty | | | + + +--------+ + + | ECG 12 lead | ECG | Routin | Essential | Ordered: 10/21/2018 | | | | e | hypertension | | + + +--------+ + + | ECHO Complete | Echocardiog | Routin | Dyspnea on | Expected: | | | steven | e | exertion Chest | 10/21/2018, Expires: | | | | | pain, unspecified | 10/22/2019 | | | | | type | | + + +--------+ + + | NM Nuclear Stress | Cardiac | Routin | Dyspnea on | Expected: | | Test (Vasodilator) | Nuclear | e | exertion Chest | 10/21/2018, Expires: | | | Medicine | | pain, unspecified | 10/22/2019 | | | | | type | | + + +--------+ + + documented as of this encounter Visit Diagnoses + + | Diagnosis | + + | Essential hypertension - Primary Unspecified essential hypertension | + + | Dyspnea on exertion Other dyspnea and respiratory abnormality | + + | Chest pain, unspecified type | + + | Pulmonary HTN (HCC) Other chronic pulmonary heart diseases | + + documented in this encounter
--- OUTSIDE RECORDS SUMMARY | ~2019-02-11 | XMS | Encounter Summary ---
Demographics + + + | Address | [address] | | | [place] [address] | + + + | Home Phone [...] Team Providers + +------+ + | Care Email Specialist Name | Role | Phone | + +------+ + | Roderick Alexandra MD | PCP | | + +------+ + Reason for Visit +--------+ + | Reason | Comments | +--------+ + | LABS | | +--------+ + Encounter Details +--------+ + + + + | Date | Type | Department | Care Team | Description | +--------+ + + + + | 01/20/ | Telephone | [facility] | Roderick Alexandra, | LABS | | 2016 | | [facility] | [address] | | | | | [address] | [place] | | | | | [place] | [address] | | | | | [address] | | | | | | [phone] | | | +--------+ + + + [...] + | Diagnosis | + + | Hyperlipidemia, unspecified hyperlipidemia type - Primary | + + | Essential hypertension Unspecified essential hypertension | + + | Hyperglycemia Other abnormal glucose | + + | Preventative health care Routine general medical examination at a health care | | facility | + + documented in this encounter"
--- OUTSIDE RECORDS SUMMARY | ~2019-02-11 | XMS | Encounter Summary ---
Demographics + + + | Address | [address] | | | [place] [address] | + + + | Home Phone | | + + + | Preferred Language | Unknown | + + + | Marital Status | | + + + | Mu-Ism Affiliation | 1077 | + + + | Race | Unknown | + + + | Ethnic Group | Unknown | + + + Author + + + | Author | [facility] | | | and Saurabhana | + + + | Organization | [facility] | | [...] Team Providers + +------+ + | Care Yeast Pusher Name | Role | Phone | + [...] | +--------+ + + + + | 01/22/ | Telephone | [facility] | Roderick Alexandra, | Lab Order | | 2015 | | MEDICINE [place] | [address] | | | | | [address] | [place] | | | | | [place] [facility] | [address] | | | | | [address] | | | | | | [phone] | | | +--------+ + + + [...]
--- OUTSIDE RECORDS SUMMARY | ~2019-02-11 | XMS | Encounter Summary ---
Demographics + + + | Address | [address] | | | [place] [address] | + + + | Home Phone | | + + + | Preferred Language | Unknown | + + + | Marital Status | | + + + | Mu-Ism Affiliation | 1077 | + + + | Race | Unknown | + + + | Ethnic Group | Unknown | + + + Author + + + | Author | [facility] | | | and Saurabhana | + + + | Organization | [facility] | | | [...] Providers + +------+ + | Care Furnace Worker Name | Role | Phone | + +------+ + | Roderick Alexandra MD | PCP | | + +------+ + Encounter Details +--------+ + + + + | Date | Type | Department | Care Team | Description | +--------+ + + + + | 10/16/ | Hospital | [facility] | Roderick Alexandra, | | | 2010 | Encounter | MED CTR XRAY [address] | [address] | | | | | [place] | [place], [place] | | | | | [place] [address] | [address] | | | | | [phone] | | | +--------+ + + + [...] Performed At | + + + | [facility] Department | [facility] | | [address] [facility] | [facility] | | PA AND LATERAL CHEST, [...] Transcribed Date/Time: | | | 10/16/2010 13:54 Pool Table Operator: <Electronically Signed | | | by Greg Denny MD> 10/16/10 1737 | | + + + + + | Procedure Note | + + | Jam, Rad Conversion - 03/25/2013 3:42 PM [facility] | | Diagnostic Imaging Department [address] [place] [address] | | PA AND LATERAL CHEST, 10/16/2010 [...] 13:47 | |Transcribed Date/Time: 10/16/2010 13:54 | |Pool Table Operator: | |<Electronically Signed by Greg Denny [...]
--- OUTSIDE RECORDS SUMMARY | ~2019-02-11 | XMS | Encounter Summary ---
Demographics + + + | Address | [address] | | | [place] [address] | + + + | Home Phone [...] Team Providers + +------+ + | Care Fisher Clam Name | Role | Phone | + [...] Refill | | 2015 | | [facility] | [address] | | | | | [address] | [place] | | | | | [place] | [address] | | | | | [address] | | | | | | [phone] | | | +--------+--------+ + + + [...]
--- OUTSIDE RECORDS SUMMARY | ~2019-02-11 | XMS | Encounter Summary ---
Demographics + + + | Address | [address] | | | [place] [address] | + + + | Home Phone [...] + + | Author | [facility] | | | and Saurabhana | + + + | Organization | [facility] | | [...] Team Providers + +------+ + | Care Echo Vasc Tech Name | Role | Phone | [...] | | 2016 | | [facility] | [address] | | | | | [address] | [place] | | | | | [place] | [address] | | | | | [address] | | | | | | [phone] | | | +--------+--------+ + + + [...]
--- OUTSIDE RECORDS SUMMARY | ~2019-02-11 | XMS | Encounter Summary ---
Demographics + + + | Address | [address] | | | [place] [address] | + + + | Home Phone | | + + + | Preferred Language | Unknown | + + + | Marital Status | | + + + | Pentecostalism Affiliation | 1077 | + + + | Race | Unknown | + + + | Ethnic Group | Unknown | + + + Author + + + | Author | [facility] | | | and Saurabhana | + + + | Organization | [facility] | | [...] Team Providers + +------+ + | Care Voting Machine Mechanic Name | Role | Phone | + [...] + + | 03/24/ | Office | [facility] | Roderick Alexandra, | Routine history and | | 2017 | Visit | MEDICINE [place] | [address] | physical examination | | | | [address] | [place] | of adult (Primary | | | | [place], [place] | [address] | Dx); Chest pressure; | | | | [address] | | Essential | | | | [phone] | | hypertension; | | | | [...] bathtub or shower?: No Fall Risk Screening ([facility]) 1. Have you fallen in the [...] If you have a designated health care sales representative education courses, give their name and contact informa tion: [...] ok to take daily forever Referral to senior physical therapist Had another episode this last year while [...] by mouth at bedtime 30 tablet 0 [place]-3 Fatty Acids ([facility] NATURAL FISH OIL) 1000 [...] - General Current Medicare Suppliers: [employer] [facility] [facility] [place] - [address] [facility] [address] [place] [address] Immunizations Immunization History Administered Date(s) Administered INFLUENZA 63 Y OR >, TRIVALENT HIGH-DOSE 10/12/2015 INFLUENZA QUADR W/PRES (PED/ADOL/ADULT) MULTIDOSE 11/15/2013, 10/31/2014 INFLUENZA, W/Preservative 10/18/2011 PNEUMOCOCCAL CONJUGATE 13-VALENT (PCV13) 07/24/2014 PNEUMOCOCCAL POLYSACCHARIDE 23-VALENT (PPSV23) 05/20/2005 TDAP, (ADOL/ADULT) 12/02/2005 ZOSTER, 1 DOSE (ADULT) 12/02/2005, 09/05/2011 Preventative Care and Screening (Attestation) The following health maintenance items are reviewed in [facility] and correct as of today: Health Maintenance [...] contrast ordered and patient will schedule at [facility] . RTC in 6 months [...]
--- OUTSIDE RECORDS SUMMARY | ~2019-02-11 | XMS | Clinical Summary ---
Demographics + + + | Address | [address] | | | [place] [address] | + + + | Home Phone | | + + + | Preferred Language | Unknown | + + + | Marital Status | Single | + + + | Rastafarian Affiliation | Unknown | + + + | Race | Unknown | + + + | Ethnic Group | Other Race | + + + Author + + + | Author | [facility] | + + + | Organization | [facility] | + + + | Address | Unknown | + + + | Phone | Unavailable | + + + Care Team Providers + +------+ + | Care Television Tube Inspector Name | Role | Phone | + +------+ + PCP | Unavailable | + +------+ + Source Comments GERMAINE is fully live on both [facility] Ambulatory and [facility] InPatient.[facility] Allergies Not on File Medications [...] | | | | | | | [address] | | + +--------+ +--------+ + +--------+ [...] aliyah | | | 3 (Home) | [address] | + +--------+ +--------+ + +"
--- OUTSIDE RECORDS SUMMARY | ~2019-02-11 | XMS | Encounter Summary ---
Demographics + + + | Address | [address] | | | [place] [address] | + + + | Home Phone | | + + + | Preferred Language | Unknown | + + + | Marital Status | | + + + | Bahai Affiliation | 1077 | + + + | Race | Unknown | + + + | Ethnic Group | Unknown | + + + Author + + + | Author | [facility] | | | and Saurabhana | + + + | Organization | [facility] | | | [...] Team Providers + +------+ + | Care Automation Clerk Name | Role | Phone | + +------+ + | Roderick Alexandra MD | PCP | | + +------+ + Reason for Visit + + + | Reason | Comments | + + + | Hypertension | f/u | + + + | Hyperlipidemia | f/u | + + + Encounter Details +--------+---------+ + + + | Date | Type | Department | Care Team | Description | +--------+---------+ + + + | 10/02/ | Office | [facility] | Roderick Alexandra, | Essential | | 2017 | Visit | [facility] [place] | [address] | hypertension | | | | [address] | [place] | (Primary Dx); Pure | | | | [place] | [address] | hypercholesterolemia | | | | [address] | | ; Varicose veins of | | | | [phone] | | left lower | | | | | | extremity; Shoulder | | | | | | blade pain; | | | | | | Hyperglycemia; | | | | | | Vitamin D deficiency | +--------+---------+ + + + Social History [...] + + + | Blood Pressure | 152/70 | 10/02/2016 10:48 AM | | | | | PDT | | + + + + + | Pulse | 64 | 10/02/2016 10:48 AM | | | | | PDT | | + + + + + | Temperature | 36.6 C (97.9 F) | 10/02/2016 10:48 AM | | | | | PDT | | + + + + + | Respiratory Rate | 16 | 10/02/2016 10:48 AM | | | | | PDT | | + + + + + | Oxygen Saturation | 96% | 10/02/2016 10:48 AM | | | | | PDT | | + + + + + | Inhaled Oxygen | - | - | | | Concentration | | | | + + + + + | Weight | 70.3 kg (155 lb) | 10/02/2016 10:48 AM | | | | | PDT | | + + + + + | Height | 154.9 cm (5' 1") | 10/02/2016 10:48 AM | | | | | PDT | | + + + + + | Body Mass Index | 29.29 | 10/02/2016 10:48 AM | | | | | PDT | | + + + + + documented in this encounter Patient Instructions Patient Instructions Nguyen Cali Cert MA - 10/02/2016 10:45 AM PDTTight muscles in th e neck and back : You can use a tennis ball to help with deep massage in the area You can pay out of pocket for a massage We can try PT to help with the release of the muscles documented in this encounter Progress Notes Roderick Alexandra MD - 10/02/2016 10:45 AM PDTFormatting of this note might be different fro m the original. Rosalind Patel is a 81 y.o. female Chief Complaint: Hypertension (f/u) and Hyperlipidemia (f/u) HPI Hypertension: Control and Compliance Medication compliance: good Metoprolol 25 mg Home Blood Pressures: At least once monthly Exercise: 3 x weekly [facility] center BP: 152/70 BP Readings from Last 3 Encounters: 10/02/16 152/70 06/30/16 143/63 03/24/16 154/60 Pt denies: No headache, visual symptoms, neurologic problems, syncope No chest pain, palpitations, GUTIÉRREZ, orthopnea, PND, peripheral edema No side effects from any antihypertensive medications HYPERLIPIDEMIA: Patient is compliant with medications. Pravastatin 20 mg nightly Diet: Low fat, low carb dietary compliance: Denies side effects of medications. Denies Myalgias, abdominal pain, jaundice, constipation. No evidence of medication toxicity Denies chest pain, shortness of breath No results found for: LDL Pain in Leg She reports an injury to the left leg 2 years ago at least She states it bruised 8 months after hitting it She states her varicose veins worsened in that area There is a depression in the tissue now She does wear compression stockings in the winter Shoulder Blade Pain Onset: 1 yr ago but worse in thte past 6 month Location: left shoulder blade area Duration: constant Characteristics: tenderness with pressure applied to the shoulder blade, sometimes will rad iate around to the left axilla Aggravating Factors: sleeping on that side Relieving Factors: nothing Treatments Tried: rubbing it firmly Severity: 3-4/10 PREVENTIVE CARE/PRIOR VISITS 1. Any recommendations from Health Maintenance: Tdap needs to go to pharmacy Preventative Services TOPIC LAST DONE NEXT DUE Influenza Imm (Yearly) 10/12/2015 10/17/2016 Breast Cancer Screening (Mamm Yearly) 12/13/2015 12/12/2016 Colon Cancer Screening (Colonoscopy Every 10 Years <50 Or >75) 02/17/2008 02/16/2018 Dtap/Tdap/Td Imm 12/02/2005 12/03/2015 Pneumo Imm Pcv13/Ppsv23 (65+) 07/24/2014 Zostavax Imm 09/05/2011 2. Any immunizations necessary: Tdap Immunization History Administered Date(s) Administered INFLUENZA 65 Y OR >, TRIVALENT HIGH-DOSE 10/12/2015 INFLUENZA QUADR W/PRES (PED/ADOL/ADULT) MULTIDOSE 11/15/2013, 10/31/2014 INFLUENZA, W/Preservative 10/18/2011 PNEUMOCOCCAL CONJUGATE 13-VALENT (PCV13) 07/24/2014 PNEUMOCOCCAL POLYSACCHARIDE 23-VALENT (PPSV23) 05/20/2005 TDAP, (ADOL/ADULT) 12/02/2005 ZOSTER, 1 DOSE (ADULT) 12/02/2005, 09/05/2011 3. Has patient been involved in medical events/hospitalizations since their last visit: no Allergies Allergen Reactions Lipitor Other (See Comments) Myalgias Wasp Venom Protein Swelling Medications: Patient Reported Taking No current medications. Past Medical History She has a past medical history of Cardiac murmur (03/31/2011); Chest pressure (03/24/2016); CO PD (chronic obstructive pulmonary disease) (HCC); Cough (10/16/2010); Diarrhea (03/27/2010); Di verticulosis, colon; Dyspnea on exertion (10/16/2010); Hepatitis B infection (); TIA (t ransient ischemic attack) (03/24/2016); Hyperlipidemia; Hypertension; Left breast lump (05/2006 ); Left carotid bruit (12/31/1999); Palpitations; Retinal hemorrhage of left eye; and Vertig o. Past Surgical History She has a past surgical history that includes Appendectomy (194); Tonsillectomy; Dilation and curettage of uterus (, 2001); Cholecystectomy (1973); Skin cancer excision (4079-6104); hysteroscopy (08/2001); Cataract Removal (02/2011); and Cataract Removal (Left, 06/30/2016). 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 HENT: Negative for congestion, rhinorrhea and sore throat. Eyes: Negative for discharge and itching. Respiratory: Positive for shortness of breath (upper elevation and stairs). Negative for co ugh and wheezing. Cardiovascular: Negative for chest pain, palpitations and leg swelling. Gastrointestinal: Negative for abdominal pain, constipation, diarrhea and vomiting. Genitourinary: Negative for difficulty urinating, dysuria, frequency and urgency. Musculoskeletal: Positive for arthralgias (left shoulder blade). Negative for back pain and neck pain. Skin: Negative for rash. Neurological: Negative for dizziness, syncope and headaches. Hematological: Does not bruise/bleed easily. Psychiatric/Behavioral: Negative for dysphoric mood and sleep disturbance. The patient is n ot nervous/anxious. Objective: Vitals: 10/02/16 1048 BP: 152/70 Pulse: 64 Resp: 16 Temp: 36.6 C (97.9 F) TempSrc: Temporal SpO2: 96% Weight: 70.3 kg (155 lb) Height: 1.549 m (5' 1") Physical Exam Constitutional: She is oriented to person, place, and time. She appears well-developed and well-nourished. No distress. Appropriately dressed and groomed HENT: Head: Normocephalic and atraumatic. Eyes: Conjunctivae are normal. Cardiovascular: Normal rate and regular rhythm. No murmur heard. Pulmonary/Chest: Effort normal and breath sounds normal. Musculoskeletal: She exhibits no edema. Muscle tightness noted from the neck down on both sides of the shoulder blades Neurological: She is alert and oriented to person, place, and time. Skin: Skin is warm and dry. Psychiatric: She has a normal mood and affect. Her behavior is normal. Nursing note and vitals reviewed. Results for orders placed or performed during the hospital encounter of 06/30/16 ECG 12 lead Result Value Ref Range VENTRICULAR RATE EKG 60 BPM ATRIAL RATE 60 BPM P-R INTERVAL 180 ms QRS DURATION 80 ms Q-T INTERVAL 436 ms Q-T INTERVAL (CORRECTED) 436 ms P WAVE AXIS 8 degrees QRS AXIS -2 degrees T AXIS 21 degrees INTERPRETATION TEXT Normal sinus rhythm Normal ECG When compared with ECG of 29-JAN-2015 09:54, No significant change was found Confirmed by LEANA SERVIN MD ([id number]) on 06/30/2016 5:41:15 PM Assessment: 1. Essential hypertension Comprehensive Metabolic Panel Microalbumin/Creatinine Ratio, Urine 2. Varicose veins of left lower extremity 3. Pure hypercholesterolemia Lipid Panel 4. Hyperglycemia Hemoglobin A1C 5. Vitamin D deficiency Vitamin D, Deficiency Screen (25-Hydroxy) Plans: 1. Essential hypertension Controlled no changes Labs ordered. Printed and given to patient. Labs not due until January - Comprehensive Metabolic Panel; Future - Microalbumin/Creatinine Ratio, Urine; Future 2. Pure hypercholesterolemia -. Take meds as directed, Please inform us of any side effects or problems with your medic ations -. Discussed regular cardiovascular exercise and maintaining healthy wt. -. Avoid high fat/cholesterol diet -. Lipid panel and LFT's reviewed. and f/u labs ordered - Lipid Panel; Future 3. Varicose veins of left lower extremity Continue with compression stockings Reassurance that the skin appears healthy currently 4. Shoulder Blade Pain Advised her muscles are very tight Can use a tennis ball to help with deep massage in the area Can pay out of pocket for a massage Can try PT to help with the release of the muscles, patient to notify if she wants to proce ed 5. Hyperglycemia Labs ordered. Printed and given to patient. - Hemoglobin A1C; Future 6. Vitamin D deficiency Labs ordered.Printed and given to patient - Vitamin D, Deficiency Screen (25-Hydroxy); Future Follow-up: Return in about 6 months (around 04/04/2017) for Hypertension, Hyperlipidemia. NGUYEN Lebron Cert MA, am acting as a scribe on behalf of, and in the presence of MD NGUYEN Izaguirre Cert MA 10/02/16 [place], Dr. Roderick Alexandra, personally performed the services described in this documentation, as scribed in my presence and it is both accurate and complete. Roderick Alexandra MD 10/02/16 documented in this e ncounter Plan of Treatment + +------+--------+ + + | Name | Type | Priori | Associated Diagnoses | Order Schedule | | | | ty | | | + +------+--------+ + + | Comprehensive | Lab | Routin | Essential | 1 Occurrences | | Metabolic Panel | | e | hypertension | starting 10/02/2016 | | | | | | until 02/01/2018 | + +------+--------+ + + | Hemoglobin A1C | Lab | Routin | Hyperglycemia | 1 Occurrences | | | | e | | starting 10/02/2016 | | | | | | until 02/01/2018 | + +------+--------+ + + | Lipid Panel | Lab | Routin | Pure | 1 Occurrences | | | | e | hypercholesterolemia | starting 10/02/2016 | | | | | | until 02/02/2018 | + +------+--------+ + + | Microalbumin/Creatin | Lab | Routin | Essential | 1 Occurrences | | ine Ratio, Urine | | e | hypertension | starting 10/02/2016 | | | | | | until 02/01/2018 | + +------+--------+ + + | Vitamin D, | Lab | Routin | Vitamin D | 1 Occurrences | | Deficiency Screen | | e | deficiency | starting 10/02/2016 | | (25-Hydroxy) | | | | until 02/01/2018 | + +------+--------+ + + documented as of this encounter Procedures + +--------+ + + + | Procedure Name | Priori | Date/Time | Associated Diagnosis | Comments | | | ty | | | | + +--------+ + + + | IMAGING REPORT - | | 01/07/2017 | | Results for this | | EXTERNAL SCAN | | 12:00 AM | | procedure are in the | | | | PST | | results section. | + +--------+ + + + documented in this encounter Results IMAGING REPORT - EXTERNAL SCAN (01/07/2017 12:00 AM PST) + + + | Narrative | Performed At | + + + | Ordered by an | | | unspecified provider. | | + + + documented in this encounter Visit Diagnoses + + | Diagnosis | + + | Essential hypertension - Primary Unspecified essential hypertension | + + | Pure hypercholesterolemia | + + | Varicose veins of left lower extremity | + + | Shoulder blade pain Pain in joint, shoulder region | + + | Hyperglycemia Other abnormal glucose | + + | Vitamin D deficiency Unspecified vitamin D deficiency | + + documented in this encounter
--- OUTSIDE RECORDS SUMMARY | ~2019-02-11 | XMS | Encounter Summary ---
Demographics + + + | Address | [address] | | | [place] [address] | + + + | Home Phone | | + + + | Preferred Language | Unknown | + + + | Marital Status | | + + + | Orthodoxy Affiliation | 1077 | + + + [...] Team Providers + +------+ + | Care Player Manager Name | Role | Phone | [...] Refill | | 2013 | | [facility] | [address] | | | | | [address] | [place] | | | | | [place] | [address] | | | | | [address] | | | | | | [phone] | | | +--------+--------+ + + + [...]
--- OUTSIDE RECORDS SUMMARY | ~2019-02-11 | XMS | Encounter Summary ---
Demographics + + + | Address | [address] | | | [place] [address] | + + + | Home Phone | | + + + | Preferred Language | Unknown | + + + | Marital Status | | + + + | Oriental Orthodox Affiliation | 1077 | + + + [...] Team Providers + +------+ + | Care Saddle Cutter Name | Role | Phone | + +------+ + PCP | Unavailable | + +------+ + Encounter Details +--------+ + + + + | Date | Type | Department | Care Team | Description | +--------+ + + + + | 04/04/ | Hospital | [facility] | | | | 2005 | Encounter | MED CTR XRAY [address] | | | | | | [place] | | | | | | [place] [address] | | | | | | [phone] | | | +--------+ + + + [...]
--- OUTSIDE RECORDS SUMMARY | ~2019-02-11 | XMS | Encounter Summary ---
Demographics + + + | Address | [address] | | | [place] [address] | + + + | Home Phone | | + + + | Preferred Language | Unknown | + + + | Marital Status | | + + + | Religion Affiliation | 1077 | + + + | Race | Unknown | + + + | Ethnic Group | Unknown | + + + Author + + + | Author | [facility] | | | and Saurabhana | + + + | Organization | [facility] | | | and [...] Team Providers + +------+ + | Care Stock Mixer Name | Role | Phone | + [...] | 12/13/ | Telephone | [facility] | [place]il[place] | Results | | 2012 | | [facility] [place] | [address] [facility] | | | | | [address] | [address] [place], [place] | | | | | [place], [place] | [address] | | | | | [address] | | | | | | [phone] | | | +--------+ + + + [...]
--- OUTSIDE RECORDS SUMMARY | ~2019-02-11 | XMS | Encounter Summary ---
Demographics + + + | Address | [address] | | | [place] [address] | + + + | Home Phone | | + + + | Preferred Language | Unknown | + + + | Marital Status | | + + + | Protestant Affiliation | 1077 | + + + | Race | Unknown | + + + | Ethnic Group | Unknown | + + + Author + + + | Author | [facility] | | | and Saurabhana | + + + | Organization | [facility] | | [...] Team Providers + +------+ + | Care Manuscripts Archivist Name | Role | Phone | + [...] Refill | | 2017 | | [facility] | [address] | | | | | [address] | [place] | | | | | [place] | [address] | | | | | [address] | | | | | | [phone] | | | +--------+--------+ + + + [...]
--- OUTSIDE RECORDS SUMMARY | ~2019-02-11 | XMS | Encounter Summary ---
Demographics + + + | Address | [address] | | | [place] [address] | + + + | Home Phone [...] Providers + +------+ + | Care Customer Success Manager Name | Role | Phone | + +------+ + | Roderick Alexandra MD | PCP | | + +------+ + Encounter Details +--------+ + + + + | Date | Type | Department | Care Team | Description | +--------+ + + + + | 08/03/ | Abstract | [facility] | Roderick Alexandra, | | | 2013 | | MEDICINE [place] | [address] | | | | | [address] | [place] | | | | | [place] | [address] | | | | | [address] | | | | | | [phone] | | | +--------+ + + + [...] + + documented as of this encounter Progress Janet Roman RN - 08/03/2013 10:09 AM PDTReceived ED notes from [place] c/o ch ronic knee pain, treated with immobilizer. Patient had follow-up appointment with Dr. Alexandra on 07/25. Records forwards to HIM to scan into EMR. documented in this encounter Plan of Treatment Not on filedocumented as of this encounter Procedures + +--------+ + + + | Procedure Name | Priori | Date/Time | Associated Diagnosis | Comments | | | ty | | | | + +--------+ + + + | XR KNEE RIGHT AP AND | Routin | 07/20/2013 | | Results for this | | LATERAL | e | | | procedure are in the | | | | | | results section. | + +--------+ + + + documented in this encounter Results XR Knee Right AP and Lateral (07/20/2013) + + | Specimen | + + | | + + + + + | Impressions | Performed At | + + + | AP and lateral views of the right knee show normal alignment, with | | | no evidence of soft tissue swelling, effusion, osseous lesion or | | | fracture. Spurring extends from the patella at the quadriceps | | | insertion site. | | + + + documented in this encounter Visit Diagnoses Not on filedocumented in this encounter"
--- OUTSIDE RECORDS SUMMARY | ~2019-02-11 | XMS | Encounter Summary ---
Demographics + + + | Address | [address] | | | [place] [address] | + + + | Home Phone | | + + + | Preferred Language | Unknown | + + + | Marital Status | | + + + | Uatsdin Affiliation | 1077 | + + + | Race | Unknown | + + + | Ethnic Group | Unknown | + + + Author + + + | Author | [facility] | | | and Saurabhana | + + + | Organization | [facility] | | | [...] Team Providers + +------+ + | Care It Auditor Name | Role | Phone | + +------+ + PCP | Unavailable | + +------+ + Encounter Details +--------+ + + + + | Date | Type | Department | Care Team | Description | +--------+ + + + + | 12/28/ | Hospital | [facility] | | | | 2001 | Encounter | MED CTR XRAY [address] | | | | | | [place] | | | | | | [place] [address] | | | | | | [phone] | | | +--------+ + + + [...]
--- OUTSIDE RECORDS SUMMARY | ~2019-02-11 | XMS | Encounter Summary ---
Demographics + + + | Address | [address] | | | [place] [address] | + + + | Home Phone [...] Team Providers + +------+ + | Care Cadence Specialists Name | Role | Phone | + +------+ + | Roderick Alexandra MD | PCP | | + +------+ + Encounter Details +--------+ + + + + | Date | Type | Department | Care Team | Description | +--------+ + + + + | 03/03/ | Hospital | [facility] | Vicenta Rizvi | | | 2011 | Encounter | MED CTR MP INTRA OP | MD Jenny [address] | | | | | [address] | [place], | | | | | [place], [place] | [place] [address] | | | | | [address] | [phone] | | | | | [phone] | | | +--------+ + + + [...]
--- OUTSIDE RECORDS SUMMARY | ~2019-02-11 | XMS | Encounter Summary ---
Demographics + + + | Address | [address] | | | [place] [address] | + + + | Home Phone [...] Team Providers + +------+ + | Care Counselor Aid Name | Role | Phone | + [...] + | 12/23/ | Telephone | [facility] | Roderick Alexandra, | Results | | 2011 | | [facility] | [address] | | | | | [address] | [place] | | | | | [place] | [address] | | | | | [address] | | | | | | [phone] | | | +--------+ + + + [...]
--- OUTSIDE RECORDS SUMMARY | ~2019-02-11 | XMS | Encounter Summary ---
Demographics + + + | Address | [address] | | | [place] [address] | + + + | Home Phone [...] Team Providers + +------+ + | Care Eyelet Machine Operator Name | Role | Phone | [...] Refill | | 2015 | | [facility] | [address] | | | | | [address] | [place] | | | | | [place] | [address] | | | | | [address] | | | | | | [phone] | | | +--------+--------+ + + + [...]
--- OUTSIDE RECORDS SUMMARY | ~2019-02-11 | XMS | Encounter Summary ---
Demographics + + + | Address | [address] | | | [place] [address] | + + + | Home Phone [...] Team Providers + +------+ + | Care Vehicle Damage Appraiser Name | Role | Phone | + [...] Refill | | 2014 | | [facility] | [address] | | | | | [address] | [place] | | | | | [place] | [address] | | | | | [address] | | | | | | [phone] | | | +--------+--------+ + + + [...]
--- OUTSIDE RECORDS SUMMARY | ~2019-02-11 | XMS | Encounter Summary ---
Demographics + + + | Address | [address] | | | [place] [address] | + + + | Home Phone | | + + + | Preferred Language | Unknown | + + + | Marital Status | | + + + | Anabaptism Affiliation | 1077 | + + + [...] Team Providers + +------+ + | Care Dopster Name | Role | Phone | + [...] Refill | | 2017 | | [facility] | [address] | | | | | [address] | [place] | | | | | [place] | [address] | | | | | [address] | | | | | | [phone] | | | +--------+--------+ + + + [...]
--- OUTSIDE RECORDS SUMMARY | ~2019-02-11 | XMS | Encounter Summary ---
Demographics + + + | Address | [address] | | | [place] [address] | + + + | Home Phone [...] Team Providers + +------+ + | Care Cook Morning Name | Role | Phone | + [...] Refill | | 2017 | | [facility] | [address] | | | | | [address] | [place] | | | | | [place] | [address] | | | | | [address] | | | | | | [phone] | | | +--------+--------+ + + + [...]
--- OUTSIDE RECORDS SUMMARY | ~2019-02-11 | XMS | Encounter Summary ---
Demographics + + + | Address | [address] | | | [place] [address] | + + + | Home Phone [...] Team Providers + +------+ + | Care Entry Analyst Name | Role | Phone | [...] Lens | | | | [address] | [place], | Implant | | | | [place], [place] | [place] [address] | | | | | [address] | [phone] | | | | | [phone] | | | +--------+---------+ + + + [...] You cannot be awakened Date Last Reviewed: 12/04/201519992910-2033 [employer]. [address] [place] [address], [place] [address]. All righ ts reserved. This information is [...] + + + +---------+ + + | Ivel-3 Fatty | Take 1,000 mg by | [...] | | | | LEANA SERVIN MD ([id number]) | | | | | | on [...] +---+---+ + +-------+ + +---+ + | [id number] | Given | 07/01/19 | 1 | [...]
--- OUTSIDE RECORDS SUMMARY | ~2019-02-11 | XMS | Clinical Summary ---
Demographics + + + | Address | [address] | | | [place] [address] | + + + | Home Phone [...] Team Providers + +------+ + | Care Payroll Representative Name | Role | Phone | + +------+ + | Prashanth Sunshine MD | PCP | | + +------+ + Allergies + + + + + + | Active Allergy | Reactions | Severity | Noted | Comments | | | | | Date | | + + + + + + | Ceftriaxone | Rash | High | 10/30/19 | Palm tingles and | | | | | 18 | rash | + + + + + + | Lipitor | Other (See Comments) | | | Myalgias | + + + + + + | Wasp Venom Protein | Swelling | | | | + + + + + + Medications + + + +---------+------+------+-------+ | Medication | Sig | Dispensed | Refills | Star | End | Statu | | | | | | t | Date | s | | | | | | Date | | | + + + +---------+------+------+-------+ | Cholecalciferol | Take 2,000 Units by | | 0 | 09/1 | | Activ | | (RA VITAMIN D-3) | mouth Daily. | | | 3/20 | | e | | 2000 UNITS CAPS | | | | 12 | | | + + + +---------+------+------+-------+ | Magnesium Oxide | TABS; Take one by | | 0 | 09/1 | | Activ | | (MAG-OX 400 PO) | mouth daily | | | 3/20 | | e | | | | | | 12 | | | + + + +---------+------+------+-------+ | CALCIUM PO | TABS; 600 mg | | 0 | 09/1 | | Activ | | | | | | 3/20 | | e | | | | | | 12 | | | + + + +---------+------+------+-------+ | artificial tears | Place 1 drop into | | 0 | | | Activ | | (REFRESH PLUS) 0.5% | both eyes as needed. | | | | | e | | SOLN | | | | | | | + + + +---------+------+------+-------+ | Multiple | Take 2 capsules by | | 0 | | | Activ | | Vitamins-Minerals | mouth Daily. | | | | | e | | (PRESERVISION AREDS | | | | | | | | 2) CAPS | | | | | | | + + + +---------+------+------+-------+ | raNITIdine | Take 1 tablet by | 180 | 2 | 02/0 | | Activ | | (ZANTAC) 150 mg | mouth 2 times daily. | tablet | | 6/20 | | e | | tablet | | | | 17 | | | + + + +---------+------+------+-------+ | TURMERIC PO | Take by mouth. | | 0 | | | Activ | | | | | | | | e | + + + +---------+------+------+-------+ | ascorbic acid | Take 250 mg by mouth | | 0 | | | Activ | | (VITAMIN C) 250 MG | Daily. | | | | | e | | tablet | | | | | | | + + + +---------+------+------+-------+ | Vitamin E 200 | Take by mouth | | 0 | | | Activ | | units TABS | Daily. | | | | | e | + + + +---------+------+------+-------+ | Zinc Sulfate (ZINC | Take by mouth. | | 0 | | | Activ | | 15 PO) | | | | | | e | + + + +---------+------+------+-------+ | COPPER PO | Take by mouth. | | 0 | | | Activ | | | | | | | | e | + + + +---------+------+------+-------+ | Misc Natural | Take by mouth. | | 0 | | | Activ | | Products (LUTEIN 20 | | | | | | e | | PO) | | | | | | | + + + +---------+------+------+-------+ Active Problems + + + | Problem | Noted Date | + + + | Chest pain | 10/24/2018 | + + + | Gastroesophageal reflux disease without esophagitis | 03/24/2016 | + + + | Chest pressure | 03/24/2016 | + + + | Hx-TIA (transient ischemic attack) | 03/24/2016 | + + + | Hyperglycemia | 07/24/2014 | + + + | COPD (chronic obstructive pulmonary disease) | 01/23/2014 | + + + | [...] | + +---+ + + | Overview: KELLY [id number] Decision | + + Resolved Problems + [...] 7 | + + + + Encounters +--------+---------+ + + + | Date | Type | Specialty | Care Team | Description | +--------+---------+ + + + | 12/22/ | Office | Cardiology | Skylar Bridges DO | 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, | | | | | | unspecified etiology | | | | | | (Primary Dx); | | | | | | Essential | | | | | | hypertension; | | | | | | Cardiac murmur; Pure | | | | | | | | | | | | hypercholesterolemia | +--------+---------+ + + + from Last 3 Months Immunizations + + + + | Name | Administration Dates | Next Due | + + + [...] DOSE | 09/05/2011, 12/02/2005 | | | (ZOSTAVAX) | | | + + + + [...] | + + Last Filed Vital Signs + [...] | | + + + + + Plan of Treatment + + + + + | Health Maintenance | Due Date | Last Done | Comments | + + + + + | Vaccine: Zoster (2 | | 09/05/2011, 12/02/2005 | | | of 3) | 2 | | | + + + + + | Vaccine: | | 12/02/2005 | | | Dtap/Tdap/Td (2 - | 6 | | | | Td) | | | | + + + + + | Adult Annual | | 03/24/2016, 01/29/2015, | | | Wellness Visit | 8 | 01/23/2014, Additional history | | | | | exists | | + + + + + | Colorectal Cancer | | 02/17/2008 | | | Screening | 9 | | | | (Colonoscopy) | | | | + + + + + | Vaccine: Influenza | | 10/12/2015, 10/31/2014, | | | (#1) | 9 | 11/15/2013, Additional history | | | | | exists | | + + + + + | Breast Cancer | | 02/01/2018, 01/07/2017, | | | Screening | 9 | 12/13/2015, Additional history | | | | | exists | | + + + + + | Vaccine: | Completed | 07/24/2014, 05/20/2005 | | | Pneumococcal 65+ | | | | + + + + + Implants + +--------+--------+ +--------+--------+--------+ | Implanted | Type | Area | Manufacture | Device | Shelf | Model | | | | | r | | Expira | / | | | | | | Identi | tion | Serial | | | | | | fier | Date | / Lot | + +--------+--------+ +--------+--------+--------+ | Lens Ultrasert [id number] - | Generi | Left: | [facility] | | 05/16/ | [id number] | | [id number]: Qty: 1 on | c | Eye | - [facility] | | 2018 | .[id number] | | 06/30/2016 by Belkys, | | | | | | | | Vicenta Alvarado MD at [facility] | | | | | | /[id number] | | [facility] | | | | | | 300 | | | | | | | | 112 / | + +--------+--------+ +--------+--------+--------+ Procedures + +--------+ + + + | Procedure Name | Priori | Date/Time | Associated Diagnosis | Comments | | | ty | | | | + +--------+ + + + | ECHO-EXTERNAL SCAN | | 11/22/2018 | | Results for this | | | | 12:00 AM | | procedure are in the | | | | PDT | | results section. | + +--------+ + + + | TREADMILL STRESS | | 11/15/2018 | | Results for this | | TEST - EXTERNAL SCAN | | 12:00 AM | | procedure are in the | | | | PDT | | results section. | + +--------+ + + + | IMAGING REPORT - | | 11/15/2018 | | Results for this | | EXTERNAL SCAN | | 12:00 AM | | procedure are in the | | | | PDT | | results section. | + +--------+ + + + | IMAGING REPORT - | | 11/15/2018 | | Results for this | | EXTERNAL SCAN | | 12:00 AM | | procedure are in the | | | | PDT | | results section. | + +--------+ + + + from Last 3 Months Results ECHO-EXTERNAL SCAN (11/22/2018 12:00 AM PDT) + + + | Narrative | Performed At | + + + | Ordered by an | | | unspecified provider. | | + + + TREADMILL STRESS TEST - EXTERNAL SCAN (11/15/2018 12:00 AM PDT) + + + | Narrative | Performed At | + + + | Ordered by an | | | unspecified provider. | | + + + IMAGING REPORT - EXTERNAL SCAN (11/15/2018 12:00 AM PDT)Only the most recent of 2 results w ithin the time period is included. + + + | Narrative | Performed At | + + + | Ordered by an | | | unspecified provider. | | + + + from Last [...] | + +--------+ +--------+ + +--------+ | MODA | MODA | [id number] | 04/17/19 | [phone] | [address] | Indemn | | | HEALTH | | 08-Pre | 9 | [id number] | ity | | | MDCR | | sent | | [place], | | | | [place] | | | | [place] [address] | | + +--------+ +--------+ + +--------+ | MEDICARE | MEDICA | [id number] | 07/17/18 | [phone] | | Medica | | | RE | | 99-Pre | 5 | | re | | | PART A | | sent | | | | | | AND B | | | | | | + +--------+ +--------+ + +--------+ | MEDICARE | MEDICA | [id number] | 07/17/18 | [phone] | | Medica | | | RE | | 99-Pre | 5 | | re | | | PART A | | sent | | | | | | AND B | | | | | | + +--------+ +--------+ + +--------+ | MODA | MODA | [id number] | 02/16/19 | [phone] | [address] | Indemn | | | HEALTH | | 19-Pre | 9 | [address] | ity | | | MDCR | | sent | | [place], | | | | [place] | | | | [place] [address] | | + +--------+ +--------+ + +--------+ + +--------+ +--------+ + + | Guarantor Name | Accoun | Relation to | Date | Phone | Billing Address | | | t Type | Patient | of | | | | | | | | | | + +--------+ +--------+ + + | Rosalind Patel | Person | Self | [birth year] | [address] | | [place] | al/Fam | | 1936 | [phone] | [place] | | | aliyah | | | 3 (Home) | [address] | + +--------+ +--------+ + + | Rosalind Patel | Person | Self | [birth year] | [address] | | [place] | al/Fam | | 1936 | [phone] | [place] | | | aliyah | | | 3 (Home) | [address] | + +--------+ +--------+ + + Advance Directives + + + + + | Type | Date Recorded | Patient | Explanation | | | | [place] House Operator | | + + + + + | Power of | | | | | Aquatic Centre Manager | | | | + + + + + | Power of | | | | | Aquatic Centre Manager | | | | + + + + + | Advance | 06/30/2016 5:59 | | | | Directive | AM | | | + + + + + | Advance | | | | | Directive | | | | + + + + + + + + + + | Code Status | Date | Date | Comments | | | Activated | Inactivated | | + + + + + | Full Code | 06/30/2016 | 06/30/2016 | | | | 9:14 AM | 12:50 PM | | + + + + +
--- OUTSIDE RECORDS SUMMARY | ~2019-02-11 | XMS | Encounter Summary ---
Demographics + + + | Address | [address] | | | [place] [address] | + + + | Home Phone [...] Team Providers + +------+ + | Care Card Cleaner Name | Role | Phone | + [...] | | [address] | [place], [place] | | | | | [place], [place] [address] | [address] | | | | | [phone] | | | +--------+ + + + [...]
--- OUTSIDE RECORDS SUMMARY | ~2019-02-11 | XMS | Encounter Summary ---
Demographics + + + | Address | [address] | | | [place] [address] | + + + | Home Phone | | + + + | Preferred Language | Unknown | + + + | Marital Status | | + + + | Restoration Affiliation | 1077 | + + + | Race | Unknown | + + + | Ethnic Group | Unknown | + + + Author + + + | Author | [facility] | | | and Saurabhana | + + + | Organization | [facility] | | [...] Team Providers + +------+ + | Care Fan Blade Truer Name | Role | Phone | + [...] + | 01/20/ | Telephone | [facility] | Roderick Alexandra, | LABS | | 2016 | | [facility] | [address] | | | | | [address] | [place] | | | | | [place] | [address] | | | | | [address] | | | | | | [phone] | | | +--------+ + + + [...]
--- OUTSIDE RECORDS SUMMARY | ~2019-02-11 | XMS | Encounter Summary ---
Demographics + + + | Address | [address] | | | [place] [address] | + + + | Home Phone [...] Team Providers + +------+ + | Care Clinical Documentation Specialist Name | Role | Phone | + +------+ + | Roderick Alexandra MD | PCP | | + +------+ + Reason for Visit + + + | Reason | Comments | + + + | Referral (Follow up) | | + + + Encounter Details +--------+ + + + + | Date | Type | Department | Care Team | Description | +--------+ + + + + | 05/07/ | Telephone | [facility] | Roderick Alexandra, | Referral (Follow up) | | 2017 | | MEDICINE [place] | [address] | | | | | [address] | [place] | | | | | [place] | [address] | | | | | [address] | | | | | | [phone] | | | +--------+ + + + [...]
--- OUTSIDE RECORDS SUMMARY | ~2019-02-11 | XMS | Encounter Summary ---
Demographics + + + | Address | [address] | | | [place] [address] | + + + | Home Phone | | + + + | Preferred Language | Unknown | + + + | Marital Status | | + + + | Temple Affiliation | 1077 | + + + | Race | Unknown | + + + | Ethnic Group | Unknown | + + + Author + + + | Author | [facility] | | | and Saurabhana | + + + | Organization | [facility] | | | [...] Team Providers + +------+ + | Care Apartment Property Manager Name | Role | Phone | [...] | SR | | | | | [phone] | | | +--------+ + + + [...]
--- OUTSIDE RECORDS SUMMARY | ~2019-02-11 | XMS | Encounter Summary ---
Demographics + + + | Address | [address] | | | [place] [address] | + + + | Home Phone [...] Team Providers + +------+ + | Care Textile Dyer Name | Role | Phone | + [...] + + | 04/23/ | Office | [facility] | Roderick Alexandra, | Non-cardiac chest | | 2018 | Visit | [facility]IC[facility] [place] | [address] | pain (Primary Dx); | | | | [address] | [place] | Chronic obstructive | | | | [place] | [address] | pulmonary disease, | | | | [address] | | unspecified COPD | | | | [phone] | | type (HCC); Left arm | [...] has been changed since signin Order Audit [place] Multiple Vitamins-Minerals (PRESERVISION AREDS 2) CAPS (Taking) Take 2 capsules by mouth Daily. niacin (NIASPAN) 500 mg CR tablet (Taking) take 1 tablet by mouth at bedtime Number of times this order has been changed since signin Order Audit [place] Pansey-3 Fatty Acids ([facility] NATURAL FISH OIL) 1000 MG CAPS (Taking) Take 1,000 mg by mouth D aily. 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 Will refer patient t o [facility]. 5. Essential hypertension Well controlled. The [...]
--- OUTSIDE RECORDS SUMMARY | ~2019-02-11 | XMS | Encounter Summary ---
Demographics + + + | Address | [address] | | | [place] [address] | + + + | Home Phone [...] | + + +---------+ + | Addy Moroe | ECON | Unknown | | + + +---------+ + | Shelli Tinajero | ECON | Unknown | | + + +---------+ + Care Team Providers + +------+ + | Care Fine Dining Server Name | Role | Phone | [...] | | | | [place] | [address] | | | | | [address] | | | | | | [phone] | | | +--------+ + + + [...]
--- OUTSIDE RECORDS SUMMARY | ~2019-02-11 | XMS | Encounter Summary ---
Demographics + + + | Address | [address] | | | [place] [address] | + + + | Home Phone [...] Team Providers + +------+ + | Care History Tutor Name | Role | Phone | + [...] | +--------+ + + + + | 07/17/ | Telephone | [facility] | Roderick Alexandra, | Lab Order | | 2015 | | MEDICINE [place] | [address] | | | | | [address] | [place] | | | | | [place] | [address] | | | | | [address] | | | | | | [phone] | | | +--------+ + + + [...] | | e | hypertension | starting 07/17/2014 | | | | | | until 07/17/2015 | + +------+--------+ + + | Lipid Panel | Lab | Routin | Essential | 1 Occurrences | | | | e | hypertension | starting 07/17/2014 | | | | | Hyperlipidemia | until 07/18/2015 | + +------+--------+ + + | Microalbumin/Creatin | Lab | Routin | Essential | 1 Occurrences | | ine Ratio, Urine | | e | hypertension | starting 07/17/2014 | | | | | | until 07/17/2015 | + +------+--------+ + + | Vitamin D, | Lab | Routin | Vitamin D | 1 Occurrences | | 25-Hydroxy | | e | deficiency | starting 07/17/2014 | | | | | | until 07/17/2015 | + +------+--------+ + + documented as of this encounter Visit Diagnoses + + | Diagnosis | + + | Essential hypertension - Primary Unspecified essential hypertension | + + | Hyperlipidemia Other and unspecified hyperlipidemia | + + | Vitamin D deficiency Unspecified vitamin D deficiency | + + documented in this encounter"
--- OUTSIDE RECORDS SUMMARY | ~2019-02-11 | XMS | Encounter Summary ---
Demographics + + + | Address | [address] | | | [place] [address] | + + + | Home Phone [...] Team Providers + +------+ + | Care Beef Skinner Name | Role | Phone | + [...] Description | +--------+--------+ + + + | 10/01/ | Refill | [facility] | Roderick Alexandra, | Medication Refill | | 2017 | | [facility] | [address] | | | | | [address] | [place] | | | | | [place] | [address] | | | | | [address] | | | | | | [phone] | | | +--------+--------+ + + + [...]
--- OUTSIDE RECORDS SUMMARY | ~2019-02-11 | XMS | Encounter Summary ---
Demographics + + + | Address | [address] | | | [place] [address] | + + + | Home Phone | | + + + | Preferred Language | Unknown | + + + | Marital Status | | + + + | Latter-Day Affiliation | 1077 | + + + | Race | Unknown | + + + | Ethnic Group | Unknown | + + + Author + + + | Author | [facility] | | | and Saurabhana | + + + | Organization | [facility] | | | [...] Providers + +------+ + | Care Associate Professor Of Forestry Name | Role | Phone | + [...] | | | | [place] | [address] | | | | | [address] | | | | | | [phone] | | | +--------+ + + + [...]
--- OUTSIDE RECORDS SUMMARY | ~2019-02-11 | XMS | Encounter Summary ---
Demographics + + + | Address | [address] | | | [place] [address] | + + + | Home Phone [...] Team Providers + +------+ + | Care Powder Press Operator Name | Role | Phone | [...] + + | 05/26/ | Office | [facility] | Roderick Alexandra, | Dyspnea on exertion | | 2012 | Visit | MEDICINE [place] | [address] | (Primary Dx); | | | | [address] | [place] | Hoarseness of voice; | | | | [place] | [address] | Hyperlipidemia | | | | [address] | | | | | | [phone] | | | +--------+---------+ + + + [...] (, 2001); Cholecystectomy (1973); Skin cancer excision (7210-8221); hy steroscopy (08/2001); and Cataract Removal (02/2011). [...]
--- OUTSIDE RECORDS SUMMARY | ~2019-02-11 | XMS | Encounter Summary ---
Demographics + + + | Address | [address] | | | [place] [address] | + + + | Home Phone [...] Team Providers + +------+ + | Care Extrusion Bender Name | Role | Phone | + +------+ + | Roderick Alexandra MD | PCP | | + +------+ + Reason for Referral Evaluate & Treat (Routine) +--------+ + + + + + | Status | Reason | Specialty | Diagnoses / | Referred By | Referred To | | | | | Procedures | Contact | Contact | +--------+ + + + + + | Closed | Specialty | Pulmonary | Diagnoses | Alexandra, | [facility] | | | Services | Disease / | Cough | Roderick Ariza MD | Pulmonary | | | Required | Pulmonology | Procedures | [address] | [address] | | | | | [place] BREATHING | AVE [place] | [place], | | | | | CAPACITY | [place] | [place] | | | | | TEST [place] | [address] | [address] | | | | | EVAL OF | Phone: | Phone: | | | | | BRONCHOSPASM | [phone] | [phone] | | | | | [place] | Fax: | Fax: | | | | | PLETHYSMOGRA | [phone] | [phone] | | | | | PHY LUNG | | | | | | | VOLUMES W/WO | | | | | | | AIRWAY | | | | | | | RESIST [place] | | | | | | | DIFFUSING | | | | | | | CAPACITY [place] | | | | | | | EVAL OF | | | | | | | BRONCHOSPASM | | | | | | | ,PROLONGED | | | +--------+ + + + + + Reason for Visit + + + | Reason | Comments | + + + | Follow-up | labs, tdap and pneumonia 2005, zostavax 2006 and has had her flu | | | shot in [place] | + + + | Cough | | + + + Encounter Details +--------+---------+ + + + | Date | Type | Department | Care Team | Description | +--------+---------+ + + + | 11/26/ | Office | [facility] | Roderick Alexandra, | Hyperlipidemia | | 2011 | Visit | [facility] [place] | [address] | (Primary Dx); Cough; | | | | [address] | [place], [place] | Cardiac murmur; | | | | [place], [place] | [address] | Lower extremity | | | | [address] | | edema | | | | [phone] | | | +--------+---------+ + + + [...] + + + | Blood Pressure | 132/52 | 11/27/2011 8:07 AM | | | | | PDT | | + + + + + | Pulse | 64 | 11/27/2011 8:07 AM | | | | | PDT | | + + + + + | Temperature | - | - | | + + + + + | Respiratory Rate | 14 | 11/27/2011 8:07 AM | | | | | PDT | | + + + + + | Oxygen Saturation | - | - | | + + + + + | Inhaled Oxygen | - | - | | | Concentration | | | | + + + + + | Weight | 68.5 kg (151 lb) | 11/27/2011 8:07 AM | | | | | PDT | | + + + + + | Height | 155.6 cm (5' 1.25") | 11/27/2011 8:07 AM | | | | | PDT | | + + + + + | Body Mass Index | 28.3 | 11/27/2011 8:07 AM | | | | | PDT | | + + + + + documented in this encounter Patient Instructions Patient Instructions Candy Cano, CROCODILE FARMER - 11/27/2011 8:31 AM PDT November 27, 2011 Rosalind Patel [address] [place] [address] Dear Rosalind: Thank you for enrolling in Luxoft. Please follow the instructions below to view your Clav[facility] online medical record. Luxoft allows you to send secure messages to your doctor, view you r test results, renew your prescriptions, schedule appointments, and more. How Do I Sign Up? 1. In your Internet browser, go to [email or web address] 2. Click on the Sign Up Now link in the Sign In box.This will take you to the New Member Si gn Up page. 3. Enter your Luxoft access code exactly as it appears below. You will not need to use thi s code after you sign up. If you do not sign up before the expiration date, you must request a new code through your [facility]. Luxoft Access Code: [email or web address] Expires: 01/26/2012 8:24 4. Fill in the last four digits of your Social Security Number (xxxx) and Date of (mm /dd/yyyy) when asked and click Submit. You will now be asked to create a Luxoft ID. 5. Create a MyChart ID. This will be your Zenputt login ID. Your login ID cannot be changed , so think of one that is secure and easy to remember. 6. Create a Zenputt password. You can change your password at any time. 7. Enter your Password Reset Question and Answer. This can be used at a later time if you f orget your password. 8. Enter your e-mail address. You will receive e-mail notification when new information is available in Luxoft. 9. Click Sign Up. You may now view your medical record. Additional Information If you have questions, you can email or call [phone] to talk to our [facility] care team. Please remember, Luxoft should NOT be used fo r urgent needs. For all medical emergencies, call 911. Sincerely, Roderick Alexandra MD documented in this encounter Progress Notes Roderick Alexandra MD - 11/27/2011 8:41 AM PDTFormatting of this note might be different fro m the original. Subjective: Patient ID: Rosalind Patel is a 76 y.o. female. HPI Discussed her cholesterol. With reduction of statin her LDL increased to 120. She was thu rned about this. Chronic cough. She thinks it has worsened in the last 6 months. Dry cough frequently during the day. Worse if she is around aeorisols and dry throat. DQ ice cream makes her cough. Her parents smoked when she was young and all her co-workers smoked her entire career. She is r pablo for her PFT. She would like a refill of the cough syrup with codeine. She is having trouble with the veins in her legs. This summer she had leg swelling after st anding on her feet all day long. She also wanted to make sure I listened to her heart again. A murmur heard at last visit. Past Medical History Diagnosis Date Diarrhea 03/27/2010 Dyspnea on exertion 10/16/2010 Cough 10/16/2010 Cardiac murmur 03/31/2011 Hyperlipidemia Hypertension Diverticulosis, colon Palpitations Vertigo Left breast lump 05/2006 Hepatitis B infection Left carotid bruit 12/31/1999 Past Surgical History Procedure Date Appendectomy 194 Tonsillectomy Dilation and curettage of uterus , 2001 Cholecystectomy 1974 Skin cancer excision 1413-5210 Basal Cell Hysteroscopy 08/2001 Cataract removal 02/2011 Family History Problem Relation Age of Onset Parkinsonism Mother * Mother 78 from pneumonia Prostate cancer Father History Social History Marital Status: Spouse Name: N/A Number of Children: N/A Years of Education: N/A Social History Main Topics Smoking status: Never Smoker Smokeless tobacco: Never Used Alcohol Use: Yes 3-4 times per year Drug Use: No Sexually Active: Other Topics Concern None Social History Narrative None Current Outpatient Prescriptions Medication Sig Dispense Refill Multiple Vitamins-Minerals (OCUVITE ADULT FORMULA PO) Take 2 tablets by mouth 2 times d aily. Mylo-3 Fatty Acids ([facility] NATURAL FISH OIL) 1000 MG CAPS Take 1,000 mg by mouth Daily. ASPIRIN ADULT LOW STRENGTH PO TBEC; Take one by mouth daily Cholecalciferol (RA VITAMIN D-3) 2000 UNITS CAPS Take 2,000 Units by mouth Daily. Magnesium Oxide (MAG-OX 400 PO) TABS; Take one by mouth daily niacin (NIASPAN) 500 mg CR tablet Take 500 mg by mouth nightly. pravastatin (PRAVACHOL) 80 MG tablet Take one-half tablet by mouth every day metoprolol succinate (TOPROL-XL) 25 mg 24 hr tablet Take 25 mg by mouth Daily. CALCIUM PO TABS; 600 mg promethazine-codeine (PHENERGAN WITH CODEINE) 6.25-10 mg/5 mL syrup Take 5 mLs by mouth 4 times daily as needed for Cough for 10 days. 120 mL 0 Allergies Allergen Reactions Lipitor Wasp Venom Protein Review of Systems Objective: Physical Exam Constitutional: She appears well-developed and well-nourished. HENT: Head: Normocephalic. Neck: No JVD present. Cardiovascular: Normal rate and regular rhythm. Murmur heard. Murmur is 2/6 and heard loudest over the left sternal boarder. Pulmonary/Chest: Effort normal and breath sounds normal. No respiratory distress. She has n o wheezes. She has no rales. Skin: Assessment: Plan: HYPERLIPIDEMIA Well controlled. Reassurance given. Continue with current dose. Recheck level in 6 months. COUGH Reviewed that cough comes from allergy/sinus, reflux or underlying pulmonary disease. She d enies the first two. Long history of second hand smoke exposure. She accepts a PFT order. Re petar made. She will call and set up. She reports that she didn't like the Spiriva but wasn 't really committed to taking it either. CARDIAC MURMUR Reviewed that murmur is less than last visit. This is usually a positive sign. Will monitor . Echo only if it worsens. 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 Reassurance given as it is position/activity dependant. documented in this en counter Plan of Treatment + + +--------+ + + | Name | Type | Priori | Associated Diagnoses | Order Schedule | | | | ty | | | + + +--------+ + + | Ambulatory Referral | Outpatient | Routin | Cough | 1 Occurrences | | to PFT - Pulmonary | Referral | e | | starting 11/27/2011 | | Function Testing | | | | until 11/26/2012 | + + +--------+ + + documented as of this encounter Visit Diagnoses + + | Diagnosis | + + | Hyperlipidemia - Primary Other and unspecified hyperlipidemia | + + | Cough | + + | Cardiac murmur Undiagnosed cardiac murmurs | + + | Lower extremity edema Edema | + + documented in this encounter
--- OUTSIDE RECORDS SUMMARY | ~2019-02-11 | XMS | Encounter Summary ---
Demographics + + + | Address | [address] | | | [place] [address] | + + + | Home Phone [...] Team Providers + +------+ + | Care Oven Laborer Name | Role | Phone | + [...] | | | | [place] | [address] | | | | | [address] | | | | | | [phone] | | | +--------+ + + + [...]
--- OUTSIDE RECORDS SUMMARY | ~2019-02-11 | XMS | Encounter Summary ---
Demographics + + + | Address | [address] | | | [place] [address] | + + + | Home Phone [...] Providers + +------+ + | Care Business Development Analyst Name | Role | Phone | [...] + + | 03/24/ | Office | [facility] | Roderick Alexandra, | Routine history and | | 2017 | Visit | [facility] [place] | [address] | physical examination | | | | [address] | [place] | of adult (Primary | | | | [place] | [address] | Dx); Chest pressure; | | | | [address] | | Essential | | | | [phone] | | hypertension; | | | | [...] bathtub or shower?: No Fall Risk Screening ([facility]) 1. Have you fallen in the [...] If you have a designated health care agency service representative, give their name and contact informa [...] ok to take daily forever Referral to jewelry finisher Had another episode this last year while [...] by mouth at bedtime 30 tablet 0 [place]-3 Fatty Acids ([facility] NATURAL FISH OIL) 1000 [...] - General Current Medicare Suppliers: [facility] [facility] [place] [place] - [address] [place] [address] Immunizations Immunization History Administered Date(s) Administered INFLUENZA 63 Y OR >, TRIVALENT HIGH-DOSE 10/12/2015 INFLUENZA QUADR W/PRES (PED/ADOL/ADULT) MULTIDOSE 11/15/2013, 10/31/2014 INFLUENZA, W/Preservative 10/18/2011 PNEUMOCOCCAL CONJUGATE 13-VALENT (PCV13) 07/24/2014 PNEUMOCOCCAL POLYSACCHARIDE 23-VALENT (PPSV23) 05/20/2005 TDAP, (ADOL/ADULT) 12/02/2005 ZOSTER, 1 DOSE (ADULT) 12/02/2005, 09/05/2011 Preventative Care and Screening (Attestation) The following health maintenance items are reviewed in [facility] and correct as of today: [...] contrast ordered and patient will schedule at [facility] . RTC in 6 months for follow [...] Alexandra MD. Candy Cano LPN 03/24/16 Roderick Lerbon MD, personally performed the services described in [...]
--- OUTSIDE RECORDS SUMMARY | ~2019-02-11 | XMS | Encounter Summary ---
Demographics + + + | Address | [address] | | | [place] [address] | + + + | Home Phone | | + + + | Preferred Language | Unknown | + + + | Marital Status | | + + + | Mandaeism Affiliation | 1077 | + + + | Race | Unknown | + + + | Ethnic Group | Unknown | + + + Author + + + | Author | [facility] | | | and Saurabhana | + + + | Organization | [facility] | | [...] Team Providers + +------+ + | Care Typing Teacher Name | Role | Phone | [...] | 12/13/ | Telephone | [facility] | Mariluz Shields [place] | Results | | 2012 | | [facility] [place] | [address] [facility] | | | | | [address] | [address] [place], [place] | | | | | [place], [place] | [address] | | | | | [address] | | | | | | [phone] | | | +--------+ + + + [...]
--- OUTSIDE RECORDS SUMMARY | ~2019-02-11 | XMS | Encounter Summary ---
Demographics + + + | Address | [address] | | | [place] [address] | + + + | Home Phone | | + + + | Preferred Language | Unknown | + + + | Marital Status | | + + + | Samaritan Affiliation | 1077 | + + + | Race | Unknown | + + + | Ethnic Group | Unknown | + + + Author + + + | Author | [facility] | | | and Saurabhana | + + + | Organization | [facility] | | | [...] Team Providers + +------+ + | Care Tank Tester Name | Role | Phone | [...] (Echo) | | 2019 | | [facility] | [address] | | | | | [address] | [place] | | | | | [place] | [address] | | | | | [address] | | | | | | [phone] | | | +--------+ + + + [...]
--- OUTSIDE RECORDS SUMMARY | ~2019-02-11 | XMS | Encounter Summary ---
Demographics + + + | Address | [address] | | | [place] [address] | + + + | Home Phone | | + + + | Preferred Language | Unknown | + + + | Marital Status | | + + + | Mormon Affiliation | 1077 | + + + | Race | Unknown | + + + | Ethnic Group | Unknown | + + + Author + + + | Author | [facility] | | | and Saurabhana | + + + | Organization | [facility] | | [...] Providers + +------+ + | Care Senior Solutions Engineer Name | Role | Phone | + +------+ + | Roderick Alexandra MD | PCP | | + +------+ + Encounter Details +--------+ + + + + | Date | Type | Department | Care Team | Description | +--------+ + + + + | 06/30/ | Hospital | [facility] | Vicenta Rizvi | | | 2017 | Encounter | MED CTR OR INTRA OP | MD [address] | | | | | [address] | [place], | | | | | [place], [place] | [place] [address] | | | | | [address] | [phone] | | | | | [phone] | | | +--------+ + + + [...] You cannot be awakened Date Last Reviewed: 12/04/201519995407-3766 The [employer]. [address] [place] [address], [place] [address]. All righ ts reserved. This information is [...] + + + +---------+ + + | Mayer-3 Fatty | Take 1,000 mg by | [...] | | | | LEANA SERVIN MD ([id number]) | | | | | | on [...]
--- OUTSIDE RECORDS SUMMARY | ~2019-02-11 | XMS | Encounter Summary ---
Demographics + + + | Address | [address] | | | [place] [address] | + + + | Home Phone [...] Team Providers + +------+ + | Care Lean Six Sigma Senior Specialist Name | Role | Phone | [...] + | 02/06/ | Telephone | [facility] | Roderick Alexandra, | Results | | 2015 | | MEDIC[facility] [place] | [address] | | | | | [address] | [place] | | | | | [place] | [address] | | | | | [address] | | | | | | [phone] | | | +--------+ + + + [...]
--- OUTSIDE RECORDS SUMMARY | ~2019-02-11 | XMS | Encounter Summary ---
Demographics + + + | Address | [address] | | | [place] [address] | + + + | Home Phone [...] Team Providers + +------+ + | Care Environmental Services Specialist Name | Role | Phone | [...] | [address] | [address] | | | | | [place] BREATHING | AVE [place] | [place], | | | | | CAPACITY | [place], [place] | [place] | | | | | [place] | [address] | [address] | | | | | EVAL OF | Phone: | Phone: | | | | | BRONCHOSPASM | [phone] | [phone] | | | | | [place] | Fax: | Fax: | | | | | PLETHYSMOGRA | [phone] | [phone] | | | | | PHY LUNG | | | | | | | VOLUMES W/WO | | | | | | | AIRWAY | | | | | | | RESIST [place] | | | | | | | DIFFUSING | | | | | | | CAPACITY [place] | | | | | | | [...] her flu | | | shot in [place] | + + + | Cough | | + + + Encounter Details +--------+---------+ + + + | Date | Type | Department | Care Team | Description | +--------+---------+ + + + | 11/26/ | Office | [facility] | Roderick Alexandra, | Hyperlipidemia | | 2011 | Visit | [facility] [place] | [address] | (Primary Dx); Cough; | | | | [address] | [place], [place] | Cardiac murmur; | | | | [place], [place] | [address] | Lower extremity | | | | [address] | | edema | | | | [phone] | | | +--------+---------+ + + + [...] encounter Patient Instructions Patient Instructions Candy Cano, BIODIESEL ENGINEERING MANAGER - 11/27/2011 8:31 AM PDT November 27, 2011 Rosalind Patel [address] [place] [address] Dear Rosalind: Thank you for enrolling in Catapooolt. Please follow the instructions below to view your Teleus online medical record. Catapooolt allows you to send secure messages to your doctor, view you r test results, renew your prescriptions, schedule appointments, and more. How Do I Sign Up? 1. In your Internet browser, go to [email or web address] 2. Click on the Sign Up Now link in the Sign In box.This will take you to the New Member Si gn Up page. 3. Enter your Catapooolt access code exactly as it appears below. You will not need to use thi s code after you sign up. If you do not sign up before the expiration date, you must request a new code through your [facility]. Catapooolt Access Code: [email or web address] Expires: 01/26/2012 8:24 4. Fill in the last four digits of your Social Security Number (xxxx) and Date of (mm /dd/yyyy) when asked and click Submit. You will now be asked to create a Catapooolt ID. 5. Create a MyChart ID. This will be your NComputingt login ID. Your login ID cannot be changed , so think of one that is secure and easy to remember. 6. Create a NComputingt password. You can change your password at any time. 7. Enter your Password Reset Question and Answer. This can be used at a later time if you f orget your password. 8. Enter your e-mail address. You will receive e-mail notification when new information is available in Catapooolt. 9. Click Sign Up. You may now view your medical record. Additional Information If you have questions, you can email [email or web address] or call [phone] to talk to our [facility] care team. Please remember, Catapooolt should NOT be used fo r urgent [...] , 2001 Cholecystectomy 1974 Skin cancer excision 8165-1361 Basal Cell Hysteroscopy 08/2001 Cataract removal 02/2011 [...] tablets by mouth 2 times d aily. [place]-3 Fatty Acids ([facility] NATURAL FISH OIL) 1000 [...]
--- OUTSIDE RECORDS SUMMARY | ~2019-02-11 | XMS | Encounter Summary ---
Demographics + + + | Address | [address] | | | [place] [address] | + + + | Home Phone | | + + + | Preferred Language | Unknown | + + + | Marital Status | | + + + | Congregational Affiliation | 1077 | + + + | Race | Unknown | + + + | Ethnic Group | Unknown | + + + Author + + + | Author | [facility] | | | and Saurabhana | + + + | Organization | [facility] | | | [...] Team Providers + +------+ + | Care Center Customer Service Associate Name | Role | Phone | + [...] | Roderick Ariza MD | [address] | | | | | hypertension | [address] | [place], | | | | | (HCC) | AVE [place] | [place] | | | | | Procedures | [place], [place] | [address] | | | | | ECHO | [address] | Phone: | | | | | Complete | Phone: | [phone] | | | | | | [phone] | Fax: | | | | | | Fax: | [phone] | | | | | | [phone] | | +--------+--------+ + + + + Reason for Visit + + + | Reason | Comments | + + + | Follow-up | | + + + Encounter Details +--------+---------+ + + + | Date | Type | Department | Care Team | Description | +--------+---------+ + + + | 10/29/ | Office | [facility] | Roderick Alexandra, | History of pneumonia | | 2018 | Visit | [facility]IC[facility] [place] | [address] | (Primary Dx); | | | | [address] | [place] | History of recent | | | | [place] | [address] | hospitalization; | | | | [address] | | Preventative health | | | | [phone] | | care; Pulmonary | | | [...] was also seen in the ED in [facility] [place] in June of 2017 for fever [...] - Received in September. [facility] in [place], [place]. 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 Plan to refer to belt maker helper if neede d post echo reading. Additional [...] | | | | | mg/dL | [facility] | | | | | | MEDICAL | | | | | | PARK | | | | | | LABORATORY | | + + + + + + | eGFR if not | >60Comment: GLOMERULAR | >=60 | [facility] | | | | FILTRATION | mL/min/1.73m2 | [facility] | | | [place] | RATE,ESTIMATED | | MEDICAL | | | | mL/min/1.13s4Egjb than | | PARK | | | [...] + + + | [facility] | [address] | [place], [place] | [phone] | | [facility] | | [address] | | | PARK LABORATORY | | [...] + + + | [place] | [address] [place] | [place] | [phone] | | [facility] | | [address] | | | [facility] | | | | + + + + + documented in this encounter Visit Diagnoses + + | Diagnosis | + + | History of pneumonia - Primary Personal history of pneumonia (recurrent) | + + | History of recent hospitalization | + + | Preventative health care Routine general medical examination at a [facility] care | | facility | + + | Pulmonary hypertension (HCC) Other chronic pulmonary heart diseases | + + | Anemia, unspecified type | + + | Pneumonia due to infectious organism, unspecified laterality, unspecified part of lung | + + documented in this encounter
--- OUTSIDE RECORDS SUMMARY | ~2019-02-11 | XMS | Encounter Summary ---
Demographics + + + | Address | [address] | | | [place] [address] | + + + | Home Phone | | + + + | Preferred Language | Unknown | + + + | Marital Status | | + + + | Yazdanism Affiliation | 1077 | + + + | Race | Unknown | + + + | Ethnic Group | Unknown | + + + Author + + + | Author | [facility] | | | and Saurabhana | + + + | Organization | [facility] | | [...] Team Providers + +------+ + | Care Solderer Barrel Ribs Name | Role | Phone | + [...] Refill | | 2012 | | [facility] | [address] | | | | | [address] | [place] | | | | | [place] | [address] | | | | | [address] | | | | | | [phone] | | | +--------+--------+ + + + [...]
--- OUTSIDE RECORDS SUMMARY | ~2019-02-11 | XMS | Encounter Summary ---
Demographics + + + | Address | [address] | | | [place] [address] | + + + | Home Phone [...] + +------+ + | Care Director Of Restaurant Operations Name | Role | Phone | + +------+ + PCP | Unavailable | + +------+ + Encounter Details +--------+ + + + + | Date | Type | Department | Care Team | Description | +--------+ + + + + | 04/04/ | Hospital | [facility] | | | | 2005 | Encounter | MED CTR XRAY [address] | | | | | | [place] | | | | | | [place] [address] | | | | | | [phone] | | | +--------+ + + + [...]
--- OUTSIDE RECORDS SUMMARY | ~2019-02-11 | XMS | Encounter Summary ---
Demographics + + + | Address | [address] | | | [place] [address] | + + + | Home Phone | | + + + | Preferred Language | Unknown | + + + | Marital Status | | + + + | Anabaptism Affiliation | 1077 | + + + | Race | Unknown | + + + | Ethnic Group | Unknown | + + + Author + + + | Author | [facility] | | | and Saurabhana | + + + | Organization | [facility] | | [...] Providers + +------+ + | Care Surgical Orderly Name | Role | Phone | + [...] | | 2017 | | [facility] | [address] | | | | | [address] | [place] | | | | | [place] | [address] | | | | | [address] | | | | | | [phone] | | | +--------+--------+ + + + [...]
--- OUTSIDE RECORDS SUMMARY | ~2019-02-11 | XMS | Encounter Summary ---
Demographics + + + | Address | [address] | | | [place] [address] | + + + | Home Phone [...] Team Providers + +------+ + | Care Student Services Dean Name | Role | Phone | + [...] | | | | [place] | [address] | | | | | [address] | | | | | | [phone] | | | +--------+ + + + [...]
--- OUTSIDE RECORDS SUMMARY | ~2019-02-11 | XMS | Encounter Summary ---
Demographics + + + | Address | [address] | | | [place] [address] | + + + | Home Phone [...] | + + +---------+ + | Shelli Tinajeor | ECON | Unknown | | + + +---------+ + Care Team Providers + +------+ + | Care Heel Sprayer First Name | Role | Phone | + [...] + + | 04/23/ | Office | [facility] | Roderick Alexandra, | Non-cardiac chest | | 2018 | Visit | MEDICINE [place] | [address] | pain (Primary Dx); | | | | [address] | [place] | Chronic obstructive | | | | [place] | [address] | pulmonary disease, | | | | [address] | | unspecified COPD | | | | [phone] | | type (HCC); Left arm | [...] has been changed since signin Order Audit [place] Multiple Vitamins-Minerals (PRESERVISION AREDS 2) CAPS (Taking) Take 2 capsules by mouth Daily. niacin (NIASPAN) 500 mg CR tablet (Taking) take 1 tablet by mouth at bedtime Number of times this order has been changed since signin Order Audit [place] [employer] Fatty Acids ([facility] NATURAL FISH OIL) 1000 MG CAPS (Taking) Take 1,000 mg by mouth D aily. 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 Will refer patient t o [facility]. 5. Essential hypertension Well controlled. The [...]
--- OUTSIDE RECORDS SUMMARY | ~2019-02-11 | XMS | Encounter Summary ---
Demographics + + + | Address | [address] | | | [place] [address] | + + + | Home Phone [...] Team Providers + +------+ + | Care Nissan Sales Consultant Name | Role | Phone | + +------+ + PCP | Unavailable | + +------+ + Encounter Details +--------+ + + + + | Date | Type | Department | Care Team | Description | +--------+ + + + + | 08/06/ | Hospital | [facility] | | | | 2005 | Encounter | MED CTR LABORATORY | | | | | | [address] [place] | | | | | | [place], [place] | | | | | | [address] | | | | | | [phone] | | | +--------+ + + + [...]
--- OUTSIDE RECORDS SUMMARY | ~2019-02-11 | XMS | Encounter Summary ---
Demographics + + + | Address | [address] | | | [place] [address] | + + + | Home Phone | | + + + | Preferred Language | Unknown | + + + | Marital Status | | + + + | Baptist Affiliation | 1077 | + + + | Race | Unknown | + + + | Ethnic Group | Unknown | + + + Author + + + | Author | [facility] [place] | | | and Saurabhana | + + + | Organization | [facility] | | [...] Team Providers + +------+ + | Care Team Cdl Driver Name | Role | Phone | + [...] | Office | [facility] | Roderick Alexandra, | Dyspnea on exertion | | 2012 | Visit | MEDICINE [place] | [address] | (Primary Dx); | | | | [address] | [place] | Hoarseness of voice; | | | | [place] | [address] | Hyperlipidemia | | | | [address] | | | | | | [phone] | | | +--------+---------+ + + + [...] (, 2001); Cholecystectomy (1973); Skin cancer excision (5872-6324); hy steroscopy (08/2001); and Cataract Removal (02/2011). [...]
--- OUTSIDE RECORDS SUMMARY | ~2019-02-11 | XMS | Encounter Summary ---
Demographics + + + | Address | [address] | | | [place] [address] | + + + | Home Phone [...] Team Providers + +------+ + | Care Branch Officer Name | Role | Phone | [...] Refill | | 2017 | | [facility] | [address] | | | | | [address] | [place] | | | | | [place] | [address] | | | | | [address] | | | | | | [phone] | | | +--------+--------+ + + + [...]
--- OUTSIDE RECORDS SUMMARY | ~2019-02-11 | XMS | Encounter Summary ---
Demographics + + + | Address | [address] | | | [place] [address] | + + + | Home Phone [...] Providers + +------+ + | Care Stock Car Driver Name | Role | Phone | [...] | | | | [place] | [address] | | | | | [address] | | | | | | [phone] | | | +--------+ + + + [...]
--- OUTSIDE RECORDS SUMMARY | ~2019-02-11 | XMS | Encounter Summary ---
Demographics + + + | Address | [address] | | | [place] [address] | + + + | Home Phone [...] Team Providers + +------+ + | Care Milking Machine Mechanic Name | Role | Phone [...] | | | | [place] | [address] | | | | | [address] | | | | | | [phone] | | | +--------+ + + + [...] 08/03/2013 10:09 AM PDTReceived ED [facility], treated with [...]
--- OUTSIDE RECORDS SUMMARY | ~2019-02-11 | XMS | Clinical Summary ---
Demographics + + + | Address | [address] | | | [place] [address] | + + + | Home Phone | | + + + | Preferred Language | Unknown | + + + | Marital Status | | + + + | Presybeterian Affiliation | Unknown | + + + | Race | Unknown | + + + | Ethnic Group | Unknown | + + + Author + + + | Author | [facility] [employer] (Historical as of | | | 10-02-18) | + + + | Organization | [facility] [employer] (Historical as of | | | 10-02-18) [...] Team Providers + +------+ + | Care Conductor Sleeping Car Name | Role | Phone | + [...] +------+-------+ + | MEDICARE | MEDICA | [id number] | | | [address] | | | RE | | | | [place] [address] | | | IP-OP | | | | | + +--------+ +------+-------+ + | [employer] HE[employer] PLAN | ODS | [id number] | | | | | | HEALTH [...] | | | [place] | | | [address] | [address] | + +--------+ +--------+ + +"
--- OUTSIDE RECORDS SUMMARY | ~2019-02-11 | XMS | Encounter Summary ---
Demographics + + + | Address | [address] | | | [place] [address] | + + + | Home Phone [...] Providers + +------+ + | Care Frame Feeder Name | Role | Phone | + +------+ + | Roderick Alexandra MD | PCP | | + +------+ + Reason for Visit +---------+ + | Reason | Comments | +---------+ + | Results | mammogram/updated external results | +---------+ + Encounter Details +--------+ + + + + | Date | Type | Department | Care Team | Description | +--------+ + + + + | 02/12/ | Telephone | [facility] | Roderick Alexandra, | Results | | 2018 | | MEDICINE [place] | [address] | (mammogram/updated | | | | [address] | [place] | external results) | | | | [place] | [address] | | | | | [address] | | | | | | [phone] | | | +--------+ + + + [...] | [facility] EXTERNAL IMAGE | Routin | 02/01/2018 | | Results for this | | | e | | | procedure are in the | | | | | | results section. | + +--------+ + + + documented in this encounter Results [facility] External Image (02/01/2018) + + + + + + | [...]
--- OUTSIDE RECORDS SUMMARY | ~2019-02-11 | XMS | Encounter Summary ---
Demographics + + + | Address | [address] | | | [place] [address] | + + + | Home Phone [...] Team Providers + +------+ + | Care Life Enrichment Director Name | Role | Phone | + +------+ + | Roderick Alexandra MD | PCP | | + +------+ + Encounter Details +--------+ + + + + | Date | Type | Department | Care Team | Description | +--------+ + + + + | 10/16/ | Hospital | [facility] | Roderick Alexandra, | | | 2010 | Encounter | MED CTR XRAY [address] | | | | | [place] | [place], [place] | | | | | [place] [address] | [address] | | | | | [phone] | | | +--------+ + + + [...] Performed At | + + + | [facility] Diagnostic Imaging Department | [facility] | | [address] [facility] | [facility] | | PA AND LATERAL CHEST, 10/16/2010 [...] Transcribed Date/Time: | | | 10/16/2010 13:54 Assistant At Surgery: <Electronically Signed | | | by Greg Denny MD> 10/16/10 1737 | | + + + + + | Procedure Note | + + | Jam, Rad Conversion - 03/25/2013 3:42 PM [facility] | | Diagnostic Imaging Department [address] [place] [address] | | PA AND LATERAL CHEST, 10/16/2010 [...] 13:47 | |Transcribed Date/Time: 10/16/2010 13:54 | |Assistant At Surgery: | |<Electronically Signed by Greg Denny MD> [...]
--- OUTSIDE RECORDS SUMMARY | ~2019-02-11 | XMS | Encounter Summary ---
Demographics + + + | Address | [address] | | | [place] [address] | + + + | Home Phone | | + + + | Preferred Language | Unknown | + + + | Marital Status | | + + + | Orthodox Affiliation | 1077 | + + [...] Team Providers + +------+ + | Care Setter Helper Name | Role | Phone | + +------+ + | Roderick Alexandra MD | PCP | | + +------+ + Reason for Visit + + + | Reason | Comments | + + + | Arm Pain | | + + + Encounter Details +--------+ + + + + | Date | Type | Department | Care Team | Description | +--------+ + + + + | 04/30/ | Telephone | [facility] | Roderick Alexandra, | Arm Pain | | 2018 | | [facility] | [address] | | | | | [address] | [place] | | | | | [place] | [address] | | | | | [address] | | | | | | [phone] | | | +--------+ + + + [...] of this encounter Plan of Treatment + +---------+--------+ + + | Name | Type | Priori | Associated Diagnoses | Order Schedule | | | | ty | | | + +---------+--------+ + + | XR Chest PA and | Imaging | Routin | Left arm swelling | Expected: | | Lateral | | e | Chronic obstructive | 04/30/2017, Expires: | | | | | pulmonary disease, | 04/30/2018 | | | | | unspecified COPD | | | | | | type (HCC) | | + +---------+--------+ + + documented as of this encounter Results D-Dimer (10/29/2017 11:09 AM PDT) + + + + + + | Component | Value | Ref Range | Performed | Pathologist | | | | | At | Signature | + + + + + + | D-Dimer | 0.54 (H)Comment: This | <=0.50 ug/ml | [facility] | | | Quantitativ | quantitative D-Dimer | | [facility] | | | e | assay has been evaluated | | MEDICAL | | | | for screening for | | CENTER - | | | | venous thrombotic | | LABORATORY | | | | disease, and may be | | | | | | useful in ruling out, | | | | | | but not ruling in | | | | | | disease. Values less | | | | | | than 0.50 ug/mL FEU | | | | | | (Fibrinogen Equivalent | | | | | | Units) have a negative | | | | | | predictive value of | | | | | | approximately 95% for | | | | | | ruling out large | | | | | | pulmonary emboli or | | | | | | proximal deep vein | | | | | | thrombosis. Distal DVT | | | | | | are not excluded. An | | | | | | elevated D-dimer can be | | | | | | present in patients with | | | | | | liver disease, | | | | | | , eclampsia, | | | | | | heart disease and some | | | | | | cancers among other | | | | | | conditions. The presence | | | | | | of rheumatoid factor at | | | | | | a level >50 IU/mL may | | | | | | falsely elevate the | | | | | | determined D-dimer | | | | | | levels. | | | | + + + + + + + + | Specimen | + + | Blood | + + + + + + + | Performing | Address | City/State/Zipcode | Phone Number | | Organization | | | | + + + + + | [facility] | [address] | [place] | [phone] | | [facility] | | [address] | | | - LABORATORY | | | | + + + + + documented in this encounter Visit Diagnoses + + | Diagnosis | + + | Left arm swelling - Primary Swelling of limb | + + | Chronic obstructive pulmonary disease, unspecified COPD type (HCC) | + + documented in this encounter"
--- OUTSIDE RECORDS SUMMARY | ~2019-02-11 | XMS | Encounter Summary ---
Demographics + + + | Address | [address] | | | [place] [address] | + + + | Home Phone | | + + + | Preferred Language | Unknown | + + + | Marital Status | | + + + | Hinduism Affiliation | 1077 | + + + [...] Team Providers + +------+ + | Care Food Tester Name | Role | Phone | [...] Refill | | 2012 | | [facility] | [address] | | | | | [address] | [place] | | | | | [place] | [address] | | | | | [address] | | | | | | [phone] | | | +--------+--------+ + + + [...]
--- OUTSIDE RECORDS SUMMARY | ~2019-02-11 | XMS | Clinical Summary ---
Demographics + + + | Address | [address] | | | [place] [address] | + + + | Home Phone [...] [facility] [place] | | | and aSurabhana | + + + | Organization | [...] Team Providers + +------+ + | Care Maitre D' Name | Role | Phone | + [...] + +---+ + + | Overview: KELLY [id number] Decision | + + Resolved Problems + [...] | | 05/16/ | [id number] | | [id number]: Qty: 1 on | c | Eye | - ALCN | | 2018 | .19.0D | | 06/30/2016 by Belkys, | | | | | | | | Vicenta Alvarado MD at [facility] | | | | | | /[id number] | | [facility] | | | | | | [...] + +--------+ | MODA | MODA | [id number] | 04/17/19 | [phone] | [address] | Indemn | | | HEALTH | | 08-Pre | 9 | [address] | ity | | | MDCR | | sent | | [place], | | | | [place] | | | | [place] [address] | | + +--------+ +--------+ + +--------+ | MEDICARE | MEDICA | [id number] | 07/17/18 | [phone] | | Medica | | | RE | | 99-Pre | 5 | | re | | | PART A | | sent | | | | | | AND B | | | | | | + +--------+ +--------+ + +--------+ | MEDICARE | MEDICA | [id number] | 07/17/18 | [phone] | | Medica | | | RE | | 99-Pre | 5 | | re | | | PART A | | sent | | | | | | AND B | | | | | | + +--------+ +--------+ + +--------+ | MODA | MODA | [id number] | 02/16/19 | [phone] | [address] | Indemn | | | HEALTH | | 19-Pre | 9 | [address] | ity | | | MDCR | | sent | | [place], | | | | [place] | | | | [place] [address] | | + +--------+ +--------+ + +--------+ [...] Clarice | al/Fam | | 1936 | [phone] | [place] | | | aliyah | | | 3 (Home) | [address] | + +--------+ +--------+ + + | Rosalind Patel | Person | Self | [birth year] | [address] | | [place]ice | al/Fam | | 1936 | [phone] | [place] | | | aliyah | | | 3 (Home) | [address] | + +--------+ +--------+ + + Advance Directives + + + + + | Type | Date Recorded | Patient | Explanation | | | | Director Financial Systems | | + + + + + | Power of | | | | | Repulping Supervisor | | | | + + + + + | Power of | | | | | Repulping Supervisor | | | | + + + [...]
--- OUTSIDE RECORDS SUMMARY | ~2019-02-11 | XMS | Encounter Summary ---
Demographics + + + | Address | [address] | | | [place] [address] | + + + | Home Phone | | + + + | Preferred Language | Unknown | + + + | Marital Status | | + + + | Taoism Affiliation | 1077 | + + + | Race | Unknown | + + + | Ethnic Group | Unknown | + + + Author + + + | Author | [facility] [place] | | | and Saurabhana | + + + | Organization | [facility] [place] | | | [...] Providers + +------+ + | Care Stock Trader Name | Role | Phone | + [...] Refill | | 2015 | | [facility] | [address] | | | | | [address] | [place] | | | | | [place] | [address] | | | | | [address] | | | | | | [phone] | | | +--------+--------+ + + + [...]
--- OUTSIDE RECORDS SUMMARY | ~2019-02-11 | XMS | Encounter Summary ---
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 Essential [...]
--- OUTSIDE RECORDS SUMMARY | ~2019-02-11 | XMS | Encounter Summary ---
Demographics + + + | Address | [address] | | | [place] [address] | + + + | Home Phone [...] Team Providers + +------+ + | Care Nursing Resident Name | Role | Phone | + [...] Description | +--------+--------+ + + + | 03/01/ | Refill | [facility] | Roderick Alexandra, | Medication Refill | | 2014 | | [facility] | [address] | | | | | [address] | [place] | | | | | [place] | [address] | | | | | [address] | | | | | | [phone] | | | +--------+--------+ + + + [...]
--- OUTSIDE RECORDS SUMMARY | ~2019-02-11 | XMS | Encounter Summary ---
Demographics + + + | Address | [address] | | | [place] [address] | + + + | Home Phone [...] Team Providers + +------+ + | Care Wreath Machine Tender Name | Role | Phone [...] + + | 05/07/ | Telephone | [facility] | Roderick Alexandra, | Referral (Follow up) | | 2017 | | MEDICINE [place] | [address] | | | | | [address] | [place] | | | | | [place] | [address] | | | | | [address] | | | | | | [phone] | | | +--------+ + + + [...]
--- OUTSIDE RECORDS SUMMARY | ~2019-02-11 | XMS | Encounter Summary ---
Demographics + + + | Address | [address] | | | [place] [address] | + + + | Home Phone [...] Team Providers + +------+ + | Care Production Foreman Name | Role | Phone | + [...] | [address] | | | | | [address] | | | | | | [phone] | | | +--------+--------+ + + + [...]
--- OUTSIDE RECORDS SUMMARY | ~2019-02-11 | XMS | Encounter Summary ---
Demographics + + + | Address | [address] | | | [place] [address] | + + + | Home Phone [...] + | Author | [facility] [place] | | | and Saurabhana | + + + | Organization | [facility] [place] | | [...] Team Providers + +------+ + | Care Wash Oil Cooler Operator Name | Role | Phone | [...] Description | +--------+--------+ + + + | 11/26/ | Refill | [facility] [place] [facility] | Roderick Alexandra, | Medication Refill | | 2015 | | [facility] | [address] | | | | | [address] | [place] | | | | | [place] | [address] | | | | | [address] | | | | | | [phone] | | | +--------+--------+ + + + [...]
--- OUTSIDE RECORDS SUMMARY | ~2019-02-11 | XMS | Encounter Summary ---
Demographics + + + | Address | [address] | | | [place] [address] | + + + | Home Phone [...] Team Providers + +------+ + | Care Pre K Special Education Teacher Name | Role | Phone | [...] | | | | [place] | [address] | | | | | [address] | | | | | | [phone] | | | +--------+ + + + [...]
--- OUTSIDE RECORDS SUMMARY | ~2019-02-11 | XMS | Encounter Summary ---
Demographics + + + | Address | [address] | | | [place] [address] | + + + | Home Phone | | + + + | Preferred Language | Unknown | + + + | Marital Status | | + + + | Yarsanism Affiliation | 1077 | + + + | Race | Unknown | + + + | Ethnic Group | Unknown | + + + Author + + + | Author | [facility] [place] | | | and Saurabhana | + + + | Organization | [facility] [place] | | [...] Providers + +------+ + | Care Supervisor Pleating Name | Role | Phone | + [...] | | | [address] | [address] [place], [place] | | | | | [place], [place] | [address] | | | | | [address] | | | | | | [phone] | | | +--------+ + + + [...] | | is mild aortic regurgitation. 5. Jhme-re-xeonnggx mitral | | | regurgitation is present. [...] 4. There is mild aortic regurgitation. 5. Umtt-am-xlbupaek mitral | | | regurgitation is present. [...] Valve: Mitral valve is thickened. Mitral Valve: Sfyu-sw-tdehanfx | | | mitral regurgitation is present. [...] TR Vmax: | | | 3.32 m/s Robotic Machine Operator: Authenticated by: JAVI ARAIZA MD | | [...] There is mild aortic regurgitation.5. | | Iyje-dg-swrkrjzt mitral regurgitation is present.6. Mild mitral stenosis [...] | Valve: Mitral valve is thickened.Mitral Valve: Vbyx-hw-dyuaptal mitral regurgitation is | | present.Mitral Valve: [...] cmLVPWd: 0.99 | | cmLVOT Area: 2.71 [id number] Diam: 1.86 cm%FS: 43.93 %EF(Teich): 75.88 %ESV(Teich): [...] mlLAESV Index (A-L): 34.11 ml/m2LAAs A2C: 20.70 jx2NFRGA A-L | | A2C: 63.38 mlLALs A2C: 5.74 cmLAAs A4C: 13.77 xs1XLWMW A-L A4C: 35.64 mlLALs | | A4C: 4.52 cmRAAs: 8.74 or5FFEVI A-L: 17.58 mlRAESV MOD: 15.26 mlRALs: 3.69 | | cmTAPSE: 2.38 cmAV maxP.23 mmHgAV meanP.04 mmHgAV Vmax: 2.13 m/Adal | | Vmean: 1.39 m/Adal VTI: 34.72 cmAVA Vmax: 1.84 cm2AVA (VTI): 2.03 sg3ENXY Vmax: | | 0.00 cm2/m2AVAI (VTI): 0.00 [...] VTI: 42.78 cmMVA (VTI): 1.65 | | qb9Hxqyxu e': 0.06 m/sSeptal E/e': 25.05Lateral e': 0.07 m/sLateral E/e': | | 22.15RAP: 5 mmHgRVSP: 49.30 mmHgTR maxP.30 mmHgTR Vmax: 3.32 m/s | | Robotic Machine Operator:Authenticated by: [facility]istol [facility] Date/Time: 06-22-2017 17:0:1 | | IMPRESSION: 1. Left ventricular systolic function is hyperdynamic with an estimated EF | | of >70%.2. Pseudonormal LV diastolic filling pattern, consistent with elevated LA | | pressure and moderate dysfunction (Grade II).3. The right ventricle is normal in size | | and function.4. There is mild aortic regurgitation.5. Tsif-zl-qhoganuq mitral | | regurgitation is present.6. Mild [...] |TR Vmax: 3.32 m/s | | | |Robotic Machine Operator: | |Authenticated by: JAVI ARAIZA MD | [...] There is mild aortic regurgitation. | |5. Qvhi-nb-hcebgmrf mitral regurgitation is present. | |6. Mild [...]
--- OUTSIDE RECORDS SUMMARY | ~2019-02-11 | XMS | Encounter Summary ---
Demographics + + + | Address | [address] | | | [place] [address] | + + + | Home Phone [...] Team Providers + +------+ + | Care Interior Design Coordinator Name | Role | Phone | [...] | [address] | [address] | | | | | [place] BREATHING | [address] [place] | [place], | | | | | CAPACITY | [place], [place] | [place] | | | | | TEST [place] | [address] | [address] | | | | | EVAL OF | Phone: | Phone: | | | | | BRONCHOSPASM | [phone] | [phone] | | | | | [place] | Fax: | Fax: | | | | | PLETHYSMOGRA | [phone] | [phone] | | | | | PHY LUNG | | | | | | | VOLUMES W/WO | | | | | | | AIRWAY | | | | | | | RESIST [place] | | | | | | | DIFFUSING | | | | | | | CAPACITY [place] | | | | | | | [...] her flu | | | shot in [place] | + + + | Cough | | + + + Encounter Details +--------+---------+ + + + | Date | Type | Department | Care Team | Description | +--------+---------+ + + + | 11/26/ | Office | [facility] | Roderick Alexandra, | Hyperlipidemia | | 2011 | Visit | [facility]IC[facility] [place] | [address] | (Primary Dx); Cough; | | | | [address] | [place], [place] | Cardiac murmur; | | | | [place], [place] | [address] | Lower extremity | | | | [address] | | edema | | | | [phone] | | | +--------+---------+ + + + [...] encounter Patient Instructions Patient Instructions Candy Cano, - 11/27/2011 8:31 AM PDT November 27, 2011 Rosalind Patel [address] [place] [address] Dear Rosalind: Thank you for enrolling in Chirpify. Please follow the instructions below to view your iTwin online medical record. Chirpify allows you to send secure messages to your doctor, view you r test results, renew your prescriptions, schedule appointments, and more. How Do I Sign Up? 1. In your Internet browser, go to [email or web address] 2. Click on the Sign Up Now link in the Sign In box.This will take you to the New Member Si gn Up page. 3. Enter your Chirpify access code exactly as it appears below. You will not need to use thi s code after you sign up. If you do not sign up before the expiration date, you must request a new code through your [facility]. Chirpify Access Code: [email or web address] Expires: 01/26/2012 8:24 4. Fill in the last four digits of your Social Security Number (xxxx) and Date of (mm /dd/yyyy) when asked and click Submit. You will now be asked to create a Chirpify ID. 5. Create a MyChart ID. This will be your Scodixt login ID. Your login ID cannot be changed , so think of one that is secure and easy to remember. 6. Create a Scodixt password. You can change your password at any time. 7. Enter your Password Reset Question and Answer. This can be used at a later time if you f orget your password. 8. Enter your e-mail address. You will receive e-mail notification when new information is available in Chirpify. 9. Click Sign Up. You may now view your medical record. Additional Information If you have questions, you can email or call [phone] to talk to our [facility] team. Please remember, Chirpify should NOT be used fo r urgent [...] , 2001 Cholecystectomy 1974 Skin cancer excision 7662-6541 Basal Cell Hysteroscopy 08/2001 Cataract removal 02/2011 [...] tablets by mouth 2 times d aily. [place]-3 Fatty Acids ([facility] OIL) 1000 [...]
--- OUTSIDE RECORDS SUMMARY | ~2019-02-11 | XMS | Encounter Summary ---
Demographics + + + | Address | [address] | | | [place] [address] | + + + | Home Phone [...] Providers + +------+ + | Care Student Counselor Name | Role | Phone | [...] Refill | | 2015 | | [facility] | [address] | | | | | [address] | [place] | | | | | [place] | [address] | | | | | [address] | | | | | | [phone] | | | +--------+--------+ + + + [...]
--- OUTSIDE RECORDS SUMMARY | ~2019-02-11 | XMS | Encounter Summary ---
Demographics + + + | Address | [address] | | | [place] [address] | + + + | Home Phone | | + + + | Preferred Language | Unknown | + + + | Marital Status | | + + + | Buddhist Affiliation | 1077 | + + + [...] Team Providers + +------+ + | Care Jersey Knitter Name | Role | Phone | + [...] | | | | [place] | [address] | | | | | [address] | | | | | | [phone] | | | +--------+ + + + [...] + | [facility] | [address] | [place] | [phone] | | [facility] | | [address] | | | - LABORATORY | | [...] [address] | [place] | [phone] | | [facility] | | [address] | | | - LABORATORY | | [...]
--- OUTSIDE RECORDS SUMMARY | ~2019-02-11 | XMS | Encounter Summary ---
Demographics + + + | Address | [address] | | | [place] [address] | + + + | Home Phone [...] Team Providers + +------+ + | Care Bicycle Taxi Driver Name | Role | Phone | [...] + | 04/30/ | Telephone | [facility] | Roderick Alexandra, | Arm Pain | | 2018 | | [facility] | [address] | | | | | [address] | [place] | | | | | [place] | [address] | | | | | [address] | | | | | | [phone] | | | +--------+ + + + [...] Quantitativ | quantitative D-Dimer | | [facility] | | | e | [...] [address] | [place] | [phone] | | [facility] | | [address] | | | - LABORATORY | | | | + + + + + documented in this encounter Visit Diagnoses + + | Diagnosis | + + | Left arm swelling - Primary Swelling of limb | + + | Chronic obstructive pulmonary disease, unspecified COPD type (HCC) | + + documented in this encounter"
--- OUTSIDE RECORDS SUMMARY | ~2019-02-11 | XMS | Encounter Summary ---
Demographics + + + | Address | [address] | | | [place] [address] | + + + | Home Phone | | + + + | Preferred Language | Unknown | + + + | Marital Status | | + + + | Moravian Affiliation | 1077 | + + + | Race | Unknown | + + + | Ethnic Group | Unknown | + + + Author + + + | Author | [facility] | | | and Saurabhana | + + + | Organization | [facility] | | | [...] Team Providers + +------+ + | Care Dot Compliance Manager Name | Role | Phone | [...] + + | 07/25/ | Office | [facility] | Roderick Alexandra, | Hypertension | | 2013 | Visit | [facility] | [address] | (Primary Dx); Right | | | | [address] | [place] | knee pain | | | | [place] | [address] | | | | | [address] | | | | | | [phone] | | | +--------+---------+ + + + [...] appt with ortho this after noon in [place]. Leaving for a 2 week trip. Hypertension [...] tablet by mouth nightly. 90 tablet 1 [place]-3 Fatty Acids ([facility] NATURAL FISH OIL) 1000 [...] (, 2001); Cholecystectomy (1973); Skin cancer excision (4869-8205); hy steroscopy (08/2001); and Cataract Removal (02/2011). [...] her get through her upcoming travel to [place]. 2. Hypertension. Well controlled. No changes in [...]
--- OUTSIDE RECORDS SUMMARY | ~2019-02-11 | XMS | Encounter Summary ---
Demographics + + + | Address | [address] | | | [place] [address] | + + + | Home Phone [...] Team Providers + +------+ + | Care Natural Resources Technician Name | Role | Phone | [...] Refill | | 2017 | | [facility] | [address] | | | | | [address] | [place] | | | | | [place] | [address] | | | | | [address] | | | | | | [phone] | | | +--------+--------+ + + + [...]
--- OUTSIDE RECORDS SUMMARY | ~2019-02-11 | XMS | Encounter Summary ---
Demographics + + + | Address | [address] | | | [place] [address] | + + + | Home Phone [...] Team Providers + +------+ + | Care Securities Teller Name | Role | Phone | + [...] Refill | | 2017 | | [facility] | [address] | | | | | [address] | [place] | | | | | [place] | [address] | | | | | [address] | | | | | | [phone] | | | +--------+--------+ + + + [...]
--- OUTSIDE RECORDS SUMMARY | ~2019-02-11 | XMS | Encounter Summary ---
Demographics + + + | Address | [address] | | | [place] [address] | + + + | Home Phone [...] Team Providers + +------+ + | Care Hold Worker Name | Role | Phone | [...] Refill | | 2013 | | [facility] | [address] | | | | | [address] | [place] | | | | | [place] | [address] | | | | | [address] | | | | | | [phone] | | | +--------+--------+ + + + [...]
--- OUTSIDE RECORDS SUMMARY | ~2019-02-11 | XMS | Encounter Summary ---
Demographics + + + | Address | [address] | | | [place] [address] | + + + | Home Phone | | + + + | Preferred Language | Unknown | + + + | Marital Status | | + + + | Yazidism Affiliation | 1077 | + + + | Race | Unknown | + + + | Ethnic Group | Unknown | + + + Author + + + | Author | [facility] | | | and Saurabhana | + + + | Organization | [facility] | | [...] Team Providers + +------+ + | Care Boner Meat Name | Role | Phone | + [...] + + | 01/23/ | Office | [facility] | Roderick Alexandra, | Routine history and | | 2013 | Visit | [facility]ICINE [place] | [address] | physical examination | | | | [address] | [place] | of adult (Primary | | | | [place] | [address] | Dx); COPD (chronic | | | | [address] | | obstructive | | | | [phone] | | pulmonary disease) | | | | | | ([facility]); Hypertension; | | | | | | [...] , 2002 Cholecystectomy 1974 Skin cancer excision 3829-9858 Basal Cell Hysteroscopy 08/2001 Cataract removal 02/2011 [...] Rosalind exercises likes to exercise by elliptical computer trainer. She watches her diet for sodium [...] by mouth at bedtime 90 tablet 1 [place]-3 Fatty Acids ([facility] NATURAL FISH OIL) 1000 [...] - General Current Medicare Suppliers: [facility] [facility] [place] [place] - [address] [facility] [address] [place] [address] HEALTH RISK ASSESSMENT: : The patient or [...] following health maintenance items are reviewed in [facility] and correct as of today: Health [...]
--- OUTSIDE RECORDS SUMMARY | ~2019-02-11 | XMS | Encounter Summary ---
Demographics + + + | Address | [address] | | | [place] [address] | + + + | Home Phone [...] Team Providers + +------+ + | Care Bead Trimmer Name | Role | Phone | + [...] + + | 05/07/ | Telephone | [facility] | Roderick Alexandra, | Referral (Follow up) | | 2017 | | MEDICINE [place] | [address] | | | | | [address] | [place] | | | | | [place] | [address] | | | | | [address] | | | | | | [phone] | | | +--------+ + + + [...]
--- OUTSIDE RECORDS SUMMARY | ~2019-02-11 | XMS | Encounter Summary ---
Demographics + + + | Address | [address] | | | [place] [address] | + + + | Home Phone [...] Team Providers + +------+ + | Care Sales Merchandiser Name | Role | Phone | + [...] + | 04/30/ | Telephone | [facility] | Roderick Alexandra, | Arm Pain | | 2018 | | [facility] | [address] | | | | | [address] | [place] | | | | | [place] | [address] | | | | | [address] | | | | | | [phone] | | | +--------+ + + + [...] | Quantitativ | quantitative D-Dimer | | [facility] | | | e | [...] [address] | [place] | [phone] | | [facility] | | [address] | | | - LABORATORY | | | | + + + + + documented in this encounter Visit Diagnoses + + | Diagnosis | + + | Left arm swelling - Primary Swelling of limb | + + | Chronic obstructive pulmonary disease, unspecified COPD type (HCC) | + + documented in this encounter"
--- OUTSIDE RECORDS SUMMARY | ~2019-02-11 | XMS | Encounter Summary ---
Demographics + + + | Address | [address] | | | [place] [address] | + + + | Home Phone | | + + + | Preferred Language | Unknown | + + + | Marital Status | | + + + | Buddhism Affiliation | 1077 | + + + | Race | Unknown | + + + | Ethnic Group | Unknown | + + + Author + + + | Author | [facility] | | | and Saurabhana | + + + | Organization | [facility] | | | [...] Providers + +------+ + | Care Manager Pipeline Name | Role | Phone | + [...] + + | 12/01/ | Office | [facility] | Mariluz Shields [place] | Fatigue (Primary | | 2012 | Visit | [facility]IC[facility] [place] | [address] [facility] | Dx); Routine history | | | | [address] | [address] [place], [place] | and physical | | | | [place] | [address] | examination of | | | | [address] | | adult; Need for | | | | [phone] | | immunization against | | | [...] new symptoms arise. Patient declined exam today. [facility] Annual Wellness Visit Rosalind Patel is a [...] no Have you ever been diagnosed with [place]? no Have you ever been diagnosed with [...] , 2001 Cholecystectomy 1974 Skin cancer excision 5089-1678 Basal Cell Hysteroscopy 08/2001 Cataract removal 02/2011 [...] tablet by mouth nightly. 90 tablet 1 [place]-3 Fatty Acids ([facility] OIL) 1000 [...] [address] [place] [address] DEPRESSION SCREEN Health Risk Appraisal : Health [...] (Used with permission from [employer] [[email or web address]) BP 138/68 | Pulse 62 | Temp [...] no Have you ever been diagnosed with [place]? no Have you ever been diagnosed with [...] , 2001 Cholecystectomy 1974 Skin cancer excision 7733-1664 Basal Cell Hysteroscopy 08/2001 Cataract removal 02/2011 [...] tablet by mouth nightly. 90 tablet 1 [place]-3 Fatty Acids ([facility] NATURAL FISH OIL) 1000 [...] Providers and DME Suppliers Patient Care Team: oRderick Alexandra MD as PCP - General Current Medicare Suppliers: [facility] [facility] [place] [place] - [address] [place] [address] DEPRESSION SCREEN Health Risk Appraisal : Health [...] (Used with permission from [employer] [[email or web address]) BP 138/68 | Pulse 62 | Temp [...] to clinic if fatigue worsen. Return to [facility] in 6 mths for follow up exam. [...]
--- OUTSIDE RECORDS SUMMARY | ~2019-02-11 | XMS | Encounter Summary ---
Demographics + + + | Address | [address] | | | [place] [address] | + + + | Home Phone [...] Team Providers + +------+ + | Care Fishing Boat Captain Name | Role | Phone | + [...] Refill | | 2015 | | [facility] | [address] | | | | | [address] | [place] | | | | | [place] | [address] | | | | | [address] | | | | | | [phone] | | | +--------+--------+ + + + [...]
--- OUTSIDE RECORDS SUMMARY | ~2019-02-11 | XMS | Encounter Summary ---
Demographics + + + | Address | [address] | | | [place] [address] | + + + | Home Phone [...] Team Providers + +------+ + | Care Cytotechnologist Supervisor Name | Role | Phone | [...] | | | [address] | Way [place], [place] | | | | | [place], [place] | [address] | | | | | [address] | | | | | | [phone] | | | +--------+ + + + [...] | | is mild aortic regurgitation. 5. Cbel-ny-uzjazmgm mitral | | | regurgitation is present. [...] 4. There is mild aortic regurgitation. 5. Zcju-sx-ntenmvgs mitral | | | regurgitation is present. [...] Valve: Mitral valve is thickened. Mitral Valve: Lbww-lw-kwffwdja | | | mitral regurgitation is present. [...] TR Vmax: | | | 3.32 m/s Refuse Laborer: Authenticated by: JAVI ARAIZA MD | | [...] There is mild aortic regurgitation.5. | | Jmov-er-qyctpgza mitral regurgitation is present.6. Mild mitral stenosis [...] | Valve: Mitral valve is thickened.Mitral Valve: Jevx-xe-folgoyib mitral regurgitation is | | present.Mitral Valve: [...] cmLVPWd: 0.99 | | cmLVOT Area: 2.71 [id number] Diam: 1.86 cm%FS: 43.93 %EF(Teich): 75.88 %ESV(Teich): [...] mlLAESV Index (A-L): 34.11 ml/m2LAAs A2C: 20.70 es9YDSSG A-L | | A2C: 63.38 mlLALs A2C: 5.74 cmLAAs A4C: 13.77 xf5PCDDD A-L A4C: 35.64 mlLALs | | A4C: 4.52 cmRAAs: 8.74 bv3LWCWQ A-L: 17.58 mlRAESV MOD: 15.26 mlRALs: 3.69 | | cmTAPSE: 2.38 cmAV maxP.23 mmHgAV meanP.04 mmHgAV Vmax: 2.13 m/Adal | | Vmean: 1.39 m/Adal VTI: 34.72 cmAVA Vmax: 1.84 cm2AVA (VTI): 2.03 vy9RFOQ Vmax: | | 0.00 cm2/m2AVAI (VTI): 0.00 [...] VTI: 42.78 cmMVA (VTI): 1.65 | | jw8Uyixbi e': 0.06 m/sSeptal E/e': 25.05Lateral e': 0.07 m/sLateral E/e': | | 22.15RAP: 5 mmHgRVSP: 49.30 mmHgTR maxP.30 mmHgTR Vmax: 3.32 m/s | | Refuse Laborer:Authenticated by: NICHOLE COELLOun[facility] Date/Time: 06-22-2017 17:0:1 | | IMPRESSION: 1. Left ventricular systolic function is hyperdynamic with an estimated EF | | of >70%.2. Pseudonormal LV diastolic filling pattern, consistent with elevated LA | | pressure and moderate dysfunction (Grade II).3. The right ventricle is normal in size | | and function.4. There is mild aortic regurgitation.5. Sqbh-un-tsbsgqsu mitral | | regurgitation is present.6. Mild [...] |TR Vmax: 3.32 m/s | | | |Refuse Laborer: | |Authenticated by: JAVI ARAIZA MD | [...] There is mild aortic regurgitation. | |5. Smbm-ri-cfiygkuy mitral regurgitation is present. | |6. Mild [...]
--- OUTSIDE RECORDS SUMMARY | ~2019-02-11 | XMS | Encounter Summary ---
Demographics + + + | Address | [address] | | | [place] [address] | + + + | Home Phone | | + + + | Preferred Language | Unknown | + + + | Marital Status | | + + + | Jainism Affiliation | 1077 | + + + | Race | Unknown | + + + | Ethnic Group | Unknown | + + + Author + + + | Author | [facility] | | | and Saurabhana | + + + | Organization | [facility] | | [...] Team Providers + +------+ + | Care Gray Tender Name | Role | Phone | [...] Description | +--------+--------+ + + + | 05/17/ | Refill | [facility] [place] [facility] | Roderick Alexandra, | Medication Refill | | 2013 | | [facility] | [address] | | | | | [address] | [place] | | | | | [place] | [address] | | | | | [address] | | | | | | [phone] | | | +--------+--------+ + + + [...]
--- OUTSIDE RECORDS SUMMARY | ~2019-02-11 | XMS | Encounter Summary ---
Demographics + + + | Address | [address] | | | [place] [address] | + + + | Home Phone [...] Providers + +------+ + | Care Manager Culinary Name | Role | Phone | + [...] + + | 02/12/ | Telephone | [facility] | Roderick Alexandra, | Results | | 2018 | | MEDICINE [place] | [address] | (mammogram/updated | | | | [address] | [place] | external results) | | | | [place] | [address] | | | | | [address] | | | | | | [phone] | | | +--------+ + + + [...]
--- OUTSIDE RECORDS SUMMARY | ~2019-02-11 | XMS | Encounter Summary ---
Demographics + + + | Address | [address] | | | [place] [address] | + + + | Home Phone | | + + + | Preferred Language | Unknown | + + + | Marital Status | | + + + | Yazidi Affiliation | 1077 | + + + [...] Providers + +------+ + | Care Marketing Technologist Name | Role | Phone | + [...] Refill | | 2017 | | [facility] | [address] | | | | | [address] | [place] | | | | | [place] | [address] | | | | | [address] | | | | | | [phone] | | | +--------+--------+ + + + [...]
--- OUTSIDE RECORDS SUMMARY | ~2019-02-11 | XMS | Encounter Summary ---
Demographics + + + | Address | [address] | | | [place] [address] | + + + | Home Phone [...] Team Providers + +------+ + | Care Launderette Attendant Name | Role | Phone | [...] + | 01/22/ | Telephone | [facility] | Roderick Alexandra, | Lab Order | | 2015 | | MEDICINE [place] | [address] | | | | | [address] | [place] | | | | | [place] | [id number] | | | | | [address] | | | | | | [phone] | | | +--------+ + + + [...]
--- OUTSIDE RECORDS SUMMARY | ~2019-02-11 | XMS | Encounter Summary ---
Demographics + + + | Address | [address] | | | [place] [address] | + + + | Home Phone [...] | + + +---------+ + | Shelli Tinaejro | ECON | Unknown | | + + +---------+ + Care Team Providers + +------+ + | Care Gold Prospector Name | Role | Phone | + [...] Refill | | 2013 | | [facility] | [address] | | | | | [address] | [place] | | | | | [place] | [address] | | | | | [address] | | | | | | [phone] | | | +--------+--------+ + + + [...]
--- OUTSIDE RECORDS SUMMARY | ~2019-02-11 | XMS | Encounter Summary ---
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 Essential [...]
--- OUTSIDE RECORDS SUMMARY | ~2019-02-11 | XMS | Encounter Summary ---
Demographics + + + | Address | [address] | | | [place] [address] | + + + | Home Phone [...] Providers + +------+ + | Care Supervisor Graphite Name | Role | Phone | + [...] Refill | | 2014 | | [facility] | [address] | | | | | [address] | [place] | | | | | [place] | [address] | | | | | [address] | | | | | | [phone] | | | +--------+--------+ + + + [...]
--- OUTSIDE RECORDS SUMMARY | ~2019-02-11 | XMS | Encounter Summary ---
Demographics + + + | Address | [address] | | | [place] [address] | + + + | Home Phone [...] Team Providers + +------+ + | Care Test Baker Name | Role | Phone | + [...] Description | +--------+--------+ + + + | 11/17/ | Refill | [facility] | Roderick Alexandra, | Medication Refill | | 2012 | | [facility] | [address] | | | | | [address] | [place] | | | | | [place] | [address] | | | | | [address] | | | | | | [phone] | | | +--------+--------+ + + + [...]
--- OUTSIDE RECORDS SUMMARY | ~2019-02-11 | XMS | Encounter Summary ---
Demographics + + + | Address | [address] | | | [place] [address] | + + + | Home Phone | | + + + | Preferred Language | Unknown | + + + | Marital Status | | + + + | Voodoo Affiliation | 1077 | + + + | Race | Unknown | + + + | Ethnic Group | Unknown | + + + Author + + + | Author | [facility] | | | and Saurabhana | + + + | Organization | [facility] | | | and [...] Team Providers + +------+ + | Care Docket Specialist Name | Role | Phone | [...] | | | | [place] | [address] | | | | | [address] | | | | | | [phone] | | | +--------+ + + + [...]
--- OUTSIDE RECORDS SUMMARY | ~2019-02-11 | XMS | Encounter Summary ---
Demographics + + + | Address | [address] | | | [place] [address] | + + + | Home Phone [...] Providers + +------+ + | Care Apartment Maintenance Worker Name | Role | Phone | [...] | | | | [place] | [address] | | | | | [address] | | | | | | [phone] | | | +--------+ + + + [...]
--- OUTSIDE RECORDS SUMMARY | ~2019-02-11 | XMS | Encounter Summary ---
Demographics + + + | Address | [address] | | | [place] [address] | + + + | Home Phone [...] Team Providers + +------+ + | Care Assistant Superintendent Name | Role | Phone | + [...] + | 06/07/ | Telephone | [facility] | Roderick Alexandra, | Lab Order | | 2013 | | MEDICINE [place] | [address] | | | | | [address] | [place] | | | | | [place] | [address] | | | | | [address] | | | | | | [phone] | | | +--------+ + + + [...]
--- OUTSIDE RECORDS SUMMARY | ~2019-02-11 | XMS | Encounter Summary ---
Demographics + + + | Address | [address] | | | [place] [address] | + + + | Home Phone [...] Team Providers + +------+ + | Care Paediatric Thoracic Physician Name | Role | Phone | + [...] | | 2012 | | [facility] | [address] | | | | | [address] | [place] | | | | | [place] | [address] | | | | | [address] | | | | | | [phone] | | | +--------+--------+ + + + [...]
--- OUTSIDE RECORDS SUMMARY | ~2019-02-11 | XMS | Encounter Summary ---
Demographics + + + | Address | [address] | | | [place] [address] | + + + | Home Phone | | + + + | Preferred Language | Unknown | + + + | Marital Status | | + + + | Zoroastrian Affiliation | 1077 | + + + | Race | Unknown | + + + | Ethnic Group | Unknown | + + + Author + + + | Author | [facility] | | | and Saurab[place]ana | + + + | Organization | [facility] | | | [...] Team Providers + +------+ + | Care Refrigeration Service Technician Name | Role | Phone | [...] | | | | | [address] | [place], [place] | | | | | [place], [place] | [address] | | | | | [address] | | | | | | [phone] | | | +--------+ + + + [...] [address] | | eral | Antecubital; [id number] | Makayla De Los Santos | Melody [...]
--- OUTSIDE RECORDS SUMMARY | ~2019-02-11 | XMS | Encounter Summary ---
Demographics + + + | Address | [address] | | | [place] [address] | + + + | Home Phone [...] Providers + +------+ + | Care Senior Hr Manager Name | Role | Phone | + +------+ + PCP | Unavailable | + +------+ + Encounter Details +--------+ + + + + | Date | Type | Department | Care Team | Description | +--------+ + + + + | 08/26/ | [facility] | [facility] | Tim, | | | 2006 | Encounter | MED CTR EMERGENCY | Nilton Alvarado MD [address] | | | | | [place] [address] | [address] [place] | | | | | [place], [place] | [place] [address] | | | | | [address] | [phone] | | | | | [phone] | | | +--------+ + + + [...]
--- OUTSIDE RECORDS SUMMARY | ~2019-02-11 | XMS | Encounter Summary ---
Demographics + + + | Address | [address] | | | [place] [address] | + + + | Home Phone [...] Team Providers + +------+ + | Care Registered Nurse Float Pool Name | Role | Phone | + [...] + | 01/16/ | Telephone | [facility] | Roder[place] Alexandra, | Lab Order | | 2013 | | MEDICINE [place] | [address] | | | | | [address] | [place] | | | | | [place] | [address] | | | | | [address] | | | | | | [phone] | | | +--------+ + + + [...]
--- OUTSIDE RECORDS SUMMARY | ~2019-02-11 | XMS | Encounter Summary ---
Demographics + + + | Address | [address] | | | [place] [address] | + + + | Home Phone [...] Team Providers + +------+ + | Care Motorboat Mechanic Helper Name | Role | Phone | [...] Refill | | 2017 | | [facility]INE [facility] | [address] | | | | | [address] | [place] | | | | | [place] | [address] | | | | | [address] | | | | | | [phone] | | | +--------+--------+ + + + [...]
--- OUTSIDE RECORDS SUMMARY | ~2019-02-11 | XMS | Encounter Summary ---
Demographics + + + | Address | [address] | | | [place] [address] | + + + | Home Phone [...] Providers + +------+ + | Care Certified Technician Name | Role | Phone | [...] Refill | | 2016 | | [facility] | [address] | | | | | [address] | [place] | | | | | [place] | [address] | | | | | [address] | | | | | | [phone] | | | +--------+--------+ + + + [...]
--- OUTSIDE RECORDS SUMMARY | ~2019-02-11 | XMS | Encounter Summary ---
Demographics + + + | Address | [address] | | | [place] [address] | + + + | Home Phone [...] Team Providers + +------+ + | Care Dance Choreographer Name | Role | Phone | + [...] Imaging | | 2017 | | MEDICINE [place] | [address] | | | | | [address] | [place] | | | | | [place] | [address] | | | | | [address] | | | | | | [phone] | | | +--------+ + + + [...]
--- OUTSIDE RECORDS SUMMARY | ~2019-02-11 | XMS | Clinical Summary ---
Demographics + + + | Address | [address] | | | [place] [address] | + + + | Home Phone | | + + + | Preferred Language | Unknown | + + + | Marital Status | | + + + | Temple Affiliation | Unknown | + + + | Race | Unknown | + + + | Ethnic Group | Unknown | + + + Author + + + | Author | [employer] [facility] (Historical as of | | | 10-02-18) | + + + | Organization | [facility] (Historical as of | | | 10-02-18) [...] Team Providers + +------+ + | Care Patients Transporter Name | Role | Phone | + [...] +------+-------+ + | MEDICARE | MEDICA | [id number] | | | [address] | | | [place] | | | | [place] [address] | | | IP-OP | | | | | + +--------+ +------+-------+ + | [employer]AN | ODS | [id number] | | | | | | HEALTH [...] | | | [place] | | | [address] | [address] | + +--------+ +--------+ + +"
--- OUTSIDE RECORDS SUMMARY | ~2019-02-11 | XMS | Encounter Summary ---
Demographics + + + | Address | [address] | | | [place] [address] | + + + | Home Phone | | + + + | Preferred Language | Unknown | + + + | Marital Status | | + + + | Church Affiliation | 1077 | + + + [...] Team Providers + +------+ + | Care Online Marketing Coordinator Name | Role | Phone | + +------+ + PCP | Unavailable | + +------+ + Encounter Details +--------+ + + + + | Date | Type | Department | Care Team | Description | +--------+ + + + + | 01/13/ | Hospital | [facility] | | | | 2000 | Encounter | MED CTR XRAY [address] | | | | | | [place] | | | | | | [place] [address] | | | | | | [phone] | | | +--------+ + + + [...]
--- OUTSIDE RECORDS SUMMARY | ~2019-02-11 | XMS | Encounter Summary ---
Demographics + + + | Address | [address] | | | [place] [address] | + + + | Home Phone [...] Team Providers + +------+ + | Care Hydraulic Press Operator Name | Role | Phone [...] Refill | | 2012 | | [facility] | [address] | | | | | [address] | [place] | | | | | [place] | [address] | | | | | [address] | | | | | | [phone] | | | +--------+--------+ + + + [...]
--- OUTSIDE RECORDS SUMMARY | ~2019-02-11 | XMS | Encounter Summary ---
Demographics + + + | Address | [address] | | | [place] [address] | + + + | Home Phone [...] Team Providers + +------+ + | Care Direct Marketing Specialist Name | Role | Phone | [...] (Echo) | | 2019 | | MEDICINE [facility] | [address] | | | | | [address] | [place] | | | | | [place] | [address] | | | | | [address] | | | | | | [phone] | | | +--------+ + + + [...]
--- OUTSIDE RECORDS SUMMARY | ~2019-02-11 | XMS | Encounter Summary ---
Demographics + + + | Address | [address] | | | [place] [address] | + + + | Home Phone [...] Team Providers + +------+ + | Care Advertising Assistant Manager Name | Role | Phone | [...] + | 07/17/ | Telephone | [facility] | [place]do[place] Alexandra, | Lab Order | | 2015 | | MEDICINE [place] | [address] | | | | | [address] | [place] | | | | | [place] | [address] | | | | | [address] | | | | | | [phone] | | | +--------+ + + + [...]
--- OUTSIDE RECORDS SUMMARY | ~2019-02-11 | XMS | Encounter Summary ---
Demographics + + + | Address | [address] | | | [place] [address] | + + + | Home Phone [...] Team Providers + +------+ + | Care Aircraft Communicator Name | Role | Phone | + [...] + + | 07/24/ | Office | [facility] | Roder[place] Alexandra, | Essential | | 2015 | Visit | MEDICINE [place] | [address] | hypertension | | | | [address] | [place], [place] | (Primary Dx); | | | | [place] | [address] | Hyperlipidemia; COPD | | | | [address] | | (chronic | | | | [phone] | | obstructive | | | | | | pulmonary disease) | | | | | | ([facility]); Need for | | | | | [...] take 1 tablet by mouth at bedtime [place]-3 Fatty Acids ([facility] NATURAL FISH OIL) 1000 [...] (12/31/1999); and COPD (chronic obstructive pulmonary disease) ([facility]). Past Surgical History She has past surgical history that includes Appendectomy (1940); Tonsillectomy; Dilation an d curettage of uterus (, 2001); Cholecystectomy (1973); Skin cancer excision (1972-3488); hy steroscopy (08/2001); and Cataract Removal (02/2011). 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
--- OUTSIDE RECORDS SUMMARY | ~2019-02-11 | XMS | Encounter Summary ---
Demographics + + + | Address | [address] [place] [address] | | | [place] [address] | + + + | Home Phone [...] Team Providers + +------+ + | Care Mental Health Program Director Name | Role | Phone | [...] | | insufficienc | [address] | [place], [place] | | | | | y, | [place] | [address] | | | | | unspecified | [place], [place] | Phone: | | | | | etiology | [address] | [phone] | | | | | Procedures | Phone: | Fax: | | | | | ECHO | [phone] | [phone] | | | | | Complete | Fax: | | | | | | | [phone] | | + +--------+ + + + + Reason for Visit + + + | Reason | Comments | + + + | Follow-up | 8 week / ECHO / STRESS TEST | + + + Encounter Details +--------+---------+ + + + | Date | Type | Department | Care Team | Description | +--------+---------+ + + + | 12/22/ | Office | 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 Since that time, she has [...] been feeling okay. 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 There is mild aortic regurgitation. 5. Izck-qh-jmramyzx mitral regurgitation is present. 6. Mild mitral [...] doing well recently [facility]. No further cardiac testing is indicated [...]
--- OUTSIDE RECORDS SUMMARY | ~2019-02-11 | XMS | Encounter Summary ---
Demographics + + + | Address | [address] | | | [place] [address] | + + + | Home Phone | | + + + | Preferred Language | Unknown | + + + | Marital Status | | + + + | Latter-Day Affiliation | 1077 | + + + | Race | Unknown | + + + | Ethnic Group | Unknown | + + + Author + + + | Author | [facility] | | | and Saurabhana | + + + | Organization | [facility] | | [...] Team Providers + +------+ + | Care Tire Repairman Name | Role | Phone | + [...] + + | 04/23/ | Office | [facility] | Roderick Alexandra, | Non-cardiac chest | | 2018 | Visit | MEDICINE [place] | [address] | pain (Primary Dx); | | | | [address] | [place] | Chronic obstructive | | | | [place] | [address] | pulmonary disease, | | | | [address] | | unspecified COPD | | | | [phone] | | type (HCC); Left arm | [...] has been changed since signin Order Audit [employer] Multiple Vitamins-Minerals (PRESERVISION AREDS 2) CAPS (Taking) Take 2 capsules by mouth Daily. niacin (NIASPAN) 500 mg CR tablet (Taking) take 1 tablet by mouth at bedtime Number of times this order has been changed since signin Order Audit [employer] [place]-3 Fatty Acids ([facility] NATURAL FISH OIL) 1000 MG CAPS (Taking) Take 1,000 mg by mouth D aily. 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 Will refer patient t o [facility]. 5. Essential hypertension Well controlled. The [...]
--- OUTSIDE RECORDS SUMMARY | ~2019-02-11 | XMS | Encounter Summary ---
Demographics + + + | Address | [address] | | | [place] [address] | + + + | Home Phone [...] Providers + +------+ + | Care Manager Reliability Name | Role | Phone | + [...] Refill | | 2013 | | [facility] | [address] | | | | | [address] | [place] | | | | | [place] | [address] | | | | | [address] | | | | | | [phone] | | | +--------+--------+ + + + [...]
--- OUTSIDE RECORDS SUMMARY | ~2019-02-11 | XMS | Clinical Summary ---
Demographics + + + | Address | [address] | | | [place] [address] | + + + | Home Phone | | + + + | Preferred Language | Unknown | + + + | Marital Status | | + + + | Lutheran Affiliation | 1077 | + + + [...] Team Providers + +------+ + | Care Cone Runner Name | Role | Phone | + [...] + +---+ + + | Overview: KELLY [id number] Decision | + + Resolved Problems + [...] | | 05/16/ | [id number] | | [id number]: Qty: 1 on | c | Eye | - [facility] | | 2018 | .19.0D | | 06/30/2016 by Belkys, | | | | | | | | Vicenta Alvarado MD at [facility] | | | | | | /[id number] | | [facility] | | | | | | [address] [...] + +--------+ | MODA | MODA | [id number] | 04/17/19 | [phone] | [address] | Indemn | | | HEALTH | | 08-Pre | 9 | [address] | ity | | | MDCR | | sent | | [place], | | | | [place] | | | | [place] [address] | | + +--------+ +--------+ + +--------+ | MEDICARE | MEDICA | [id number] | 07/17/18 | [phone] | | Medica | | | RE | | 99-Pre | 5 | | re | | | PART A | | sent | | | | | | AND B | | | | | | + +--------+ +--------+ + +--------+ | MEDICARE | MEDICA | [id number] | 07/17/18 | [phone] | | Medica | | | RE | | 99-Pre | 5 | | re | | | PART A | | sent | | | | | | AND B | | | | | | + +--------+ +--------+ + +--------+ | MODA | MODA | [id number] | 02/16/19 | [phone] | [address] | Indemn | | | HEALTH | | 19-Pre | 9 | [address] | ity | | | MDCR | | sent | | [place], | | | | [place] | | | | [place] [address] | | + +--------+ +--------+ + +--------+ [...] Clarice | al/Fam | | 1936 | [phone] | [place] | | | [place] | | | 3 (Home) | [address] | + +--------+ +--------+ + + | Rosalind Patel | Person | Self | [birth year] | [address] | | [place] | al/Fam | | 1936 | [phone] | [place] | | | aliyah | | | 3 (Home) | [address] | + +--------+ +--------+ + + Advance Directives + + + + + | Type | Date Recorded | Patient | Explanation | | | | Deburr Technician | | + + + + + | Power of | | | | | Land Leasing Examiner | | | | + + + + + | Power of | | | | | Land Leasing Examiner | | | | + + + [...]
--- OUTSIDE RECORDS SUMMARY | ~2019-02-11 | XMS | Encounter Summary ---
Demographics + + + | Address | [address] [place] [address] | | | [place] [address] | + + + | Home Phone [...] Team Providers + +------+ + | Care Processing Inspector Name | Role | Phone | [...] | | | | [place] | [address] | | | | | [address] | | | | | | [phone] | | | +--------+ + + + [...]
--- OUTSIDE RECORDS SUMMARY | ~2019-02-11 | XMS | Encounter Summary ---
Demographics + + + | Address | [address] | | | [place] [address] | + + + | Home Phone [...] Team Providers + +------+ + | Care Telecom Manager Name | Role | Phone | [...] + | 01/20/ | Telephone | [facility] | Roderick Alexandra, | LABS | | 2016 | | [facility] | [address] | | | | | [address] | [place] | | | | | [place] | [address] | | | | | [address] | | | | | | [phone] | | | +--------+ + + + [...]
--- OUTSIDE RECORDS SUMMARY | ~2019-02-11 | XMS | Encounter Summary ---
Demographics + + + | Address | [address] [place] [address] | | | [place] [address] | + + + | Home Phone [...] Team Providers + +------+ + | Care Felled Seam Operator Chainstitch Name | Role | Phone | + [...] + | 05/18/ | Telephone | [facility] | Roderick Alexandra, | Lab Order | | 2012 | | MEDICINE [place] | [address] | | | | | [address] | [place] | | | | | [place] | [address] | | | | | [address] | | | | | | [phone] | | | +--------+ + + + [...]
--- OUTSIDE RECORDS SUMMARY | ~2019-02-11 | XMS | Encounter Summary ---
Demographics + + + | Address | [address] [place] [address] | | | [place] [address] | + + + | Home Phone [...] Team Providers + +------+ + | Care Hookman Name | Role | Phone | + [...] + | 11/26/ | Telephone | [facility] | Roderick Alexandra, | Lab Order | | 2012 | | MEDICINE [place] | [address] | | | | | [address] | [place] | | | | | [place] | [address] | | | | | [address] | | | | | | [phone] | | | +--------+ + + + [...]
--- OUTSIDE RECORDS SUMMARY | ~2019-02-11 | XMS | Encounter Summary ---
Demographics + + + | Address | [address] | | | [place] [address] | + + + | Home Phone | | + + + | Preferred Language | Unknown | + + + | Marital Status | | + + + | Anabaptist Affiliation | 1077 | + + + | Race | Unknown | + + + | Ethnic Group | Unknown | + + + Author + + + | Author | [facility] | | | and [place]aurab[place]ana | + + + | Organization | [facility] | | | and [place] | + + + | Address | Unknown | + + + | Phone | Unavailable | + + + Support + + +---------+ + | Name | Relationship | Address | Phone | + + +---------+ + | Addy Moore | ECON | Unknown | | + + +---------+ + | Shelil Tinajero | ECON | Unknown | | + + +---------+ + Care Team Providers + +------+ + | Care Spiral Binder Name | Role | Phone | + [...] Refill | | 2017 | | MEDICINE [place] | [address] | | | | | [address] | [place] | | | | | [place] | [address] | | | | | [address] | | | | | | [phone] | | | +--------+--------+ + + + [...]
--- OUTSIDE RECORDS SUMMARY | ~2019-02-11 | XMS | Encounter Summary ---
Demographics + + + | Address | [address] [place] [address] | | | [place] [address] | + + + | Home Phone [...] Team Providers + +------+ + | Care Patient Service Representative Name | Role | Phone | [...] Refill | | 2015 | | [facility] | [address] | | | | | [address] | [place] | | | | | [place] | [address] | | | | | [address] | | | | | | [phone] | | | +--------+--------+ + + + [...]
--- OUTSIDE RECORDS SUMMARY | ~2019-02-11 | XMS | Encounter Summary ---
Demographics + + + | Address | [address] [place] [address] | | | [place] [address] | + + + | Home Phone [...] Team Providers + +------+ + | Care Retail Sales Director Name | Role | Phone | [...] Refill | | 2012 | | [facility] | [address] | | | | | [address] | [place] | | | | | [place] | [address] | | | | | [address] | | | | | | [phone] | | | +--------+--------+ + + + [...]
--- OUTSIDE RECORDS SUMMARY | ~2019-02-11 | XMS | Encounter Summary ---
Demographics + + + | Address | [address] | | | [place] [address] | + + + | Home Phone [...] Team Providers + +------+ + | Care Brand Marketing Intern Name | Role | Phone | [...] | 05/27/ | Telephone | [facility] | Roder[place] Alexandra, | Results | | 2012 | | [facility]ICINE [facility] | [address] | | | | | [address] | [place] | | | | | [place] | [address] | | | | | [address] | | | | | | [phone] | | | +--------+ + + + [...]
--- OUTSIDE RECORDS SUMMARY | ~2019-02-11 | XMS | Encounter Summary ---
Demographics + + + | Address | [address] [place] [address] | | | [place] [address] | + + + | Home Phone [...] Team Providers + +------+ + | Care Sec Accountant Name | Role | Phone | + +------+ + PCP | Unavailable | + +------+ + Encounter Details +--------+ + + + + | Date | Type | Department | Care Team | Description | +--------+ + + + + | 08/26/ | [facility] | [facility] | Tim, | | | 2006 | Encounter | MED CTR EMERGENCY | Nilton Alvarado MD [address] | | | | | [facility] [address] | [address] [place] | | | | | [place], [place] | [place] [address] | | | | | [address] | [phone] | | | | | [phone] | | | +--------+ + + + [...]
--- OUTSIDE RECORDS SUMMARY | ~2019-02-11 | XMS | Encounter Summary ---
Demographics + + + | Address | [address] | | | [place] [address] | + + + | Home Phone [...] Team Providers + +------+ + | Care Print Producer Name | Role | Phone | + [...] + | 12/23/ | Telephone | [facility] | Roder[place] Alexandra, | Results | | 2011 | | [facility] | [address] | | | | | [address] | [place] | | | | | [place] | [address] | | | | | [address] | | | | | | [phone] | | | +--------+ + + + [...]
--- OUTSIDE RECORDS SUMMARY | ~2019-02-11 | XMS | Encounter Summary ---
Demographics + + + | Address | [address] | | | [place] [address] | + + + | Home Phone [...] Team Providers + +------+ + | Care Manufacturing Engineer Automotive Name | Role | Phone | + [...] Refill | | 2012 | | [facility] | [address] | | | | | [address] | [place] | | | | | [place] | [address] | | | | | [address] | | | | | | [phone] | | | +--------+--------+ + + + [...]
--- OUTSIDE RECORDS SUMMARY | ~2019-02-11 | XMS | Encounter Summary ---
Demographics + + + | Address | [address] | | | [place] [address] | + + + | Home Phone [...] Team Providers + +------+ + | Care Insurance Checker Name | Role | Phone | + [...] | | 2017 | | MEDICINE [facility] | [address] | | | | | [address] | [place] | | | | | [place] | [address] | | | | | [address] | | | | | | [phone] | | | +--------+--------+ + + + [...]
--- OUTSIDE RECORDS SUMMARY | ~2019-02-11 | XMS | Encounter Summary ---
Demographics + + + | Address | [address] | | | [place] [address] | + + + | Home Phone [...] Team Providers + +------+ + | Care Top Tile Decorator Name | Role | Phone | + +------+ + PCP | Unavailable | + +------+ + Encounter Details +--------+ + + + + | Date | Type | Department | Care Team | Description | +--------+ + + + + | 04/04/ | Hospital | [facility] | | | | 2005 | Encounter | MED CTR XRAY [address] | | | | | | [place] | | | | | | [place] [address] | | | | | | [phone] | | | +--------+ + + + [...]
--- OUTSIDE RECORDS SUMMARY | ~2019-02-11 | XMS | Encounter Summary ---
Demographics + + + | Address | [address] | | | [place] [address] | + + + | Home Phone [...] Team Providers + +------+ + | Care Geothermal Powerplant Mechanic Name | Role | Phone | [...] | | | | [place] | [address] | | | | | [address] | | | | | | [phone] | | | +--------+ + + + [...]
--- OUTSIDE RECORDS SUMMARY | ~2019-02-11 | XMS | Encounter Summary ---
Demographics + + + | Address | [address] | | | [place] [address] | + + + | Home Phone [...] [facility] [place] | | | and Saru[place]hana | + + + | Organization | [...] Team Providers + +------+ + | Care Smt Technician Name | Role | Phone | [...] | | | | [place] | [address] | | | | | [address] | | | | | | [phone] | | | +--------+ + + + [...] + | [facility] | [address] | [place] | [phone] | | [facility] | | [address] | | | - LABORATORY | | [...] [address] | [place] | [phone] | | [facility] | | [address] | | | - LABORATORY | | [...]
--- OUTSIDE RECORDS SUMMARY | ~2019-02-11 | XMS | Encounter Summary ---
Demographics + + + | Address | [address] | | | [place] [address] | + + + | Home Phone [...] Team Providers + +------+ + | Care Intern Brand Name | Role | Phone | + [...] + | 05/27/ | Telephone | [facility] | Roderick Alexandra, | Results | | 2012 | | MEDICINE [place] | [address] | | | | | [address] | [place] | | | | | [place] | [address] | | | | | [address] | | | | | | [phone] | | | +--------+ + + + [...]
--- OUTSIDE RECORDS SUMMARY | ~2019-02-11 | XMS | Encounter Summary ---
Demographics + + + | Address | [address] | | | [place] [address] | + + + | Home Phone [...] Providers + +------+ + | Care Business Support Coordinator Name | Role | Phone | [...] | 12/14/ | Telephone | [facility] | Rylee Robert RN | ED Follow-up | | 2011 | | MEDICINE [place] | | | | | | [address] | | | | | | [place] | | | | | | [address] | | | | | | [phone] | | | +--------+ + + + [...]
--- OUTSIDE RECORDS SUMMARY | ~2019-02-11 | XMS | Encounter Summary ---
Demographics + + + | Address | [address] | | | [place] [address] | + + + | Home Phone | | + + + | Preferred Language | Unknown | + + + | Marital Status | Single | + + + | Adventist Affiliation | Unknown | + + + | Race | Unknown | + + + | Ethnic Group | Other Race | + + + Author + + + | Author | [facility] | + + + | Organization | [facility] | + + + | [...] [id number] | | | | | | [facility] | | | | | | and Healing, | | | | | | Building 1, 5th | | | | | | Floor [place], [place] | | | | | | [address] | | | | | | [phone] | | | +--------+ + + + [...] | | | | | | skin, [id number]. The | | | | | | [...] [facility] | Mail[address], [address] | [place] [address] | | | DERMATOPATHOLOGY | [address] | | | + + + + + documented in this encounter Visit Diagnoses Not on filedocumented in this encounter
--- OUTSIDE RECORDS SUMMARY | ~2019-02-11 | XMS | Encounter Summary ---
Demographics + + + | Address | [address] | | | [place] [address] | + + + | Home Phone [...] Providers + +------+ + | Care Director Speech Language Name | Role | Phone | + [...] | | | | [place] | [address] | | | | | [address] | | | | | | [phone] | | | +--------+ + + + [...] | [address] | [place] [address] | [phone] | | [facility] | | | | + + + + + | REFERENCE LAB | [address] | [place] [address] | [phone] | | [facility] | | | | [...] | [address] | [place] [address] | [phone] | | [facility] | | | | + + + + + | REFERENCE LAB | [address] | [place] [address] | [phone] | | [facility] | | | | [...] + + + | REFERENCE LAB | [address] | [place] [address] | [phone] | | [facility] | | | | + + + + + | REFERENCE LAB | [address] [facility] | [place] [address] | [phone] | | [facility] | | | | [...] + + | REFERENCE LAB | [address] [facility] | [place] [address] | [phone] | | [facility] | | | | + + + + + | REFERENCE LAB | [address] [facility] | [place] [address] | [phone] | | [facility] | | | | [...] + + | REFERENCE LAB | [address] [facility] | [place] [address] | [phone] | | [facility] | | | | + + + + + | REFERENCE LAB | [address] [facility] | [place] [address] | [phone] | | [facility] | | | | [...] + + | REFERENCE LAB | [address] [facility] | [place] [address] | [phone] | | [facility] | | | | + + + + + | REFERENCE LAB | [address] [facility] | [place] [address] | [phone] | | [facility] | | | | [...] + + | REFERENCE LAB | [address] [facility] | [place] [address] | [phone] | | [facility] | | | | + + + + + | REFERENCE LAB | [facility] | [place] [address] | [phone] | | [facility] | | | | [...] + + | REFERENCE LAB | [address] [facility] | [place] [address] | [phone] | | [facility] | | | | + + + + + | REFERENCE LAB | [address] [facility] | [place] [address] | [phone] | | [facility] | | | | [...] | [address] | [place] [address] | [phone] | | [facility] | | | | + + + + + | REFERENCE LAB | [address] | [place] [address] | [phone] | | [facility] | | | | [...] + + + | REFERENCE LAB | [address] [place] [address] | [place] [address] | [phone] | | [facility] | | | | + + + + + | REFERENCE LAB | [address] [place] [address] | [place] [address] | [phone] | | [facility] | | | | [...] + + + | REFERENCE LAB | [facility] | [place] [address] | [phone] | | [facility] | | | | + + + + + | REFERENCE LAB | [address] | [place] [address] | [phone] | | [facility] | | | | [...] | [address] | [place] [address] | [phone] | | [facility] | | | | + + + + + | REFERENCE LAB | [address] | [place] [address] | [phone] | | [facility] | | | | [...] | [address] | [place] [address] | [phone] | | [facility] | | | | + + + + + | REFERENCE LAB | [address] | [place] [address] | [phone] | | [facility] | | | | [...] + + | REFERENCE LAB | [address] [facility] | [place] [address] | [phone] | | [facility] | | | | + + + + + | REFERENCE LAB | [address] [facility] | [place] [address] | [phone] | | [facility] | | | | [...] | [address] | [place] [address] | [phone] | | [facility] | | | | + + + + + | REFERENCE LAB | [address] | [place] [address] | [phone] | | [facility] | | | | [...] | REFERENCE LAB | [address] | [place] [address] | [phone] | | [facility] | | | | + + + + + | REFERENCE LAB | [address] | [place] [address] | [phone] | | [facility] | | | | [...] + + | REFERENCE LAB | [address] [facility] | [place] [address] | [phone] | | [facility] | | | | + + + + + | REFERENCE LAB | [address] [facility] | [place] [address] | [phone] | | [facility] | | | | [...] + + | REFERENCE LAB | [address] [facility] | [place] [address] | [phone] | | [facility] | | | | + + + + + | REFERENCE LAB | [address] [facility] | [place] [address] | [phone] | | [facility] | | | | [...] + + + | REFERENCE LAB | [facility] | [place] [address] | [phone] | | [facility] | | | | + + + + + | REFERENCE LAB | [address] [place] [address] | [place] [address] | [phone] | | [facility] | | | | [...] + + + | REFERENCE LAB | [facility] | [place] [address] | [phone] | | [facility] | | | | + + + + + | REFERENCE LAB | [address] [place] [address] | [place] [address] | [phone] | | [facility] | | | | + + + + + documented in this encounter Visit Diagnoses Not on filedocumented in this encounter"
--- OUTSIDE RECORDS SUMMARY | ~2019-02-11 | XMS | Encounter Summary ---
Demographics + + + | Address | [address] | | | [place] [address] | + + + | Home Phone [...] Team Providers + +------+ + | Care Middle School Guidance Counselor Name | Role | Phone | + +------+ + | Roderick Alexandra MD | PCP | | + +------+ + Encounter Details +--------+ + + + + | Date | Type | Department | Care Team | Description | +--------+ + + + + | 06/17/ | Abstract | [facility] | Roderick Alexandra, | | | 2013 | | MEDICINE [place] | [address] | | | | | [address] | [place] | | | | | [place] | [address] | | | | | [address] | | | | | | [phone] | | | +--------+ + + + [...]
--- OUTSIDE RECORDS SUMMARY | ~2019-02-11 | XMS | Encounter Summary ---
Demographics + + + | Address | [address] | | | [place] [address] | + + + | Home Phone [...] Team Providers + +------+ + | Care Logistics And Planning Manager Name | Role | Phone | [...] + + | 12/01/ | Office | [facility] | Mariluz Shields PA | Fatigue (Primary | | 2012 | Visit | MEDICINE [place] | [address] [facility] | Dx); Routine history | | | | [address] | [address] [place], [place] | and physical | | | | [place] | [address] | examination of | | | | [address] | | adult; Need for | | | | [phone] | | immunization against | | | [...] new symptoms arise. Patient declined exam today. [facility] Annual Wellness Visit Rosalind Patel is a [...] no Have you ever been diagnosed with NE? no Have you ever been diagnosed with [...] , 2001 Cholecystectomy 1974 Skin cancer excision 3015-7782 Basal Cell Hysteroscopy 08/2001 Cataract removal 02/2011 [...] tablet by mouth nightly. 90 tablet 1 [place]-3 Fatty Acids ([facility]) [address] [...] [address] [place] [address] DEPRESSION SCREEN Health Risk Appraisal : Health Risk Assessment Form was reviewed with the patient and recommendations made to Becca Patel based on her risk factors. Immunizations Immunization History Administered Date(s) Administered INFLUENZA, 18+ W/PRESERVATIVE (Adult) 10/18/2011 Pneumococcal (Adult) 05/20/2005 Tdap 12/02/2005 Zoster 09/05/2011 Preventive Care and Screening: : The following health maintenance items are reviewed in [facility] and correct as of today: Health [...] (Used with permission from [employer] [[email or web address]) BP 138/68 | Pulse 62 | Temp [...] no Have you ever been diagnosed with NE? no Have you ever been diagnosed with [...] , 2001 Cholecystectomy 1974 Skin cancer excision 3792-4702 Basal Cell Hysteroscopy 08/2001 Cataract removal 02/2011 [...] tablet by mouth nightly. 90 tablet 1 [place]-3 Fatty Acids ([facility]) 1000 [...] [address] [place] [address] DEPRESSION SCREEN Health Risk Appraisal : Health Risk Assessment Form was reviewed with the patient and recommendations made to Becca Patel based on her risk factors. Immunizations Immunization History Administered Date(s) Administered INFLUENZA, 18+ W/PRESERVATIVE (Adult) 10/18/2011 Pneumococcal (Adult) 05/20/2005 Tdap 12/02/2005 Zoster 09/05/2011 Preventive Care and Screening: : The following health maintenance items are reviewed in [facility] and correct as of today: Health [...] (Used with permission from [employer] [[email or web address]) BP 138/68 | Pulse 62 | Temp [...] clinic if fatigue worsen. Return to [facility] in 6 mths for follow up [...]
--- OUTSIDE RECORDS SUMMARY | ~2019-02-11 | XMS | Encounter Summary ---
Demographics + + + | Address | [address] | | | [place] [address] | + + + | Home Phone [...] Providers + +------+ + | Care Press Set Up Name | Role | Phone | + [...] Nuclear | Dyspnea on | Skylar, | [facility] | | | | Radiology | exertion | [address] | | | | | Chest pain, | [address] | [address] | | | | | unspecified | [place] | [place], [place] | | | | | type | [place], [place] | [address] | | | | | Procedures | [address] | Phone: | | | | | [place] Nuclear | Phone: | [phone] | | | | | Stress Test | [phone] | Fax: | | | | | (Vasodilator | Fax: | [phone] | | | | | ) | [phone] | | + +--------+ + + + [...] | | | | | type | [place] | [address] | | | | | Procedures | [address] | Phone: | | | | | ECHO | Phone: | [phone] | | | | | Complete | [phone] | Fax: | | | | | | Fax: | [phone] | | | | | | [phone] | | + +--------+ + + + + Reason for Visit + + + | Reason | Comments | + + + | New Patient | CONSULT | + + + Encounter Details +--------+---------+ + + + | Date | Type | Department | Care Team | Description | +--------+---------+ + + + | 10/21/ | Office | [facility] | Skylar Bridges DO | Essential | | 2019 | Visit | CARDIOLOGY [place] | [address] | hypertension | | | | [address] | [place] | (Primary Dx); | | | | [place], [place] | [address] | Dyspnea on exertion; | | | | [address] | | Chest pain, | | | | [phone] | | unspecified type; | | | [...] Bridges DO - 10/21/2018 1:00 PM PDT [facility] Cardiology Cardiology Consult Note Reason for Consultation: murmur, clearance for EGD HISTORY OF PRESENT ILLNESS: The patient is an 83-year-old female who presents to the cardiology office for initial cons ultation regarding a murmur and clearance for EGD. The patient has noticed recently that nicole fitzptarick has been experiencing some shortness of breath on exertion. She had a hospitalization a y ear ago in April at [facility] for pneumonia. 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 There is mild aortic regurgitation. 5. Tnql-[id number] mitral regurgitation is present. 6. Mild mitral [...]
--- OUTSIDE RECORDS SUMMARY | ~2019-02-11 | XMS | Encounter Summary ---
Demographics + + + | Address | [address] | | | [place] [address] | + + + | Home Phone | | + + + | Preferred Language | Unknown | + + + | Marital Status | | + + + | Samaritan Affiliation | 1077 | + + + | Race | Unknown | + + + | Ethnic Group | Unknown | + + + Author + + + | Author | [facility] [place] | | | and Saurabhana | + + + | Organization | [facility] [place] | | [...] Team Providers + +------+ + | Care Hotbed Operator Name | Role | Phone | [...] Refill | | 2014 | | [facility] | [address] | | | | | [address] | [place] | | | | | [place] | [address] | | | | | [address] | | | | | | [phone] | | | +--------+--------+ + + + [...]
--- OUTSIDE RECORDS SUMMARY | ~2019-02-11 | XMS | Encounter Summary ---
Demographics + + + | Address | [address] | | | [place] [address] | + + + | Home Phone [...] Author | [facility] | | | and Saurabhana | + [...] Team Providers + +------+ + | Care Lithographic Plate Maker Apprentice Name | Role | Phone | + +------+ + | Roderick Alexandra MD | PCP | | + +------+ + Encounter Details +--------+ + + + + | Date | Type | Department | Care Team | Description | +--------+ + + + + | 09/27/ | Abstract | [facility] | Roderick Alxeandra, | | | 2014 | | MEDICINE [place] | [address] | | | | | [address] | [place] | | | | | [place] | [address] | | | | | [address] | | | | | | [phone] | | | +--------+ + + + [...]
--- OUTSIDE RECORDS SUMMARY | ~2019-02-11 | XMS | Encounter Summary ---
Demographics + + + | Address | [address] | | | [place] [address] | + + + | Home Phone [...] Team Providers + +------+ + | Care Product Manufacturing Professional Name | Role | Phone | + [...] (Echo) | | 2019 | | [facility] | [address] | | | | | [address] | [place] | | | | | [place] | [address] | | | | | [address] | | | | | | [phone] | | | +--------+ + + + [...]
--- OUTSIDE RECORDS SUMMARY | ~2019-02-11 | XMS | Encounter Summary ---
Demographics + + + | Address | [address] | | | [place] [address] | + + + | Home Phone [...] Providers + +------+ + | Care Clinical Editor Name | Role | Phone | + [...] | | 2017 | | [facility] | [address] | | | | | [address] | [place] | | | | | [place] | [address] | | | | | [address] | | | | | | [phone] | | | +--------+--------+ + + + [...]
--- OUTSIDE RECORDS SUMMARY | ~2019-02-11 | XMS | Encounter Summary ---
Demographics + + + | Address | [address] | | | [place] [address] | + + + | Home Phone [...] Team Providers + +------+ + | Care Radiology Physician Name | Role | Phone | [...] Refill | | 2013 | | [facility] | [address] | | | | | [address] | [place] | | | | | [place] | [address] | | | | | [address] | | | | | | [phone] | | | +--------+--------+ + + + [...]
--- OUTSIDE RECORDS SUMMARY | ~2019-02-11 | XMS | Encounter Summary ---
Demographics + + + | Address | [address] | | | [place] [address] | + + + | Home Phone [...] Team Providers + +------+ + | Care House Admin Name | Role | Phone | + [...] | SR | | | | | [phone] | | | +--------+ + + + [...]
--- OUTSIDE RECORDS SUMMARY | ~2019-02-11 | XMS | Encounter Summary ---
Demographics + + + | Address | [address] | | | [place] [address] | + + + | Home Phone [...] Team Providers + +------+ + | Care Zyglo Technician Name | Role | Phone | [...] Refill | | 2013 | | [facility] | [address] | | | | | [address] | [place] | | | | | [place] | [address] | | | | | [address] | | | | | | [phone] | | | +--------+--------+ + + + [...]
--- OUTSIDE RECORDS SUMMARY | ~2019-02-11 | XMS | Encounter Summary ---
Demographics + + + | Address | [address] [place] [address] | | | [place] [address] | + + + | Home Phone | | + + + | Preferred Language | Unknown | + + + | Marital Status | | + + + | Methodist Affiliation | 1077 | + + + [...] Team Providers + +------+ + | Care Rug Designer Name | Role | Phone | + [...] + | 05/19/ | Telephone | [facility] | Roderick Alexandra, | Results | | 2018 | | MEDICINE [place] | [address] | | | | | [address] | [place] | | | | | [place] | [address] | | | | | [address] | | | | | | [phone] | | | +--------+ + + + [...]
--- OUTSIDE RECORDS SUMMARY | ~2019-02-11 | XMS | Encounter Summary ---
Demographics + + + | Address | [address] | | | [place] [address] | + + + | Home Phone [...] Team Providers + +------+ + | Care Managed Care Coordinator Name | Role | Phone | [...] Refill | | 2017 | | MEDICINE [place] | [address] | | | | | [address] | [place] | | | | | [place] | [address] | | | | | [address] | | | | | | [phone] | | | +--------+--------+ + + + [...]
--- OUTSIDE RECORDS SUMMARY | ~2019-02-11 | XMS | Encounter Summary ---
Demographics + + + | Address | [address] | | | [place] [address] | + + + | Home Phone [...] Team Providers + +------+ + | Care Wound/Ostomy Nurse Name | Role | Phone | [...] + | 01/23/ | Office | [facility] | Roderick Alexandra, | Routine history and | | 2013 | Visit | MEDICINE [place] | [address] | physical examination | | | | [address] | [place] | of adult (Primary | | | | [place] | [address] | Dx); COPD (chronic | | | | [address] | | obstructive | | | | [phone] | | pulmonary disease) | | | | | | ([facility]); Hypertension; | | | | | [...] , 2002 Cholecystectomy 1974 Skin cancer excision 0582-2578 Basal Cell Hysteroscopy 08/2001 Cataract removal 02/2011 [...] Rosalind exercises likes to exercise by elliptical corporate trainer. She watches her diet for sodium [...] by mouth at bedtime 90 tablet 1 [place]-3 Fatty Acids ([facility]) 1000 [...] - General Current Medicare Suppliers[facility] [facility] [place] [place] - [address] [address] [place] [address] HEALTH RISK ASSESSMENT: : The patient or [...] following health maintenance items are reviewed in [facility] and correct as of today: Health Maintenance [...]
--- OUTSIDE RECORDS SUMMARY | ~2019-02-11 | XMS | Encounter Summary ---
Demographics + + + | Address | [address] | | | [place] [address] | + + + | Home Phone | | + + + | Preferred Language | Unknown | + + + | Marital Status | | + + + | Voodoo Affiliation | 1077 | + + + | Race | Unknown | + + + | Ethnic Group | Unknown | + + + Author + + + | Author | [facility] | | | and Saurabhana | + + + | Organization | [facility] | | | [...] Team Providers + +------+ + | Care Refinery Operator Light Ends Recovery Name | Role | Phone | + [...] | | | | [place] | [address] | | | | | [address] | | | | | | [phone] | | | +--------+ + + + [...]
--- OUTSIDE RECORDS SUMMARY | ~2019-02-11 | XMS | Encounter Summary ---
Demographics + + + | Address | [address] | | | [place] [address] | + + + | Home Phone [...] Providers + +------+ + | Care Parts Counter Associate Name | Role | Phone | [...] | | | | [place] | [address] | | | | | [address] | | | | | | [phone] | | | +--------+ + + + [...] | [address] | [place] [address] | [phone] | | [facility] | | | | + + + + + | REFERENCE LAB | [address] | [place] [address] | [phone] | | [facility] | | | | [...] | [address] | [place] [address] | [phone] | | [facility] | | | | + + + + + | REFERENCE LAB | [address] | [place] [address] | [phone] | | [facility] | | | | [...] + + + | REFERENCE LAB | [address] | [place] [address] | [phone] | | [facility] | | | | + + + + + | REFERENCE LAB | [address] [facility] | [place] [address] | [phone] | | [facility] | | | | [...] REFERENCE LAB | [address] [facility] | [place] [address] | [phone] | | [facility] | | | | + + + + + | REFERENCE LAB | [address] [facility] | [place] [address] | [phone] | | [facility] | | | | [...] REFERENCE LAB | [address] [facility] | [place] [address] | [phone] | | [facility] | | | | + + + + + | REFERENCE LAB | [address] [facility] | [place] [address] | [phone] | | [facility] | | | | [...] REFERENCE LAB | [address] [facility] | [place] [address] | [phone] | | [facility] | | | | + + + + + | REFERENCE LAB | [address] [facility] | [place] [address] | [phone] | | [facility] | | | | [...] REFERENCE LAB | [address] [facility] | [place] [address] | [phone] | | [facility] | | | | + + + + + | REFERENCE LAB | [facility] | [place] [address] | [phone] | | [facility] | | | | [...] REFERENCE LAB | [address] [facility] | [place] [address] | [phone] | | [facility] | | | | + + + + + | REFERENCE LAB | [address] [facility] | [place] [address] | [phone] | | [facility] | | | | [...] | [address] | [place] [address] | [phone] | | [facility] | | | | + + + + + | REFERENCE LAB | [address] | [place] [address] | [phone] | | [facility] | | | | [...] + + + | REFERENCE LAB | [address] [place] [address] | [place] [address] | [phone] | | [facility] | | | | + + + + + | REFERENCE LAB | [address] [place] [address] | [place] [address] | [phone] | | [facility] | | | | [...] + + + | REFERENCE LAB | [facility] [address] | [place] [address] | [phone] | | [facility] | | | | + + + + + | REFERENCE LAB | [address] | [place] [address] | [phone] | | [facility] | | | | [...] | [address] | [place] [address] | [phone] | | [facility] | | | | + + + + + | REFERENCE LAB | [address] | [place] [address] | [phone] | | [facility] | | | | [...] | [address] | [place] [address] | [phone] | | [facility] | | | | + + + + + | REFERENCE LAB | [address] | [place] [address] | [phone] | | [facility] | | | | [...] REFERENCE LAB | [address] [facility] | [place] [address] | [phone] | | [facility] | | | | + + + + + | REFERENCE LAB | [address] [facility] | [place] [address] | [phone] | | [facility] | | | | [...] | [address] | [place] [address] | [phone] | | [facility] | | | | + + + + + | REFERENCE LAB | [address] | [place] [address] | [phone] | | [facility] | | | | [...] | REFERENCE LAB | [address] | [place] [address] | [phone] | | [facility] | | | | + + + + + | REFERENCE LAB | [address] | [place] [address] | [phone] | | [facility] | | | | [...] + + | REFERENCE LAB | [facility] | [place] [address] | [phone] | | [facility] | | | | + + + + + | REFERENCE LAB | [address] [facility] | [place] [address] | [phone] | | [facility] | | | | [...] REFERENCE LAB | [address] [facility] | [place] [address] | [phone] | | [facility] | | | | + + + + + | REFERENCE LAB | [address] [facility] | [place] [address] | [phone] | | [facility] | | | | [...] + + + | REFERENCE LAB | [facility] | [place] [address] | [phone] | | [facility] | | | | + + + + + | REFERENCE LAB | [address] [place] [address] | [place] [address] | [phone] | | [facility] | | | | [...] + + + | REFERENCE LAB | [facility] | [place] [address] | [phone] | | [facility] | | | | + + + + + | REFERENCE LAB | [address] [place] [address] | [place] [address] | [phone] | | [facility] | | | | + + + + + documented in this encounter Visit Diagnoses Not on filedocumented in this encounter"
--- OUTSIDE RECORDS SUMMARY | ~2019-02-11 | XMS | Encounter Summary ---
Demographics + + + | Address | [address] | | | [place] [address] | + + + | Home Phone [...] Team Providers + +------+ + | Care Pressure Welder Name | Role | Phone | + [...] Refill | | 2017 | | [facility] | [address] | | | | | [address] | [place] | | | | | [place] | [address] | | | | | [address] | | | | | | [phone] | | | +--------+--------+ + + + [...]
--- OUTSIDE RECORDS SUMMARY | ~2019-02-11 | XMS | Encounter Summary ---
Demographics + + + | Address | [address] | | | [place] [address] | + + + | Home Phone [...] Providers + +------+ + | Care Health Policy Analyst Name | Role | Phone | [...] | | 2012 | Visit | MEDICINE [place] | [address] [facility] | Dx); Routine history | | | | [address] | [address] [place], [place] | and physical | | | | [place] | [address] | examination of | | | | [address] | | adult; Need for | | | | [phone] | | immunization against | | | [...] new symptoms arise. Patient declined exam today. [facility] Annual Wellness Visit Rosalind Patel [...] no Have you ever been diagnosed with AZ? no Have you ever been diagnosed with [...] , 2001 Cholecystectomy 1974 Skin cancer excision 8694-1018 Basal Cell Hysteroscopy 08/2001 Cataract removal 02/2011 [...] tablet by mouth nightly. 90 tablet 1 Cana-3 Fatty Acids ([facility]) [address] [...] [address] [place] [address] DEPRESSION SCREEN Health Risk Appraisal : Health Risk Assessment Form was reviewed with the patient and recommendations made to Becca Patel based on her risk factors. Immunizations Immunization History Administered Date(s) Administered INFLUENZA, 18+ W/PRESERVATIVE (Adult) 10/18/2011 Pneumococcal (Adult) 05/20/2005 Tdap 12/02/2005 Zoster 09/05/2011 Preventive Care and Screening: : The following health maintenance items are reviewed in [facility] and correct as of today: Health [...] no Have you ever been diagnosed with AZ? no Have you ever been diagnosed with [...] , 2001 Cholecystectomy 1974 Skin cancer excision 2563-9580 Basal Cell Hysteroscopy 08/2001 Cataract removal 02/2011 [...] tablet by mouth nightly. 90 tablet 1 Cana-3 Fatty Acids ([facility]) 1000 [...] [address] [place] [address] DEPRESSION SCREEN Health Risk Appraisal : Health Risk Assessment Form was reviewed with the patient and recommendations made to Becca Patel based on her risk factors. Immunizations Immunization History Administered Date(s) Administered INFLUENZA, 18+ W/PRESERVATIVE (Adult) 10/18/2011 Pneumococcal (Adult) 05/20/2005 Tdap 12/02/2005 Zoster 09/05/2011 Preventive Care and Screening: : The following health maintenance items are reviewed in [facility] and correct as of today: Health [...] to clinic if fatigue worsen. [facility] to [facility] 6 mths for follow up exam. [...]
--- OUTSIDE RECORDS SUMMARY | ~2019-02-11 | XMS | Encounter Summary ---
Demographics + + + | Address | [address] | | | [place] [address] | + + + | Home Phone [...] Team Providers + +------+ + | Care Aquatics Instructor Name | Role | Phone | [...] Refill | | 2013 | | MEDICINE [facility] | [address] | | | | | [address] | [place] | | | | | [place] | [address] | | | | | [address] | | | | | | [phone] | | | +--------+--------+ + + + [...]
--- OUTSIDE RECORDS SUMMARY | ~2019-02-11 | XMS | Encounter Summary ---
Demographics + + + | Address | [address] | | | [place] [address] | + + + | Home Phone [...] Team Providers + +------+ + | Care Special Forces Senior Sergeant Name | Role | Phone | + [...] Nuclear | Dyspnea on | Skylar, | [facility] | | | | Radiology | exertion | [address] | | | | | Chest pain, | [address] | [address] | | | | | unspecified | [place] | [place], [place] | | | | | type | [place], [place] | [address] | | | | | Procedures | [address] | Phone: | | | | | [place] Nuclear | Phone: | [phone] | | | | | Stress Test | [phone] | Fax: | | | | | (Vasodilator | Fax: | [phone] | | | | | ) | [phone] | | + +--------+ + + + [...] | | | | | type | [place] | [address] | | | | | Procedures | [address] | Phone: | | | | | ECHO | Phone: | [phone] | | | | | Complete | [phone] | Fax: | | | | | | Fax: | [phone] | | | | | | [phone] | | + +--------+ + + + + Reason for Visit + + + | Reason | Comments | + + + | New Patient | CONSULT | + + + Encounter Details +--------+---------+ + + + | Date | Type | Department | Care Team | Description | +--------+---------+ + + + | 10/21/ | Office | [facility] | Skylar Bridges DO | Essential | | 2019 | Visit | CARDIOLOGY [place] | [address] | hypertension | | | | [address] | [place] | (Primary Dx); | | | | [place], [place] | [address] | Dyspnea on exertion; | | | | [address] | | Chest pain, | | | | [phone] | | unspecified type; | | | [...] Bridges DO - 10/21/2018 1:00 PM PDT [facility] Cardiology Cardiology Consult Note Reason for [...] a y ear ago in April at [facility] for pneumonia. 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 There is mild aortic regurgitation. 5. Ejeb-or-pgtquqvi mitral regurgitation is present. 6. Mild mitral [...]
--- OUTSIDE RECORDS SUMMARY | ~2019-02-11 | XMS | Encounter Summary ---
Demographics + + + | Address | [address] | | | [place] [address] | + + + | Home Phone [...] Team Providers + +------+ + | Care Prorate Clerk Name | Role | Phone | [...] + + | 10/25/ | Documentati | [facility] | [place] | Lasha (Patient | | 2019 | on | CARDIOLOGY KATHY Tran, National Flatbed Truck Driver | Documented BP) | | | | [address] | | | | | | [facility] [place] | | | | | | [address] | | | | | | [phone] | | | +--------+ + + + [...]
--- OUTSIDE RECORDS SUMMARY | ~2019-02-11 | XMS | Encounter Summary ---
Demographics + + + | Address | [address] | | | [place] [address] | + + + | Home Phone [...] Providers + +------+ + | Care Assistant Refinery Operator Name | Role | Phone | [...] Left arm | Roderick Ariza MD | [facility] | | | Required | | pain Left | [address] | PHYSICAL | | | | | arm swelling | [address] [place] | THERAPY [address] | | | | | | [place], [place] | [place] | | | | | | [address] | [place], [place] | | | | | | Phone: | [address] | | | | | | [phone] | Phone: | | | | | | Fax: | [phone] | | | | | | [phone] | Fax: | | | | | | | [phone] | +--------+ + + + + + Reason for Visit +---------+ + | Reason | Comments | +---------+ + | Therapy | | +---------+ + Encounter Details +--------+ + + + + | Date | Type | Department | Care Team | Description | +--------+ + + + + | 05/12/ | Telephone | [facility] | Roderick Alexandra, | Therapy | | 2018 | | MEDICINE [place] | [address] | | | | | [address] | [place] | | | | | [place] | [address] | | | | | [address] | | | | | | [phone] | | | +--------+ + + + [...]
--- OUTSIDE RECORDS SUMMARY | ~2019-02-11 | XMS | Encounter Summary ---
Demographics + + + | Address | [address] | | | [place] [address] | + + + | Home Phone [...] Team Providers + +------+ + | Care Commodities Broker Name | Role | Phone | [...] + | 01/22/ | Telephone | [facility] | Roder[place] Alexandra, | Lab Order | | 2015 | | MEDICINE [place] | [address] | | | | | [address] | [place] | | | | | [place] | [address] | | | | | [address] | | | | | | [phone] | | | +--------+ + + + [...]
--- OUTSIDE RECORDS SUMMARY | ~2019-02-11 | XMS | Encounter Summary ---
Demographics + + + | Address | [address] | | | [place] [address] | + + + | Home Phone [...] Team Providers + +------+ + | Care Felt Hat Flanging Operator Name | Role | Phone | + +------+ + PCP | Unavailable | + +------+ + Encounter Details +--------+ + + + + | Date | Type | Department | Care Team | Description | +--------+ + + + + | 08/26/ | [facility] | [facility] | Tim, | | | 2006 | Encounter | MED CTR EMERGENCY | Nilton Alvarado MD [address] | | | | | [place] [address] | [address] [place] | | | | | [place], [place] | [place] [address] | | | | | [address] | [phone] | | | | | [phone] | | | +--------+ + + + [...]
--- OUTSIDE RECORDS SUMMARY | ~2019-02-11 | XMS | Encounter Summary ---
Demographics + + + | Address | [address] | | | [place] [address] | + + + | Home Phone [...] Team Providers + +------+ + | Care Magnetic Tape Composer Operator Name | Role | Phone | [...] + | 05/18/ | Telephone | [facility] | Roder[place] Alexandra, | Lab Order | | 2012 | | MEDICINE [place] | [address] | | | | | [address] | [place] | | | | | [place] | [address] | | | | | [address] | | | | | | [phone] | | | +--------+ + + + [...]
--- OUTSIDE RECORDS SUMMARY | ~2019-02-11 | XMS | Encounter Summary ---
Demographics + + + | Address | [address] | | | [place] [address] | + + + | Home Phone | | + + + | Preferred Language | Unknown | + + + | Marital Status | | + + + | Shinto Affiliation | 1077 | + + + | Race | Unknown | + + + | Ethnic Group | Unknown | + + + Author + + + | Author | [facility] | | | and Saurabhana | + + + | Organization | [facility] | | | [...] Providers + +------+ + | Care Aircraft Engine Mechanic Overhaul Name | Role | Phone | + [...] Refill | | 2016 | | [facility] | [address] | | | | | [address] | [place] | | | | | [place] | [address] | | | | | [address] | | | | | | [phone] | | | +--------+--------+ + + + [...]
--- OUTSIDE RECORDS SUMMARY | ~2019-02-11 | XMS | Encounter Summary ---
Demographics + + + | Address | [address] | | | [place] [address] | + + + | Home Phone [...] Providers + +------+ + | Care Mechanical Design Engineer Facilities Name | Role | Phone | + [...] | | [address] [place] | [place], [place] | | | | | [place], [place] [address] | [address] | | | | | [phone] | | | +--------+ + + + [...]
--- OUTSIDE RECORDS SUMMARY | ~2019-02-11 | XMS | Encounter Summary ---
Demographics + + + | Address | [address] | | | [place] [address] | + + + | Home Phone [...] Team Providers + +------+ + | Care Occupational Health And Safety Adviser Name | Role | Phone | + [...] | | | | [place] | [address] | | | | | [address] | | | | | | [phone] | | | +--------+ + + + [...] + | [facility] | [address] | [place] | [phone] | | [facility] | | [address] | | | - LABORATORY | | | | + + + + + | [facility] | [address] | [place], [place] | | | [facility] | | [address] | | | - LABORATORY | | [...] | | | | | | | Cymraes, | | | | | | External [...]
--- OUTSIDE RECORDS SUMMARY | ~2019-02-11 | XMS | Encounter Summary ---
Demographics + + + | Address | [address] | | | [place] [address] | + + + | Home Phone [...] Team Providers + +------+ + | Care Machine Feed Operator Name | Role | Phone | [...] Refill | | 2012 | | MEDICINE [facility] | [address] | | | | | [address] | [place] | | | | | [place] | [address] | | | | | [address] | | | | | | [phone] | | | +--------+--------+ + + + [...]
--- OUTSIDE RECORDS SUMMARY | ~2019-02-11 | XMS | Encounter Summary ---
Demographics + + + | Address | [address] | | | [place] [address] | + + + | Home Phone [...] Team Providers + +------+ + | Care Elastic Attacher Zigzag Name | Role | Phone | + [...] Refill | | 2017 | | [facility] | [address] | | | | | [address] | [place] | | | | | [place] | [address] | | | | | [address] | | | | | | [phone] | | | +--------+--------+ + + + [...]
--- OUTSIDE RECORDS SUMMARY | ~2019-02-11 | XMS | Encounter Summary ---
Demographics + + + | Address | [address] [place] [address] | | | [place] [address] | + + + | Home Phone [...] Providers + +------+ + | Care Floor Layer Helper Name | Role | Phone | [...] + | 11/26/ | Telephone | [facility] | [place] Alexandra, | Lab Order | | 2012 | | MEDICINE [place] | [address] | | | | | [address] | [place] | | | | | [place] | [address] | | | | | [address] | | | | | | [phone] | | | +--------+ + + + [...]
--- OUTSIDE RECORDS SUMMARY | ~2019-02-11 | XMS | Encounter Summary ---
Demographics + + + | Address | [address] | | | [place] [address] | + + + | Home Phone [...] Team Providers + +------+ + | Care Subassembler Name | Role | Phone | + [...] + | 11/26/ | Telephone | [facility] | Roder[place] Alexandra, | Lab Order | | 2012 | | MEDICINE [place] | [address] | | | | | [address] | [place] | | | | | [place] | [address] | | | | | [address] | | | | | | [phone] | | | +--------+ + + + [...]
--- OUTSIDE RECORDS SUMMARY | ~2019-02-11 | XMS | Encounter Summary ---
Demographics + + + | Address | [address] | | | [place] [address] | + + + | Home Phone [...] Providers + +------+ + | Care Sales Coach Name | Role | Phone | [...] + | 07/17/ | Telephone | [facility] | [place] Alexandra, | Lab Order | | 2015 | | MEDICINE [place] | [address] | | | | | [address] | [place] | | | | | [place] | [address] | | | | | [address] | | | | | | [phone] | | | +--------+ + + + [...]
--- OUTSIDE RECORDS SUMMARY | ~2019-02-11 | XMS | Encounter Summary ---
Demographics + + + | Address | [address] | | | [place] [address] | + + + | Home Phone [...] Team Providers + +------+ + | Care Printed Circuit Photographer Name | Role | Phone | + [...] | | insufficienc | [address] | [place], [place] | | | | | y, | [place] | [address] | | | | | unspecified | [place], [place] | Phone: | | | | | etiology | [address] | [phone] | | | | | Procedures | Phone: | Fax: | | | | | ECHO | [phone] | [phone] | | | | | Complete | Fax: | | | | | | | [phone] | | + +--------+ + + + [...] + | 12/22/ | Office | 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 Since that time, she [...] been feeling okay. 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 There is mild aortic regurgitation. 5. Rsge-oh-rzohroam mitral regurgitation is present. 6. Mild mitral [...] doing well recently [facility] cardiac [facility]. No further cardiac testing is indicated [...]
--- OUTSIDE RECORDS SUMMARY | ~2019-02-11 | XMS | Encounter Summary ---
Demographics + + + | Address | [address] | | | [place] [address] | + + + | Home Phone [...] Providers + +------+ + | Care Staff Training And Development Manager Name | Role | Phone | [...] + + | 10/25/ | Documentati | [facility] | [place] | Lasha (Patient | | 2019 | on | CARDIOLOGY KATHY Tran, Staff Design Engineer | Documented BP) | | | | [address] | | | | | | [facility] [place] | | | | | | [address] | | | | | | [phone] | | | +--------+ + + + [...]
--- OUTSIDE RECORDS SUMMARY | ~2019-02-11 | XMS | Encounter Summary ---
Demographics + + + | Address | [address] | | | [place] [address] | + + + | Home Phone [...] Team Providers + +------+ + | Care Device Test Engineer Name | Role | Phone | + +------+ + PCP | Unavailable | + +------+ + Encounter Details +--------+ + + + + | Date | Type | Department | Care Team | Description | +--------+ + + + + | 08/22/ | Hospital | [facility] | | | | 2005 | Encounter | MED CTR LABORATORY | | | | | | [address] [place] | | | | | | [place], [place] | | | | | | [address] | | | | | | [phone] | | | +--------+ + + + [...]
--- OUTSIDE RECORDS SUMMARY | ~2019-02-11 | XMS | Encounter Summary ---
Demographics + + + | Address | [address] | | | [place] [address] | + + + | Home Phone [...] | Author | [facility] | | | and Saurabhana | + + + | Organization | [facility] | | | and [...] Team Providers + +------+ + | Care Preformer Impregnated Fabrics Name | Role | Phone | + [...] Refill | | 2017 | | [facility] | [address] | | | | | [address] | [place] | | | | | [place] | [address] | | | | | [address] | | | | | | [phone] | | | +--------+--------+ + + + [...]
--- OUTSIDE RECORDS SUMMARY | ~2019-02-11 | XMS | Encounter Summary ---
Demographics + + + | Address | [address] | | | [place] [address] | + + + | Home Phone [...] Team Providers + +------+ + | Care Algologist Name | Role | Phone | + [...] + | 05/27/ | Telephone | [facility] | Roder[place] Alexandra, | Results | | 2012 | | MEDICINE [place] | [address] | | | | | [address] | [place] | | | | | [place] | [address] | | | | | [address] | | | | | | [phone] | | | +--------+ + + + [...]
--- OUTSIDE RECORDS SUMMARY | ~2019-02-11 | XMS | Encounter Summary ---
Demographics + + + | Address | [address] | | | [place] [address] | + + + | Home Phone [...] + +------+ + | Care Human Resource Officer Name | Role | Phone | [...] Refill | | 2017 | | MEDICINE [facility] | [address] | | | | | [address] | [place] | | | | | [place] | [address] | | | | | [address] | | | | | | [phone] | | | +--------+--------+ + + + [...]
--- OUTSIDE RECORDS SUMMARY | ~2019-02-11 | XMS | Encounter Summary ---
Demographics + + + | Address | [address] | | | [place] [address] | + + + | Home Phone | | + + + | Preferred Language | Unknown | + + + | Marital Status | | + + + | Mandaeism Affiliation | 1077 | + + + | Race | Unknown | + + + | Ethnic Group | Unknown | + + + Author + + + | Author | [facility] | | | and Saurabhana | + + + | Organization | [facility] | | [...] Team Providers + +------+ + | Care Inside Sales Account Manager Name | Role | Phone | [...] Refill | | 2017 | | MEDICINE [place] | [address] | | | | | [address] | [place] | | | | | [place] | [address] | | | | | [address] | | | | | | [phone] | | | +--------+--------+ + + + [...]
--- OUTSIDE RECORDS SUMMARY | ~2019-02-11 | XMS | Encounter Summary ---
Demographics + + + | Address | [address] | | | [place] [address] | + + + | Home Phone [...] Team Providers + +------+ + | Care Proposal Engineer Name | Role | Phone | [...] | | | | [place] | [address] | | | | | [address] | | | | | | [phone] | | | +--------+ + + + [...] | [address] | [place] [address] | [phone] | | [facility] | | | | + + + + + | REFERENCE LAB | [address] | [place] [address] | [phone] | | [facility] | | | | [...] | [address] | [place] [address] | [phone] | | [facility] | | | | + + + + + | REFERENCE LAB | [address] [place] | [place] [address] | [phone] | | [facility] | | | | [...] + + + | REFERENCE LAB | [address] | [place] [address] | [phone] | | [facility] | | | | + + + + + | REFERENCE LAB | [address] [facility] | [place] [address] | [phone] | | [facility] | | | | [...] + + | REFERENCE LAB | [address] [facility] | [place] [address] | [phone] | | [facility] | | | | + + + + + | REFERENCE LAB | [address] [facility] | [place] [address] | [phone] | | [facility] | | | | [...] + + | REFERENCE LAB | [address] [facility] | [place] [address] | [phone] | | [facility] | | | | + + + + + | REFERENCE LAB | [facility] [facility] | [place] [address] | [phone] | | [facility] | | | | [...] + + | REFERENCE LAB | [address] [facility] | [place] [address] | [phone] | | [facility] | | | | + + + + + | REFERENCE LAB | [address] [facility] | [place] [address] | [phone] | | [facility] | | | | [...] + + | REFERENCE LAB | [address] [facility] | [place] [address] | [phone] | | [facility] | | | | + + + + + | REFERENCE LAB | [facility] | [place] [address] | [phone] | | [facility] | | | | [...] + + | REFERENCE LAB | [address] [facility] | [place] [address] | [phone] | | [facility] | | | | + + + + + | REFERENCE LAB | [address] [facility] | [place] [address] | [phone] | | [facility] | | | | [...] | [address] | [place] [address] | [phone] | | [facility] | | | | + + + + + | REFERENCE LAB | [address] | [place] [address] | [phone] | | [facility] | | | | [...] + + + | REFERENCE LAB | [address] [place] [address] | [place] [address] | [phone] | | [facility] | | | | + + + + + | REFERENCE LAB | [address] [place] [address] | [place] [address] | [phone] | | [facility] | | | | [...] + + | REFERENCE LAB | [facility] | [place] [address] | [phone] | | [facility] | | | | + + + + + | REFERENCE LAB | [address] | [place] [address] | [phone] | | [facility] | | | | [...] | [address] | [place] [address] | [phone] | | [facility] | | | | + + + + + | REFERENCE LAB | [address] [place] | [place] [address] | [phone] | | [facility] | | | | [...] | [address] | [place] [address] | [phone] | | [facility] | | | | + + + + + | REFERENCE LAB | [address] [place] | [place] [address] | [phone] | | [facility] | | | | [...] + + | REFERENCE LAB | [address] [facility] | [place] [address] | [phone] | | [facility] | | | | + + + + + | REFERENCE LAB | [address] [facility] | [place] [address] | [phone] | | [facility] | | | | [...] | [address] | [place] [address] | [phone] | | [facility] | | | | + + + + + | REFERENCE LAB | [address] | [place] [address] | [phone] | | [facility] | | | | [...] | REFERENCE LAB | [address] [place] | [place] [address] | [phone] | | [facility] | | | | + + + + + | REFERENCE LAB | [address] [place] | [place] [address] | [phone] | | [facility] | | | | [facility] | [place] [address] | [phone] | | [facility] | | | | + + + + + | REFERENCE LAB | [address] [facility] | [place] [address] | [phone] | | [facility] | | | | [...] + + | REFERENCE LAB | [address] [facility] | [place] [address] | [phone] | | [facility] | | | | + + + + + | REFERENCE LAB | [address] [facility] | [place] [address] | [phone] | | [facility] | | | | [...] + + | REFERENCE LAB | [facility] | [place] [address] | [phone] | | [facility] | | | | + + + + + | REFERENCE LAB | [address] [place] [address] | [place] [address] | [phone] | | [facility] | | | | [...] + + | REFERENCE LAB | [facility] | [place] [address] | [phone] | | [facility] | | | | + + + + + | REFERENCE LAB | [address] [place] [address] | [place] [address] | [phone] | | [facility] | | | | + + + + + documented in this encounter Visit Diagnoses Not on filedocumented in this encounter"
--- OUTSIDE RECORDS SUMMARY | ~2019-02-11 | XMS | Encounter Summary ---
Demographics + + + | Address | [address] | | | [place] [address] | + + + | Home Phone [...] Team Providers + +------+ + | Care Children'S Aide Name | Role | Phone | + [...] Refill | | 2016 | | MEDICINE [facility] | [address] | | | | | [address] | [place] | | | | | [place] | [address] | | | | | [address] | | | | | | [phone] | | | +--------+--------+ + + + [...]
--- OUTSIDE RECORDS SUMMARY | ~2019-02-11 | XMS | Encounter Summary ---
Demographics + + + | Address | [address] | | | [place] [address] | + + + | Home Phone | | + + + | Preferred Language | Unknown | + + + | Marital Status | | + + + | Mu-Ism Affiliation | 1077 | + + + | Race | Unknown | + + + | Ethnic Group | Unknown | + + + Author + + + | Author | [facility] | | | and Saurabhana | + + + | Organization | [facility] | | | [...] Providers + +------+ + | Care Senior Information Security Analyst Name | Role | Phone | [...] | 06/16/ | Telephone | [facility] [place] [facility] | Roderick Alexandra, | Results, Imaging | | 2017 | | MEDICINE [place] | [address] | | | | | [address] | [place] | | | | | [place] | [address] | | | | | [address] | | | | | | [phone] | | | +--------+ + + + [...]
--- OUTSIDE RECORDS SUMMARY | ~2019-02-11 | XMS | Encounter Summary ---
Demographics + + + | Address | [address] | | | [place] [address] | + + + | Home Phone [...] Team Providers + +------+ + | Care Graduating Machine Operator Name | Role | Phone | + +------+ + PCP | Unavailable | + +------+ + Encounter Details +--------+ + + + + | Date | Type | Department | Care Team | Description | +--------+ + + + + | 01/13/ | Hospital | [facility] | | | | 2000 | Encounter | MED CTR XRAY [address] | | | | | | [place] | | | | | | [place] [address] | | | | | | [phone] | | | +--------+ + + + [...]
--- OUTSIDE RECORDS SUMMARY | ~2019-02-11 | XMS | Encounter Summary ---
Demographics + + + | Address | [address] | | | [place] [address] | + + + | Home Phone | | + + + | Preferred Language | Unknown | + + + | Marital Status | | + + + | Pentecostal Affiliation | 1077 | + + + | Race | Unknown | + + + | Ethnic Group | Unknown | + + + Author + + + | Author | [facility] | | | and Saurabhana | + + + | Organization | [facility] | | | [...] Team Providers + +------+ + | Care Green Tire Inspector Name | Role | Phone | [...] Refill | | 2017 | | [facility] | [address] | | | | | [address] | [place] | | | | | [place] | [address] | | | | | [address] | | | | | | [phone] | | | +--------+--------+ + + + [...]
--- OUTSIDE RECORDS SUMMARY | ~2019-02-11 | XMS | Encounter Summary ---
Demographics + + + | Address | [address] | | | [place] [address] | + + + | Home Phone [...] Team Providers + +------+ + | Care Cargo Router Name | Role | Phone | + [...] + | 05/19/ | Telephone | [facility] | Roderick Alexandra, | Results | | 2018 | | MEDICINE [place] | [address] | | | | | [address] | [place] | | | | | [place] | [address] | | | | | [address] | | | | | | [phone] | | | +--------+ + + + [...]
--- OUTSIDE RECORDS SUMMARY | ~2019-02-11 | XMS | Encounter Summary ---
Demographics + + + | Address | [address] | | | [place] [address] | + + + | Home Phone [...] Providers + +------+ + | Care Bead Wire Taper Name | Role | Phone | + [...] Refill | | 2017 | | [facility] | [address] | | | | | [address] | [place] | | | | | [place] | [address] | | | | | [address] | | | | | | [phone] | | | +--------+--------+ + + + [...]
--- OUTSIDE RECORDS SUMMARY | ~2019-02-11 | XMS | Encounter Summary ---
Demographics + + + | Address | [address] | | | [place] [address] | + + + | Home Phone | | + + + | Preferred Language | Unknown | + + + | Marital Status | | + + + | Mandaen Affiliation | 1077 | + + + | Race | Unknown | + + + | Ethnic Group | Unknown | + + + Author + + + | Author | [facility] | | | and Saurabhana | + + + | Organization | [facility] | | [...] Team Providers + +------+ + | Care Neonatal Intensive Care Nurse Name | Role | Phone | [...] | 12/14/ | Telephone | [facility] [place] [facility] | Rylee Robert RN | ED Follow-up | | 2011 | | MEDICINE [place] | | | | | | [address] | | | | | | [place] | | | | | | [address] | | | | | | [phone] | | | +--------+ + + + [...]
--- OUTSIDE RECORDS SUMMARY | ~2019-02-11 | XMS | Encounter Summary ---
Demographics + + + | Address | [address] | | | [place] [address] | + + + | Home Phone [...] Providers + +------+ + | Care Medical And Health Services Manager Name | Role | Phone [...] + + | 01/29/ | Office | [facility] | Roderick Alexandra, | Medicare annual | | 2015 | Visit | MEDICINE [place] | [address] | wellness visit, | | | | [address] | [place] | subsequent (Primary | | | | [place] | [address] | Dx); Urinary tract | | | | [address] | | infection, site | | | | [phone] | | unspecified; Chest | | | [...] If you have a designated health care medical collections representative, give their name and contact informa [...] by mouth at bedtime 90 tablet 3 [place]-3 Fatty Acids ([facility]IL) 1000 [...] [place], [place] - [address] [place] [address] Immunizations Immunization History Administered Date(s) Administered INFLUENZA, [...] take 1 tablet by mouth at bedtime Nap[place]-3 Fatty Acids ([facility] NAT[facility] OIL) 1000 [...] (12/31/1999); and COPD (chronic obstructive pulmonary disease) ([facility]). Past Surgical History She has past surgical history that includes Appendectomy (1940); Tonsillectomy; Dilation an d curettage of uterus (, 2001); Cholecystectomy (1973); Skin cancer excision (4279-1669); hy steroscopy (08/2001); and Cataract Removal (02/2011). 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 [...] no improvements within 2 weeks I, Candy Edgemont am acting as a scribe on behalf [...] MD | | | | | | ([id number]) on 01/30/2015 | | | | | [...] 1.001 - 1.030 | | | | [place], | | | | | | UA, [...] | | DIAGNOSIS HPV RESULTS PHYSICIAN 04/01/11 [id number] | | | Satisfactory NIL Roderick Alexandra [...] | LABORATORY: Technical preparation was performed by [employer] | | | [employer], [address] [place] [address] | | | (Oracle Database Developer: Andrew Hathaway M.D.; [facility]#: [id number]). | | | Diagnostician: Chet CARTER([facility]) Local Owner Operator Truck Driver Electronically | | | Signed 02/01/2015 | [...]
--- OUTSIDE RECORDS SUMMARY | ~2019-02-11 | XMS | Encounter Summary ---
Demographics + + + | Address | [address] | | | [place] [address] | + + + | Home Phone | | + + + | Preferred Language | Unknown | + + + | Marital Status | | + + + | Scientologist Affiliation | 1077 | + + + | Race | Unknown | + + + | Ethnic Group | Unknown | + + + Author + + + | Author | [facility] | | | and Saurabhana | + + + | Organization | [facility] | | | [...] Team Providers + +------+ + | Care Hr Shared Services Consultant Name | Role | Phone | [...] | | | | [place] | [address] | | | | | [address] | | | | | | [phone] | | | +--------+ + + + [...]
--- OUTSIDE RECORDS SUMMARY | ~2019-02-11 | XMS | Encounter Summary ---
Demographics + + + | Address | [address] | | | [place] [address] | + + + | Home Phone [...] [facility] [place] | | | and Saurbahana | + + + | Organization | [...] Providers + +------+ + | Care Shoe Sprayer Name | Role | Phone | + [...] Refill | | 2013 | | [facility] | [address] | | | | | [address] | [place] | | | | | [place] | [address] | | | | | [address] | | | | | | [phone] | | | +--------+--------+ + + + [...]
--- OUTSIDE RECORDS SUMMARY | ~2019-02-11 | XMS | Encounter Summary ---
Demographics + + + | Address | [address] | | | [place] [address] | + + + | Home Phone [...] Providers + +------+ + | Care Director Child Abuse Therapy Name | Role | Phone | [...] | | | | [place] | [address] | | | | | [address] | | | | | | [phone] | | | +--------+ + + + [...]
--- OUTSIDE RECORDS SUMMARY | ~2019-02-11 | XMS | Encounter Summary ---
Demographics + + + | Address | [address] | | | [place] [address] | + + + | Home Phone [...] Team Providers + +------+ + | Care Lsat Instructor Name | Role | Phone | [...] Refill | | 2017 | | MEDICINE [place] | [address] | | | | | [address] | [place] | | | | | [place] | [address] | | | | | [address] | | | | | | [phone] | | | +--------+--------+ + + + [...]
--- OUTSIDE RECORDS SUMMARY | ~2019-02-11 | XMS | Encounter Summary ---
Demographics + + + | Address | [address] | | | [place] [address] | + + + | Home Phone [...] Team Providers + +------+ + | Care Principal Consulting Engineer Name | Role | Phone | [...] Refill | | 2012 | | [facility] | [address] | | | | | [address] | [place] | | | | | [place] | [address] | | | | | [address] | | | | | | [phone] | | | +--------+--------+ + + + [...]
--- OUTSIDE RECORDS SUMMARY | ~2019-02-11 | XMS | Encounter Summary ---
Demographics + + + | Address | [address] | | | [place] [address] | + + + | Home Phone [...] Team Providers + +------+ + | Care Freight Service Inspector Name | Role | Phone | [...] Refill | | 2017 | | MEDICINE [place] | [address] | | | | | [address] | [place] | | | | | [place] | [address] | | | | | [address] | | | | | | [phone] | | | +--------+--------+ + + + [...]
--- OUTSIDE RECORDS SUMMARY | ~2019-02-11 | XMS | Encounter Summary ---
Demographics + + + | Address | [address] | | | [place] [address] | + + + | Home Phone [...] Team Providers + +------+ + | Care Molecular Technologist Name | Role | Phone | [...] | | 2013 | | [facility] | [address] | | | | | [address] | [place] | | | | | [place] | [address] | | | | | [address] | | | | | | [phone] | | | +--------+--------+ + + + [...]
--- OUTSIDE RECORDS SUMMARY | ~2019-02-11 | XMS | Encounter Summary ---
Demographics + + + | Address | [address] | | | [place] [address] | + + + | Home Phone [...] Team Providers + +------+ + | Care Receiving Teller Name | Role | Phone | [...] | | | | [place] | [address] | | | | | [address] | | | | | | [phone] | | | +--------+ + + + [...] 08/03/2013 10:09 AM PDTReceived ED notes from [facility], treated with [...]
--- OUTSIDE RECORDS SUMMARY | ~2019-02-11 | XMS | Encounter Summary ---
Demographics + + + | Address | [address] | | | [place] [address] | + + + | Home Phone [...] Providers + +------+ + | Care Senior Statistician Name | Role | Phone | + [...] | 2016 | | [facility] | [address] | | | | | [address] | [place] | | | | | [place] | [address] | | | | | [address] | | | | | | [phone] | | | +--------+--------+ + + + [...]
--- OUTSIDE RECORDS SUMMARY | ~2019-02-11 | XMS | Encounter Summary ---
Demographics + + + | Address | [address] | | | [place] [address] | + + + | Home Phone [...] Providers + +------+ + | Care Senior Portfolio Analyst Name | Role | Phone | [...] Refill | | 2013 | | [facility] | [address] | | | | | [address] | [place] | | | | | [place] | [address] | | | | | [address] | | | | | | [phone] | | | +--------+--------+ + + + [...]
--- OUTSIDE RECORDS SUMMARY | ~2019-02-11 | XMS | Encounter Summary ---
Demographics + + + | Address | [address] | | | [place] [address] | + + + | Home Phone [...] Team Providers + +------+ + | Care Energy Conservation Representative Name | Role | Phone | [...] + | 02/06/ | Telephone | [facility] | Roderick lAexandra, | Results | | 2015 | | MEDICINE [employer] | [address] | | | | | [address] | [place] | | | | | [place] | [address] | | | | | [address] | | | | | | [phone] | | | +--------+ + + + [...]
--- OUTSIDE RECORDS SUMMARY | ~2019-02-11 | XMS | Encounter Summary ---
Demographics + + + | Address | [address] | | | [place] [address] | + + + | Home Phone [...] Team Providers + +------+ + | Care Plaster Mechanic Name | Role | Phone | [...] | | | | [place] | [address] | | | | | [address] | | | | | | [phone] | | | +--------+ + + + [...]
--- OUTSIDE RECORDS SUMMARY | ~2019-02-11 | XMS | Encounter Summary ---
Demographics + + + | Address | [address] | | | [place] [address] | + + + | Home Phone [...] Team Providers + +------+ + | Care Unit Support Representative Name | Role | Phone | [...] + + | 07/25/ | Office | [facility] | Roderick Alexandra, | Hypertension | | 2013 | Visit | [facility] | [address] | (Primary Dx); Right | | | | [address] | [place] | knee pain | | | | [place] | [address] | | | | | [address] | | | | | | [phone] | | | +--------+---------+ + + + [...] appt with ortho this after noon in [place]. Leaving for a 2 week trip. Hypertension [...] tablet by mouth nightly. 90 tablet 1 [place]-3 Fatty Acids ([facility] NAT[facility] FISH OIL) 1000 [...] (, 2001); Cholecystectomy (1973); Skin cancer excision (9831-8479); hy steroscopy (08/2001); and Cataract Removal (02/2011). [...] her get through her upcoming travel to [place]. 2. Hypertension. Well controlled. No changes in [...]
--- OUTSIDE RECORDS SUMMARY | ~2019-02-11 | XMS | Encounter Summary ---
Demographics + + + | Address | [address] | | | [place] [address] | + + + | Home Phone [...] Providers + +------+ + | Care Rn Practitioner Name | Role | Phone | + [...] Refill | | 2015 | | [facility] | [address] | | | | | [address] | [place] | | | | | [place] | [address] | | | | | [address] | | | | | | [phone] | | | +--------+--------+ + + + [...]
--- OUTSIDE RECORDS SUMMARY | ~2019-02-11 | XMS | Encounter Summary ---
Demographics + + + | Address | [address] | | | [place] [address] | + + + | Home Phone [...] + + + | Author | [facility] | + + + | Organization | [facility] | + + + | Address | Unknown | + + + | Phone | Unavailable | + + + Care Team Providers + +------+ + | Care Plant Utilities Engineer Name | Role | Phone | [...] [id number] | | | | | | [facility] | | | | | | and Healing, | | | | | | Building [address], [address]th | | | | | | Floor [place], [place] | | | | | | [address] | | | | | | [phone] | | | +--------+ + + + [...] | | | | | | skin, [id number]. The | | | | | | [...] [facility] | [address], [address] | [place] [address] | | | DERMATOPATHOLOGY | [address] | | | + + + + + documented in this encounter Visit Diagnoses Not on filedocumented in this encounter
--- OUTSIDE RECORDS SUMMARY | ~2019-02-11 | XMS | Encounter Summary ---
Demographics + + + | Address | [address] | | | [place] [address] | + + + | Home Phone [...] Team Providers + +------+ + | Care Alodize Machine Helper Name | Role | Phone | [...] Refill | | 2013 | | [facility] | [address] | | | | | [address] | [place] | | | | | [place] | [address] | | | | | [address] | | | | | | [phone] | | | +--------+--------+ + + + [...]
--- OUTSIDE RECORDS SUMMARY | ~2019-02-11 | XMS | Encounter Summary ---
Demographics + + + | Address | [address] | | | [place] [address] | + + + | Home Phone [...] Author | [facility] | | | and [...] Team Providers + +------+ + | Care Semiconductor Engineer Name | Role | Phone | [...] Refill | | 2012 | | [facility] | [address] | | | | | [address] | [place] | | | | | [place] | [address] | | | | | [address] | | | | | | [phone] | | | +--------+--------+ + + + [...]
--- OUTSIDE RECORDS SUMMARY | ~2019-02-11 | XMS | Encounter Summary ---
Demographics + + + | Address | [address] | | | [place] [address] | + + + | Home Phone [...] Team Providers + +------+ + | Care Aviation Safety Inspector Name | Role | Phone | [...] + + | 02/12/ | Telephone | [facility] | Roderick Alexandra, | Results | | 2018 | | MEDICINE [place] | [address] | (mammogram/updated | | | | [address] | [place] | external results) | | | | [place] | [address] | | | | | [address] | | | | | | [phone] | | | +--------+ + + + [...]
--- OUTSIDE RECORDS SUMMARY | ~2019-02-11 | XMS | Encounter Summary ---
Demographics + + + | Address | [address] | | | [place] [address] | + + + | Home Phone [...] Team Providers + +------+ + | Care Account Advisor Name | Role | Phone | + [...] + + | 01/29/ | Office | [facility] | Roderick Alexandra, | Medicare annual | | 2015 | Visit | [facility] | [address] | wellness visit, | | | | [address] | [place] | subsequent (Primary | | | | [place] | [address] | Dx); Urinary tract | | | | [address] | | infection, site | | | | [phone] | | unspecified; Chest | | | [...] If you have a designated health care employee's representative, give their name and contact informa [...] by mouth at bedtime 90 tablet 3 Gove-3 Fatty Acids ([facility] NATURAL FISH OIL) 1000 [...] [place], [place] - [address] [place] [address] Immunizations Immunization History Administered Date(s) Administered INFLUENZA, QUADRIVALENT W/PRESERVATIVE (PED/ADOL/ADULT) 11/15/2013, 10/31/2014 INFLUENZA, W/Preservative 10/18/2011 PNEUMOCOCCAL CONJUGATE 13-VALENT (PCV13) 07/24/2014 PNEUMOCOCCAL POLYSACCHARIDE 23-VALENT (PPSV23) 05/20/2005 TDAP, (ADOL/ADULT) 12/02/2005 ZOSTER, 1 DOSE (ADULT) 12/02/2005, 09/05/2011 Preventative Care and Screening (Attestation) The following health maintenance items are reviewed in [facility] and correct as of today: Health [...] take 1 tablet by mouth at bedtime Gove-3 Fatty Acids ([facility] NATURAL FISH OIL) 1000 [...] (12/31/1999); and COPD (chronic obstructive pulmonary disease) ([facility]). Past Surgical History She has past surgical history that includes Appendectomy (1940); Tonsillectomy; Dilation an d curettage of uterus (, 2001); Cholecystectomy (1973); Skin cancer excision (0536-2642); hy steroscopy (08/2001); and Cataract Removal (02/2011). 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 [...] no improvements within 2 weeks I, Candy Elmira am acting as a scribe on behalf [...] MD | | | | | | ([id number]) on 01/30/2015 | | | | | [...] 1.001 - 1.030 | | | | Williams, | | | | | | UA, [...] | | DIAGNOSIS HPV RESULTS PHYSICIAN 04/01/11 [id number] | | | Satisfactory NIL Roderick Alexandra [...] | LABORATORY: Technical preparation was performed by [employer] | | | [employer], [address] [place] [address] | | | (Title Examiner: Andrew Hathaway M.D.; [facility]#: [id number]). | | | Diagnostician: Chet CARTER([facility]) Child Support Investigator Electronically | | | Signed 02/01/2015 | [...]
--- OUTSIDE RECORDS SUMMARY | ~2019-02-11 | XMS | Encounter Summary ---
Demographics + + + | Address | [address] | | | [place] [address] | + + + | Home Phone [...] Team Providers + +------+ + | Care Pneumatic Tube Fitter Name | Role | Phone | + +------+ + PCP | Unavailable | + +------+ + Encounter Details +--------+ + + + + | Date | Type | Department | Care Team | Description | +--------+ + + + + | 08/06/ | Hospital | [facility] | | | | 2005 | Encounter | [facility] LAB[facility] | | | | | | [address] [place] | | | | | | [place], [place] | | | | | | [address] | | | | | | [phone] | | | +--------+ + + + [...]
--- OUTSIDE RECORDS SUMMARY | ~2019-02-11 | XMS | Encounter Summary ---
Demographics + + + | Address | [address] | | | [place] [address] | + + + | Home Phone [...] Team Providers + +------+ + | Care Protozoologist Name | Role | Phone | + [...] | [address] | | | | | [address] | | | | | | [phone] | | | +--------+--------+ + + + [...]
--- OUTSIDE RECORDS SUMMARY | ~2019-02-11 | XMS | Encounter Summary ---
Demographics + + + | Address | [address] | | | [place] [address] | + + + | Home Phone | | + + + | Preferred Language | Unknown | + + + | Marital Status | | + + + | Sabianist Affiliation | 1077 | + + + | Race | Unknown | + + + | Ethnic Group | Unknown | + + + Author + + + | Author | [facility] | | | and [place] | + + + | Organization | [facility] | | [...] Team Providers + +------+ + | Care Stem Processing Machine Operator Name | Role | Phone | + +------+ + PCP | Unavailable | + +------+ + Encounter Details +--------+ + + + + | Date | Type | Department | Care Team | Description | +--------+ + + + + | 12/28/ | Hospital | [facility] | | | | 2001 | Encounter | MED CTR XRAY [address] | | | | | [address] [place] | | | | | | [place] [address] | | | | | | [phone] | | | +--------+ + + + [...]
[~2019-02-11 22:57] MED LIST changes: +AMOX TR-K CLV1 EAC1 PO; +CULTURELLE1 EAC1 PO; +FISH OIL 1,0001 EAC6 PO; +MAG-OXIDE400 MG PO; +PRESERVISION A1 EACH PO; +VITAMIN D-32000 UNIT PO
[2019-02-11] MEDS ORDERED: PEPCID AC10 MG PO (23:07)
[2019-02-11] MEDS ORDERED: PRESERVISION L1 EACH PO (23:08)
--- NOTE | 2019-02-12 03:10 | NUR ---
pt ARRIVED TO FLOOR VIA STRETCHER. pt ABLE TO MOVE SELF FROM STRETCHER TO BED. UP TO VOID 2PA BSC, UNSTEADY ON FEET. VITALS AND WEIGHT RECORDED. PRIMARY RN IN ROOM.
--- NOTE | 2019-02-12 04:09 | NUR ---
PT ARRIVED TO FLOOR AT 0300 BY STRETCHER. ASSESSMENT COMPLETED. WEAKNESS IN LLE. GCS 15, A&O X4. UP TO BSC WITH 1PA. L AC IV CDI, WNL, FLUSHED WELL. PT EDUCATED PLANNER/SCHEDULER LIGHT. SPOUSE IN ROOM. NO OTHER NEEDS AT THIS TIME.
--- NOTE | 2019-02-12 05:40 | NUR ---
PT RESTING IN BED, EYES CLOSED. RR 16, EVEN, UNLABORED. TELE#3 SR @99. CALL LIGHT IN REACH.
--- NOTE | 2019-02-12 06:19 | NUR ---
VITALS AND I&OS DONE AND CHARTED. BEDSIDE TABLE AND CALL LIGHT IN REACH.PT NEEDS NOTHING MORE AT THIS TIME.
--- NOTE | 2019-02-12 06:45 | NUR ---
PT UP TO BR. PT STILL WEAK ON LEFT LEG, 1 PA. WARM BLANKET PROVIDED. GCS 15. A&O X4. NO OTHER NEEDS. CALL LIGHT IN REACH.
--- NOTE | 2019-02-12 08:14 | NUR ---
PATIENT RESTING IN BED, EYES CLOSED. PATIENT STATES SHE IS EXHAUSTED AND BARELY SLEPT LAST NIGHT. PATIENT PERFORMED AM CARE BUT REQUESTED TO SLEEP LONGER BEFORE BREAKFAST ARRIVES. CALL LIGHT IN REACH. NO OTHER NEEDS AT THIS TIME.
--- NOTE | 2019-02-12 08:25 | NUR ---
PT RESTING IN SEMIFOWLERS POSITION IN BED ALERT AND ORIENTED. ASSESSMENT COMPLETED. CALL LIGHT NAD H2O IN REACH. PT DENIES SOB, PAIN, NAUSEA, NUMBNESS, TINGLING OR BURNING. CALL LIGHT AND H2O IN REACH. NO FURTHER NEEDS OR CONCERNS VOICED.
--- NOTE | 2019-02-12 09:53 | NUR ---
KADI IN IMAGING NOTIFIED OF NEW ORDERS FOR ULTRASOUND AND MRI.
--- NOTE | 2019-02-12 11:52 | NUR ---
PT RESTING IN SEMIFOWLERS POSITION IN BED ULTRASOUND CURRENTLY BEING COMPLETED PE US TECH. PT APPEARS TO BE IN NO ACUTE DISTRESS. CALL LIGHT AND H2O IN REACH.
--- NOTE | 2019-02-12 12:54 | NUR ---
PT SITTING UP AT BEDSIDE VISITING WITH HER . PT STATES SHE WORKED WITH PHYSICAL THERAPY AND TOLERATED IT WELL WITH A FWW DUE TO HER PERSISTING LEFT LEG WEAKNESS.
--- NOTE | 2019-02-12 13:51 | EKG ---
[facility] [address] [place] [address] Signed Normal sinus rhythm Normal ECG No previous ECGs available Confirmed by KALINA DAWSON MD ([id number]) on 02/12/2019 1:51:26 PM Electronically Signed By: KALINA DAWSON MD 02/12/19 1351 PATIENT NAME: ERIS SOSA Electrocardiogram DATE OF : 31 PHYSICIAN: KALINA DAWSON MD REPORT #: [id number] REPORT IS CONFIDENTIAL AND NOT TO BE RELEASED WITHOUT AUTHORIZATION
--- NOTE | 2019-02-12 16:49 | NUR ---
PT RESTING IN SEMIFOWLERS POSITION IN BED WATCHING TV. PT DECLINES ATORVASTATIN STATES "IT MAKES MY HANDS ACHE". WILL NOTIFY OF PT REPORT. MED HELD. ASSESMENT COMPLETED. NO FURTHER NEEDS OR CONCERNS VOICED.
--- NOTE | 2019-02-12 17:57 | NUR ---
PATIENT HAS BEEN AMBULATING VERY WELL THIS AFTERNOON AND SEEMS TO BE MORE STEADY ON HER FEET. PATIENT HAS BEEN SITTING UP ON THE EDGE OF THE BED FOR MEALS AND TO VISIT WITH FAMILY. PATIENT CURRENTLY SITTING UP FOR DINNER. CALL LIGHT IN REACH. NO OTHER NEEDS AT THIS TIME.
--- NOTE | 2019-02-12 19:16 | NUR ---
SHIFT REPORT RECIEVED FROM [place]. PT RESTING IN BED, EYES CLOSED. RR 14, EVEN, UNLABORED. TELE#3 ST @76. CALL LIGHT IN REACH.
--- NOTE | 2019-02-12 19:35 | NUR ---
1PA WITH FWW TO RESTROOM, PT IS NOW BACK IN BED. SHE DENIES NEEDS AT THIS TIME. CALL LIGHT IS CLOSE.
--- NOTE | 2019-02-12 19:55 | NUR ---
PT ASSESSMENT, VS AND I&O COMPLETED. WEAKNESS IN LLE. A&O X 4, GCS 15, CMS INTACT X4. TELE #3 SR @ 88. CRACKERS AND WATER PROVIDED. NO OTHER NEEDS. CALL LIGHT IN REACH.
--- NOTE | 2019-02-12 22:04 | NUR ---
ASSISTED PT TO THE RESTROOM AND BACK TO BED. SHE DENIES NEEDS AT THIS TIME. CALL LIGHT IS WITHIN REACH.
--- NOTE | 2019-02-13 00:06 | NUR ---
PT RESTING ITH EYES CLOSED, WAKES TO VOICE. NEURO CHECK COMPLETED. WEAKNESS TO LEFT LEFT NOTED. NO OTHER NEEDS. CALL LIGHT IN REACH.
--- NOTE | 2019-02-13 01:54 | NUR ---
PT UP TO BR. VS AND I&O COMPLETED. WATER PROVIDED. NO OTHER NEEDS. CALL LIGHT IN REACH.
--- NOTE | 2019-02-13 04:18 | NUR ---
ASSESSMENT COMPLETED. NEW BATTERY PLACED IN TELE #3, SR @ 82. NO OTHER NEEDS. CALL LIGHT IN REACH.
--- NOTE | 2019-02-13 04:52 | NUR ---
PT HAS SLEPT MOST THE SHIFT. NEURO CHECKS UNCHANGED THIS SHIFT WITH THE LEFT LEG WEAKNESS PRESENT. A&O X4, GCS 15, PERRLA. PT TOLERATES FWW WELL. TELE #3 HAS BEEN SR TRENDING IN THE 80S.
--- NOTE | 2019-02-13 06:27 | NUR ---
PT RESTING IN BED, EYES CLOSED. RR 14, EVEN, UNLABORED. TELE#3 SR @81. CALL LIGHT IN REACH.
--- NOTE | 2019-02-13 06:54 | NUR ---
PT UP TO BR. VS AND I&O COMPLETED. NO OTHER NEEDS. CALL LIGHT IN REACH.
--- NOTE | 2019-02-13 07:15 | NUR ---
PT RESTING IN SEMIFOWLERS POSITION IN BED ALERT AND ORIENTED. BEDSIDE REPORT RECEIVED FROM FROM NOC SHIFT RN. PT DENIES NEEDS OR CONCERNS AT THIS TIME. CALL LIGHT AND H2O IN REACH.
--- NOTE | 2019-02-13 07:49 | NUR ---
PATIENT RESTING IN BED, READING A BOOK. PATIENT STATES SHE GOT MORE SLEEP LAST NIGHT BUT STILL WOKE UP OFTEN. PATIENT PERFORMED AM CARE AND STATES SHE DOES NOT WANT A SHOWER TODAY SINCE SHE HAD ONE YESTERDAY. CALL LIGHT IN REACH. NO OTHER NEEDS AT THIS TIME.
--- NOTE | 2019-02-13 08:53 | NUR ---
PT RESTING SUPINE IN BED ALERT AND ORIENTED. PT ASSESSMENT COMPLETED AND AM MEDS AMDINISTERED. PT STATES "I'M FEELING BETTER AND STRONGER THAN I WAS YESTERDAY". PT ABLE TO LIFT LEFT LOWER EXTREMITY UP MORE AND HOLD LONGER THAN SHE WAS ABLE TO YESTERDAY. PT STATES " I WALKED OVER 200 FEET WITH PHYSICAL THERAPY WITH THE WALKER AND I FELT LIKE I'M NOT DRAGGING MY LEFT LEG MUCH TODAY". PT DENIES NEEDS OR CONCERNS. CALL LIGHT AND H2O IN REACH.
--- NOTE | 2019-02-13 10:13 | NUR ---
PATIENT AMBULATED TO BATHROOM AND BACK TO BEDSIDE RECLINER. FAMILY IN ROOM. LINENS CHANGED. CALL LIGHT IN REACH, NO OTHER NEEDS AT THIS TIME .
--- NOTE | 2019-02-13 10:58 | NUR ---
PT RESTING SUPINE IN BED WITH EYES CLOSED. REPSIRATIONS EVEN AND UNLABORED. CALL LIGHT AND H2O IN REACH. PT APPEARS TO BE SLEEPING COMFORTABLY.
--- NOTE | 2019-02-13 11:02 | NUR ---
IN TO SPEAK WITH PT FOR INITIAL CASE MANAGEMENT ASSESSMENT. SPOKE WIHT PT ABOUT THE POSSIBILITY OF TRANSITIONAL CARE. PT REPORTS SHE WOULD BE INTERESTED IN THIS IF SHE IS UNABLE TO GO HOME AND DO OUT PT THERAPY.
--- NOTE | 2019-02-13 13:24 | NUR ---
PT ALERT AND ORIENTED SITTING UP IN BED WATCHING TV. ASSESSMENT COMPLETED. CALL LIGHT AND H2O IN REACH. NO NEEDS OR CONCERNS VOICED.
--- NOTE | 2019-02-13 14:42 | NUR ---
PATIENT RESTING IN BED. VISITOR IN ROOM. PATIENT REFUSED TO TAKE A SHOWER TODAY BECAUSE SHE TOOK A SHOWER YESTERDAY. CALL LIGHT WITHIN REACH. NO OTHER NEEDS AT THIS TIME
--- NOTE | 2019-02-13 16:08 | NUR ---
PT RESTING IN SEMIFOWLERS POSITION IN BED. PT ALERT AND ORIENTED. CALL LIGHT AND H2O IN REACH. PM MEDS ADMINISTERED. NO NEEDS OR CONCERNS VOICED.
--- NOTE | 2019-02-13 18:12 | NUR ---
PATIENT RESTING IN BED. VITAL SIGNS AND I&O DONE. WATER GIVEN. CALL LIGHT WITHIN REACH. NO OTHER NEEDS AT THIS TIME
--- NOTE | 2019-02-13 19:45 | NUR ---
BEDSIDE REPORT RECEIVED FROM RAMONA GUTHRIE. pt RESTING IN BED. DENIES NEEDS AT THIS TIME. CALL LIGHT HANDED TO pt.
--- NOTE | 2019-02-13 20:21 | NUR ---
VITALS AND I&OS DONE AND CHARTED. HELPED PT TO THE BATHROOM AND BACK TO BED WITH HER FWW. BEDSIDE TABLE AND CALL LIGHT IN REACH.
--- NOTE | 2019-02-13 20:26 | NUR ---
ROUNDED CHARGE. PATIENT IS RESTING IN BED WATCHING TV. PATIENT DENIES ANY COMMENTS, QUESTIONS OR CONCERNS. NO NEEDS NOTED. CALL LIGHT IN REACH.
--- NOTE | 2019-02-13 20:35 | NUR ---
pt ASSESSMENT COMPLETE. WEAKNESS LLE. SENSATION INTACT. STRONG PEDAL PULSES BILATERALLY. ALERT AND ORIENTED X 4. pt DENIES ANY NEEDS AT THIS TIME. CALL LIGHT IN REACH.
--- NOTE | 2019-02-13 23:50 | NUR ---
pt RESTING IN BED ON RIGHT SIDE. BREATHING UNLABORED. CALL LIGHT IN REACH.
--- NOTE | 2019-02-14 01:24 | NUR ---
CALL LIGHT ANSWERED. SBA WITH FWW TO RESTROOM FOR VOID, GAIT UNSTEADY. LEFT FOOT DRAGGING WITH AMBULATION, WEAK. pt BACK IN BED. ASSESSMENT COMPLETE. NO REQUESTS AT THIS TIME. CALL LIGHT IN REACH.
--- NOTE | 2019-02-14 05:11 | NUR ---
pt ALERT AND ORIENTED X 4. WEAKNESS LLE. 1PA WITH FWW TO RESTROOM FOR VOIDS THIS SHIFT. USING CALL LIGHT APPROPRIATELY. IV SL.
--- NOTE | 2019-02-14 06:22 | NUR ---
pt AWAKENS TO VOICE. VSS. 1PA TO RESTROOM WITH FWW FOR VOID AND BACK TO BED. MRI CHECKLIST COMPLETE BY pt AND ON CHART. CALL LIGHT IN REACH. WATER PROVIDED.
--- NOTE | 2019-02-14 08:30 | NUR ---
PT IS IN GOOD SPIRITS, SITTING UP FOR BREAKFAST, HOPING TO GO HOME TODAY, ONE PERSON SBA WITH FWW OOB. PT FEELS L LEG IS STRONGER BUT CONT. TO HAVE SOME TROUBLE WITH LIFTING TOEE/FRONT OF FOOT UPWARDS. NO DISCOMFORT, SCHEDULED FOR MRI TODAY.
--- NOTE | 2019-02-14 09:28 | NUR ---
PATIENT SITTING UP IN BED. IV WRAPPED. PATIENT GOES TO THE BATHROOM TO TAKE A SHOWER. PATIENT USES WALKER. ONE PERSON ASSISTING. PATIENT BACKS TO BED. PATIENT USING A CLEAN GOWN AND ADULT PULL UP. VITAL SIGNS AND I&O DONE. CALL LIGHT WITHIN REACH. NO OTHER NEEDS AT THIS TIME
--- NOTE | 2019-02-14 12:41 | NUR ---
PT IS ALERT, ORIENTED AND SEEMED PLEASED TO SEE ME. PT ADMITTED SHE WAS A LITTLE FRIGHTED BUT FEELS MUCH MORE AT EASE TODAY. WAITING FOR MRI AND P.T. WHICH WILL DETERMINE IF DC IS ON HER SCHEDULE. PT REQUESTED I CONTACT HER CATALYST OPERATOR CHIEF WHICH I DID. HAD PRAYER WITH PT. WILL FOLLOW NEEDED
--- NOTE | 2019-02-14 13:14 | NUR ---
PATIENT SITTING UP IN CHAIR. IN ROOM. PATIENT GOES TO USE THE BATHROOM. PATIENT USES WALKER. ONE PERSON ASSISTING. PATIENT BACKS TO CHAIR. VITAL SIGNS AND I&O DONE. CALL LIGHT WITHIN REACH. NO OTHER NEEDS AT THIS TIME
--- NOTE | 2019-02-14 14:28 | NUR ---
PT WALKED HALLWAY USING FWW AND SBA, MOTIVATED AND WORKING WELL WITH PHYSICAL THERAPY. DENIES ANY CONCERNS OR DISCOMFORT.
--- NOTE | 2019-02-14 15:39 | NUR ---
PATIENT SITTING UP IN BED. IN ROOM. CALL LIGHT WITHIN REACH. NO OTHER NEEDS AT THIS TIME
--- NOTE | 2019-02-14 16:22 | NUR ---
CALL LIGHT ANSWERED.PATIENT RESTING IN BED. IN ROOM. PATIENT GOES TO USE THE BATHROOM.PATIENT USES WALKER. ONE PERSON ASSISTING. PATIENT'S HANDS WASHED. PATIENT BACKS TO BED. CALL LIGHT WITHIN REACH. NO OTHER NEEDS AT THIS TIME
--- NOTE | 2019-02-14 16:31 | NUR ---
Spoke with Rosalind and her spouse. She complains of difficulty with L leg and weakness. Discussed TC program and she states staff have already spoken with her about this and she would like to participate for strengthening. Dr. King notified.
--- NOTE | 2019-02-14 16:41 | NUR ---
RESTING COMFORTABLE, READING A BOOK, LOOKING FORWARD TO DINNER,DENIES ANY NEEDS.
--- NOTE | 2019-02-14 17:19 | NUR ---
PT IS ALERT, ORIENTED, CONT. TO WORK WITH PT/OT FOR SAFETY/STRENGTH. L LEG CONT. TO BE WEAKER THAN RIGHT.
--- NOTE | 2019-02-14 17:57 | NUR ---
PATIENT RESTING IN BED. VITAL SIGNS AND I&O DONE. CALL KAYLEY FORREST. NO OTHER NEEDS AT THIS TIME
--- NOTE | 2019-02-14 19:40 | NUR ---
REPORT RECEIVED FROM RAMONA HESTER. pt APPEARS TO BE SLEEPING, RESTING IN BED WITH EYES CLOSED. BREATHING UNLABORED. CALL LIGHT IN REACH.
--- NOTE | 2019-02-14 20:12 | NUR ---
ANSWERED CALL LIGHT. 1 SBA TO THE BATHROOMAND BACK TO BED. PATIENT DID PM CARE/ BRUSH TEETH. DRINKING WATER CUP REFILLED.
--- NOTE | 2019-02-14 21:45 | NUR ---
pt AWAKENS TO VOICE. SBA WITH FWW TO RESTROOM FOR VOID AND BACK TO BED. GAIT UNSTADY. WEAKNESS NOTED LEFT FOOT. ALERT AND ORIENTED TO ALL, NO OTHER DEFICITS NOTED. DENIES PAIN AT THIS TIME "SOME SORENESS IN GROIN WHEN I LIFT MY LEG" DENIES NEED FOR PRN MEDICATION OR HOT COLD AT THIS TIME. VSS. CALL LIGHT IN REACH.
--- NOTE | 2019-02-15 00:52 | NUR ---
pt LYING IN BED ON RIGHT SIDE. VISIBLE CHEST RISE. RR 16. LIGHTS OFF IN ROOM.
--- NOTE | 2019-02-15 02:57 | NUR ---
CALL LIGHT ANSWERED. 1PA W FWW TO RESTROOM FOR VOID AND BACK IN BED. MORNING ASSESSMENT COMPLETE. WEAKNESS LEFT FOOT. pt DENIES PAIN OR ADDITIONAL NEEDS. CALL LIGHT IN REACH.
--- NOTE | 2019-02-15 04:14 | NUR ---
pt LYING ON RIGHT SIDE. BREATHING UNLABORED. RR 20. LIGHTS OFF IN ROOM.
--- NOTE | 2019-02-15 05:50 | NUR ---
pt RESTING IN BED THROUGHOUT SHIFT. 1PA WITH FWW TO RESTROOM FOR QS VOIDS. WEAKNESS LEFT FOOT. NEURO CHECKS OTHERWISE WNL. IV SL. NO C/O PAIN THIS SHIFT.
--- NOTE | 2019-02-15 08:09 | NUR ---
PT IS SITTING UP EATING BREAKFAST. STATES SHE SLEPT WELL, READY FOR REHAB TODAY. DENIES ANY DISCOMFORT OR COMCERNS.
--- NOTE | 2019-02-15 09:02 | NUR ---
PATIENT RESTING IN BED. VITAL SIGNS AND I&O DONE. CALL LIGHT WITHIN REACH. NO OTHER NEEDS AT THIS TIME
[2019-02-15] MEDS ORDERED: CALCIUM + VITA1 EAC2 PO (09:14)
--- NOTE | 2019-02-15 09:15 | NUR ---
MED REC COMPLETE
--- NOTE | 2019-02-15 10:27 | NUR ---
PT HAS MOVED TO ROOM 115 TO HAVE A BETTER VIEW OUT HER WINDOW. HAPPY WITH ROOM CHANGE.
--- NOTE | 2019-02-15 10:38 | NUR ---
PATIENT SITTING UP IN CHAIR. IN ROOM. IV WRAPPED. PATIENT GOES TO THE BATHROOM TO TAKE A SHOWER. PATIENT USES WALKER. ONE PERSON ASSISTING. PATIENT USING HER OWN PIJAMAS. ORAL CARE DONE. PATIENT BACKS TO CHAIR. WARM BLANKET PROVIDE. CALL LIGHT WITHIN REACH. NO OTHER NEEDS AT THIS TIME
== END 2019-02-15 11:30 | disposition swing bed (61) | DRG 66 ==
LOC: ED 22:57 → MS 22:58
PROVIDERS: ADMIT Internal Medicine
DX: I63.9 Cerebral infarction, unspecified (principal); G83.14 Monoplegia of lower limb affecting left nondominant side; I08.0 Rheumatic disorders of both mitral and aortic valves; I10 Essential (primary) hypertension; K21.9 Gastro-esophageal reflux disease without esophagitis; E78.1 Pure hyperglyceridemia; I48.0 Paroxysmal atrial fibrillation; Z79.899 Other long term (current) drug therapy; Z88.1 Allergy status to other antibiotic agents
CPT/HCPCS: 70450; 70553; 80053; 80061; 83036; 85025; 93005; 93010; 93880; 97110; 97116; 97162; 97165; 99285-25; A9579; J1650

== ENCOUNTER 2019-02-15 11:35 | Inpatient (IN) | payer MEDICARE, OTHER ==
[~2019-02-15] VITALS: Ht 157.5 cm; Wt 68.0 kg
--- OUTSIDE RECORDS SUMMARY | ~2019-02-15 | XMS | Encounter Summary ---
Demographics + + + | Address | [address] | | | [place] [address] | + + + | Home Phone | | + + + | Preferred Language | Unknown | + + + | Marital Status | | + + + | Latter Day Affiliation | 1077 | + + + | Race | Unknown | + + + | Ethnic Group | Unknown | + + + Author + + + | Author | [facility] | | | and [place] | + + + | Organization | [facility] | | | and [place] | + + + | Address | Unknown | + + + | Phone | Unavailable | + + + Support + + +---------+ + | Name | Relationship | Address | Phone | + + +---------+ + | Addy Moore | ECON | Unknown | | + + +---------+ + | Shelli Tinajero | ECON | Unknown | | + + +---------+ + Care Team Providers + +------+ + | Care Human Resource Management Instructor Name | Role | Phone | + +------+ + | Roderick Alexandra MD | PCP | | + +------+ + Reason for Visit + + + | Reason | Comments | + + + | Medication Refill | | + + + Encounter Details +--------+--------+ + + + | Date | Type | Department | Care Team | Description | +--------+--------+ + + + | 09/07/ | Refill | [facility] | Roderick Alexandra, | Medication Refill | | 2017 | | [facility] | [address] | | | | | [address] | [place] | | | | | [place] | [address] | | | | | [address] | | | | | | [phone] | | | +--------+--------+ + + + Social History + +-------+ +--------+------+ | Tobacco Use | Types | Packs/Day | Years | Date | | | | | Used | | + +-------+ +--------+------+ | Never Smoker | | | | | + +-------+ +--------+------+ + +---+---+---+ | Smokeless Tobacco: | | | | | Never Used | | | | + +---+---+---+ + + +---------+ + | Alcohol Use | Drinks/Week | oz/Week | Comments | + + +---------+ + | Yes | | | 3-4 times per year | + + +---------+ + + + + | Sex Assigned at [...]
--- OUTSIDE RECORDS SUMMARY | ~2019-02-15 | XMS | Clinical Summary ---
Demographics + + + | Address | [address] | | | [place] [address] | + + + | Home Phone | | + + + | Preferred Language | Unknown | + + + | Marital Status | Single | + + + | Nondenominational Affiliation | Unknown | + + + | Race | Unknown | + + + | Ethnic Group | Other Race | + + + Author + + + | Author | [facility] | + + + | Organization | [facility] | + + + | Address | Unknown | + + + | Phone | Unavailable | + + + Care Team Providers + +------+ + | Care Side Door Worker Name | Role | Phone | + +------+ + PCP | Unavailable | + +------+ + Source Comments GERMAINE is fully live on both [facility] and [facility] Allergies Not on File Medications Not on file Active Problems Not on file Social History + +-------+ +--------+------+ | Tobacco [...] recent travel history available. | + + Last Filed Vital Signs Not on file Plan of Treatment Not on file Results Not on filefrom Last 3 Months Insurance + +--------+ +--------+ + +--------+ | Payer | Benefi | Subscriber | Effect | Phone | Address | Type | | | t Plan | ID | beatrice | | | | | | / | | Dates | | | | | | Group | | | | | | + +--------+ +--------+ + +--------+ | MEDICARE | MEDICA | xxxxxxxxxx | 07/17/18 | [phone] | [address] | [address] | | | RE A & | | [address] | [phone] | [address] | | | B | | sent | | [place] | | | | | | | | [phone] | | + +--------+ +--------+ + +--------+ + +--------+ +--------+ + + | Guarantor Name | Accoun | Relation to | Date | Phone | Billing Address | | | t Type | Patient | of | | | | | | | | | | + +--------+ +--------+ + + | Rosalind Patel | Person | Self | [birth year] | [address] | | | al/Tate | | 1936 | [phone] | [place] | | | aliyah | | | [address] (Home) | [phone] | + +--------+ +--------+ + +"
--- OUTSIDE RECORDS SUMMARY | ~2019-02-15 | XMS | Encounter Summary ---
Demographics + + + | Address | [address] | | | [place] [address] | + + + | Home Phone | | + + + | Preferred Language | Unknown | + + + | Marital Status | | + + + | Islam Affiliation | 1077 | + + + | Race | Unknown | + + + | Ethnic Group | Unknown | + + + Author + + + | Author | [facility] | | | and S[place]ana | + + + | Organization | [facility] | | | and [...] Team Providers + +------+ + | Care Electrical Troubleshooter Name | Role | Phone | + [...] Description | +--------+--------+ + + + | 04/09/ | Refill | [facility] | Roderick Alexandra, | Medication Refill | | 2017 | | [facility] | [address] | | | | | [address] | [place] | | | | | [place] | [address] | | | | | [address] | | | | | | [phone] | | | +--------+--------+ + + + [...]
--- OUTSIDE RECORDS SUMMARY | ~2019-02-15 | XMS | Encounter Summary ---
Demographics + + + | Address | [address] | | | [place] [address] | + + + | Home Phone | | + + + | Preferred Language | Unknown | + + + | Marital Status | | + + + | Restorationist Affiliation | 1077 | + + + | Race | Unknown | + + + | Ethnic Group | Unknown | + + + Author + + + | Author | [facility] | | | and Saurab[place]ana | + + + | Organization | [facility] | | | [...] Team Providers + +------+ + | Care Calendar Control Clerk Blood Bank Name | Role | Phone | + +------+ + | Roderick Alexandra MD | PCP | | + +------+ + Encounter Details +--------+ + + + + | Date | Type | Department | Care Team | Description | +--------+ + + + + | 05/04/ | Abstract | [facility] | Roderick Alexandra, | | | 2017 | | MEDICINE [facility] | [address] | | | | | [address] | [place] | | | | | [place] | [address] | | | | | [address] | | | | | | [phone] | | | +--------+ + + + [...] + | EXTERNAL LAB: | Routin | 04/16/2017 | | Results for this | | GLUCOSE | e | | | procedure are in the | | | | | | results section. | + +--------+ + + + | EXTERNAL LAB: ALT | Routin | 04/16/2017 | | Results for this | | | e | | | procedure are in the | | | | | | results section. | + +--------+ + + + | EXTERNAL LAB: AST | Routin | 04/16/2017 | | Results for this | | | e | | | procedure are in the | | | | | | results section. | + +--------+ + + + | EXTERNAL LAB: | Routin | 04/16/2017 | | Results for this | | ALKALINE PHOSPHATASE | e | | | procedure are in the | | | | | | results section. | + +--------+ + + + | EXTERNAL LAB: | Routin | 04/16/2017 | | Results for this | | BILIRUBIN, TOTAL | e | | | procedure are in the | | | | | | results section. | + +--------+ + + + | EXTERNAL LAB: | Routin | 04/16/2017 | | Results for this | | ALBUMIN | e | | | procedure are in the | | | | | | results section. | + +--------+ + + + | EXTERNAL LAB: | Routin | 04/16/2017 | | Results for this | | PROTEIN, TOTAL | e | | | procedure are in the | | | | | | results section. | + +--------+ + + + | EXTERNAL LAB: | Routin | 04/16/2017 | | Results for this | | CALCIUM | e | | | procedure are in the | | | | | | results section. | + +--------+ + + + | EXTERNAL LAB: CARBON | Routin | 04/16/2017 | | Results for this | | DIOXIDE | e | | | procedure are in the | | | | | | results section. | + +--------+ + + + | EXTERNAL LAB: | Routin | 04/16/2017 | | Results for this | | CHLORIDE | e | | | procedure are in the | | | | | | results section. | + +--------+ + + + | EXTERNAL LAB: | Routin | 04/16/2017 | | Results for this | | POTASSIUM | e | | | procedure are in the | | | | | | results section. | + +--------+ + + + | EXTERNAL LAB: SODIUM | Routin | 04/16/2017 | | Results for this | | | e | | | procedure are in the | | | | | | results section. | + +--------+ + + + | EXTERNAL LAB: | Routin | 04/16/2017 | | Results for this | | VITAMIN D, | e | | | procedure are in the | | 25-HYDROXY | | | | results section. | + +--------+ + + + | EXTERNAL LAB: | Routin | 04/16/2017 | | Results for this | | TRIGLYCERIDES | e | | | procedure are in the | | | | | | results section. | + +--------+ + + + | EXTERNAL LAB: | Routin | 04/16/2017 | | Results for this | | CHOLESTEROL, HDL | e | | | procedure are in the | | | | | | results section. | + +--------+ + + + | EXTERNAL LAB: | Routin | 04/16/2017 | | Results for this | | CHOLESTEROL, TOTAL | e | | | procedure are in the | | | | | | results section. | + +--------+ + + + | EXTERNAL LAB: | Routin | 04/16/2017 | | Results for this | | CHOLESTEROL, LDL | e | | | procedure are in the | | | | | | results section. | + +--------+ + + + | EXTERNAL LAB: | Routin | 04/16/2017 | | Results for this | | CREATININE | e | | | procedure are in the | | | | | | results section. | + +--------+ + + + | LIPID PANEL | Routin | 04/16/2017 | | Results for this | | | e | | | procedure are in the | | | | | | results section. | + +--------+ + + + | HEMOGLOBIN A1C | Routin | 04/16/2017 | | Results for this | | | e | | | procedure are in the | | | | | | results section. | + +--------+ + + + documented in this encounter Results Hemoglobin A1C (04/16/2017) + +-------+ + + + | Component | Value | Ref Range | Performed | Pathologist | | | | | At | Signature | + +-------+ + + + | Hemoglobin | 5.8 | % | | | | A1c | | | | | + +-------+ + + + + + | Specimen | + + | Blood | + + External Lab: Glucose (04/16/2017) + +-------+ + + + | Component | Value | Ref Range | Performed | Pathologist | | | | | At | Signature | + +-------+ + + + | Glucose, | 97 | 70 - 100 | | | | External | | | | | + +-------+ + + + External Lab: ALT (04/16/2017) + +-------+ + + + | Component | Value | Ref Range | Performed | Pathologist | | | | | At | Signature | + +-------+ + + + | ALT, | 13 | 7 - 52 | | | | External | | | | | + +-------+ + + + External Lab: AST (04/16/2017) + +-------+ + + + | Component | Value | Ref Range | Performed | Pathologist | | | | | At | Signature | + +-------+ + + + | AST, | 16 | 13 - 39 | | | | External | | | | | + +-------+ + + + External Lab: Alkaline Phosphatase (04/16/2017) + +-------+ + + + | Component | Value | Ref Range | Performed | Pathologist | | | | | At | Signature | + +-------+ + + + | ALP, | 82 | 31 - 130 | | | | External | | | | | + +-------+ + + + External Lab: Bilirubin, Total (04/16/2017) + +-------+ + + + | Component | Value | Ref Range | Performed | Pathologist | | | | | At | Signature | + +-------+ + + + | Bilirubin, | 0.5 | 0 - 1.2 | | | | Total, | | | | | | External | | | | | + +-------+ + + + External Lab: Albumin (04/16/2017) + +-------+ + + + | Component | Value | Ref Range | Performed | Pathologist | | | | | At | Signature | + +-------+ + + + | Albumin, | 4.1 | 3.5 - 5 | | | | External | | | | | + +-------+ + + + External Lab: Protein, Total (04/16/2017) + +-------+ + + + | Component | Value | Ref Range | Performed | Pathologist | | | | | At | Signature | + +-------+ + + + | Protein, | 6.3 | 6 - 8 | | | | Total, | | | | | | External | | | | | + +-------+ + + + External Lab: Calcium (04/16/2017) + +-------+ + + + | Component | Value | Ref Range | Performed | Pathologist | | | | | At | Signature | + +-------+ + + + | Calcium, | 9.7 | 8.4 - 10.2 | | | | External | | | | | + +-------+ + + + External Lab: Carbon Dioxide (04/16/2017) + +-------+ + + + | Component | Value | Ref Range | Performed | Pathologist | | | | | At | Signature | + +-------+ + + + | Carbon | 24 | 19 - 31 | | | | Dioxide, | | | | | | External | | | | | + +-------+ + + + External Lab: Chloride (04/16/2017) + +-------+ + + + | Component | Value | Ref Range | Performed | Pathologist | | | | | At | Signature | + +-------+ + + + | Chloride, | 103 | 95 - 112 | | | | External | | | | | + +-------+ + + + External Lab: Potassium (04/16/2017) + +-------+ + + + | Component | Value | Ref Range | Performed | Pathologist | | | | | At | Signature | + +-------+ + + + | Potassium, | 4.1 | 3.6 - 5.1 | | | | External | | | | | + +-------+ + + + External Lab: Sodium (04/16/2017) + +-------+ + + + | Component | Value | Ref Range | Performed | Pathologist | | | | | At | Signature | + +-------+ + + + | Sodium, | 141 | 132 - 143 | | | | External | | | | | + +-------+ + + + External Lab: Vitamin D, 25-Hydroxy (04/16/2017) + +--------+ + + + | Component | Value | Ref Range | Performed | Pathologist | | | | | At | Signature | + +--------+ + + + | Vitamin D, | 22 (A) | 30 - 100 | | | | 25-Hydroxy, | | | | | | External | | | | | + +--------+ + + + + + | Specimen | + + | Blood | + + External Lab: Creatinine (04/16/2017) + + + + + + | Component | Value | Ref Range | Performed | Pathologist | | | | | At | Signature | + + + + + + | Creatinine, | 0.57 (A) | 0.7 - 1.11 | | | | External | | | | | + + + + + + + + | Specimen | + + | Blood | + + Lipid Panel (04/16/2017) + +-------+ + + + | Component | Value | Ref Range | Performed | Pathologist | | | | | At | Signature | + +-------+ + + + | Chol/HDL | 3.8 | | | | | Ratio | | | | | + +-------+ + + + | VLDL | 30 | 4 - 40 | | | | Cholesterol | | | | | | Benjamin | | | | | + +-------+ + + + + + | Specimen | + + | Blood | + + External Lab: Triglycerides (04/16/2017) + +---------+ + + + | Component | Value | Ref Range | Performed | Pathologist | | | | | At | Signature | + +---------+ + + + | Triglycerid | 152 (A) | 30 - 150 | | | | es, | | | | | | External | | | | | + +---------+ + + + + + | Specimen | + + | Blood | + + External Lab: Cholesterol, HDL (04/16/2017) + +-------+ + + + | Component | Value | Ref Range | Performed | Pathologist | | | | | At | Signature | + +-------+ + + + | HDL | 43.3 | mg/dl | | | | Cholesterol | | | | | | , External | | | | | + +-------+ + + + + + | Specimen | + + | Blood | + + External Lab: Cholesterol, Total (04/16/2017) + +-------+ + + + | Component | Value | Ref Range | Performed | Pathologist | | | | | At | Signature | + +-------+ + + + | Cholesterol | 163 | mg/dl | | | | , Total, | | | | | | External | | | | | + +-------+ + + + + + | Specimen | + + | Blood | + + External Lab: Cholesterol, LDL (04/16/2017) + +-------+ + + + | Component | Value | Ref Range | Performed | Pathologist | | | | | At | Signature | + +-------+ + + + | LDL | 89 | | | | | Cholesterol | | | | | | , Direct, | | | | | | External | | | | | + +-------+ + + + + + | Specimen | + + | Blood | + + documented in this encounter Visit Diagnoses Not on filedocumented in this encounter"
--- OUTSIDE RECORDS SUMMARY | ~2019-02-15 | XMS | Encounter Summary ---
Demographics + + + | Address | [address] | | | [place] [address] | + + + | Home Phone | | + + + | Preferred Language | Unknown | + + + | Marital Status | | + + + | Druze Affiliation | 1077 | + + + | Race | Unknown | + + + | Ethnic Group | Unknown | + + + Author + + + | Author | [facility] | | | and [place] | + + + | Organization | [facility] | | | [...] Team Providers + +------+ + | Care Delphi Programmer Name | Role | Phone | + +------+ + | Roderick Alexandra MD | PCP | | + +------+ + Encounter Details +--------+ + + + + | Date | Type | Department | Care Team | Description | +--------+ + + + + | 05/18/ | Abstract | [facility] | Roderick Alexandra, | | | 2017 | | MEDICINE [facility] | [address] | | | | | [address] | [place] | | | | | [place] | [address] | | | | | [address] | | | | | | [phone] | | | +--------+ + + + [...] | + +--------+ + + + | TRIGLYCERIDES | Routin | 05/06/2017 | | Results for this | | | e | | | procedure are in the | | | | | | results section. | + +--------+ + + + documented in this encounter Results Triglycerides (05/06/2017) + +-------+ + + + | Component | Value | Ref Range | Performed | Pathologist | | | | | At | Signature | + +-------+ + + + | D-DIMER, | 100.0 | 400.0 D-DU ng/m | | | | QUANTITATIV | | AB | | | | E | | | | | + +-------+ + + + + + | Specimen | + + | Blood | + + documented in this encounter Visit Diagnoses Not on filedocumented in this encounter"
--- OUTSIDE RECORDS SUMMARY | ~2019-02-15 | XMS | Encounter Summary ---
Demographics + + + | Address | [address] | | | [place] [address] | + + + | Home Phone | | + + + | Preferred Language | Unknown | + + + | Marital Status | | + + + | Mormon Affiliation | 1077 | + + + | Race | Unknown | + + + | Ethnic Group | Unknown | + + + Author + + + | Author | [facility] | | | and [place] | + + + | Organization | [facility] | | | [...] Team Providers + +------+ + | Care Jail Manager Name | Role | Phone | [...] Description | +--------+--------+ + + + | 05/13/ | Refill | [facility] | Roderick Alexandra, | Medication Refill | | 2015 | | [facility] | [address] | | | | | [address] | [place] | | | | | [place] | [address] | | | | | [address] | | | | | | [phone] | | | +--------+--------+ + + + [...]
--- OUTSIDE RECORDS SUMMARY | ~2019-02-15 | XMS | Encounter Summary ---
Demographics + + + | Address | [address] | | | [place] [address] | + + + | Home Phone | | + + + | Preferred Language | Unknown | + + + | Marital Status | | + + + | Amish Affiliation | [id number] | + + + | Race | Unknown | + + + | Ethnic Group | Unknown | + + + Author + + + | Author | [facility] | | | and Saurabhana | + + + | Organization | [facility] | | | and [...] Team Providers + +------+ + | Care Epic Specialist Name | Role | Phone | + +------+ + | Roderick Alexandra MD | PCP | | + +------+ + Reason for Visit + + + | Reason | Comments | + + + | Medicare Wellness | | + + + Encounter Details +--------+---------+ + + + | Date | Type | Department | Care Team | Description | +--------+---------+ + + + | 12/01/ | Office | [facility] | Mariluz Shields PA | Fatigue (Primary | | 2012 | Visit | [facility] | [address] [facility] | Dx); Routine history | | | | [address] | [address] [place], [place] | and physical | | | | [place] | [address] | examination of | | | | [address] | | adult; Need for | | | | [phone] | | immunization against | | | | | | influenza | +--------+---------+ + + + Social History [...] + + + | Blood Pressure | 138/68 | 12/01/2012 10:39 AM | | | | | PDT | | + + + + + | Pulse | 62 | 12/01/2012 10:39 AM | | | | | PDT | | + + + + + | Temperature | 36.6 C (97.9 F) | 12/01/2012 10:39 AM | | | | | PDT | | + + + + + | Respiratory Rate | 18 | 12/01/2012 10:39 AM | | | | | PDT | | + + + + + | Oxygen Saturation | 97% | 12/01/2012 10:39 AM | | | | | PDT | | + + + + + | Inhaled Oxygen | - | - | | | Concentration | | | | + + + + + | Weight | 68 kg (150 lb) | 12/01/2012 10:39 AM | | | | | PDT | | + + + + + | Height | 154.9 cm (5' 1") | 12/01/2012 10:39 AM | | | | | PDT | | + + + + + | Body Mass Index | 28.34 | 12/01/2012 10:39 AM | | | | | PDT | | + + + + + documented in this encounter Patient Instructions Patient Instructions Mariluz Shields - 12/01/2012 11:44 AM PDTFormatting of this note might b e different from the original. PREVENTIVE PLAN FOR YOU Name Rosalind Pologiovani Date 12/01/2012 Services Ordered Today: Orders Placed This Encounter Procedures TSH Standing Status: Future Number of Occurrences: Standing Expiration Date: 12/01/2013 Iron Profile Standing Status: Future Number of Occurrences: Standing Expiration Date: 12/01/2013 Medicare Covered Services and Your Long-Term Plan: Preventive Service Frequency Plan Annual Wellness Visit Yearly 1 Year Vaccinations Influenza Vaccine Yearly Next Fall Pneumococcal Vaccine Once Hep B Vaccine Mod/High Risk Once Mammograms Screening Mammogram Every 2 yrs High Risk Yearly Cervical / Vaginal Cancer Pelvic and Breast Exam Every 2 yrs Pap Smear < 65 Every 2 yrs Pap Smear High Risk Yearly Colorectal Cancer Fecal Occult Blood Test Yearly Colonoscopy Every 10 yr Cardiovascular Cholesterol/Lipid Tests Every 5 yr Diabetes Screening Glucose Test Yearly Pre-Diabetes Twice a yr Nutrition Evaluation Varies Additional Covered Services Bone Density Every 2yrs Additional Recommendations: Diet: Tobacco cessation: Exercise: Other: Quick Reference Information documented in this encounter Progress Notes Mariluz Shields - 12/01/2012 11:04 AM PDT Subjective: Patient ID: Rosalind Patel is a 77 y.o. female. HPI: Patient presents for medicare subsequent wellness visit. She states she has noticed so me new fatigue. Denies shortness of breath, chest pain, heart palpitations. Denies thyroid enlargement, hair loss, dry skin, appetite change, diarrhea. States Zantac did not help with hoarseness so she stopped it. States hoarsness has not worsened and does not want an ENT re ferral at this time. Patient's medications, allergies, past medical, surgical, social and family histories were reviewed and updated as appropriate. Review of Systems Constitutional: Positive for fatigue. Negative for fever, chills, diaphoresis, activity zayda nge, appetite change and unexpected weight change. HENT: Negative for neck pain. Eyes: Negative for visual disturbance. Respiratory: Negative for cough, chest tightness, shortness of breath and wheezing. Cardiovascular: Negative for chest pain, palpitations and leg swelling. Gastrointestinal: Negative for nausea, vomiting, abdominal pain, diarrhea, constipation and blood in stool. Genitourinary: Negative for dysuria, flank pain, vaginal bleeding, difficulty urinating and pelvic pain. Musculoskeletal: Negative for myalgias, back pain, joint swelling and arthralgias. Skin: Negative for color change, pallor and rash. Neurological: Negative for dizziness, speech difficulty, weakness, light-headedness, numbne ss and headaches. Hematological: Negative for adenopathy. Psychiatric/Behavioral: Negative for confusion and agitation. Objective: Physical Exam Constitutional: She is oriented to person, place, and time. She appears well-developed and well-nourished. She is active. She does not appear ill. No distress. HENT: Head: Normocephalic and atraumatic. Right Ear: Tympanic membrane is retracted. Left Ear: Tympanic membrane is retracted. Eyes: Conjunctivae normal and EOM are normal. Pupils are equal, round, and reactive to ligh t. Neck: Neck supple. No rigidity. No mass and no thyromegaly present. Cardiovascular: Normal rate, regular rhythm, S1 normal, S2 normal and intact distal pulses. Exam reveals no gallop and no friction rub. Murmur heard. Systolic murmur is present with a grade of 1/6 Pulmonary/Chest: She has no decreased breath sounds. She has no wheezes. She has no rhonchi . She has no rales. Right breast exhibits no inverted nipple, no mass, no nipple discharge, no skin change and no tenderness. Left breast exhibits no inverted nipple, no mass, no nippl e discharge, no skin change and no tenderness. Breasts are symmetrical. Abdominal: Normal appearance and bowel sounds are normal. She exhibits no abdominal bruit a nd no mass. There is no hepatosplenomegaly. There is no tenderness. No hernia. Lymphadenopathy: Head (right side): No tonsillar adenopathy present. Head (left side): No tonsillar adenopathy present. She has no cervical adenopathy. She has no axillary adenopathy. Neurological: She is alert and oriented to person, place, and time. She displays no atrophy and no tremor. No sensory deficit. She exhibits normal muscle tone. Coordination and gait n ormal. CN II-XII intact Skin: Skin is warm. No rash noted. Psychiatric: She has a normal mood and affect. Her speech is normal. Assessment: Medicare subsequent wellness visit Plan: Well woman. Patient will have TSH and Iron Profile drawn for fatigue. Advised to follow u p in 6 months for another wellness exam or sooner if fatigue worsens or new symptoms arise. Patient declined exam today. [facility] Annual Wellness Visit Rosalind Patel is a 77 y.o. female who presents for a Medicare Wellness visit today: HEALTH RISK ASSESSMENT: : The patient or their surrogate filled out the HRA and the responses were incorporated into the notes below. General Health How do you describe your current health? good Have you had a dental exam in the last year? yes Have you had an eye exam in the last year? yes Hearing Loss Screen Do you have trouble hearing the TV or radio when others do not? no Do you have to strain or struggle to hear/understand conversations? no Functional Screen Do you need help with dressing, eating, voiding or toileting and transferring oneself from seated to standing and getting in and out of bed? no Do you need help with preparing meals, transportation, shopping, taking your medicine, mikie ging your finances, or other activities of daily living? no Who do you turn to for problems with, health, transportation, etc.? How do you get around in the community?drive Do you drive a car? yes Have you ever been involved in a motor vehicle accident? no If yes, how many? 0 When was the last motor vehicle accident? Was anyone hurt? Was the accident reported? Do you use a seatbelt 100% of the Time? yes Do you feel you spend too much time at home alone? no Are you the sole financial support for anyone other than yourself or your spouse? No Home Safety Screen Does your home have throw rugs, poor lighting, or a slippery bathtub/shower? no Does your home have adequate grab bars in bathrooms, handrails on stairs and steps? yes Does your home have functioning smoke alarms? yes Do you feel physically safe in your home? yes Do you feel you are being emotionally, financially or physically abused by someone in your family? Within the last 12 months have you been hit pushed or slapped by anyone?no Risk for Falls Screen Have you fallen in the past 6 months? no Do you ever feel like you might lose your balance? no Fall Risk Evaluation Get up and Go-Time (how long it takes a patient to get up out of a standard armchair and st art walking to a specified point on the floor (about 10 feet), turn around and walk back the n sit.) Rating: <10 Freely mobile I did not complete a risk assessment for falls:The patient does not have a history of falls . A plan of care for falls was not documented in the personal prevention plan. Past Medical History: Past Medical History Diagnosis Date Diarrhea 03/27/2010 Dyspnea on exertion 10/16/2010 Cough 10/16/2010 Cardiac murmur 03/31/2011 Hyperlipidemia Hypertension Diverticulosis, colon Palpitations Vertigo Left breast lump 05/2006 Hepatitis B infection Left carotid bruit 12/31/1999 Have you ever been diagnosed with Diabetes? no Have you ever been diagnosed with CHF? no Have you ever been diagnosed with RI? no Have you ever been diagnosed with angina? no Have you ever been diagnosed with Atrial Fibrillation? no Have you ever had an amputation? no Have you ever been diagnosed with cancer? no Do you currently have cancer present? no Are you currently receiving treatment for cancer? no Does the patient have metastatic cancer present? no Have you ever been diagnosed with Rheumatoid arthritis? no Have you had a recent fracture? no Past Surgical History: Past Surgical History Procedure Date Appendectomy 1940 Tonsillectomy Dilation and curettage of uterus , 2001 Cholecystectomy 1974 Skin cancer excision [id number] Basal Cell Hysteroscopy 08/2001 Cataract removal 02/2011 Past Family History: Family History Problem Relation Age of Onset Parkinsonism Mother * Mother 78 from pneumonia Prostate cancer Father Social History: Patient Status: [2]. Patient lives with their family Retired? yes Currently working? No Rosalind's Tobacco Use: History Smoking status Never Smoker Smokeless tobacco Never Used . Alcohol screen: was not performed due to limited life expectancy Noemí alcohol use: History Alcohol Use Yes 3-4 times per year . Rosalind exercises works out regularly 3 times per week with light weights. She watches her diet for sodium, low fat and low cholesterol. Today's Visit: Current Medications Current Outpatient Prescriptions Medication Status Sig Dispense Refill ASPIRIN ADULT LOW STRENGTH PO Active TBEC; Take one by mouth daily CALCIUM PO Active TABS; 600 mg Cholecalciferol (RA VITAMIN D-3) 2000 UNITS CAPS Active Take 2,000 Units by mouth Daily . Magnesium Oxide (MAG-OX 400 PO) Active TABS; Take one by mouth daily metoprolol succinate (TOPROL-XL) 25 mg 24 hr tablet Active Take 1 tablet by mouth Daily . 90 tablet 1 Multiple Vitamins-Minerals (OCUVITE ADULT FORMULA PO) Active Take 2 tablets by mouth 2 times daily. niacin (NIASPAN) 500 mg CR tablet Active Take 1 tablet by mouth nightly. 90 tablet 1 Inavale-3 Fatty Acids ([employer] NATURAL FISH OIL) 1000 MG CAPS Active Take 1,000 mg by mouth D aily. pravastatin (PRAVACHOL) 80 MG tablet Active Take 0.5 tablets by mouth nightly. 45 tabl et 3 Are you able to obtain all of your prescribed medications? yes If No, is it because you cannot afford them? no Does the patient independently take medications at the correct time? yes Does the patient require total assistance with medications? no Do any of the pt medications require monitoring labs? no Allergies Allergies Allergen Reactions Lipitor Other (See Comments) Myalgias Wasp Venom Protein Swelling Current list of Providers and DME Suppliers Patient Care Team: Roderick Alexandra MD as PCP - General Current Medicare Suppliers: [facility] - [place], [place] - [address] [place] [address] DEPRESSION SCREEN Health Risk Appraisal : Health Risk Assessment Form was reviewed with the patient and recommendations made to Becca Patel based on her risk factors. Immunizations Immunization History Administered Date(s) Administered INFLUENZA, 18+ W/PRESERVATIVE (Adult) 10/18/2011 Pneumococcal (Adult) 05/20/2005 Tdap 12/02/2005 Zoster 09/05/2011 Preventive Care and Screening: : The following health maintenance items are reviewed in [facility] and correct as of today: Health Maintenance Topic Date Due Influenza Vaccine 10/17/2012 Recommendations: : Diet: Reduce saturated fat, "trans" monounsaturated fatty acids, and cholesterol Review of Systems : : A comprehensive review of systems was negative. Physical Exam: : Vitals: BP 138/68 | Pulse 62 | Temp 36.6 C (97.9 F) (Temporal) | Resp 18 | Ht 1.549 m (5' 1") | Wt 68.04 kg (150 lb) | BMI 28.34 kg/m2 | SpO2 97% | ? No BMI: Body mass index is 28.34 kg/(m^2). Vision Screening and Audiometry Results: No exam data present Detection of Cognitive Impairment (Mini-Cog) (Used with permission from [employer] [email or web address]) BP 138/68 | Pulse 62 | Temp 36.6 C (97.9 F) (Temporal) | Resp 18 | Ht 1.549 m (5' 1") | Wt 68.04 kg (150 lb) | BMI 28.34 kg/m2 | SpO2 97% | ? No General Appearance: Alert, cooperative, no distress, appears stated age Head: Normocephalic, without obvious abnormality, atraumatic Eyes: PERRL, conjunctiva/corneas clear, EOM's intact, fundi benign, both eyes Ears: Normal TM's and external ear canals, both ears Nose: Nares normal, septum midline, mucosa normal, no drainage or sinus tenderness Throat: Lips, mucosa, and tongue normal; teeth and gums normal Neck: Supple, symmetrical, trachea midline, no adenopathy; thyroid: no enlargement/tenderness/nodules; no carotid bruit or JVD Back: Symmetric, no curvature, ROM normal, no CVA tenderness Lungs: Clear to auscultation bilaterally, respirations unlabored Chest Wall: No tenderness or deformity Heart: Regular rate and rhythm, S1 and S2 normal, no murmur, rub or gallop Breast Exam: No tenderness, masses, or nipple abnormality Abdomen: Soft, non-tender, bowel sounds active all four quadrants, no masses, no organomegaly Genitalia: Normal female without lesion, discharge or tenderness Rectal: Normal tone, no masses or tenderness; guaiac negative stool Extremities: Extremities normal, atraumatic, no cyanosis or edema Pulses: 2+ and symmetric all extremities Skin: Skin color, texture, turgor normal, no rashes or lesions Lymph nodes: Cervical, supraclavicular, and axillary nodes normal Neurologic: CNII-XII intact, normal strength, sensation and reflexes throughout Assessment and Plans: : MEDICARE WELLNESS AND PREVENTIVE SCREENING VISIT No problem-specific assessment & plan notes found for this encounter. A Personalized Care Plan for Ms. Patel has been established and reviewed with and mad e available to the patient. Advance Care Planning (This is not required for this visit) Discussion of Health Representatives: Who would the patient want to express their treatment wishes if they were unable? Name:, ph one: Discussion of Advanced Directive: Does the patient have an Advanced Directive? Discussion of POLST Form: POLST Form or E-POLST completed? yes [facility] Annual Wellness Visit Rosalind Patel is a 77 y.o. female who presents for a Medicare Wellness visit today: HEALTH RISK ASSESSMENT: : The patient or their surrogate filled out the HRA and the responses were incorporated into the notes below. General Health How do you describe your current health? good Have you had a dental exam in the last year? yes Have you had an eye exam in the last year? yes Hearing Loss Screen Do you have trouble hearing the TV or radio when others do not? no Do you have to strain or struggle to hear/understand conversations? no Functional Screen Do you need help with dressing, eating, voiding or toileting and transferring oneself from seated to standing and getting in and out of bed? no Do you need help with preparing meals, transportation, shopping, taking your medicine, mikie ging your finances, or other activities of daily living? no Who do you turn to for problems with, health, transportation, etc.? How do you get around in the community? Do you drive a car? yes Have you ever been involved in a motor vehicle accident? na If yes, how many? When was the last motor vehicle accident? Was anyone hurt? Was the accident reported? Do you use a seatbelt 100% of the Time? yes Do you feel you spend too much time at home alone? no Are you the sole financial support for anyone other than yourself or your spouse? No Home Safety Screen Does your home have throw rugs, poor lighting, or a slippery bathtub/shower? Does your home have adequate grab bars in bathrooms, handrails on stairs and steps? Does your home have functioning smoke alarms? yes Do you feel physically safe in your home? yes Do you feel you are being emotionally, financially or physically abused by someone in your family? no Within the last 12 months have you been hit pushed or slapped by anyone?no Risk for Falls Screen Have you fallen in the past 6 months? no Do you ever feel like you might lose your balance? no Fall Risk Evaluation Get up and Go-Time (how long it takes a patient to get up out of a standard armchair and st art walking to a specified point on the floor (about 10 feet), turn around and walk back the n sit.) Rating: <10 Freely mobile I did not complete a risk assessment for falls:The patient does not have a history of falls . A plan of care for falls was not documented in the personal prevention plan. Past Medical History: Past Medical History Diagnosis Date Diarrhea 03/27/2010 Dyspnea on exertion 10/16/2010 Cough 10/16/2010 Cardiac murmur 03/31/2011 Hyperlipidemia Hypertension Diverticulosis, colon Palpitations Vertigo Left breast lump 05/2006 Hepatitis B infection Left carotid bruit 12/31/1999 Have you ever been diagnosed with Diabetes? no Have you ever been diagnosed with CHF? no Have you ever been diagnosed with RI? no Have you ever been diagnosed with angina? no Have you ever been diagnosed with Atrial Fibrillation? no Have you ever had an amputation? no Have you ever been diagnosed with cancer? no Do you currently have cancer present? no Are you currently receiving treatment for cancer? no Does the patient have metastatic cancer present? no Have you ever been diagnosed with Rheumatoid arthritis? no Have you had a recent fracture? no Past Surgical History: Past Surgical History Procedure Date Appendectomy 1940 Tonsillectomy Dilation and curettage of uterus , 2001 Cholecystectomy 1974 Skin cancer excision [id number] Basal Cell Hysteroscopy 08/2001 Cataract removal 02/2011 Past Family History: Family History Problem Relation Age of Onset Parkinsonism Mother * Mother 78 from pneumonia Prostate cancer Father Social History: Patient Status: [2]. Patient lives with their family Retiredyes Currently working No Rosalind's Tobacco Use: History Smoking status Never Smoker Smokeless tobacco Never Used . Alcohol screen: was not performed due to limited life expectancy Hoangs alcohol use: History Alcohol Use Yes 3-4 times per year . Rosalind exercises works out regularly 3 times per week with light weights. She watches her diet for sodium, low fat and low cholesterol. Today's Visit: Current Medications Current Outpatient Prescriptions Medication Status Sig Dispense Refill ASPIRIN ADULT LOW STRENGTH PO Active TBEC; Take one by mouth daily CALCIUM PO Active TABS; 600 mg Cholecalciferol (RA VITAMIN D-3) 2000 UNITS CAPS Active Take 2,000 Units by mouth Daily . Magnesium Oxide (MAG-OX 400 PO) Active TABS; Take one by mouth daily metoprolol succinate (TOPROL-XL) 25 mg 24 hr tablet Active Take 1 tablet by mouth Daily . 90 tablet 1 Multiple Vitamins-Minerals (OCUVITE ADULT FORMULA PO) Active Take 2 tablets by mouth 2 times daily. niacin (NIASPAN) 500 mg CR tablet Active Take 1 tablet by mouth nightly. 90 tablet 1 Inavale-3 Fatty Acids ([employer] NATURAL FISH OIL) 1000 MG CAPS Active Take 1,000 mg by mouth D aily. pravastatin (PRAVACHOL) 80 MG tablet Active Take 0.5 tablets by mouth nightly. 45 tabl et 3 Are you able to obtain all of your prescribed medications? yes If No, is it because you cannot afford them? no Does the patient independently take medications at the correct time? yes Does the patient require total assistance with medications? yes Do any of the pt medications require monitoring labs? no Allergies Allergies Allergen Reactions Lipitor Other (See Comments) Myalgias Wasp Venom Protein Swelling Current list of Providers and DME Suppliers Patient Care Team: Roderick Alexandra MD as PCP - General Current Medicare Suppliers: [facility] - [place], [place] - [address] [place] [address] DEPRESSION SCREEN Health Risk Appraisal : Health Risk Assessment Form was reviewed with the patient and recommendations made to Becca Patel based on her risk factors. Immunizations Immunization History Administered Date(s) Administered INFLUENZA, 18+ W/PRESERVATIVE (Adult) 10/18/2011 Pneumococcal (Adult) 05/20/2005 Tdap 12/02/2005 Zoster 09/05/2011 Preventive Care and Screening: : The following health maintenance items are reviewed in [facility] and correct as of today: Health Maintenance Topic Date Due Influenza Vaccine 10/17/2012 Recommendations: : Diet: Reduce saturated fat, "trans" monounsaturated fatty acids, and cholesterol Review of Systems : : Pertinent items are noted in HPI. Physical Exam: : Vitals: BP 138/68 | Pulse 62 | Temp 36.6 C (97.9 F) (Temporal) | Resp 18 | Ht 1.549 m (5' 1") | Wt 68.04 kg (150 lb) | BMI 28.34 kg/m2 | SpO2 97% | ? No BMI: Body mass index is 28.34 kg/(m^2). Vision Screening and Audiometry Results: No exam data present Detection of Cognitive Impairment (Mini-Cog) (Used with permission from [employer] [email or web address]) BP 138/68 | Pulse 62 | Temp 36.6 C (97.9 F) (Temporal) | Resp 18 | Ht 1.549 m (5' 1") | Wt 68.04 kg (150 lb) | BMI 28.34 kg/m2 | SpO2 97% | ? No General Appearance: Alert, cooperative, no distress, appears stated age Head: Normocephalic, without obvious abnormality, atraumatic Eyes: PERRL, conjunctiva/corneas clear, EOM's intact, fundi benign, both eyes Ears: Normal TM's and external ear canals, both ears Nose: Nares normal, septum midline, mucosa normal, no drainage or sinus tenderness Throat: Lips, mucosa, and tongue normal; teeth and gums normal Neck: Supple, symmetrical, trachea midline, no adenopathy; thyroid: no enlargement/tenderness/nodules; no carotid bruit or JVD Back: Symmetric, no curvature, ROM normal, no CVA tenderness Lungs: Clear to auscultation bilaterally, respirations unlabored Chest Wall: No tenderness or deformity Heart: Regular rate and rhythm, S1 and S2 normal, no murmur, rub or gallop Breast Exam: No tenderness, masses, or nipple abnormality Abdomen: Soft, non-tender, bowel sounds active all four quadrants, no masses, no organomegaly Genitalia: Normal female without lesion, discharge or tenderness Rectal: Normal tone, no masses or tenderness; guaiac negative stool Extremities: Extremities normal, atraumatic, no cyanosis or edema Pulses: 2+ and symmetric all extremities Skin: Skin color, texture, turgor normal, no rashes or lesions Lymph nodes: Cervical, supraclavicular, and axillary nodes normal Neurologic: CNII-XII intact, normal strength, sensation and reflexes throughout Assessment and Plans: : MEDICARE WELLNESS AND PREVENTIVE SCREENING VISIT No problem-specific assessment & plan notes found for this encounter. A Personalized Care Plan for Ms. Patel has been established and reviewed with and mad e available to the patient. Advance Care Planning (This is not required for this visit) Discussion of Health Representatives: Who would the patient want to express their treatment wishes if they were unable? Discussion of Advanced Directive: Does the patient have an Advanced Directive Discussion of POLST Form: POLST Form or E-POLST completed yes TSH, Iron Panel ordered today for fatigue. Return to clinic if fatigue worsen. Return to [facility] in 6 mths for follow up exam. documented in this encounte r Plan of Treatment Not on filedocumented as of this encounter Visit Diagnoses + + | Diagnosis | + + | Fatigue - Primary Other malaise and fatigue | + + | Routine history and physical examination of adult Routine general medical examination | | at a health care facility | + + | Need for immunization against influenza Need for prophylactic vaccination and | | inoculation against influenza | + + documented in this encounter
--- OUTSIDE RECORDS SUMMARY | ~2019-02-15 | XMS | Encounter Summary ---
Demographics + + + | Address | [address] | | | [place] [address] | + + + | Home Phone | | + + + | Preferred Language | Unknown | + + + | Marital Status | | + + + | Presybeterian Affiliation | 1077 | + + + | Race | Unknown | + + + | Ethnic Group | Unknown | + + + Author + + + | Author | [facility] | | | and Saurabhana | + + + | Organization | [facility] | | | [...] Team Providers + +------+ + | Care Upholstery Handler Name | Role | Phone | + +------+ + | Roderick Alexandra MD | PCP | | + +------+ + Reason for Visit + + + | Reason | Comments | + + + | Hypertension | medication follow up tdap and pneumo 2006 and zoster 2012 | + + + | Knee Pain | right, she has an appointment to see Dr Bre bailey | | | afternoon | + + + Encounter Details +--------+---------+ + + + | Date | Type | Department | Care Team | Description | +--------+---------+ + + + | 07/25/ | Office | [facility] | Roderick Alexandra, | Hypertension | | 2013 | Visit | [facility] | [address] | (Primary Dx); Right | | | | [address] | [place] | knee pain | | | | [place] | [address] | | | | | [address] | | | | | | [phone] | | | +--------+---------+ + + + Social History [...] + + + | Blood Pressure | 142/80 | 07/25/2013 10:00 AM | | | | | PDT | | + + + + + | Pulse | 67 | 07/25/2013 10:00 AM | | | | | PDT | | + + + + + | Temperature | - | - | | + + + + + | Respiratory Rate | 20 | 07/25/2013 10:00 AM | | | | | PDT | | + + + + + | Oxygen Saturation | 94% | 07/25/2013 10:00 AM | room air | | | | PDT | | + + + + + | Inhaled Oxygen | - | - | | | Concentration | | | | + + + + + | Weight | 70.5 kg (155 lb 8 | 07/25/2013 10:00 AM | large knee brace | | | oz) | PDT | | + + + + + | Height | - | - | | + + + + + | Body Mass Index | 29.38 | 12/01/2012 10:39 AM | | | | | PDT | | + + + + + documented in this encounter Progress Notes Roderick Alexandra MD - 07/25/2013 10:21 AM PDTFormatting of this note might be different fro m the original. Subjective: Rosalind Patel is a 77 y.o. female. Chief Complaint: Hypertension and Knee Pain 07/25/2013 Right knee effusion. Seen in the ED 07/20 for effusion and could not weight bare. They treat ed her with Mobic, hydrocodone and a knee immobilizer. She has an appt with ortho this after noon in [place]. Leaving for a 2 week trip. Hypertension - blood pressure readings brought in by patient shows that her blood pressure is adequately controlled between 108 and 132. The average blood pressures approximately 11 5. She denies any side effects from her current medications. Allergies Allergen Reactions Lipitor Other (See Comments) Myalgias Wasp Venom Protein Swelling Medications: Current Outpatient Prescriptions on File Prior to Visit Medication Sig Dispense Refill ASPIRIN ADULT LOW STRENGTH PO TBEC; Take one by mouth daily CALCIUM PO TABS; 600 mg Cholecalciferol (RA VITAMIN D-3) 2000 UNITS CAPS Take 2,000 Units by mouth Daily. Magnesium Oxide (MAG-OX 400 PO) TABS; Take one by mouth daily metoprolol succinate (TOPROL-XL) 25 mg 24 hr tablet Take 1 tablet by mouth Daily. 90 t ablet 0 Multiple Vitamins-Minerals (OCUVITE ADULT FORMULA PO) Take 2 tablets by mouth 2 times d aily. niacin (NIASPAN) 500 mg CR tablet Take 1 tablet by mouth nightly. 90 tablet 1 Costilla-3 Fatty Acids ([employer] NATURAL FISH OIL) 1000 MG CAPS Take 1,000 mg by mouth Daily. pravastatin (PRAVACHOL) 80 MG tablet Take 0.5 tablets by mouth nightly. 45 tablet 3 Past Medical History She has a past medical history of Diarrhea (03/27/2010); Dyspnea on exertion (10/16/2010); Cou gh (10/16/2010); Cardiac murmur (03/31/2011); Hyperlipidemia; Hypertension; Diverticulosis, co david; Palpitations; Vertigo; Left breast lump (05/2006); Hepatitis B infection (); and L eft carotid bruit (12/31/1999). Past Surgical History She has past surgical history that includes Appendectomy (1940); Tonsillectomy; Dilation an d curettage of uterus (, 2001); Cholecystectomy (1973); Skin cancer excision (5837-8149); hy steroscopy (08/2001); and Cataract Removal (02/2011). Family History: Her family history includes * (age of onset:78) in her mother; Parkinsonism in her mother; and Prostate cancer in her father. Social History: She reports that she has never smoked. She has never used smokeless tobacco. She reports th at she drinks alcohol. She reports that she does not use illicit drugs. Review of Systems Pertinent items are noted in HPI. Objective: BP 142/80 | Pulse 67 | Resp 20 | Wt 70.534 kg (155 lb 8 oz) | SpO2 94% | ? No General Appearance: Alert, cooperative, no distress, appears stated age Head: Normocephalic, without obvious abnormality, atraumatic Lungs: Clear to auscultation bilaterally, respirations unlabored Heart: Regular rate and rhythm, S1, S2 normal, no murmur Extremities: Right leg is in a knee immobilizer Skin: No rashes or worrisome lesions Neurologic: Nonfocal. Alert and oriented. Abstract on 06/13/2013 Component Date Value Range Status Creatinine, External 06/13/2013 0.66 Final eGFR, External 06/13/2013 86 Final Microalbumin, Urine, External 06/13/2013 0.7 Final Microalbumin/Creatinine Ratio, Ext* 06/13/2013 9.3 Final LDL Cholesterol, External 06/13/2013 96 Final LDL Cholesterol, Direct, External 06/13/2013 31 Final Cholesterol, Total, External 06/13/2013 171 Final HDL Cholesterol, External 06/13/2013 44.9 Final Triglycerides, External 06/13/2013 153 Final Cholesterol, Total, Non HDL-C (LDL* 06/13/2013 126 Final NA 06/13/2013 138 132 - 143 mmol/L Final K 06/13/2013 4.2 3.6 - 5.1 mmol/L Final Chloride 06/13/2013 102 95 - 112 Final CO2 06/13/2013 25 19 - 31 mmol/L Final ANION GAP 06/13/2013 15 7 - 21 mmol/L Final GLUCOSE 06/13/2013 96 70 - 100 mg/dL Final BUN 06/13/2013 16 6 - 23 mg/dL Final BUN/CREATININE 06/13/2013 24.2 6.0 - 28.6 Final CALCIUM 06/13/2013 9.4 8.4 - 10.2 mg/dL Final ALK PHOS 06/13/2013 80 30 - 128 U/L Final BILIRUBIN TOTAL 06/13/2013 0.4 0.0 - 1.2 mg/dL Final Total protein 06/13/2013 6.4 6.1 - 8.4 g/dL Final ALBUMIN 06/13/2013 4.3 3.3 - 4.8 g/dL Final Globulin 06/13/2013 2.1 1.8 - 3.5 Final Albumin/Globulin Ratio 06/13/2013 2.0 1.2 - 2.4 Final Creatinine, Urine 06/13/2013 75 Final Assessment and Plans: 1. Right knee pain. Patient was told she had an effusion. Patient has an appointment wit orthopedics today so I did not evaluate the knee. I suggest the patient that if she does have a large effusion that she may consider asking for this to be drained and consider an in jection of steroid. This may help her get through her upcoming travel to [place]. 2. Hypertension. Well controlled. No changes in medications needed at this time. documented in this en counter Plan of Treatment Not on filedocumented as of this encounter Visit Diagnoses + + | Diagnosis | + + | Hypertension - Primary Unspecified essential hypertension | + + | Right knee pain Pain in joint, lower leg | + + documented in this encounter"
--- OUTSIDE RECORDS SUMMARY | ~2019-02-15 | XMS | Encounter Summary ---
Demographics + + + | Address | [address] | | | [place] [address] | + + + | Home Phone | | + + + | Preferred Language | Unknown | + + + | Marital Status | | + + + | Religion Affiliation | 1077 | + + + | Race | Unknown | + + + | Ethnic Group | Unknown | + + + Author + + + | Author | [facility] | | | and Saurabhana | + + + | Organization | [facility] | | | [...] Team Providers + +------+ + | Care Electro Mechanical Assembler Name | Role | Phone | + +------+ + | Roderick Alexandra MD | PCP | | + +------+ + Reason for Visit +---------+ + | Reason | Comments | +---------+ + | Results | | +---------+ + Encounter Details +--------+ + + + + | Date | Type | Department | Care Team | Description | +--------+ + + + + | 02/06/ | Telephone | [facility] | Roderick Alexandra, | Results | | 2015 | | [facility] | [address] | | | | | [address] | [place] | | | | | [place] | [address] | | | | | [address] | | | | | | [phone] | | | +--------+ + + + [...]
--- OUTSIDE RECORDS SUMMARY | ~2019-02-15 | XMS | Encounter Summary ---
Demographics + + + | Address | [address] | | | [place] [address] | + + + | Home Phone | | + + + | Preferred Language | Unknown | + + + | Marital Status | | + + + | Yarsani Affiliation | 1077 | + + + | Race | Unknown | + + + | Ethnic Group | Unknown | + + + Author + + + | Author | [facility] | | | and Saurabhana | + + + | Organization | [facility] | | [...] Team Providers + +------+ + | Care Creative Writing Teacher Name | Role | Phone | + +------+ + | Roderick Alexandra MD | PCP | | + +------+ + Reason for Visit +---------+ + | Reason | Comments | +---------+ + | Results | | +---------+ + Encounter Details +--------+ + + + + | Date | Type | Department | Care Team | Description | +--------+ + + + + | 12/23/ | Telephone | [facility] | Roderick Alexandra, | Results | | 2011 | | [facility] | [address] | | | | | [address] | [place] | | | | | [place] | [address] | | | | | [address] | | | | | | [phone] | | | +--------+ + + + [...]
--- OUTSIDE RECORDS SUMMARY | ~2019-02-15 | XMS | Encounter Summary ---
Demographics + + + | Address | [address] | | | [place] [address] | + + + | Home Phone | | + + + | Preferred Language | Unknown | + + + | Marital Status | | + + + | Caodaism Affiliation | 1077 | + + + | Race | Unknown | + + + | Ethnic Group | Unknown | + + + Author + + + | Author | [facility] | | | and Saurabhana | + + + | Organization | [facility] | | [...] Team Providers + +------+ + | Care Informatics Physician Liaison Name | Role | Phone | + [...] Refill | | 2017 | | [facility] | [address] | | | | | [address] | [place] | | | | | [place] | [address] | | | | | [address] | | | | | | [phone] | | | +--------+--------+ + + + [...]
--- OUTSIDE RECORDS SUMMARY | ~2019-02-15 | XMS | Encounter Summary ---
Demographics + + + | Address | [address] | | | [place] [address] | + + + | Home Phone [...] Team Providers + +------+ + | Care Biblical Languages Professor Name | Role | Phone | + +------+ + PCP | Unavailable | + +------+ + Encounter Details +--------+ + + + + | Date | Type | Department | Care Team | Description | +--------+ + + + + | 08/26/ | [facility] | [facility] | Tim, | | | 2006 | Encounter | [facility] | Nilton Alvarado MD [address] | | | | [place] [address] | [address] [place] | | | | | [place], [place] | [place] [address] | | | | | [address] | [phone] | | | | | [phone] | | | +--------+ + + + [...]
--- OUTSIDE RECORDS SUMMARY | ~2019-02-15 | XMS | Encounter Summary ---
Demographics + + + | Address | [address] | | | [place] [address] | + + + | Home Phone | | + + + | Preferred Language | Unknown | + + + | Marital Status | | + + + | Alevism Affiliation | 1077 | + + + [...] Team Providers + +------+ + | Care Surgical Services Assistant Name | Role | Phone | + +------+ + | Roderick Alexandra MD | PCP | | + +------+ + Encounter Details +--------+ + + + + | Date | Type | Department | Care Team | Description | +--------+ + + + + | 07/16/ | Abstract | [facility] | Roderick Alexandra, | | | 2017 | | MEDICINE [place] | [address] | | | | | [address] | [place] | | | | | [place] | [address] | | | | | [address] | | | | | | [phone] | | | +--------+ + + + [...] | | Results for this | | MICROALBUMIN, URINE | e | | | procedure are in the | | | | | | results section. | + +--------+ + + + | EXTERNAL LAB: EGFR | Routin | 04/16/2017 | | Results [...] | + +--------+ + + + | CREATININE, URINE | Routin | 04/16/2017 | | | | | e | | | | + +--------+ + + + documented in this encounter Results External Lab: Glucose (04/16/2017) + +-------+ + + + | Component | Value | Ref Range | Performed | Pathologist | | | | | At | Signature | + +-------+ + + + | Glucose, | 97 | | REFERENCE | | | External | | | LAB | | | | | | [facility] | | + +-------+ + + + + + + + + | Performing | Address | City/State/Zipcode | Phone Number | | Organization | | | | + + + + + | REFERENCE LAB | [address] | [place] [address] | [phone] | | [facility] | | | | + + + + + | REFERENCE LAB | [address] | [place] [address] | [phone] | | [facility] | | | | + + + + + External Lab: ALT (04/16/2017) + +-------+ + + + | Component | Value | Ref Range | Performed | Pathologist | | | | | At | Signature | + +-------+ + + + | ALT, | 13 | | REFERENCE | | | External | | | LAB | | | | | | [facility] | | + +-------+ + + + + + + + + | Performing | Address | City/State/Zipcode | Phone Number | | Organization | | | | + + + + + | REFERENCE LAB | [address] | [place] [address] | [phone] | | [facility] | | | | + + + + + | REFERENCE LAB | [address] | [place] [address] | [phone] | | [facility] | | | | + + + + + External Lab: AST (04/16/2017) + +-------+ + + + | Component | Value | Ref Range | Performed | Pathologist | | | | | At | Signature | + +-------+ + + + | AST, | 16 | | REFERENCE | | | External | | | LAB | | | | | | [facility] | | + +-------+ + + + + + + + + | Performing | Address | City/State/Zipcode | Phone Number | | Organization | | | | + + + + + | REFERENCE LAB | [address] | [place] [address] | [phone] | | [facility] | | | | + + + + + | REFERENCE LAB | [address] [facility] | [place] [address] | [phone] | | [facility] | | | | + + + + + External Lab: Alkaline Phosphatase (04/16/2017) + +-------+ + + + | Component | Value | Ref Range | Performed | Pathologist | | | | | At | Signature | + +-------+ + + + | ALP, | 82 | | REFERENCE | | | External | | | LAB | | | | | | [facility] | | + +-------+ + + + + + + + + | Performing | Address | City/State/Zipcode | Phone Number | | Organization | | | | + + + + + | REFERENCE LAB | [address] [facility] | [place] [address] | [phone] | | [facility] | | | | + + + + + | REFERENCE LAB | [address] [facility] | [place] [address] | [phone] | | [facility] | | | | + + + + + External Lab: Bilirubin, Total (04/16/2017) + +-------+ + + + | Component | Value | Ref Range | Performed | Pathologist | | | | | At | Signature | + +-------+ + + + | Bilirubin, | 0.5 | | REFERENCE | | | Total, | | | LAB | | | External | | | [facility] | | + +-------+ + + + + + + + + | Performing | Address | City/State/Zipcode | Phone Number | | Organization | | | | + + + + + | REFERENCE LAB | [address] [facility] | [place] [address] | [phone] | | [facility] | | | | + + + + + | REFERENCE LAB | [address] [facility] | [place] [address] | [phone] | | [facility] | | | | + + + + + External Lab: Albumin (04/16/2017) + +-------+ + + + | Component | Value | Ref Range | Performed | Pathologist | | | | | At | Signature | + +-------+ + + + | Albumin, | 4.1 | | REFERENCE | | | External | | | LAB | | | | | | [facility] | | + +-------+ + + + + + + + + | Performing | Address | City/State/Zipcode | Phone Number | | Organization | | | | + + + + + | REFERENCE LAB | [address] [facility] | [place] [address] | [phone] | | [facility] | | | | + + + + + | REFERENCE LAB | [address] [facility] | [place] [address] | [phone] | | [facility] | | | | + + + + + External Lab: Protein, Total (04/16/2017) + +-------+ + + + | Component | Value | Ref Range | Performed | Pathologist | | | | | At | Signature | + +-------+ + + + | Protein, | 6.3 | | REFERENCE | | | Total, | | | LAB | | | External | | | [facility] | | + +-------+ + + + + + + + + | Performing | Address | City/State/Zipcode | Phone Number | | Organization | | | | + + + + + | REFERENCE LAB | [address] [facility] | [place] [address] | [phone] | | [facility] | | | | + + + + + | REFERENCE LAB | [facility] | [place] [address] | [phone] | | [facility] | | | | + + + + + External Lab: Calcium (04/16/2017) + +-------+ + + + | Component | Value | Ref Range | Performed | Pathologist | | | | | At | Signature | + +-------+ + + + | Calcium, | 9.7 | | REFERENCE | | | External | | | LAB | | | | | | [facility] | | + +-------+ + + + + + + + + | Performing | Address | City/State/Zipcode | Phone Number | | Organization | | | | + + + + + | REFERENCE LAB | [address] [facility] | [place] [address] | [phone] | | [facility] | | | | + + + + + | REFERENCE LAB | [address] [facility] | [place] [address] | [phone] | | [facility] | | | | + + + + + External Lab: Carbon Dioxide (04/16/2017) + +-------+ + + + | Component | Value | Ref Range | Performed | Pathologist | | | | | At | Signature | + +-------+ + + + | Carbon | 24 | | REFERENCE | | | Dioxide, | | | LAB | | | External | | | [facility] | | + +-------+ + + + + + + + + | Performing | Address | City/State/Zipcode | Phone Number | | Organization | | | | + + + + + | REFERENCE LAB | [address] | [place] [address] | [phone] | | [facility] | | | | + + + + + | REFERENCE LAB | [address] | [place] [address] | [phone] | | [facility] | | | | + + + + + External Lab: Chloride (04/16/2017) + +-------+ + + + | Component | Value | Ref Range | Performed | Pathologist | | | | | At | Signature | + +-------+ + + + | Chloride, | 103 | | REFERENCE | | | External | | | LAB | | | | | | [facility] | | + +-------+ + + + + + + + + | Performing | Address | City/State/Zipcode | Phone Number | | Organization | | | | + + + + + | REFERENCE LAB | [address] [place] [address] | [place] [address] | [phone] | | [facility] | | | | + + + + + | REFERENCE LAB | [address] [place] [address] | [place] [address] | [phone] | | [facility] | | | | + + + + + External Lab: Potassium (04/16/2017) + +-------+ + + + | Component | Value | Ref Range | Performed | Pathologist | | | | | At | Signature | + +-------+ + + + | Potassium, | 4.1 | | REFERENCE | | | External | | | LAB | | | | | | [facility] | | + +-------+ + + + + + + + + | Performing | Address | City/State/Zipcode | Phone Number | | Organization | | | | + + + + + | REFERENCE LAB | [facility] [address] | [place] [address] | [phone] | | [facility] | | | | + + + + + | REFERENCE LAB | [address] | [place] [address] | [phone] | | [facility] | | | | + + + + + External Lab: Sodium (04/16/2017) + +-------+ + + + | Component | Value | Ref Range | Performed | Pathologist | | | | | At | Signature | + +-------+ + + + | Sodium, | 141 | | REFERENCE | | | External | | | LAB | | | | | | [facility] | | + +-------+ + + + + + + + + | Performing | Address | City/State/Zipcode | Phone Number | | Organization | | | | + + + + + | REFERENCE LAB | [address] | [place] [address] | [phone] | | [facility] | | | | + + + + + | REFERENCE LAB | [address] | [place] [address] | [phone] | | [facility] | | | | + + + + + External Lab: Microalbumin/Creatinine Ratio, Urine (04/16/2017) + +-------+ + + + | Component | Value | Ref Range | Performed | Pathologist | | | | | At | Signature | + +-------+ + + + | Microalbumi | 22.8 | | REFERENCE | | | n/Creatinin | | | LAB | | | e Ratio, | | | [facility] | | | External | | | | | + +-------+ + + + + + | Specimen | + + | Blood | + + + + + + + | Performing | Address | City/State/Zipcode | Phone Number | | Organization | | | | + + + + + | REFERENCE LAB | [address] | [place] [address] | [phone] | | [facility] | | | | + + + + + | REFERENCE LAB | [address] | [place] [address] | [phone] | | [facility] | | | | + + + + + External Lab: eGFR (04/16/2017) + +-------+ + + + | Component | Value | Ref Range | Performed | Pathologist | | | | | At | Signature | + +-------+ + + + | eGFR, | 101 | | REFERENCE | | | External | | | LAB | | | | | | [facility] | | + +-------+ + + + + + | Specimen | + + | Blood | + + + + + + + | Performing | Address | City/State/Zipcode | Phone Number | | Organization | | | | + + + + + | REFERENCE LAB | [address] [facility] | [place] [address] | [phone] | | [facility] | | | | + + + + + | REFERENCE LAB | [address] [facility] | [place] [address] | [phone] | | [facility] | | | | + + + + + External Lab: Creatinine (04/16/2017) + +-------+ + + + | Component | Value | Ref Range | Performed | Pathologist | | | | | At | Signature | + +-------+ + + + | Creatinine, | 0.57 | | REFERENCE | | | External | | | LAB | | | | | | [facility] | | + +-------+ + + + + + | Specimen | + + | Blood | + + + + + + + | Performing | Address | City/State/Zipcode | Phone Number | | Organization | | | | + + + + + | REFERENCE LAB | [address] | [place] [address] | [phone] | | [facility] | | | | + + + + + | REFERENCE LAB | [address] | [place] [address] | [phone] | | [facility] | | | | + + + + + External Lab: Triglycerides (04/16/2017) + +-------+ + + + | Component | Value | Ref Range | Performed | Pathologist | | | | | At | Signature | + +-------+ + + + | Triglycerid | 152 | | REFERENCE | | | es, | | | LAB | | | External | | | [facility] | | + +-------+ + + + + + | Specimen | + + | Blood | + + + + + + + | Performing | Address | City/State/Zipcode | Phone Number | | Organization | | | | + + + + + | REFERENCE LAB | [address] | [place] [address] | [phone] | | [facility] | | | | + + + + + | REFERENCE LAB | [address] | [place] [address] | [phone] | | [facility] | | | | + + + + + External Lab: Cholesterol, HDL (04/16/2017) + +-------+ + + + | Component | Value | Ref Range | Performed | Pathologist | | | | | At | Signature | + +-------+ + + + | HDL | 43.3 | mg/dl | REFERENCE | | | Cholesterol | | | LAB | | | , External | | | [facility] | | + +-------+ + + + + + | Specimen | + + | Blood | + + + + + + + | Performing | Address | City/State/Zipcode | Phone Number | | Organization | | | | + + + + + | REFERENCE LAB | [address] [facility] | [place] [address] | [phone] | | [facility] | | | | + + + + + | REFERENCE LAB | [address] [facility] | [place] [address] | [phone] | | [facility] | | | | + + + + + External Lab: Cholesterol, Total (04/16/2017) + +-------+ + + + | Component | Value | Ref Range | Performed | Pathologist | | | | | At | Signature | + +-------+ + + + | Cholesterol | 163 | mg/dl | REFERENCE | | | , Total, | | | LAB | | | External | | | [facility] | | + +-------+ + + + + + | Specimen | + + | Blood | + + + + + + + | Performing | Address | City/State/Zipcode | Phone Number | | Organization | | | | + + + + + | REFERENCE LAB | [address] [facility] | [place] [address] | [phone] | | [facility] | | | | + + + + + | REFERENCE LAB | [address] [facility] | [place] [address] | [phone] | | [facility] | | | | + + + + + External Lab: Cholesterol, LDL (04/16/2017) + +-------+ + + + | Component | Value | Ref Range | Performed | Pathologist | | | | | At | Signature | + +-------+ + + + | LDL | 89 | | REFERENCE | | | Cholesterol | | | LAB | | | , Direct, | | | [facility] | | | External | | | | | + +-------+ + + + + + | Specimen | + + | Blood | + + + + + + + | Performing | Address | City/State/Zipcode | Phone Number | | Organization | | | | + + + + + | REFERENCE LAB | [facility] | [place] [address] | [phone] | | [facility] | | | | + + + + + | REFERENCE LAB | [address] [place] [address] | [place] [address] | [phone] | | [facility] | | | | + + + + + Creatinine, Urine (04/16/2017) + +-------+ + + + | Component | Value | Ref Range | Performed | Pathologist | | | | | At | Signature | + +-------+ + + + | Date of | | | | | | Ultrasound | | | | | + +-------+ + + + + + | Specimen | + + | Urine | + + External Lab: Microalbumin, Urine (04/16/2017) + +-------+ + + + | Component | Value | Ref Range | Performed | Pathologist | | | | | At | Signature | + +-------+ + + + | Microalbumi | <0.7 | | REFERENCE | | | n, Urine, | | | LAB | | | External | | | [facility] | | + +-------+ + + + + + | Specimen | + + | Blood | + + + + + + + | Performing | Address | City/State/Zipcode | Phone Number | | Organization | | | | + + + + + | REFERENCE LAB | [facility] | [place] [address] | [phone] | | [facility] | | | | + + + + + | REFERENCE LAB | [address] [place] [address] | [place] [address] | [phone] | | [facility] | | | | + + + + + documented in this encounter Visit Diagnoses Not on filedocumented in this encounter"
--- OUTSIDE RECORDS SUMMARY | ~2019-02-15 | XMS | Encounter Summary ---
Demographics + + + | Address | [address] | | | [place] [address] | + + + | Home Phone | | + + + | Preferred Language | Unknown | + + + | Marital Status | | + + + | Mu-Ism Affiliation | 1077 | + + + [...] Team Providers + +------+ + | Care Mechanical Fitter Name | Role | Phone | + +------+ + | Roderick Alexandra MD | PCP | | + +------+ + Encounter Details +--------+ + + + + | Date | Type | Department | Care Team | Description | +--------+ + + + + | 12/17/ | Abstract | [facility] | Roderick Alexandra, | | | 2015 | | MEDICINE [address] | [address] | | | | | [address] [place] | [place], [place] | | | | | [place], [place] [address] | [address] | | | | | [phone] | | | +--------+ + + + [...] + +--------+ + + + | [facility] EXTERNAL IMAGE | Routin | 12/13/2015 | | Results for this | | | e | | | procedure are in the | | | | | | results section. | + +--------+ + + + documented in this encounter Results [facility] External Image (12/13/2015) + + + + + + | Component | Value | Ref Range | Performed | Pathologist | | | | | At | Signature | + + + + + + | EXT | 2-Benign | | | | | MAMMOGRAPHY | finding(s)Comment: ACR | | | | | | BI-RADS Category 2 - | | | | | | Benign | | | | + + + + + + documented in this encounter Visit Diagnoses Not on filedocumented in this encounter"
--- OUTSIDE RECORDS SUMMARY | ~2019-02-15 | XMS | Encounter Summary ---
Demographics + + + | Address | [address] | | | [place] [address] | + + + | Home Phone | | + + + | Preferred Language | Unknown | + + + | Marital Status | | + + + | Muslim Affiliation | 1077 | + + + | Race | Unknown | + + + | Ethnic Group | Unknown | + + + Author + + + | Author | [facility] | | | and [place] | + + + | Organization | [facility] | | | [...] Team Providers + +------+ + | Care Beauty Culturist Name | Role | Phone | + +------+ + | Roderick Alexandra MD | PCP | | + +------+ + Encounter Details +--------+ + + + + | Date | Type | Department | Care Team | Description | +--------+ + + + + | 01/19/ | Abstract | [facility] | Roderick Alexandra, | | | 2016 | | MEDICINE [place] | [address] | | | | | [address] | [place] | | | | | [place] | [address] | | | | | [address] | | | | | | [phone] | | | +--------+ + + + [...] | [facility] EXTERNAL IMAGE | Routin | 01/07/2017 | | Results for this | | | e | | | procedure are in the | | | | | | results section. | + +--------+ + + + documented in this encounter Results [facility] External Image (01/07/2017) + + + + + + | Component | Value | Ref Range | Performed | Pathologist | | | | | At | Signature | + + + + + + | EXT | 2-Benign finding(s) | | | | | MAMMOGRAPHY | | | | | + + + + + + documented in this encounter Visit Diagnoses Not on filedocumented in this encounter"
--- OUTSIDE RECORDS SUMMARY | ~2019-02-15 | XMS | Encounter Summary ---
Demographics + + + | Address | [address] | | | [place] [address] | + + + | Home Phone [...] + | Author | [facility] | | | and [place] | + + + | Organization | [facility] | | | and [...] Team Providers + +------+ + | Care Factory Hand Name | Role | Phone | + [...] Refill | | 2013 | | [facility] | [address] | | | | | [address] | [place] | | | | | [place] | [address] | | | | | [address] | | | | | | [phone] | | | +--------+--------+ + + + [...]
--- OUTSIDE RECORDS SUMMARY | ~2019-02-15 | XMS | Encounter Summary ---
Demographics + + + | Address | [address] | | | [place] [address] | + + + | Home Phone | | + + + | Preferred Language | Unknown | + + + | Marital Status | | + + + | Anabaptist Affiliation | 1077 | + + + | Race | Unknown | + + + | Ethnic Group | Unknown | + + + Author + + + | Author | [facility] | | | and [place] | + + + | Organization | [facility] | | | [...] Team Providers + +------+ + | Care Threshing Operator Name | Role | Phone | [...] | | | | [place] | [address] | | | | | [address] | | | | | | [phone] | | | +--------+ + + + [...]
--- OUTSIDE RECORDS SUMMARY | ~2019-02-15 | XMS | Encounter Summary ---
Demographics + + + | Address | [address] | | | [place] [address] | + + + | Home Phone | | + + + | Preferred Language | Unknown | + + + | Marital Status | | + + + | Anglican Affiliation | 1077 | + + + | Race | Unknown | + + + | Ethnic Group | Unknown | + + + Author + + + | Author | [facility] | | | and [place] | + + + | Organization | [facility] | | | and [...] Team Providers + +------+ + | Care Jazz Musician Name | Role | Phone | + [...] Description | +--------+--------+ + + + | 10/15/ | Refill | [facility] | Roderick Alexandra, | Medication Refill | | 2017 | | [facility] | [address] | | | | | [address] | [place] | | | | | [place] | [address] | | | | | [address] | | | | | | [phone] | | | +--------+--------+ + + + [...]
--- OUTSIDE RECORDS SUMMARY | ~2019-02-15 | XMS | Encounter Summary ---
Demographics + + + | Address | [address] | | | [place] [address] | + + + | Home Phone | | + + + | Preferred Language | Unknown | + + + | Marital Status | | + + + | Restorationism Affiliation | 1077 | + + + | Race | Unknown | + + + | Ethnic Group | Unknown | + + + Author + + + | Author | [facility] | | | and [place] | + + + | Organization | [facility] | | | [...] Team Providers + +------+ + | Care Equipment Tester Name | Role | Phone | + [...] + | 05/18/ | Telephone | [facility] | Roderick Alexandra, | Lab Order | | 2012 | | MEDICINE [place] | [address] | | | | | [address] | [place] | | | | | [place] | [address] | | | | | [address] | | | | | | [phone] | | | +--------+ + + + [...]
--- OUTSIDE RECORDS SUMMARY | ~2019-02-15 | XMS | Encounter Summary ---
Demographics + + + | Address | [address] | | | [place] [address] | + + + | Home Phone | | + + + | Preferred Language | Unknown | + + + | Marital Status | Single | + + + | Roman Catholic Affiliation | Unknown | + + + | Race | Unknown | + + + | Ethnic Group | Other Race | + + + Author + + + | Author | [facility] | + + + | Organization | [facility] | + + + | Address | Unknown | + + + | Phone | Unavailable | + + + Care Team Providers + +------+ + | Care Silk Screen Etcher Name | Role | Phone | + +------+ + PCP | Unavailable | + +------+ + Encounter Details +--------+ + + + + | Date | Type | Department | Care Team | Description | +--------+ + + + + | 06/27/ | Hospital | Dermatopathology | | | | 2013 | Encounter | [address] | | | | | | Mailcode: CH16D | | | | | | [facility] | | | | | | and Healing, | | | | | | Building [address] | | | | | | Floor [place], [place] | | | | | | [address] | | | | | | [phone] | | | +--------+ + + + [...] | | | | | | skin, [id number]. The | | | | | | [...] Diagnostician: | | | | | | Ajay Romeo Jr., | | | | | [...] [facility] | Mailcode CH5D, [address] | [place] [address] | | | DERMATOPATHOLOGY | [address] | | | + + + + + documented in this encounter Visit Diagnoses Not on filedocumented in this encounter
--- OUTSIDE RECORDS SUMMARY | ~2019-02-15 | XMS | Encounter Summary ---
Demographics + + + | Address | [address] | | | [place] [address] | + + + | Home Phone | | + + + | Preferred Language | Unknown | + + + | Marital Status | | + + + | Mandaeism Affiliation | 1077 | + + + [...] Providers + +------+ + | Care Supervisor In Circuit Testing Name | Role | Phone | + +------+ + PCP | Unavailable | + +------+ + Reason for Referral Diagnostic/Screening (Routine) +--------+--------+ + + + + | Status | Reason | Specialty | Diagnoses / | Referred By | Referred To | | | | | Procedures | Contact | Contact | +--------+--------+ + + + + | Closed | | Radiology | Diagnoses | [facility] | [facility] | | | | | Pulmonary | Roderick Ariza MD | [address] | | | | | hypertension | [address] | [place], | | | | | (HCC) | AVE [place] | [place] | | | | | Procedures | [place] | [address] | | | | | ECHO | [address] | Phone: | | | | | Complete | Phone: | [phone] | | | | | | [phone] | Fax: | | | | | | Fax: | [phone] | | | | | | [phone] | | +--------+--------+ + + + + Reason for Visit + + + | Reason | Comments | + + + | Follow-up | | + + + Encounter Details +--------+---------+ + + + | Date | Type | Department | Care Team | Description | +--------+---------+ + + + | 10/29/ | Office | [facility] | Roderick Alexandra, | History of pneumonia | | 2018 | Visit | MEDICINE [facility] | [address] | (Primary Dx); | | | | [address] | [place] | History of recent | | | | [place] | [address] | hospitalization; | | | | [address] | | Preventative health | | | | [phone] | | care; Pulmonary | | | | | | hypertension (HCC); | | | | | | Anemia, unspecified | | | | | | type; Pneumonia due | | | | | | to infectious | | | | | | organism, | | | | | | unspecified | | | | | | laterality, | | | | | | unspecified part of | | | | | | lung | +--------+---------+ + + + Social History [...] + + + | Blood Pressure | 150/62 | 10/29/2017 9:32 AM | | | | | PDT | | + + + + + | Pulse | 66 | 10/29/2017 9:32 AM | | | | | PDT | | + + + + + | Temperature | 36.4 C (97.6 F) | 10/29/2017 9:32 AM | | | | | PDT | | + + + + + | Respiratory Rate | 16 | 10/29/2017 9:32 AM | | | | | PDT | | + + + + + | Oxygen Saturation | 94% | 10/29/2017 9:32 AM | | | | | PDT | | + + + + + | Inhaled Oxygen | - | - | | | Concentration | | | | + + + + + | Weight | 67.2 kg (148 lb 2.4 | 10/29/2017 9:32 AM | | | | oz) | PDT | | + + + + + | Height | - | - | | + + + + + | Body Mass Index | 27.99 | 04/23/2017 1:52 PM | | | | | PST | | + + + + + documented in this encounter Progress Janet Lazo, Medical Student - 10/29/2017 9:00 AM PDT Rosalind Patel is a 82 y.o. female Chief Complaint: Follow-up HPI Rosalind Patel is an 82 yo female who presents today as a six month follow up for noncard iac chest pain and issues involving her axilla region. She was also seen in the ED in [facility] [place] in June of 2017 for fever (102 at home) and non productive cough. She was admitted to the hospital and stayed for eight days (06/20/17-06/28/2017), three of those days in the [place]. 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 An echo was done - no conclusive signs of CHF. Preserved LVEF >70%. Grade 2 diastolic dysfu nction with multiple valvular abnormalities including previously stated murmurs." While admitted, was treated unsuccessfully with Tazobactam/Piperacillin and they later adde d azithromycin. She was eventually transitioned to oral augmentin, monitored for 2 days and released. She was given a ten day course. "While admitted patient did have antibiotic associated diarrhea and C. Difficile infection was ruled out." Since being in the hospital, patient has just started feeling better in September. She partici pates 3 days a week at the athletic club. She states her legs feel weak. Worried about falli ng - has made lifestyle and home changes to prevent this. Other Axilla issue: still working on it with PT. Ok if she doesn't sleep on that side Chest pain: No repeat of pain. Also under the care of: Dr Navarrete, Dr Rizvi HM: Dtap - Will need to get at pharmacy Zoster - On waiting list at pharmacy. Influenza - Received in September. [facility] in [place], [place]. Patient plans to switch providers in order to have someone nearer to her home due to travel difficulties. PREVENTIVE CARE/PRIOR VISITS - Any recommendations from Health Maintenance: Health Maintenance Due Topic Date Due Vaccine: Zoster (2 of 3) 10/31/2011 Vaccine: Dtap/Tdap/Td (2 - Td) 12/03/2015 Vaccine: Influenza (1) 10/17/2017 Preventative Services TOPIC LAST DONE NEXT DUE Colorectal Cancer Screening (Colonoscopy) 02/17/2008 02/16/2018 Vaccine: Influenza 10/12/2015 10/17/2017 Breast Cancer Screening (Mamm Yearly) 01/07/2017 01/07/2018 Vaccine: Dtap/Tdap/Td 12/02/2005 12/03/2015 Vaccine: Pneumococcal 65+ Low/Medium Risk 07/24/2014 Vaccine: Zoster 09/05/2011 10/31/2011 Allergies Allergen Reactions Ceftriaxone Rash Palm tingles and rash Lipitor Other (See Comments) Myalgias Wasp Venom Protein Swelling Medications: Patient Reported Taking No current medications. Past Medical History She has a past medical history of Cardiac murmur (03/31/2011); Cataract; Chest pressure (03/24); COPD (chronic obstructive pulmonary disease) (HCC); Cough (10/16/2010); Diarrhea (03/27); Diverticulosis, colon; Dyspnea on exertion (10/16/2010); Hepatitis B infection (); TIA (transient ischemic attack) (03/24/2016); Hyperlipidemia; Hypertension; Left breast naty mp (05/2006); Left carotid bruit (12/31/1999); Palpitations; Retinal hemorrhage of left eye; and Vertigo. Past Surgical History She has a past surgical history that includes Appendectomy (1940); Tonsillectomy; Dilation and curettage of uterus (, 2001); Cholecystectomy (1973); Skin cancer excision (3611-1282); hysteroscopy (08/2001); Cataract Removal (02/2011); Cataract Removal (Left, 06/30/2016); and Ey e surgery (Left, 06/2016). Family History: Her family history includes * (age of onset: 78) in her mother; Ovarian cancer in her siste r; Parkinsonism in her mother; Prostate cancer in her father. 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 HENT: Negative for congestion, postnasal drip, rhinorrhea, sinus pain, sinus pressure and s neezing. Respiratory: Positive for cough and shortness of breath (Intermittent. At higher elevation or upon exercise on stairs). Negative for apnea, choking, wheezing and stridor. Cardiovascular: Positive for leg swelling. Negative for chest pain and palpitations. Gastrointestinal: Negative for constipation and diarrhea. Genitourinary: Negative for dysuria and hematuria. 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 Negative for back pain. Neurological: Positive for weakness. Objective: Vitals: 10/29/17 0932 BP: 150/62 Pulse: 66 Resp: 16 Temp: 36.4 C (97.6 F) TempSrc: Temporal SpO2: 94% Weight: 67.2 kg (148 lb 2.4 oz) Body mass index is 27.99 kg/m. Physical Exam Constitutional: She is oriented to person, place, and time. She appears well-developed and well-nourished. No distress. HENT: Head: Normocephalic and atraumatic. Eyes: EOM are normal. Neck: Neck supple. No thyromegaly present. Cardiovascular: Normal rate and regular rhythm. Murmur (Mild murmur consistent with aortic regurgitation) heard. Pulmonary/Chest: Effort normal and breath sounds normal. No respiratory distress. She has n o wheezes. She has no rales. Neurological: She is alert and oriented to person, place, and time. Psychiatric: She has a normal mood and affect. Her behavior is normal. Ortho Exam Assessment: 1. History of pneumonia 2. History of recent hospitalization 3. Preventative health care 4. Pulmonary hypertension (HCC) ECHO Complete 5. Anemia, unspecified type CBC with Differential 6. Pneumonia due to infectious organism, unspecified laterality, unspecified part of lung Comprehensive Metabolic Panel Plans: 1. History of pneumonia 2. History of recent hospitalization 4. Pulmonary hypertension (HCC) 5. Anemia, unspecified type 6. Pneumonia due to infectious organism, unspecified laterality, unspecified part of lung Patient is positive in mood and affect, communicating well. Echocardiogram and labs reviewe d with patient. Patient concerned about echo findings so these were discussed including phelan ges due to natural process versus those based on pathological processes. A second echo order ed for comparison now that patient is feeling better. Plan to refer to answering service operator if neede d post echo reading. Additional labs ordered to compare with hospitalization state. Will con tact patient with results as they become available. - ECHO Complete; Future - CBC with Differential; Future - Comprehensive Metabolic Panel; Future 3. Preventative health care Reviewed medications and recent immunization record with patient and made appropriate lange es (DC Niacin). Patient in need of Dtap - patient plans to get them at the pharmacy. Follow-up: 6 months I, Janet Goodman, Medical Student, completed a physical exam and this document on behalf of, and in the presence of MD Janet Jeffries, Medical Student 10/29/2017 I performed an independent physical exam. I actively participated in the decision making co mponents of this encounter, and I confirm or corrected the details, findings, and medical de cision making points in the student's note. Roderick Alexandra MD 10/29/2017 documented in this en counter Plan of Treatment + + +--------+ + + | Name | Type | Priori | Associated Diagnoses | Order Schedule | | | | ty | | | + + +--------+ + + | ECHO Complete | Echocardiog | Routin | Pulmonary | Expected: | | | steven | e | hypertension (HCC) | 10/29/2017, Expires: | | | | | | 10/29/2018 | + + +--------+ + + documented as of this encounter Results Comprehensive Metabolic Panel (10/29/2017 11:09 AM PDT) + + + + + + | Component | Value | Ref Range | Performed | Pathologist | | | | | At | Signature | + + + + + + | Na | 139 | 136 - 145 | [facility] | | | | | mmol/L | [facility] | [facility] | | | [facility] | | | | [facility] | | + + + + + + | K | 4.1 | 3.5 - 5.1 | [facility] | | | | | mmol/L | [facility] | | | | [facility] | | | | | | [facility] | | + + + + + + | Cl | 104 | 98 - 107 mmol/L | [facility] | | | | | | [facility] | | | [facility] | | | | | [facility] | | + + + + + + | CO2 | 30 | 21 - 32 mmol/L | [facility] | | | | | | [facility] | | | [facility] | | | | [facility] | | + + + + + + | Anion Gap | 5 | 2 - 16 mmol/L | [facility] | | | | | | [facility] | | [facility] | | | | | [facility] | | + + + + + + | Glucose | 101 | 74 - 106 mg/dL | [facility] | | | | | | [facility] | | [facility] | | | | | | [facility] | | + + + + + + | BUN | 12 | 7 - 18 mg/dL | [facility] | | | | | | [facility] | | | [facility] | | | | | | [facility] | | + + + + + + | Creatinine | 0.60 | 0.55 - 1.02 | [facility] | | | | | mg/dL | [facility] | | | | | | [facility] | | | | | | [facility] | | | | | | [facility] | | + + + + + + | eGFR if not | >60Comment: GLOMERULAR | >=60 | [facility] | | | | FILTRATION | mL/min/1.73m2 | [facility] | | | [place] | RATE,ESTIMATED | | MEDICAL | | | | mL/min/1.19n3Cajx than | | PARK | | | | 60 Chronic kidney | | LABORATORY | | | | disease,if found over a | | | | | | 3-month period.Less than | | | | | | 15 Kidney failureFor | | | | | | | | | | | | Americans,multiply the | | | | | | calculated GFR by 1.21. | | | | | | | | | | + + + + + + | Calcium | 10.1 | 8.5 - 10.1 | [facility] | | | | | mg/dL | [facility] | [facility] | | | | | | [facility] | | | | | | [facility] | | + + + + + + | Albumin | 3.8 | 3.4 - 5.0 g/dL | [facility] | | | | | | [facility] | | [facility] | [facility] | | | | | [facility] | | | | | | [facility] | | + + + + + + | Bilirubin | 0.5 | 0.2 - 1.0 mg/dL | [facility] | | | Total | | | [facility] | [facility] | | | | | [facility] | | | | | | [facility] | | + + + + + + | Total | 7.4 | 6.4 - 8.2 g/dL | [facility] | | | Protein | | | [facility] | | | | | [facility] | | | | | | [facility] | | | | | | [facility] | | + + + + + + | AST | 20 | 15 - 37 U/L | [facility] | | | | | | [facility] | | | | | [facility] | | | | | | [facility] | | + + + + + + | ALT | 24 | 14 - 59 U/L | [facility] | | | | | | [facility] | [facility] | | | | | | [facility] | | | | | | [facility] | | + + + + + + | Alkaline | 108 | 46 - 116 U/L | [facility] | | | Phosphatase | | | [facility] | | | | | [facility] | | | | | | [facility] | | | | | | [facility] | | + + + + + + | Globulin | 3.6 | 2.1 - 3.8 g/dL | [facility] | | | | | | [facility] | [facility] | | | | | [facility] | | | | | | [facility] | | + + + + + + | Albumin/Monae | 1.1 | 0.8 - 2.0 | [facility] | | | bulin Ratio | | | [facility] | [facility] | | | | | | [facility] | | | | | | [facility] | | + + + + + + | BUN/Creatin | 20.0 | | [facility] | | | ine Ratio | | | [facility] | | [facility] | [facility] | | | | | | [facility] | | | | | | [facility] | | + + + + + + + + | Specimen | + + | Blood | + + + + + + + | Performing | Address | City/State/Zipcode | Phone Number | | Organization | | | | + + + + + | [facility] | [address] | [place], [place] | [phone] | | [facility] | | [address] | | | [facility] | | | | + + + + + CBC with Differential (10/29/2017 11:09 AM PDT) + +-------+ + + + | Component | Value | Ref Range | Performed | Pathologist | | | | | At | Signature | + +-------+ + + + | WBC | 6.3 | 4.0 - 11.0 K/uL | [facility] | | | | | | [facility] | [facility] | | [facility] | | | | | [facility] | | + +-------+ + + + | RBC | 4.52 | 3.70 - 5.20 | [facility] | | | | | M/uL | [facility] | | [facility] | | | | | | [facility] | | | | | | [facility] | | + +-------+ + + + | Hemoglobin | 14.4 | 11.5 - 16.0 | [facility] | | | | | g/dL | [facility] | | | | | [facility] | | | | | | [facility] | | | | | | [facility] | | + +-------+ + + + | Hct | 43.1 | 34.0 - 47.0 % | [facility] | | | | | | [facility] | [facility] | | | [facility] | | | | [facility] | | + +-------+ + + + | MCV | 95.4 | 83.0 - 101.0 fL | [facility] | | | | | | [facility] | | | [facility] | | | | [facility] | | + +-------+ + + + | MCH | 31.9 | 28.0 - 35.0 pg | [facility] | | | | | | [facility] | [facility] | | | | | [facility] | | | | | | [facility] | | + +-------+ + + + | MCHC | 33.4 | 32.0 - 36.0 | [facility] | | | | | g/dL | [facility] | [facility] | | | | [facility] | | | | | | [facility] | | + +-------+ + + + | RDW-CV | 12.0 | <15.0 % | [facility] | | | | | | [facility] | | [facility] | | | | | [facility] | | | | | | [facility] | | + +-------+ + + + | RDW-SD | 43.0 | fL | [facility] | | | | | | [facility] | [facility] | | | | | [facility] | | | | | | [facility] | | + +-------+ + + + | Platelet | 193 | 140 - 440 K/uL | [facility] | | | Count | | | [facility] | | [facility] | | | | | | [facility] | | | | | | [facility] | | + +-------+ + + + | MPV | 10.8 | fL | [facility] | | | | | | [facility] | [facility] | | | | | [facility] | | | | | | [facility] | | + +-------+ + + + | % | 56.8 | 45.0 - 82.0 % | [facility] | | | Neutrophils | | | [facility] | | [facility] | [facility] | | | | | | [facility] | | | | | | [facility] | | + +-------+ + + + | % | 31.3 | 20.0 - 45.0 % | [facility] | | | Lymphocytes | | | [facility] | | [facility] | | [facility] | | | | | | [facility] | | | | | | [facility] | | + +-------+ + + + | % Monocytes | 10.1 | 4.0 - 12.0 % | [facility] | | | | | | [facility] | [facility] | | | | | | [facility] | | | | | | [facility] | | + +-------+ + + + | % | 1.3 | 0.0 - 5.0 % | [facility] | | | Eosinophils | | | [facility] | | | | | [facility] | | | | | | [facility] | | | | | | [facility] | | + +-------+ + + + | % Basophils | 0.3 | 0.0 - 1.0 % | [facility] | | | | | | [facility] | | [facility] | | | | | [facility] | | | | | | [facility] | | + +-------+ + + + | % Immature | 0.2 | 0.0 - 0.4 % | [facility] | | | Granulocyte | | | [facility] | | | s | | | [facility] | | | | | | [facility] | | | | | | [facility] | | + +-------+ + + + | Absolute | 3.59 | 1.80 - 8.50 | [facility] | | | Neutrophils | | K/uL | [facility] | | | | | [facility] | | | | | | [facility] | | | | | | [facility] | | + +-------+ + + + | Absolute | 1.98 | 0.60 - 3.20 | [facility] | | | Lymphocytes | | K/uL | [facility] | | | | | [facility] | | | | | | [facility] | | | | | | [facility] | | + +-------+ + + + | Absolute | 0.64 | 0.00 - 1.00 | [facility] | | | Monocytes | | K/uL | [facility] | | | | | [facility] | | | | | | [facility] | | | | | | [facility] | | + +-------+ + + + | Absolute | 0.08 | 0.00 - 0.40 | [facility] | | | Eosinophils | | K/uL | [facility] | | | | | [facility] | | | | | | [facility] | | | | | | [facility] | | + +-------+ + + + | Absolute | 0.02 | 0.00 - 0.10 | [facility] | | | Basophils | | K/uL | [facility] | | | | | [facility] | | | | | | [facility] | | | | | | [facility] | | + +-------+ + + + | Absolute | 0.01 | 0.00 - 0.03 | [facility] | | | Immature | | K/UL | [facility] | | | Granulocyte | | | MEDICAL | | | s | | | PARK | | | | | | LAB[facility]AT[facility] | | + +-------+ + + + + + | Specimen | + + | Blood | + + + + + + + | Performing | Address | City/State/Zipcode | Phone Number | | Organization | | | | + + + + + | [facility] | [address] [place] | [place] | [phone] | | [facility] | | [address] | | | [facility] | | | | + + + + + documented in this encounter Visit Diagnoses + + | Diagnosis | + + | History of pneumonia - Primary Personal history of pneumonia (recurrent) | + + | History of recent hospitalization | + + | Preventative health care Routine general medical examination at a [facility] care | | facility | + + | Pulmonary hypertension (HCC) Other chronic pulmonary heart diseases | + + | Anemia, unspecified type | + + | Pneumonia due to infectious organism, unspecified laterality, unspecified part of lung | + + documented in this encounter
--- OUTSIDE RECORDS SUMMARY | ~2019-02-15 | XMS | Encounter Summary ---
Demographics + + + | Address | [address] | | | [place] [address] | + + + | Home Phone | | + + + | Preferred Language | Unknown | + + + | Marital Status | | + + + | Evangelical Affiliation | 1077 | + + + | Race | Unknown | + + + | Ethnic Group | Unknown | + + + Author + + + | Author | [facility] | | | and [place] | + + + | Organization | [facility] | | | [...] Team Providers + +------+ + | Care Certified Alcohol Counselor Name | Role | Phone | + +------+ + | Roderick Alexandra MD | PCP | | + +------+ + Reason for Visit + + + | Reason | Comments | + + + | Imaging Only | Echo | + + + Encounter Details +--------+ + + + + | Date | Type | Department | Care Team | Description | +--------+ + + + + | 04/08/ | Telephone | [facility] | Roderick Alexandra, | Imaging Only (Echo) | | 2019 | | [facility] | [address] | | | | | [address] | [place] | | | | | [place] | [address] | | | | | [address] | | | | | | [phone] | | | +--------+ + + + [...]
--- OUTSIDE RECORDS SUMMARY | ~2019-02-15 | XMS | Encounter Summary ---
Demographics + + + | Address | [address] | | | [place] [address] | + + + | Home Phone | | + + + | Preferred Language | Unknown | + + + | Marital Status | | + + + | Hoahaoism Affiliation | 1077 | + + + [...] Team Providers + +------+ + | Care Grinding Room Inspector Name | Role | Phone | [...] | | | | [place] | [address] | | | | | [address] | | | | | | [phone] | | | +--------+ + + + [...] + | [facility] | [address] | [place] | [phone] | | [facility] | | [address] | | | - LABORATORY | | | | + + + + + | [facility] | [address] | [place], [place] | | | [facility] | | [address] | | | - LABORATORY | | [...] | | | | | | | Filipino, | | | | | | External [...]
--- OUTSIDE RECORDS SUMMARY | ~2019-02-15 | XMS | Encounter Summary ---
Demographics + + + | Address | [address] | | | [place] [address] | + + + | Home Phone [...] | Author | [facility] | | | and [place] | + + + | Organization | [facility] | | | and [place] | + [...] Providers + +------+ + | Care Engineer Automated Equipment Name | Role | Phone | + [...] Refill | | 2016 | | MEDICINE [facility] | [address] | | | | | [address] | [place] | | | | | [place] | [address] | | | | | [address] | | | | | | [phone] | | | +--------+--------+ + + + [...]
--- OUTSIDE RECORDS SUMMARY | ~2019-02-15 | XMS | Encounter Summary ---
Demographics + + + | Address | [address] | | | [place] [address] | + + + | Home Phone | | + + + | Preferred Language | Unknown | + + + | Marital Status | | + + + | Samaritan Affiliation | 1077 | + + + | Race | Unknown | + + + | Ethnic Group | Unknown | + + + Author + + + | Author | [facility] | | | and [place] | + + + | Organization | [facility] | | | [...] Team Providers + +------+ + | Care Collection Development Librarian Name | Role | Phone | [...] | +--------+ + + + + | 11/26/ | Telephone | [facility] | Roderick Alexandra, | Lab Order | | 2012 | | MEDICINE [place] | [address] | | | | | [address] | [place] | | | | | [place] | [address] | | | | | [address] | | | | | | [phone] | | | +--------+ + + + [...]
--- OUTSIDE RECORDS SUMMARY | ~2019-02-15 | XMS | Encounter Summary ---
Demographics + + + | Address | [address] | | | [place] [address] | + + + | Home Phone | | + + + | Preferred Language | Unknown | + + + | Marital Status | | + + + | Mormonism Affiliation | 1077 | + + + [...] Team Providers + +------+ + | Care Extracorporeal Technician Name | Role | Phone | + +------+ + | Roderick Alexandra MD | PCP | | + +------+ + Encounter Details +--------+ + + + + | Date | Type | Department | Care Team | Description | +--------+ + + + + | 03/03/ | Hospital | [facility] | Vicenta Rizvi | | | 2011 | Encounter | MED [facility] | MD [address] | | | | | [address] | [place], | | | | | [place], [place] | [place] [address] | | | | | [address] | [phone] | | | | | [phone] | | | +--------+ + + + [...]
--- OUTSIDE RECORDS SUMMARY | ~2019-02-15 | XMS | Encounter Summary ---
Demographics + + + | Address | [address] | | | [place] [address] | + + + | Home Phone | | + + + | Preferred Language | Unknown | + + + | Marital Status | | + + + | Quaker Affiliation | 1077 | + + + [...] Team Providers + +------+ + | Care Furnace Feeder Name | Role | Phone | + [...] | | | [address] | [address] [place], [place] | | | | | [place], [place] | [address] | | | | | [address] | | | | | | [phone] | | | +--------+ + + + [...] | | is mild aortic regurgitation. 5. Xgjj-ey-bycefjgo mitral | | | regurgitation is present. [...] 4. There is mild aortic regurgitation. 5. Hoag-kc-uxybzkjj mitral | | | regurgitation is present. [...] Valve: Mitral valve is thickened. Mitral Valve: Xvgi-rs-jviwtgpl | | | mitral regurgitation is present. [...] TR Vmax: | | | 3.32 m/s Sap Bods Developer: Authenticated by: JAVI ARAIZA MD | | [...] There is mild aortic regurgitation.5. | | Kncv-fr-xfvlvhpg mitral regurgitation is present.6. Mild mitral stenosis [...] | Valve: Mitral valve is thickened.Mitral Valve: Hofo-em-hhxdhemj mitral regurgitation is | | present.Mitral Valve: [...] cmLVPWd: 0.99 | | cmLVOT Area: 2.71 [id number] Diam: 1.86 cm%FS: 43.93 %EF(Teich): 75.88 %ESV(Teich): [...] mlLAESV Index (A-L): 34.11 ml/m2LAAs A2C: 20.70 ce7ZYHCP A-L | | A2C: 63.38 mlLALs A2C: 5.74 cmLAAs A4C: 13.77 ii8YLOYI A-L A4C: 35.64 mlLALs | | A4C: 4.52 cmRAAs: 8.74 vx5HHGDD A-L: 17.58 mlRAESV MOD: 15.26 mlRALs: 3.69 | | cmTAPSE: 2.38 cmAV maxP.23 mmHgAV meanP.04 mmHgAV Vmax: 2.13 m/Adal | | Vmean: 1.39 m/Adal VTI: 34.72 cmAVA Vmax: 1.84 cm2AVA (VTI): 2.03 ya1OJAJ Vmax: | | 0.00 cm2/m2AVAI (VTI): 0.00 [...] VTI: 42.78 cmMVA (VTI): 1.65 | | tu5Odebgp e': 0.06 m/sSeptal E/e': 25.05Lateral e': 0.07 m/sLateral E/e': | | 22.15RAP: 5 mmHgRVSP: 49.30 mmHgTR maxP.30 mmHgTR Vmax: 3.32 m/s | | Sap Bods Developer:Authenticated by: [facility] Date/Time: 06-22-2017 17:0:1 | | IMPRESSION: 1. Left ventricular systolic function is hyperdynamic with an estimated EF | | of >70%.2. Pseudonormal LV diastolic filling pattern, consistent with elevated LA | | pressure and moderate dysfunction (Grade II).3. The right ventricle is normal in size | | and function.4. There is mild aortic regurgitation.5. Tyuj-tb-wgljlsji mitral | | regurgitation is present.6. Mild [...] |TR Vmax: 3.32 m/s | | | |Sap Bods Developer: | |Authenticated by: JAVI ARAIZA MD | [...] There is mild aortic regurgitation. | |5. Abhb-kq-qxjhufpd mitral regurgitation is present. | |6. Mild [...]
--- OUTSIDE RECORDS SUMMARY | ~2019-02-15 | XMS | Encounter Summary ---
Demographics + + + | Address | [address] | | | [place] [address] | + + + | Home Phone | | + + + | Preferred Language | Unknown | + + + | Marital Status | | + + + | Mormon Affiliation | 1077 | + + + | Race | Unknown | + + + | Ethnic Group | Unknown | + + + Author + + + | Author | [facility] | | | and Saurabhana | + + + | Organization | [facility] | | | [...] Team Providers + +------+ + | Care Grants Specialist Name | Role | Phone | [...] + + | 10/13/ | Documentati | [facility] | [place] | Lasha (PCP REFERRAL | | 2019 | on | CARDIOLOGY KIERRA Tran, Special Education Administrator | AND NOTES ) | | | | [address] | | | | | | [address] [place] | | | | | | [address] | | | | | | [phone] | | | +--------+ + + + [...]
--- OUTSIDE RECORDS SUMMARY | ~2019-02-15 | XMS | Encounter Summary ---
Demographics + + + | Address | [address] | | | [place] [address] | + + + | Home Phone | | + + + | Preferred Language | Unknown | + + + | Marital Status | | + + + | Tenriism Affiliation | 1077 | + + + | Race | Unknown | + + + | Ethnic Group | Unknown | + + + Author + + + | Author | [facility] | | | and Saurabhana | + + + | Organization | [facility] | | | [...] Team Providers + +------+ + | Care Floor Broker Name | Role | Phone | + +------+ + PCP | Unavailable | + +------+ + Encounter Details +--------+ + + + + | Date | Type | Department | Care Team | Description | +--------+ + + + + | 04/04/ | Hospital | [facility] | | | | 2005 | Encounter | MED CTR XRAY [address] | | | | | | [place] | | | | | | [place] [address] | | | | | | [phone] | | | +--------+ + + + [...]
--- OUTSIDE RECORDS SUMMARY | ~2019-02-15 | XMS | Encounter Summary ---
Demographics + + + | Address | [address] | | | [place] [address] | + + + | Home Phone | | + + + | Preferred Language | Unknown | + + + | Marital Status | | + + + | Islam Affiliation | 1077 | + + + | Race | Unknown | + + + | Ethnic Group | Unknown | + + + Author + + + | Author | [facility] | | | and Saurabhana | + + + | Organization | [facility] | | | [...] Team Providers + +------+ + | Care Braid Cutter Name | Role | Phone | + +------+ + | Roderick Alexandra MD | PCP | | + +------+ + Encounter Details +--------+ + + + + | Date | Type | Department | Care Team | Description | +--------+ + + + + | 10/16/ | Hospital | [facility] | Roderick Alexandra, | | | 2010 | Encounter | MED CTR XRAY [address] | [address] | | | | | [place] | [place], [place] | | | | | [place] [address] | [address] | | | | | [phone] | | | +--------+ + + + [...] Performed At | + + + | [facility] Diagnostic Imaging Department | [facility] | | [address] [facility] | [facility] | | PA AND LATERAL CHEST, [...] Transcribed Date/Time: | | | 10/16/2010 13:54 Ecotherapist: <Electronically Signed | | | by Greg Denny MD> 10/16/10 1737 | | + + + + + | Procedure Note | + + | Jam, Rad Conversion - 03/25/2013 3:42 PM [facility] | | Diagnostic Imaging Department [address] [place] [address] | | PA AND LATERAL CHEST, 10/16/2010 [...] 13:47 | |Transcribed Date/Time: 10/16/2010 13:54 | |Ecotherapist: | |<Electronically Signed by Greg Denny MD> [...]
--- OUTSIDE RECORDS SUMMARY | ~2019-02-15 | XMS | Encounter Summary ---
Demographics + + + | Address | [address] | | | [place] [address] | + + + | Home Phone | | + + + | Preferred Language | Unknown | + + + | Marital Status | | + + + | Jewish Affiliation | 1077 | + + + [...] Team Providers + +------+ + | Care Gravity Prospecting Operator Name | Role | Phone | [...] Description | +--------+--------+ + + + | 07/08/ | Refill | [facility] | Roderick Alexandra, | Medication Refill | | 2017 | | MEDICINE [facility] | [address] | | | | | [address] | [place] | | | | | [place] | [address] | | | | | [address] | | | | | | [phone] | | | +--------+--------+ + + + [...]
--- OUTSIDE RECORDS SUMMARY | ~2019-02-15 | XMS | Encounter Summary ---
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 Essential [...] months (around 04/04/2017) for Hypertension, Hyperlipidemia. NGUYEN Leborn Cert MA, am acting as a scribe [...]
--- OUTSIDE RECORDS SUMMARY | ~2019-02-15 | XMS | Encounter Summary ---
Demographics + + + | Address | [address] | | | [place] [address] | + + + | Home Phone [...] Team Providers + +------+ + | Care Guitar Player Name | Role | Phone | + [...] + | 05/26/ | Office | [facility] | Roderick Alexandra, | Dyspnea on exertion | | 2012 | Visit | MEDICINE [place] | [address] | (Primary Dx); | | | | [address] | [place] | Hoarseness of voice; | | | | [place] | [address] | Hyperlipidemia | | | | [address] | | | | | | [phone] | | | +--------+---------+ + + + [...] (, 2001); Cholecystectomy (1973); Skin cancer excision (6133-3823); hy steroscopy (08/2001); and Cataract Removal (02/2011). [...]
--- OUTSIDE RECORDS SUMMARY | ~2019-02-15 | XMS | Encounter Summary ---
Demographics + + + | Address | [address] | | | [place] [address] | + + + | Home Phone | | + + + | Preferred Language | Unknown | + + + | Marital Status | | + + + | Scientology Affiliation | 1077 | + + + | Race | Unknown | + + + | Ethnic Group | Unknown | + + + Author + + + | Author | [facility] | | | and Saurabhana | + + + | Organization | [facility] | | | and [...] Team Providers + +------+ + | Care Gambling Box Person Name | Role | Phone | + [...] | | | | | [address] | [place], [place] | | | | | [place] | [address] | | | | | [address] | | | | | | [phone] | | | +--------+ + + + [...] [address] | | eral | Antecubital; mywy-tif-vbszcz | Makayla De Los Santos | Melody [...]
--- OUTSIDE RECORDS SUMMARY | ~2019-02-15 | XMS | Encounter Summary ---
Demographics + + + | Address | [address] | | | [place] [address] | + + + | Home Phone [...] Team Providers + +------+ + | Care Sheet Cutting Operator Name | Role | Phone | [...] | 12/13/ | Telephone | [facility] | Mariluz Shields PA | Results | | 2012 | | MEDICINE [place] | [address] [facility] | | | | | [address] | [address] [place], [place] | | | | | [place], [place] | [address] | | | | | [address] | | | | | | [phone] | | | +--------+ + + + [...]
--- OUTSIDE RECORDS SUMMARY | ~2019-02-15 | XMS | Encounter Summary ---
Demographics + + + | Address | [address] | | | [place] [address] | + + + | Home Phone [...] Team Providers + +------+ + | Care Briquette Maker Name | Role | Phone | + +------+ + | Roderick Alexandra MD | PCP | | + +------+ + Encounter Details +--------+ + + + + | Date | Type | Department | Care Team | Description | +--------+ + + + + | 09/27/ | Abstract | [facility] [place] [facility] | Roderick Alexandra, | | | 2014 | | MEDICINE [place] | [address] | | | | | [address] | [place] | | | | | [place] | [address] | | | | | [address] | | | | | | [phone] | | | +--------+ + + + [...] | [facility] EXTERNAL IMAGE | Routin | 09/20/2014 | | Results for this | | | e | | | procedure are in the | | | | | | results section. | + +--------+ + + + documented in this encounter Results [facility] External Image (09/20/2014) + + + + + + | Component | Value | Ref Range | Performed | Pathologist | | | | | At | Signature | + + + + + + | EXT | 1-Negative | | | | | MAMMOGRAPHY | | | | | + + + + + + + + | Resulting Agency Comment | + + | [facility] | + + documented in this encounter Visit Diagnoses Not on filedocumented in this encounter"
--- OUTSIDE RECORDS SUMMARY | ~2019-02-15 | XMS | Encounter Summary ---
Demographics + + + | Address | [address] | | | [place] [address] | + + + | Home Phone | | + + + | Preferred Language | Unknown | + + + | Marital Status | | + + + | Restorationist Affiliation | 1077 | + + + | Race | Unknown | + + + | Ethnic Group | Unknown | + + + Author + + + | Author | [facility] | | | and Saurabhana | + + + | Organization | [facility] | | | and [...] Team Providers + +------+ + | Care Order Department Supervisor Name | Role | Phone | [...] + + | 04/23/ | Office | [facility] | Roderick Alexandra, | Non-cardiac chest | | 2018 | Visit | MEDICINE [place] | [address] | pain (Primary Dx); | | | | [address] | [place] | Chronic obstructive | | | | [place] | [address] | pulmonary disease, | | | | [address] | | unspecified COPD | | | | [phone] | | type (HCC); Left arm | [...] + | Blood Pressure | 124/62 | 04/23/2017 1:52 PM | | | | | PST | | + + + + + | Pulse | 70 | 04/23/2017 1:52 PM | | | | | PST | | + + + + + | Temperature | 36.6 C (97.9 F) | 04/23/2017 1:52 PM | | | | | PST | | + + + + + | Respiratory Rate | 14 | 04/23/2017 1:52 PM | | | | | PST | | + + + + + | Oxygen Saturation | 97% | 04/23/2017 1:52 PM | | | | | PST | | + + + + + | Inhaled Oxygen | - | - | | | Concentration | | | | + + + + + | Weight | 69.1 kg (152 lb 5.4 | 04/23/2017 1:52 PM | | | | oz) | PST | | + + + + + | Height | 154.9 cm (5' 1") | 04/23/2017 1:52 PM | | | | | PST | | + + + + + | Body Mass Index | 28.78 | 04/23/2017 1:52 PM | | | | | PST | | + + + + + documented in this encounter Progress Notes Roderick Alexandra MD - 04/23/2017 1:30 PM PSTFormatting of this note might be [...] has been changed since signin Order Audit [facility] Multiple Vitamins-Minerals (PRESERVISION AREDS 2) CAPS (Taking) Take 2 capsules by mouth Daily. niacin (NIASPAN) 500 mg CR tablet (Taking) take 1 tablet by mouth at bedtime Number of times this order has been changed since signin Order Audit [employer] [place]-3 Fatty Acids ([facility] NATURAL FISH OIL) 1000 MG CAPS (Taking) Take 1,000 mg by mouth D aily. 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 Advised patient [...] the right. Will refer patient t o [facility]. 5. Essential hypertension Well controlled. The [...] accurate and complete. Roderick Alexandra MD 04/30/17 documented in this en counter Plan of Treatment Not on filedocumented as of this encounter Procedures + +--------+ + + + | Procedure Name | Priori | Date/Time | Associated Diagnosis | Comments | | | ty | | | | + +--------+ + + + | LABS - EXTERNAL SCAN | | 07/22/2017 | | Results for this | | | | 12:00 AM | | procedure are in the | | | | PDT | | results section. | + +--------+ + + + | LABS - EXTERNAL SCAN | | 06/23/2017 | | Results for this | | | | 12:00 AM | | procedure are in the | | | | PDT | | results section. | + +--------+ + + + | LABS - EXTERNAL SCAN | | 06/23/2017 | | Results for this | | | | 12:00 AM | | procedure are in the | | | | PDT | | results section. | + +--------+ + + + | LABS - EXTERNAL SCAN | | 06/22/2017 | | Results for this | | | | 12:00 AM | | procedure are in the | | | | PDT | | results section. | + +--------+ + + + | LABS - EXTERNAL SCAN | | 06/22/2017 | | Results for this | | | | 12:00 AM | | procedure are in the | | | | PDT | | results section. | + +--------+ + + + | ECHO-EXTERNAL SCAN | | 06/22/2017 | | Results for this | | | | 12:00 AM | | procedure are in the | | | | PDT | | results section. | + +--------+ + + + | IMAGING REPORT - | | 06/21/2017 | | Results for this | | EXTERNAL SCAN | | 12:00 AM | | procedure are in the | | | | PDT | | results section. | + +--------+ + + + | LABS - EXTERNAL SCAN | | 06/21/2017 | | Results for this | | | | 12:00 AM | | procedure are in the | | | | PDT | | results section. | + +--------+ + + + | IMAGING REPORT - | | 06/20/2017 | | Results for this | | EXTERNAL SCAN | | 12:00 AM | | procedure are in the | | | | PDT | | results section. | + +--------+ + + + | LABS - EXTERNAL SCAN | | 06/20/2017 | | Results for this | | | | 12:00 AM | | procedure are in the | | | | PDT | | results section. | + +--------+ + + + | IMAGING REPORT - | | 05/06/2017 | | Results for this | | EXTERNAL SCAN | | 12:00 AM | | procedure are in the | | | | PDT | | results section. | + +--------+ + + + | LABS - EXTERNAL SCAN | | 05/06/2017 | | Results for this | | | | 12:00 AM | | procedure are in the | | | | PDT | | results section. | + +--------+ + + + documented in this encounter Results LABS - EXTERNAL SCAN (07/22/2017 12:00 AM PDT) + + + | Narrative | Performed At | + + + | Ordered by an | | | unspecified provider. | | + + + LABS - EXTERNAL SCAN (06/23/2017 12:00 AM PDT) + + + | Narrative | Performed At | + + + | Ordered by an | | | unspecified provider. | | + + + LABS - EXTERNAL SCAN (06/23/2017 12:00 AM PDT) + + + | Narrative | Performed At | + + + | Ordered by an | | | unspecified provider. | | + + + LABS - EXTERNAL SCAN (06/22/2017 12:00 AM PDT) + + + | Narrative | Performed At | + + + | Ordered by an | | | unspecified provider. | | + + + LABS - EXTERNAL SCAN (06/22/2017 12:00 AM PDT) + + + | Narrative | Performed At | + + + | Ordered by an | | | unspecified provider. | | + + + ECHO-EXTERNAL SCAN (06/22/2017 12:00 AM PDT) + + + | Narrative | Performed At | + + + | Ordered by an | | | unspecified provider. | | + + + LABS - EXTERNAL SCAN (06/21/2017 12:00 AM PDT) + + + | Narrative | Performed At | + + + | Ordered by an | | | unspecified provider. | | + + + IMAGING REPORT - EXTERNAL SCAN (06/21/2017 12:00 AM PDT) + + + | Narrative | Performed At | + + + | Ordered by an | | | unspecified provider. | | + + + LABS - EXTERNAL SCAN (06/20/2017 12:00 AM PDT) + + + | Narrative | Performed At | + + + | Ordered by an | | | unspecified provider. | | + + + IMAGING REPORT - EXTERNAL SCAN (06/20/2017 12:00 AM PDT) + + + | Narrative | Performed At | + + + | Ordered by an | | | unspecified provider. | | + + + LABS - EXTERNAL SCAN (05/06/2017 12:00 AM PDT) + + + | Narrative | Performed At | + + + | Ordered by an | | | unspecified provider. | | + + + IMAGING REPORT - EXTERNAL SCAN (05/06/2017 12:00 AM PDT) + + + | Narrative | Performed At | + + + | Ordered by an | | | unspecified provider. | | + + + documented in this encounter Visit Diagnoses + + | Diagnosis | + + | Non-cardiac chest pain - Primary Other chest pain | + + | Chronic obstructive pulmonary disease, unspecified COPD type (HCC) | + + | Left arm swelling Swelling of limb | + + | Left arm pain Pain in limb | + + | Essential hypertension Unspecified essential hypertension | + + documented in this encounter
--- OUTSIDE RECORDS SUMMARY | ~2019-02-15 | XMS | Encounter Summary ---
Demographics + + + | Address | [address] | | | [place] [address] | + + + | Home Phone | | + + + | Preferred Language | Unknown | + + + | Marital Status | | + + + | Scientologist Affiliation | 1077 | + + + | Race | Unknown | + + + | Ethnic Group | Unknown | + + + Author + + + | Author | [facility] | | | and Saurabhana | + + + | Organization | [facility] | | | and [...] Team Providers + +------+ + | Care Construction Technology Instructor Name | Role | Phone | [...] Description | +--------+--------+ + + + | 02/27/ | Refill | [facility] | Roderick Alexandra, | Medication Refill | | 2017 | | [facility] | [address] | | | | | [address] | [place] | | | | | [place] | [address] | | | | | [address] | | | | | | [phone] | | | +--------+--------+ + + + [...]
--- OUTSIDE RECORDS SUMMARY | ~2019-02-15 | XMS | Encounter Summary ---
Demographics + + + | Address | [address] | | | [place] [address] | + + + | Home Phone [...] Team Providers + +------+ + | Care Networking Technology Instructor Name | Role | Phone [...] + | 01/22/ | Telephone | [facility] | Roderick Alexandra, | Lab Order | | 2015 | | MEDICINE [place] | [address] | | | | | [address] | [place] | | | | | [place] | [address] | | | | | [address] | | | | | | [phone] | | | +--------+ + + + [...]
--- OUTSIDE RECORDS SUMMARY | ~2019-02-15 | XMS | Encounter Summary ---
Demographics + + + | Address | [address] | | | [place] [address] | + + + | Home Phone | | + + + | Preferred Language | Unknown | + + + | Marital Status | | + + + | Cheondoism Affiliation | 1077 | + + + [...] Team Providers + +------+ + | Care Launderer Hand Name | Role | Phone | [...] Refill | | 2012 | | [facility] | [address] | | | | | [address] | [place] | | | | | [place] | [address] | | | | | [address] | | | | | | [phone] | | | +--------+--------+ + + + [...]
--- OUTSIDE RECORDS SUMMARY | ~2019-02-15 | XMS | Encounter Summary ---
Demographics + + + | Address | [address] | | | [place] [address] | + + + | Home Phone | | + + + | Preferred Language | Unknown | + + + | Marital Status | | + + + | Jainism Affiliation | 1077 | + + + | Race | Unknown | + + + | Ethnic Group | Unknown | + + + Author + + + | Author | [facility] | | | and Saurabhana | + + + | Organization | [facility] | | [...] Team Providers + +------+ + | Care Stone Mill Operator Name | Role | Phone | [...] + | 06/07/ | Telephone | [facility] | Roderick Alexandra, | Lab Order | | 2013 | | MEDICINE [place] | [address] | | | | | [address] | [place] | | | | | [place] | [address] | | | | | [address] | | | | | | [phone] | | | +--------+ + + + [...]
--- OUTSIDE RECORDS SUMMARY | ~2019-02-15 | XMS | Clinical Summary ---
Demographics + + + | Address | [address] | | | [place] [address] | + + + | Home Phone | | + + + | Preferred Language | Unknown | + + + | Marital Status | | + + + | Sabianism Affiliation | 1077 | + + + | Race | Unknown | + + + | Ethnic Group | Unknown | + + + Author + + + | Author | [facility] | | | and Saurabhana | + + + | Organization | [facility] | | | [...] Team Providers + +------+ + | Care Rn Staffing Name | Role | Phone | + [...] + +---+ + + | Overview: KELLY [id number] Decision | + + Resolved Problems + [...] | | 05/16/ | [id number] | | [id number]: Qty: 1 on | c | Eye | - ALCN | | 2018 | .19.0D | | 06/30/2016 by Belkys, | | | | | | | | Vicenta Alvarado MD at [facility] | | | | | | /[phone] | | [facility] | | | | | | [address] [...] + +--------+ | MODA | MODA | [id number] | 04/17/19 | [phone] | [address] | Indemn | | | HEALTH | | 08-Pre | 9 | [phone] | ity | | | MDCR | | sent | | [place], | | | | [place] | | | | [place] [address] | | + +--------+ +--------+ + +--------+ | MEDICARE | MEDICA | [id number] | 07/17/18 | [phone] | | Medica | | | RE | | 99-Pre | 5 | | re | | | PART A | | sent | | | | | | AND B | | | | | | + +--------+ +--------+ + +--------+ | MEDICARE | MEDICA | [id number] | 07/17/18 | [phone] | | Medica | | | RE | | 99-Pre | 5 | | re | | | PART A | | sent | | | | | | AND B | | | | | | + +--------+ +--------+ + +--------+ | MODA | MODA | [id number] | 02/16/19 | [phone] | [address] | Indemn | | | HEALTH | | 19-Pre | 9 | [phone] | ity | | | MDCR | | sent | | [place], | | | | [place] | | | | [place] [address] | | + +--------+ +--------+ + +--------+ [...] Clarice | al/Fam | | 1936 | [phone] | [place] | | | alyiah | | | 3 (Home) | [address] | + +--------+ +--------+ + + | Rosalind Patel | Person | Self | [birth year] | [address] | | Clarice | al/Fam | | 1936 | [phone] | [place] | | | aliyah | | | 3 (Home) | [address] | + +--------+ +--------+ + + Advance Directives + + + + + | Type | Date Recorded | Patient | Explanation | | | | General Practitioner | | + + + + + | Power of | | | | | Communicable Disease Specialist | | | | + + + + + | Power of | | | | | Communicable Disease Specialist | | | | + + + [...]
--- OUTSIDE RECORDS SUMMARY | ~2019-02-15 | XMS | Encounter Summary ---
Demographics + + + | Address | [address] | | | [place] [address] | + + + | Home Phone [...] Team Providers + +------+ + | Care Pulp Tester Name | Role | Phone | [...] | 06/16/ | Telephone | [facility] [place] [facility] | Roderick Alexandra, | Results, Imaging | | 2017 | | MEDICINE [place] | [address] | | | | | [address] | [place] | | | | | [place] | [address] | | | | | [address] | | | | | | [phone] | | | +--------+ + + + [...]
--- OUTSIDE RECORDS SUMMARY | ~2019-02-15 | XMS | Encounter Summary ---
Demographics + + + | Address | [address] | | | [place] [address] | + + + | Home Phone | | + + + | Preferred Language | Unknown | + + + | Marital Status | | + + + | Gnosticist Affiliation | 1077 | + + + | Race | Unknown | + + + | Ethnic Group | Unknown | + + + Author + + + | Author | [facility] | | | and Saurabhana | + + + | Organization | [facility] | | | [...] Team Providers + +------+ + | Care Cosmetologist Apprentice Name | Role | Phone | + [...] + | 01/16/ | Telephone | [facility] | Roderick Alexandra, | Lab Order | | 2013 | | MEDICINE [place] | [address] | | | | | [address] | [place] | | | | | [place] | [address] | | | | | [address] | | | | | | [phone] | | | +--------+ + + + [...]
--- OUTSIDE RECORDS SUMMARY | ~2019-02-15 | XMS | Encounter Summary ---
Demographics + + + | Address | [address] | | | [place] [address] | + + + | Home Phone | | + + + | Preferred Language | Unknown | + + + | Marital Status | | + + + | Tenriism Affiliation | 1077 | + + + | Race | Unknown | + + + | Ethnic Group | Unknown | + + + Author + + + | Author | [facility] | | | and Saurabhana | + + + | Organization | [facility] | | | [...] Team Providers + +------+ + | Care Greige Mender Name | Role | Phone | + [...] Refill | | 2015 | | [facility] | [address] | | | | | [address] | [place] | | | | | [place] | [address] | | | | | [address] | | | | | | [phone] | | | +--------+--------+ + + + [...]
--- OUTSIDE RECORDS SUMMARY | ~2019-02-15 | XMS | Encounter Summary ---
Demographics + + + | Address | [address] | | | [place] [address] | + + + | Home Phone | | + + + | Preferred Language | Unknown | + + + | Marital Status | | + + + | Tenriism Affiliation | 1077 | + + + | Race | Unknown | + + + | Ethnic Group | Unknown | + + + Author + + + | Author | [facility] | | | and Saurabhana | + + + | Organization | [facility] | | | [...] Team Providers + +------+ + | Care Drafter Chief Design Name | Role | Phone | + [...] | | | | [place] | [address] | | | | | [address] | | | | | | [phone] | | | +--------+ + + + [...]
--- OUTSIDE RECORDS SUMMARY | ~2019-02-15 | XMS | Encounter Summary ---
Demographics + + + | Address | [address] | | | [place] [address] | + + + | Home Phone | | + + + | Preferred Language | Unknown | + + + | Marital Status | | + + + | Zoroastrian Affiliation | 1077 | + + + [...] Team Providers + +------+ + | Care Harness Worker Name | Role | Phone | [...] | SR | | | | | [phone] | | | +--------+ + + + [...]
--- OUTSIDE RECORDS SUMMARY | ~2019-02-15 | XMS | Encounter Summary ---
Demographics + + + | Address | [address] | | | [place] [address] | + + + | Home Phone [...] Team Providers + +------+ + | Care Operations Boardman Name | Role | Phone | + +------+ + PCP | Unavailable | + +------+ + Encounter Details +--------+ + + + + | Date | Type | Department | Care Team | Description | +--------+ + + + + | 02/01/ | Hospital | [facility] | | | | 1997 | Encounter | MED CTR XRAY [address] | | | | | | [place] | | | | | | [place] [address] | | | | | | [phone] | | | +--------+ + + + [...]
--- OUTSIDE RECORDS SUMMARY | ~2019-02-15 | XMS | Encounter Summary ---
Demographics + + + | Address | [address] | | | [place] [address] | + + + | Home Phone [...] Team Providers + +------+ + | Care Demand Planning Analyst Name | Role | Phone | [...] Refill | | 2017 | | [facility] | [address] | | | | | [address] | [place] | | | | | [place] | [address] | | | | | [address] | | | | | | [phone] | | | +--------+--------+ + + + [...]
--- OUTSIDE RECORDS SUMMARY | ~2019-02-15 | XMS | Encounter Summary ---
Demographics + + + | Address | [address] | | | [place] [address] | + + + | Home Phone [...] Team Providers + +------+ + | Care Multicultural Internship Name | Role | Phone | + [...] Refill | | 2014 | | [facility] | [address] | | | | | [address] | [place] | | | | | [place] | [address] | | | | | [address] | | | | | | [phone] | | | +--------+--------+ + + + [...]
--- OUTSIDE RECORDS SUMMARY | ~2019-02-15 | XMS | Encounter Summary ---
Demographics + + + | Address | [address] | | | [place] [address] | + + + | Home Phone [...] Team Providers + +------+ + | Care Quality System Manager Name | Role | Phone | [...] Left arm | Roderick Ariza MD | [facility] | | | Required | | pain Left | [address] | PHYSICAL | | | | | arm swelling | [address] [place] | THERAPY [address] | | | | | | [place], [place] | [place] | | | | | | [address] | [place], [place] | | | | | | Phone: | [address] | | | | | | [phone] | Phone: | | | | | | Fax: | [phone] | | | | | | [phone] | Fax: | | | | | | | [phone] | +--------+ + + + + + Reason for Visit +---------+ + | Reason | Comments | +---------+ + | Therapy | | +---------+ + Encounter Details +--------+ + + + + | Date | Type | Department | Care Team | Description | +--------+ + + + + | 05/12/ | Telephone | [facility] [place] [facility] | Roderick Alexandra, | Therapy | | 2018 | | MEDICINE [place] | [address] | | | | | [address] | [place] | | | | | [place] | [address] | | | | | [address] | | | | | | [phone] | | | +--------+ + + + [...]
--- OUTSIDE RECORDS SUMMARY | ~2019-02-15 | XMS | Encounter Summary ---
Demographics + + + | Address | [address] | | | [place] [address] | + + + | Home Phone [...] + | Author | [facility] | | | and Saurabhana | + + + | Organization | [facility] | | | and [...] Team Providers + +------+ + | Care Estimator And Drafter Name | Role | Phone | + [...] | 12/14/ | Telephone | [facility] [place] [facility] | Rylee Robert RN | ED Follow-up | | 2011 | | MEDICINE [place] | | | | | | [address] | | | | | | [place] | | | | | | [address] | | | | | | [phone] | | | +--------+ + + + [...]
--- OUTSIDE RECORDS SUMMARY | ~2019-02-15 | XMS | Encounter Summary ---
Demographics + + + | Address | [address] | | | [place] [address] | + + + | Home Phone [...] Team Providers + +------+ + | Care Slicing Machine Operator/Tender Name | Role | Phone | + +------+ + | Roderick Alexandra MD | PCP | | + +------+ + Reason for Visit +---------+ + | Reason | Comments | +---------+ + | Results | | +---------+ + Encounter Details +--------+ + + + + | Date | Type | Department | Care Team | Description | +--------+ + + + + | 05/27/ | Telephone | [facility] | Roderick Alexandra, | Results | | 2012 | | MEDICINE [place] | [address] | | | | | [address] | [place] | | | | | [place] | [address] | | | | | [address] | | | | | | [phone] | | | +--------+ + + + [...]
--- OUTSIDE RECORDS SUMMARY | ~2019-02-15 | XMS | Encounter Summary ---
Demographics + + + | Address | [address] | | | [place] [address] | + + + | Home Phone [...] Team Providers + +------+ + | Care Analyst Business Analysis Name | Role | Phone | + [...] + | 05/19/ | Telephone | [facility] | Roderick Alexandra, | Results | | 2018 | | MEDICINE [place] | [address] | | | | | [address] | [place] | | | | | [place] | [address] | | | | | [address] | | | | | | [phone] | | | +--------+ + + + [...]
--- OUTSIDE RECORDS SUMMARY | ~2019-02-15 | XMS | Encounter Summary ---
Demographics + + + | Address | [address] | | | [place] [address] | + + + | Home Phone [...] Team Providers + +------+ + | Care Inspector Brake Lining Name | Role | Phone | + [...] Refill | | 2013 | | [facility] | [address] | | | | | [address] | [place] | | | | | [place] | [address] | | | | | [address] | | | | | | [phone] | | | +--------+--------+ + + + [...]
--- OUTSIDE RECORDS SUMMARY | ~2019-02-15 | XMS | Encounter Summary ---
Demographics + + + | Address | [address] | | | [place] [address] | + + + | Home Phone [...] Team Providers + +------+ + | Care Movement Education Specialist Name | Role | Phone | [...] + + | 01/29/ | Office | [facility] | Roderick Alexandra, | Medicare annual | | 2015 | Visit | MEDICINE [place] | [address] | wellness visit, | | | | [address] | [place] | subsequent (Primary | | | | [place] | [address] | Dx); Urinary tract | | | | [address] | | infection, site | | | | [phone] | | unspecified; Chest | | | [...] If you have a designated health care member services representative, give their name and contact informa [...] by mouth at bedtime 90 tablet 3 [place]-3 Fatty Acids ([facility] NAT[facility] OIL) 1000 [...] [place], [place] - [address] [place] [address] Immunizations Immunization History Administered Date(s) Administered INFLUENZA, QUADRIVALENT W/PRESERVATIVE (PED/ADOL/ADULT) 11/15/2013, 10/31/2014 INFLUENZA, W/Preservative 10/18/2011 PNEUMOCOCCAL CONJUGATE 13-VALENT (PCV13) 07/24/2014 PNEUMOCOCCAL POLYSACCHARIDE 23-VALENT (PPSV23) 05/20/2005 TDAP, (ADOL/ADULT) 12/02/2005 ZOSTER, 1 DOSE (ADULT) 12/02/2005, 09/05/2011 Preventative Care and Screening (Attestation) The following health maintenance items are reviewed in [facility] and correct as of today: Health [...] take 1 tablet by mouth at bedtime [place]-3 Fatty Acids ([facility] NATURAL FISH OIL) 1000 [...] (12/31/1999); and COPD (chronic obstructive pulmonary disease) ([facility]). Past Surgical History She has past surgical history that includes Appendectomy (1940); Tonsillectomy; Dilation an d curettage of uterus (, 2001); Cholecystectomy (1973); Skin cancer excision (3892-1058); hy steroscopy (08/2001); and Cataract Removal (02/2011). 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 [employer] Review of Systems Constitutional: Negative [...] no improvements within 2 weeks I, Candy [place] am acting as a scribe on behalf [...] MD | | | | | | ([id number]) on 01/30/2015 | | | | | [...] 1.001 - 1.030 | | | | [place], | | | | | | UA, [...] | | DIAGNOSIS HPV RESULTS PHYSICIAN 04/01/11 [id number] | | | Satisfactory NIL Roderick Alexandra [...] | LABORATORY: Technical preparation was performed by [employer] | | | [facility], [address] [place] [address] | | | (Deputy District Customs Director: Andrew Hathaway M.D.; [facility]#: [id number]). | | | Diagnostician: Chet CARTER([facility]) Desktop Support Associate Electronically | | | Signed 02/01/2015 | [...]
--- OUTSIDE RECORDS SUMMARY | ~2019-02-15 | XMS | Encounter Summary ---
Demographics + + + | Address | [address] | | | [place] [address] | + + + | Home Phone [...] Team Providers + +------+ + | Care Fretted Instrument Inspector Name | Role | Phone | [...] Refill | | 2013 | | [facility] | [address] | | | | | [address] | [place] | | | | | [place] | [address] | | | | | [address] | | | | | | [phone] | | | +--------+--------+ + + + [...]
--- OUTSIDE RECORDS SUMMARY | ~2019-02-15 | XMS | Clinical Summary ---
Demographics + + + | Address | [address] | | | [place] [address] | + + + | Home Phone | | + + + | Preferred Language | Unknown | + + + | Marital Status | | + + + | Islam Affiliation | Unknown | + + + | Race | Unknown | + + + | Ethnic Group | Unknown | + + + Author + + + | Author | [facility] (Historical as of | | | 10-02-18) | + + + | Organization | [facility] (Historical as of | | | 10-02-18) [...] Team Providers + +------+ + | Care Steam Box Tender Name | Role | Phone | [...] +------+-------+ + | MEDICARE | MEDICA | [id number] | | | [address] | | | [place] | | | | [place] [address] | | | IP-OP | | | | | + +--------+ +------+-------+ + | [employer]DS HE[employer] PLAN | ODS | [id number] | | | | | | HEALTH [...] | | | [place] | | | [address] | [address] | + +--------+ +--------+ + +"
--- OUTSIDE RECORDS SUMMARY | ~2019-02-15 | XMS | Encounter Summary ---
Demographics + + + | Address | [address] | | | [place] [address] | + + + | Home Phone [...] Team Providers + +------+ + | Care Dealer Relationship Manager Name | Role | Phone | + +------+ + | Roderick Alexandra MD | PCP | | + +------+ + Encounter Details +--------+ + + + + | Date | Type | Department | Care Team | Description | +--------+ + + + + | 06/30/ | Hospital | [facility] | Vicenta Rizvi | | | 2017 | Encounter | MED CTR OR INTRA OP | MD [address] | | | | | [address] | [place], | | | | | [place], [place] | [place] [address] | | | | | [address] | [phone] | | | | | [phone] | | | +--------+ + + + [...] You cannot be awakened Date Last Reviewed: 12/04/201519998769-0610 [employer] [address] [place] [address], [place] [address]. All righ ts reserved. This information is [...] + + + +---------+ + + | [place]-3 Fatty | Take 1,000 mg by | [...] | | | | LEANA SERVIN MD ([id number]) | | | | | | on [...]
--- OUTSIDE RECORDS SUMMARY | ~2019-02-15 | XMS | Encounter Summary ---
Demographics + + + | Address | [address] | | | [place] [address] | + + + | Home Phone [...] Team Providers + +------+ + | Care Commercial Lines Manager Name | Role | Phone | [...] | [address] | | | | | [address] | | | | | | [phone] | | | +--------+--------+ + + + [...]
--- OUTSIDE RECORDS SUMMARY | ~2019-02-15 | XMS | Encounter Summary ---
Demographics + + + | Address | [address] | | | [place] [address] | + + + | Home Phone | | + + + | Preferred Language | Unknown | + + + | Marital Status | | + + + | Christianity Affiliation | 1077 | + + + [...] Team Providers + +------+ + | Care Barrel Cleaner Name | Role | Phone | [...] + | 01/20/ | Telephone | [facility] | Roderick Alexandra, | LABS | | 2016 | | [facility] | [address] | | | | | [address] | [place] | | | | | [place] | [address] | | | | | [address] | | | | | | [phone] | | | +--------+ + + + [...]
--- OUTSIDE RECORDS SUMMARY | ~2019-02-15 | XMS | Encounter Summary ---
Demographics + + + | Address | [address] | | | [place] [address] | + + + | Home Phone [...] Team Providers + +------+ + | Care Pelt Salter Name | Role | Phone | + +------+ + PCP | Unavailable | + +------+ + Encounter Details +--------+ + + + + | Date | Type | Department | Care Team | Description | +--------+ + + + + | 08/22/ | Hospital | [facility] | | | | 2005 | Encounter | MED CTR LABORATORY | | | | | | [address] [place] | | | | | | [place], [place] | | | | | | [address] | | | | | | [phone] | | | +--------+ + + + [...]
--- OUTSIDE RECORDS SUMMARY | ~2019-02-15 | XMS | Encounter Summary ---
Demographics + + + | Address | [address] | | | [place] [address] | + + + | Home Phone [...] Team Providers + +------+ + | Care Hydroelectric Production Technician Name | Role | Phone | [...] Refill | | 2016 | | [facility] | [address] | | | | | [address] | [place] | | | | | [place] | [address] | | | | | [address] | | | | | | [phone] | | | +--------+--------+ + + + [...]
--- OUTSIDE RECORDS SUMMARY | ~2019-02-15 | XMS | Encounter Summary ---
Demographics + + + | Address | [address] | | | [place] [address] | + + + | Home Phone [...] Team Providers + +------+ + | Care Vacuum Pan Tender Name | Role | Phone | [...] | | | | [place] | [address] | | | | | [address] | | | | | | [phone] | | | +--------+ + + + [...]
--- OUTSIDE RECORDS SUMMARY | ~2019-02-15 | XMS | Encounter Summary ---
Demographics + + + | Address | [address] | | | [place] [address] | + + + | Home Phone [...] Team Providers + +------+ + | Care Electric Fork Operator Name | Role | Phone | [...] + + | 07/24/ | Office | [facility] | Roderick Alexandra, | Essential | | 2015 | Visit | MEDICINE [place] | [address] | hypertension | | | | [address] | [place] | (Primary Dx); | | | | [place], [place] | [address] | Hyperlipidemia; COPD | | | | [address] | | (chronic | | | | [phone] | | obstructive | | | | | | pulmonary disease) | | | | | | ([facility]); Need for | | | | | [...] take 1 tablet by mouth at bedtime [place]-3 Fatty Acids ([facility] NATURAL FISH OIL) 1000 [...] (12/31/1999); and COPD (chronic obstructive pulmonary disease) ([facility]). Past Surgical History She has past surgical history that includes Appendectomy (1940); Tonsillectomy; Dilation an d curettage of uterus (, 2001); Cholecystectomy (1973); Skin cancer excision (0246-1274); hy steroscopy (08/2001); and Cataract Removal (02/2011). 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
--- OUTSIDE RECORDS SUMMARY | ~2019-02-15 | XMS | Encounter Summary ---
Demographics + + + | Address | [address] | | | [place] [address] | + + + | Home Phone [...] Team Providers + +------+ + | Care Winch Operator Name | Role | Phone | + +------+ + PCP | Unavailable | + +------+ + Reason for Visit + + + | Reason | Comments | + + + | Medication Refill | | + + + Encounter Details +--------+--------+ + + + | Date | Type | Department | Care Team | Description | +--------+--------+ + + + | 12/24/ | Refill | [facility] [place] [facility] | Roderikc Alexandra, | Medication Refill | | 2017 | | MEDICINE [place] | [address] | | | | | [address] | [place] | | | | | [place] | [address] | | | | | [address] | | | | | | [phone] | | | +--------+--------+ + + + [...]
--- OUTSIDE RECORDS SUMMARY | ~2019-02-15 | XMS | Encounter Summary ---
Demographics + + + | Address | [address] | | | [place] [address] | + + + | Home Phone [...] Team Providers + +------+ + | Care Dean Of Instruction Name | Role | Phone | + [...] | [address] | [address] | | | | | [place] BREATHING | AVE [place] | [place], | | | | | CAPACITY | [place], [place] | [place] | | | | | TEST [place] | [address] | [address] | | | | | EVAL OF | Phone: | Phone: | | | | | BRONCHOSPASM | [phone] | [phone] | | | | | [place] | Fax: | Fax: | | | | | PLETHYSMOGRA | [phone] | [phone] | | | | | PHY LUNG | | | | | | | VOLUMES W/WO | | | | | | | AIRWAY | | | | | | | RESIST FL | | | | | | | DIFFUSING | | | | | | | CAPACITY [place] | | | | | | | [...] her flu | | | shot in [place] | + + + | Cough | | + + + Encounter Details +--------+---------+ + + + | Date | Type | Department | Care Team | Description | +--------+---------+ + + + | 11/26/ | Office | [facility] | Roderick Alexandra, | Hyperlipidemia | | 2011 | Visit | [facility]IC[facility] [place] | [address] | (Primary Dx); Cough; | | | | [address] | [place], [place] | Cardiac murmur; | | | | [place], [place] | [address] | Lower extremity | | | | [address] | | edema | | | | [phone] | | | +--------+---------+ + + + [...] encounter Patient Instructions Patient Instructions Candy Cano, CONFERENCE SERVICES COORDINATOR - 11/27/2011 8:31 AM PDT November 27, 2011 Rosalind Patel [address] [facility] [address] [facility] [place] [address] Dear Rosalind: Thank you for enrolling in [employer]. Please follow the instructions below to view your [place] online medical record. [employer] allows you to send secure messages to your doctor, view you r test results, renew your prescriptions, schedule appointments, and more. How Do I Sign Up? 1. In your Internet browser, go to [email or web address] 2. Click on the Sign Up Now link in the Sign In box.This will take you to the New Member Si gn Up page. 3. Enter your [employer] access code exactly as it appears below. You will not need to use thi s code after you sign up. If you do not sign up before the expiration date, you must request a new code through your [facility]. [employer] Access Code: [email or web address] Expires: 01/26/2012 8:24 4. Fill in the last four digits of your Social Security Number (xxxx) and Date of (mm /dd/yyyy) when asked and click Submit. You will now be asked to create a [employer] ID. 5. Create a MyChart ID. This will be your [employer] login ID. Your login ID cannot be changed , so think of one that is secure and easy to remember. 6. Create a [employer] password. You can change your password at any time. 7. Enter your Password Reset Question and Answer. This can be used at a later time if you f orget your password. 8. Enter your e-mail address. You will receive e-mail notification when new information is available in [employer]. 9. Click Sign Up. You may now view your medical record. Additional Information If you have questions, you can email or call [phone] to talk to our [facility] care team. Please remember, [employer] should NOT be used fo r urgent [...] , 2001 Cholecystectomy 1974 Skin cancer excision 0115-5243 Basal Cell Hysteroscopy 08/2001 Cataract removal 02/2011 [...] tablets by mouth 2 times d aily. [place]-3 Fatty Acids ([facility]) 1000 [...]
--- OUTSIDE RECORDS SUMMARY | ~2019-02-15 | XMS | Encounter Summary ---
Demographics + + + | Address | [address] | | | [place] [address] | + + + | Home Phone [...] Team Providers + +------+ + | Care Pasteurizing Machine Operator Name | Role | Phone [...] + + | 01/23/ | Office | [facility] | Roderick Alexandra, | Routine history and | | 2013 | Visit | MEDICINE [place] | [address] | physical examination | | | | [address] | [place] | of adult (Primary | | | | [place] | [address] | Dx); COPD (chronic | | | | [address] | | obstructive | | | | [phone] | | pulmonary disease) | | | [...] , 2002 Cholecystectomy 1974 Skin cancer excision 8608-0496 Basal Cell Hysteroscopy 08/2001 Cataract removal 02/2011 [...] Rosalind exercises likes to exercise by elliptical personal trainer. She watches her diet for sodium [...] by mouth at bedtime 90 tablet 1 [place]-3 Fatty Acids ([facility]IL) 1000 [...] - General Current Medicare Suppliers: [facility] [place], [place] - [address] [facility] [place] [address] HEALTH RISK ASSESSMENT: : The patient or [...] following health maintenance items are reviewed in [facility] and correct as of today: Health Maintenance [...]
--- OUTSIDE RECORDS SUMMARY | ~2019-02-15 | XMS | Encounter Summary ---
Demographics + + + | Address | [address] | | | [place] [address] | + + + | Home Phone [...] Team Providers + +------+ + | Care Tax Attorney Name | Role | Phone | + +------+ + PCP | Unavailable | + +------+ + Encounter Details +--------+ + + + + | Date | Type | Department | Care Team | Description | +--------+ + + + + | 12/28/ | Hospital | [facility] | | | | 2001 | Encounter | MED CTR XRAY [address] | | | | | | [place] | | | | | | [place] [address] | | | | | | [phone] | | | +--------+ + + + [...]
--- OUTSIDE RECORDS SUMMARY | ~2019-02-15 | XMS | Encounter Summary ---
Demographics + + + | Address | [address] | | | [place] [address] | + + + | Home Phone [...] Team Providers + +------+ + | Care Clerical Production Worker Name | Role | Phone | [...] Refill | | 2015 | | MEDICINE [facility] | [address] | | | | | [address] | [place] | | | | | [place] | [address] | | | | | [address] | | | | | | [phone] | | | +--------+--------+ + + + [...]
--- OUTSIDE RECORDS SUMMARY | ~2019-02-15 | XMS | Encounter Summary ---
Demographics + + + | Address | [address] [place] [address] | | | [place] [address] | + + + | Home Phone [...] Team Providers + +------+ + | Care Extermination Inspector Name | Role | Phone | [...] Nuclear | Dyspnea on | Skylar, | [facility] | | | | Radiology | exertion | [address] | | | | | Chest pain, | [address] | [address] | | | | | unspecified | [place] | [place], [place] | | | | | type | [place], [place] | [address] | | | | | Procedures | [address] | Phone: | | | | | [place] Nuclear | Phone: | [phone] | | | | | Stress Test | [phone] | Fax: | | | | | (Vasodilator | Fax: | [phone] | | | | | ) | [phone] | | + +--------+ + + + [...] | | | | | type | [place], [place] | [address] | | | | | Procedures | [address] | Phone: | | | | | ECHO | Phone: | [phone] | | | | | Complete | [phone] | Fax: | | | | | | Fax: | [phone] | | | | | | [phone] | | + +--------+ + + + + Reason for Visit + + + | Reason | Comments | + + + | New Patient | CONSULT | + + + Encounter Details +--------+---------+ + + + | Date | Type | Department | Care Team | Description | +--------+---------+ + + + | 10/21/ | Office | [facility] | Skylar Bridges DO | Essential | | 2019 | Visit | CARDIOLOGY [place] | [address] | hypertension | | | | [address] | [place] | (Primary Dx); | | | | [place], [place] | [address] | Dyspnea on exertion; | | | | [address] | | Chest pain, | | | | [phone] | | unspecified type; | | | [...] Bridges DO - 10/21/2018 1:00 PM PDT [facility] Cardiology Consult Note Reason for Consultation: [...] a y ear ago in April at [facility] for pneumonia. 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 There is mild aortic regurgitation. 5. Ifww-lh-glkdumgq mitral regurgitation is present. 6. Mild mitral [...]
--- OUTSIDE RECORDS SUMMARY | ~2019-02-15 | XMS | Encounter Summary ---
Demographics + + + | Address | [address] | | | [place] [address] | + + + | Home Phone [...] + | Author | [facility] | | | and Saurabhana | + + + | Organization | [facility] | | | and [...] Providers + +------+ + | Care Press Tender Incendiary Grenade Name | Role | Phone | + [...] + | 07/17/ | Telephone | [facility] | Roderick Alexandra, | Lab Order | | 2015 | | MEDICINE [place] | [address] | | | | | [address] | [place] | | | | | [place] | [address] | | | | | [address] | | | | | | [phone] | | | +--------+ + + + [...]
--- OUTSIDE RECORDS SUMMARY | ~2019-02-15 | XMS | Encounter Summary ---
Demographics + + + | Address | [address] | | | [place] [address] | + + + | Home Phone [...] Providers + +------+ + | Care Certified Nursing Assistant Instructor Name | Role | Phone | [...] Lens | | | | [address] | [place], | Implant | | | | [place], [place] | [place] [address] | | | | | [address] | [phone] | | | | | [phone] | | | +--------+---------+ + + + [...] You cannot be awakened Date Last Reviewed: 12/04/201519998816-5344 [facility]. [address] [place] [address], [place] [address]. All righ ts reserved. This information is [...] + + + +---------+ + + | [place]-3 Fatty | Take 1,000 mg by | [...] | | | | LEANA SERVIN MD ([id number]) | | | | | | on [...] +---+---+ + +-------+ + +---+ + | tgafkxvi-hxqlqbzlj-dlvoqslgld | Given | 07/01/19 | 1 | [...]
--- OUTSIDE RECORDS SUMMARY | ~2019-02-15 | XMS | Encounter Summary ---
Demographics + + + | Address | [address] | | | [place] [address] | + + + | Home Phone [...] Team Providers + +------+ + | Care Time Motion Analyst Name | Role | Phone | [...] Refill | | 2012 | | [facility] | [address] | | | | | [address] | [place] | | | | | [place] | [address] | | | | | [address] | | | | | | [phone] | | | +--------+--------+ + + + [...]
--- OUTSIDE RECORDS SUMMARY | ~2019-02-15 | XMS | Encounter Summary ---
Demographics + + + | Address | [address] | | | [place] [address] | + + + | Home Phone [...] Providers + +------+ + | Care Test Tech Name | Role | Phone | [...] + + | 10/25/ | Documentati | [facility] | [place] | Lasha (Patient | | 2019 | on | CARDIOLOGY KATHY Tran, [facility] | Documented BP) | | | | [address] | | | | | | [facility] [place] | | | | | | [address] | | | | | | [phone] | | | +--------+ + + + [...]
--- OUTSIDE RECORDS SUMMARY | ~2019-02-15 | XMS | Encounter Summary ---
Demographics + + + | Address | [address] | | | [place] [address] | + + + | Home Phone [...] Providers + +------+ + | Care Center Medical Director Name | Role | Phone | [...] Refill | | 2013 | | [facility] | [address] | | | | | [address] | [place] | | | | | [place] | [address] | | | | | [address] | | | | | | [phone] | | | +--------+--------+ + + + [...]
--- OUTSIDE RECORDS SUMMARY | ~2019-02-15 | XMS | Encounter Summary ---
Demographics + + + | Address | [address] | | | [place] [address] | + + + | Home Phone [...] Team Providers + +------+ + | Care Bench Worker Apprentice Name | Role | Phone | [...] + + | 02/12/ | Telephone | [facility] | Roderick Alexandra, | Results | | 2018 | | MEDICINE [place] | [address] | (mammogram/updated | | | | [address] | [place] | external results) | | | | [place] | [address] | | | | | [address] | | | | | | [phone] | | | +--------+ + + + [...]
--- OUTSIDE RECORDS SUMMARY | ~2019-02-15 | XMS | Encounter Summary ---
Demographics + + + | Address | [address] | | | [place] [address] | + + + | Home Phone [...] Team Providers + +------+ + | Care Asl Interpreter Name | Role | Phone | + [...] | | | | [place] | [address] | | | | | [address] | | | | | | [phone] | | | +--------+ + + + [...] + | [facility] | [address] | [place] | [phone] | | [facility] | | [address] | | | - LABORATORY | | [...] [address] | [place] | [phone] | | [facility] | | [address] | | | - LABORATORY | | [...]
--- OUTSIDE RECORDS SUMMARY | ~2019-02-15 | XMS | Encounter Summary ---
Demographics + + + | Address | [address] | | | [place] [address] | + + + | Home Phone [...] Team Providers + +------+ + | Care Garbage Man Name | Role | Phone | + [...] Refill | | 2015 | | [facility] | [address] | | | | | [address] | [place] | | | | | [place] | [address] | | | | | [address] | | | | | | [phone] | | | +--------+--------+ + + + [...]
--- OUTSIDE RECORDS SUMMARY | ~2019-02-15 | XMS | Encounter Summary ---
Demographics + + + | Address | [address] | | | [place] [address] | + + + | Home Phone [...] Team Providers + +------+ + | Care Night Time Babysitter Name | Role | Phone | + [...] + + | 05/07/ | Telephone | [facility] | Roderick Alexandra, | Referral (Follow up) | | 2017 | | MEDICINE [place] | [address] | | | | | [address] | [place] | | | | | [place] | [address] | | | | | [address] | | | | | | [phone] | | | +--------+ + + + [...]
--- OUTSIDE RECORDS SUMMARY | ~2019-02-15 | XMS | Encounter Summary ---
Demographics + + + | Address | [address] | | | [place] [address] | + + + | Home Phone [...] & [facility] | | | and Saurabhana | + [...] Team Providers + +------+ + | Care Straddle Truck Driver Name | Role | Phone | [...] Refill | | 2013 | | [facility] | [address] | | | | | [address] | [place] | | | | | [place] | [address] | | | | | [address] | | | | | | [phone] | | | +--------+--------+ + + + [...]
--- OUTSIDE RECORDS SUMMARY | ~2019-02-15 | XMS | Encounter Summary ---
Demographics + + + | Address | [address] | | | [place] [address] | + + + | Home Phone [...] Team Providers + +------+ + | Care Global Program Director Name | Role | Phone [...] Refill | | 2014 | | [facility] | [address] | | | | | [address] | [place] | | | | | [place] | [address] | | | | | [address] | | | | | | [phone] | | | +--------+--------+ + + + [...]
--- OUTSIDE RECORDS SUMMARY | ~2019-02-15 | XMS | Encounter Summary ---
Demographics + + + | Address | [address] | | | [place] [address] | + + + | Home Phone [...] Providers + +------+ + | Care Order Filler Name | Role | Phone | + [...] | | insufficienc | [address] | [place], [place] | | | | | y, | [place] | [address] | | | | | unspecified | [place], [place] | Phone: | | | | | etiology | [address] | [phone] | | | | | Procedures | Phone: | Fax: | | | | | ECHO | [phone] | [phone] | | | | | Complete | Fax: | | | | | | | [phone] | | + +--------+ + + + + Reason for Visit + + + | Reason | Comments | + + + | Follow-up | 8 week / ECHO / STRESS TEST | + + + Encounter Details +--------+---------+ + + + | Date | Type | Department | Care Team | Description | +--------+---------+ + + + | 12/22/ | Office | [facility] | Skylar Bridges DO | 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iology Cardiology Follow Up Note Reason [...] a y ear ago in April at [facility] for pneumonia. Since that time, she [...] been feeling okay. 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 There is mild aortic regurgitation. 5. Gtbw-nz-kwrtcnyr mitral regurgitation is present. 6. Mild mitral [...] [facility] No further cardiac testing is indicated prior [...]
--- OUTSIDE RECORDS SUMMARY | ~2019-02-15 | XMS | Encounter Summary ---
Demographics + + + | Address | [address] | | | [place] [address] | + + + | Home Phone | | + + + | Preferred Language | Unknown | + + + | Marital Status | | + + + | Sikhism Affiliation | 1077 | + + + [...] Team Providers + +------+ + | Care Recycle Coordinator Name | Role | Phone | + +------+ + PCP | Unavailable | + +------+ + Encounter Details +--------+ + + + + | Date | Type | Department | Care Team | Description | +--------+ + + + + | 01/13/ | Hospital | [facility] | | | | 2000 | Encounter | MED CTR XRAY [address] | | | | | | [place] | | | | | | [place] [address] | | | | | | [phone] | | | +--------+ + + + [...]
--- OUTSIDE RECORDS SUMMARY | ~2019-02-15 | XMS | Encounter Summary ---
Demographics + + + | Address | [address] [address] | | | [place] [address] | + + + | Home Phone [...] Team Providers + +------+ + | Care Cotton Weigher Operator Name | Role | Phone | [...] | | 2012 | | MEDICINE [facility] | [address] | | | | | [address] | [place] | | | | | [place] | [address] | | | | | [address] | | | | | | [phone] | | | +--------+--------+ + + + [...]
--- OUTSIDE RECORDS SUMMARY | ~2019-02-15 | XMS | Encounter Summary ---
Demographics + + + | Address | [address] [address] | | | [place] [address] | + + + | Home Phone [...] Providers + +------+ + | Care Sand Slinger Operator Name | Role | Phone | [...] | | | | [place] | [address] | | | | | [address] | | | | | | [phone] | | | +--------+ + + + [...] 08/03/2013 10:09 AM PDTReceived ED [facility], treated with [...]
--- OUTSIDE RECORDS SUMMARY | ~2019-02-15 | XMS | Encounter Summary ---
Demographics + + + | Address | [address] [place] [address] | | | [place] [address] | + + + | Home Phone [...] Providers + +------+ + | Care Assistant Director Of Plant Operations Name | Role | Phone | + +------+ + PCP | Unavailable | + +------+ + Encounter Details +--------+ + + + + | Date | Type | Department | Care Team | Description | +--------+ + + + + | 08/06/ | Hospital | [facility] | | | | 2005 | Encounter | MED CTR LABORATORY | | | | | | [address] [place] | | | | | | [place], [place] | | | | | | [address] | | | | | | [phone] | | | +--------+ + + + [...]
--- OUTSIDE RECORDS SUMMARY | ~2019-02-15 | XMS | Encounter Summary ---
Demographics + + + | Address | [address] | | | [place] [address] | + + + | Home Phone [...] Team Providers + +------+ + | Care Tool Supervisor Name | Role | Phone | [...] Refill | | 2016 | | MEDICINE [facility] | [address] | | | | | [address] | [place] | | | | | [place] | [address] | | | | | [address] | | | | | | [phone] | | | +--------+--------+ + + + [...]
--- OUTSIDE RECORDS SUMMARY | ~2019-02-15 | XMS | Encounter Summary ---
Demographics + + + | Address | [address] | | | [place] [address] | + + + | Home Phone [...] Team Providers + +------+ + | Care Brinell Tester Name | Role | Phone | [...] Refill | | 2017 | | MEDICINE [place] | [address] | | | | | [address] | [place] | | | | | [place] | [address] | | | | | [address] | | | | | | [phone] | | | +--------+--------+ + + + [...]
--- OUTSIDE RECORDS SUMMARY | ~2019-02-15 | XMS | Encounter Summary ---
Demographics + + + | Address | [address] [place] [address] | | | [place] [address] | + + + | Home Phone [...] Team Providers + +------+ + | Care Shoe Worker Name | Role | Phone | [...] | | | | [place] | [address] | | | | | [address] | | | | | | [phone] | | | +--------+ + + + [...]
--- OUTSIDE RECORDS SUMMARY | ~2019-02-15 | XMS | Encounter Summary ---
Demographics + + + | Address | [address] | | | [place] [address] | + + + | Home Phone [...] Team Providers + +------+ + | Care Design Editor Name | Role | Phone | [...] Refill | | 2012 | | [facility] | [address] | | | | | [address] | [place] | | | | | [place] | [address] | | | | | [address] | | | | | | [phone] | | | +--------+--------+ + + + [...]
--- OUTSIDE RECORDS SUMMARY | ~2019-02-15 | XMS | Encounter Summary ---
Demographics + + + | Address | [address] [place] [address] | | | [place] [address] | + + + | Home Phone [...] Team Providers + +------+ + | Care Electronics Instructor Name | Role | Phone | [...] Refill | | 2012 | | [facility] | [address] | | | | | [address] | [place] | | | | | [place] | [address] | | | | | [address] | | | | | | [phone] | | | +--------+--------+ + + + [...]
--- OUTSIDE RECORDS SUMMARY | ~2019-02-15 | XMS | Encounter Summary ---
Demographics + + + | Address | [address] | | | [place] [address] | + + + | Home Phone [...] Providers + +------+ + | Care Supervisor Electronic Coils Name | Role | Phone | + [...] + | 04/30/ | Telephone | [facility] | Roderick Alexandra, | Arm Pain | | 2018 | | [facility] | [address] | | | | | [address] | [place] | | | | | [place] | [address] | | | | | [address] | | | | | | [phone] | | | +--------+ + + + [...] | Quantitativ | quantitative D-Dimer | | [facility] | | | e | [...] [address] | [place] | [phone] | | [facility] | | [address] | | | - LABORATORY | | | | + + + + + documented in this encounter Visit Diagnoses + + | Diagnosis | + + | Left arm swelling - Primary Swelling of limb | + + | Chronic obstructive pulmonary disease, unspecified COPD type (HCC) | + + documented in this encounter"
--- OUTSIDE RECORDS SUMMARY | ~2019-02-15 | XMS | Encounter Summary ---
Demographics + + + | Address | [address] | | | [place] [address] | + + + | Home Phone [...] Providers + +------+ + | Care Director Market Research Name | Role | Phone | + [...] + + | 03/24/ | Office | [facility] | Roderick Alexandra, | Routine history and | | 2017 | Visit | [facility] [place] | [address] | physical examination | | | | [address] | [place] | of adult (Primary | | | | [place], [place] | [address] | Dx); Chest pressure; | | | | [phone] | | Essential | | | | [phone] | | hypertension; | | | | [...] bathtub or shower?: No Fall Risk Screening ([facility]) 1. Have you fallen in the [...] If you have a designated health care title insurance sales representative, give their name and contact informa [...] ok to take daily forever Referral to transit mixer operator Had another episode this last year while [...] by mouth at bedtime 30 tablet 0 [place]-3 Fatty Acids ([facility]) 1000 [...] - General Current Medicare Suppliers: [employer]-[address] [facility] [place] - [address] [facility] [address] [place] [address] Immunizations Immunization History Administered Date(s) Administered INFLUENZA 63 Y OR >, TRIVALENT HIGH-DOSE 10/12/2015 INFLUENZA QUADR W/PRES (PED/ADOL/ADULT) MULTIDOSE 11/15/2013, 10/31/2014 INFLUENZA, W/Preservative 10/18/2011 PNEUMOCOCCAL CONJUGATE 13-VALENT (PCV13) 07/24/2014 PNEUMOCOCCAL POLYSACCHARIDE 23-VALENT (PPSV23) 05/20/2005 TDAP, (ADOL/ADULT) 12/02/2005 ZOSTER, 1 DOSE (ADULT) 12/02/2005, 09/05/2011 Preventative Care and Screening (Attestation) The following health maintenance items are reviewed in [facility] and correct as of today: Health [...] contrast ordered and patient will schedule at [facility] . RTC in 6 months for [...]
--- NOTE | 2019-02-15 10:00 | NUR ---
In and spoke with Rosalind. She does not have a walker at this time. Discussed the need for a walker and she will get one from [facility]. States she does not want one from medicare as she plans on not keeping it. Let her know medicare will pay for a walker. She declines. Encouraged to get a walker today so she can get used to using and PT can adjust it for her. She will have her get one today. She denies numbness in her leg, states it feels odd.
[~2019-02-15 11:35] MED LIST changes: +CALCIUM + VITA1 EAC2 PO; +PEPCID AC10 MG PO; +PRESERVISION L1 EACH PO
--- NOTE | 2019-02-15 12:18 | NUR ---
TALKED WITH PT AND HER SPOUSE REGARDING HER DIAGNOSIS, PT ABLE TO TALK TO ME REGARDING STROKE INFORMATION. WE DISCUSSED HER GOALS ARE TO RETURN BACK TO HER LIFE CLOSE TO NORMAL SHE CAN. SHE STILL WANTS TO DRIVE AND BE ACTIVE SHE CAN. SHE IS ABLE TO DISCUSS HER MEDICATIONS AND SIDE EFFECTS OF THOSE, EVEN MEDS THAT SHE HAS BEEN PUT ON SINCE SHE IS IN THE HOSPITAL. PT DID TALK TO ME ABOUT A FWW. I TOLD HER WE COULD GET HER ONE AND HAVE IT DELIVERED TODAY. PT STATED UNDERSTANDING. DENIES FURTHER QUESTIONS AT THIS TIME. CALLED AND TALKED TO ARABELLA AT [facility], SHE STATED THEY WILL BRING ONE UP THIS AFTERNOON. CHART NOTES SENT TO [facility] INCLUDING FACE SHEET, H AND P, PT NOTES, AND RX, SENT AND RECIEVED FAX CONFIRMATION.
--- NOTE | 2019-02-15 13:25 | NUR ---
PATIENT SITTING UP IN CHAIR. IN ROOM. I&O DONE. CALL LIGHT WITHIN REACH. NO OTHER NEEDS AT THIS TIME
--- NOTE | 2019-02-15 13:57 | NUR ---
REVIEWED DISCHARGE INSTRUCTIONS WITH PATIENT, VERBALIZES UNDERSTANDING OF MEDICATIONS AND FOLLOW UP APPOINTMENT. DENIES ANY QUESTIONS OR CONCERNS. IN GOOD SPIRITS AND EXCITED TO GO HOME.
--- NOTE | 2019-02-15 14:16 | NUR ---
PT IS PLEASED WITH NEW ROOM, DENIES ANY NEEDS OR CONCERNS.
--- NOTE | 2019-02-15 14:37 | NUR ---
PT MOVED TO RM #115. SHE IS ENJOYING THE VIEW, AND HAD JUST FINISHED UP LUNCH WITH HER . PT IS NOW ON SB, AND DISCUSSED THIS. GAVE BLESSING, WILL FOLLOW NEEDED
--- NOTE | 2019-02-15 16:06 | NUR ---
PT STATES UNDERSTANDING OF STROKE PROCESS AND IS ABLE TO REPEAT IT BACK.
--- NOTE | 2019-02-15 17:23 | NUR ---
PT RECIEVED HER WALKER FROM [facility].
--- NOTE | 2019-02-15 17:29 | NUR ---
PT WAS ADMITTED TO SWING BED PROGRAM TODAY TO CONT. PHYSICAL THERAPY. PT HAS HAD A GOOD DAY, IS MOTIVATED AND WORKED WELL WITH REHAB. NO COMPLAINTS OF DISCOMFORT. SUPPORTIVE.
--- NOTE | 2019-02-15 18:26 | NUR ---
PATIENT IN BED RESTING, IN ROOM. FRESH WATER GIVEN. CALL LIGHT IN REACH. NO FURTHER NEEDS AT THIS TIME.
--- NOTE | 2019-02-15 19:54 | NUR ---
RECEIVED REPORT FROM DAY SHIFT RN. PATIENT IS RESTING IN BED. PATIENT DENIES ANY PAIN. CALL LIGHT IN REACH. NO NEEDS NOTED.
--- NOTE | 2019-02-15 20:20 | NUR ---
PATIENT ASSESMENT COMPLETED. PATIENT IS RESTING IN BED. VITALS TAKEN AND RECORDED. INTAKE AND OUPUT RECORDED. PATIENT DENIES ANY PAIN. PATIENT UP TO THE RESTROOM A SBA W/FWW. PATIENT WAS ABLE TO VOID. PATIENT IS NOW BACK IN BED RESTING. PATIENT DENIES ANY NEEDS. CALL LIGHT IN REACH.
--- NOTE | 2019-02-15 22:29 | NUR ---
PATIENT IS RESTING IN BED WITH EYES CLSOED, RR 17. CALL LIGHT IN REACH.
--- NOTE | 2019-02-16 00:52 | NUR ---
PATIENT IS RESTING IN BED WITH EYES CLOSED, RR 16. CALL LIGHT IN REACH. CALL LIGHT IN REACH.
--- NOTE | 2019-02-16 02:59 | NUR ---
AMSWERED CALL LIGHT. 1SBA TO BATHROOM USING OWN WALKER AND BACK TO BED. NO OTHER NEEDS AT THIS TIME. CALL LIGHT IN REACH.
--- NOTE | 2019-02-16 03:21 | NUR ---
PATIENT UP TO THE RESTROOM A SBA W/FWW WITH ALFREDO OREILLY. PATIENT WAS ABLE TO VOID. PATIENT IS BACK IN BE DRESTING. PATIENT DENIES ANY PAIN NO NEEDS NOTED. CALL LIGHT IN REACH.
--- NOTE | 2019-02-16 04:55 | NUR ---
PATIENT RESTED WELL THROUGHOUT THE SHIFT. PATIENT IS ON A 2GM NA LIMIT, TOLERATING WELL, AND NO NAUSEA NOTED. PATIENT IS A SBA W/FWW AND WORKING WITH PT/OT. PATIENT IS ON RA. PATIENT HAS NO IV. PATIENT HAS DENIED ANY PAIN. PATIENT IS ON TRANSITIONAL CARE PROGRAM. PATIENT IS AAOX4 AND USES CALL LIGHT APPROPRIATELY.
--- NOTE | 2019-02-16 06:26 | NUR ---
PATIENT IS RESTING IN BED WITH EYE CLOSED, RR 16. CALL LIGHT IN REACH. INTAKE AND OUPUT RECORDED. CALL LIGHT IN REACH.
--- NOTE | 2019-02-16 08:32 | NUR ---
PT IN GOOD SPIRITS THIS AM, UP FOR BREAKFAST, ATE 100%, DENIES ANY NEEDS OR CONCERNS, DOES A GREAT JOB WORKING EXERCISES GIVEN BY PT.
--- NOTE | 2019-02-16 12:24 | NUR ---
PT AMBULATING LOOP AROUND NURSES STATION WITH PT, IN GOOD SPIRITS, MOTIVATED, NO CONCERNS OR NEEDS.
--- NOTE | 2019-02-16 14:18 | NUR ---
PTIS SITTING UP WITH IN ROOM TO WATCH FOOTBALL GAME TODAY. DENIES ANY NEEDS OR CONCERNS.
--- NOTE | 2019-02-16 16:16 | NUR ---
patient doing great, patient doing activities of daily living
--- NOTE | 2019-02-16 17:44 | NUR ---
PT HAS HAD A VERY GOOD DAY, WORKED WITH PT AND AMBULATED IN HALLWAY. WATCHED FOOTBALL GAME WITH THIS AFTERNOON. DENIES ANY CONCERNS OR NEEDS.
--- NOTE | 2019-02-16 19:15 | NUR ---
SHIFT REPORT RECEIVED FROM DAYSHIFT RAMONA HESTER AT BEDSIDE. PT AWAKE AND RESTING IN BED AND WATCHING TELEVISION. DEBNIES NEEDS AT THIS TIME, CALL LIGHT IN REACH.
--- NOTE | 2019-02-16 20:12 | NUR ---
ASSESSMENT COMPLETE, VSS. PT ON RA. A/OX4, DENIES PAIN. CMS INTACT, PT DENIES NUMBNESS AND TINGLING. SKIN PINK, DRY, AND WARM TO THE TOUCH. PT SLIGHTLY WEAKER IN LLE COMPARED TO RLE, PT STATES, "YES, BUT IT'S GETTING BETTER. I STILL NEED SOMEONE WITH ME WHEN I GO TO THE BATHROOM". PT APPEARS COMFORTBALE AND IS INTERACTIVE WITH NURSING STAFF, DENIES ADDITIONAL NEEDS. CALL LIGHT IN REACH.
--- NOTE | 2019-02-16 21:08 | NUR ---
HELPED PT TO THE BATHROOM AND BACK TO BED WITH HER FWW.FRESH WATER GIVEN. BEDSIDE TABLE AND CALL LIGHT IN REACH. NO OTHER NEEDS AT THIS TIME.
--- NOTE | 2019-02-16 23:31 | NUR ---
PT RESTING IN BED, EYES CLOSED. RESPIRATIONS REGULAR AND UNLABORED. NO DISTRESS NOTED. CALL LIGHT IN REACH.
--- NOTE | 2019-02-17 01:21 | NUR ---
PT RESTING IN BED, EYES CLOSED. RESPIRATIONS REGULAR AND UNEVEN. NO SIGNS OF DISTRESS NOTED, CALL LIGHT IN REACH.
--- NOTE | 2019-02-17 01:49 | NUR ---
PT UP SBA WITH FWW TO VOID. PT RETURNED BACK TO BED, DENIES ADDITIONAL NEEDS. CALL LIGHT IN REACH.
--- NOTE | 2019-02-17 04:25 | NUR ---
PT RESTING IN BED WITH EYES CLOSED, RESPIRATIONS REMAIN UNLABORED AND EVEN. NO DISTRESS OR SIGNS OF PAIN NOTED. PT APPEARS COMFORTBALE, CALL LIGHT WITHIN REACH.
--- NOTE | 2019-02-17 06:04 | NUR ---
PT HAD UNEVENTFUL NIGHT, SLEPT FOR MOST OF SHIFT. VSS, PT A/OX4. DENIED PAIN ALL SHIFT. 2G SODIUM DIET, TOLERATING WELL. NO NAUSEA REPORTED. BOWEL TONES ACTIVE. SBA WITH FWW FOR AMBULATION, USES CALL LIGHT APPROPERIATELY.
--- NOTE | 2019-02-17 06:45 | NUR ---
HELPED PT TO THE BATHROOM AND BACK TO BED WITH HER FWW. BEDSIDE TABLE AND CALL LIGHT IN REACH. PT NEEDS NOTHING MORE AT THIS TIME.
--- NOTE | 2019-02-17 08:41 | NUR ---
PT IS AWAKE EARLY, UP TO BATHROOM USING FWW AND DID OWN AM CARES, DENIES ANY NEEDS OR CONCERNS, SCHEDULED MEDS TAKEN, CALL LIGHT IN EASY REACH.
--- NOTE | 2019-02-17 09:18 | NUR ---
MED REC COMPLETE
--- NOTE | 2019-02-17 09:58 | NUR ---
PATIENT IS WORKING WITH PHYSICAL THERAPY. PATIENT IS DRESSED. I WILL ASK AND SEE IF SHE WOULD LIKE TO TAKE A SHOWER TODAY.
--- NOTE | 2019-02-17 11:39 | NUR ---
SITTING UP WORKING ON FINANCES WITH , STATES SHE ORDERED LUNCH, DENIES ANY NEEDS, CALL LIGHT IN EASY REACH.
--- NOTE | 2019-02-17 13:16 | NUR ---
SWING REVIEW. NO NEEDS.
--- NOTE | 2019-02-17 13:27 | NUR ---
IDT completed in pts room. Goals reviewed with pt and she has questions of PT as she was seen once on new years instead of twice. PT explained on holidays therapy is only 1/2 day. Pt denies other questions, concern is returning home and compeling house hold tasks such as vacuming. Denies questions for other staff. Pt needs to continue with TC for strengthening and balance of L leg. OT will cont. with length of standing.
--- NOTE | 2019-02-17 13:55 | NUR ---
TALKED WITH PT REGARDING HER MEDICATIONS, SHE KNOWS THE MEDS AND WHY SHE IS TAKING THEM, WE REVIEWED THEM ALL. SHE DID ASK ABOUT THE LOVENOX, AGAIN ASSURED HER THAT SHE WOULD NOT BE TAKING THAT WHEN SHE GOES HOME. PT DID ASK TO KNOW EXACTLY WHERE AND WHAT KIND OF STROKE SHE HAD. I REVIEWED THE NOTE DR Paola SHINE HAD MADE IN PT INPT CHART WITH THE PT AND HER . PT STATED THAT WAS GOOD TO HAVE THAT INFOR. DENIED FURTHER QUESTIONS OR NEEDS AT THIS TIME.
--- NOTE | 2019-02-17 14:02 | NUR ---
MET WITH PTS' WHILE PT WAS WITH PDaneT. QUIZZED HIM HOW HE WAS COPING WITH THE CHANGES PT IS FACING SINCE THE STROKE. HE SEEMS TO BE DEALING VERY APPROPRIATELY. HAS BEEN WORKING TO MAKE CHANGES IN THEIR SHOWER, WELL OTHER ACCESSIBILITY NEEDS IN THEIR HOME FOLLOWING DC.GOOD VISIT, HE IS VERY OPEN ABOUT HIS FEELINGS. WILL FOLLOW NEEDED
--- NOTE | 2019-02-17 14:41 | NUR ---
PT DENIES ANY NEEDS, SITTING IN ROOM WATCHING TV WITH .
--- NOTE | 2019-02-17 18:14 | NUR ---
PT HAS HAD A GOOD DAY, MOTIVATED AND IN GOOD SPIRITS WITH THERAPIES, INT TO VISIT, NO COMPLAINTS OF DISCOMFORT.
--- NOTE | 2019-02-17 19:15 | NUR ---
SHIFT REPORT RECEIVED FROM DAYSHIFT RAMONA HESTER AT BEDSIDE. PT AWAKE AND RESTING IN BED, IN ROOM. DENIES NEEDS AND APPEARS CONTENT AT THIS TIME, CALL LIGHT IN REACH.
--- NOTE | 2019-02-17 19:59 | NUR ---
ASSESSMENT COMPLETE, VSS. PT A/OX4, REPORTS DISCOMFORT REGARDING WORKING WITH PT, DENIES NEED FOR PAIN MEDICATION. LUNG SOUNDS CLEAR, BOWEL TONES ACTIVE. PT DENIES NAUSEA. SBA WITH FWW, USES CALL LIGHT APROPERIATELY. NO ADDITIONAL NEEDS, CALL LIGHT IN REACH.
--- NOTE | 2019-02-18 00:04 | NUR ---
PT RESTING IN BED WITH EYES CLOSED. NO DISTRESS NOTED, RR REGULAR AND WNL. PT APPEARS COMFORTABLE, CALL LIGHT WITHIN EASY REACH.
--- NOTE | 2019-02-18 01:28 | NUR ---
PT RESTING IN BED, EYES ARE CLOSED. RESPIRATIONS EVEN AND UNLABORED. NO DISTRESS NOTED, CALL LIGHT IN REACH.
--- NOTE | 2019-02-18 03:41 | NUR ---
PT RESTING IN BED, EYES CLOSED. RESPIRATIONS EVEN AND UNLABORED. NO DISTRESS NOTED, CALL LIGHT IN EASY REACH.
--- NOTE | 2019-02-18 04:53 | NUR ---
PT HAD A VERY UNEVENTFUL NIGHT AND SLEPT FOR MOST OF SHIFT. USES CALL LIGHT APPROPERIATELY, SBA WITH FWW. REGULAR DIET, TOLERATING WELL. NO REPORTED NAUSEA OR GENERAL PAIN. VSS, A/O.
--- NOTE | 2019-02-18 10:32 | NUR ---
PATIENT RESTING IN BED. GELY PASTOR AND AFIA IN VISITING WITH PATIENT PRIOR TO MY ARRIVAL. PATIENT MEDICATIONS ADMINISTERED AND ASSESSMENT COMPLETED. PATIENT BREATH SOUNDS CLEAR. RR EVEN AND UNLABORED AT 16 BREATHS/MIN. INCENTIVE SPIROMETER AT THE BEDSIDE AND PATIENT ENCOURAGED TO USE. BOWEL TONES ACTIVE. TRACE EDEMA IN BLE. PATIENT STATES "THAT IS NORMAL". ASSISTED PATIENT TO THE CHAIR WITH WALKER AND STAND-BY ASSIST. PATIENT WAS STEADY ON FEET AND TOLERATED WELL. CALL LIGHT ON BEDSIDE STAND. FRESH WATER AT THE BEDSIDE. PROVIDED WITH WARM BLANKET. PATIENT DENIES ANY OTHER NEEDS AT THIS TIME. WILL CONTINUE TO CLOSELY MONITOR.
--- NOTE | 2019-02-18 10:59 | NUR ---
PT AMBULATING IN THE PADILLA WITH PHYSICAL THERAPY.
--- NOTE | 2019-02-18 11:14 | NUR ---
PT HAD JUST SHOWERED, AND WAS RESTING BEFORE P.T. HAD GOOD VISIT WITH PT, SHE ADMITTED THAT SHE HAD NO IDEA THAT SHE WOULD NEED THIS MUCH REHAB, BUT IS NOW BEGINNING TO UNDERSTAND THE NEED. STAFF IN FOR VS, AND RAMONA SANCHEZ IN TO GIVE MEDS. GAVE BLESSING, WILL FOLLOW NEEDED
--- NOTE | 2019-02-18 15:00 | NUR ---
SPOKE WITH PATIENT IN THE PADILLA WHERE SHE WAS WALKING. PATIENT FEELING "GOOD TODAY". PATIENT WORKING WITH PT.
--- NOTE | 2019-02-18 16:04 | NUR ---
REPORT RECEIVED FROM LIDA GREENE. ROUNDED ON PT. PT IS LYING IN BED READING BOOK. DNEIES NEEDS. CALL LIGHT IN REACH.
--- NOTE | 2019-02-18 19:32 | NUR ---
pt c/o that he had slurred speech earlier, she forgot the name "Operating Romm". FAST test done, no facial deficits noted, speech clear understandable, alert and oriented x3, hand cell tuber equal and strong bilat, no CP, no SOB, no tingling or numbness of extremities or jaw. sitting at edge of bed with . VS done, WNL, will notify .
--- NOTE | 2019-02-18 20:14 | NUR ---
Patient was awake and ambulated to the bath room, was in room. no other needs at this time.
--- NOTE | 2019-02-18 21:53 | NUR ---
TEST EXAMINER ROUNDING NOTE. PT ASKS "DID YOU HEAR ABOUT MY EPISODE", TELLS WRTIER ABOUT HAVING TROUBLE FINDING HER WORDS EARLIER. SHE STATES THAT HER WAS CONCERNED, HE WAS THERE WHEN IT HAPPENED. REASSURED PT THAT HER PRIMARY RN SPOKE TO MD ABOUT IT AND TAHT WE WILL CONTINUE TO MONITOR. PT STATES AGREEMENT. DENIES FURTHER NEEDS AT THIS TIME. CALL LIGHT IN REACH. WHITE BOARD UPDATED.
--- NOTE | 2019-02-19 00:06 | NUR ---
Resting, no c/opain. calm. call light at hands reach
--- NOTE | 2019-02-19 03:00 | NUR ---
UP TO BR, VOIDED, 1PA,FWW, BACK TO BED, TOLERATED WELL.NO C/O PAINOR SOB, DENIES CP OR SOB, CALLLIGHT AT HANDS REACH
--- NOTE | 2019-02-19 07:31 | NUR ---
0655: Report recieved from Gloria GREENE. Pt sleeping at this time, call calhoun within reach.
--- NOTE | 2019-02-19 07:53 | NUR ---
PATIENT UP TO BATHROOM AND BACK TO SITTING ON EDGE OF BED. CALL LIGHT IN REACH. NO FURTHER NEEDS AT THIS TIME.
--- NOTE | 2019-02-19 08:25 | NUR ---
PT JUST FINISHED EATING HER BREAKFAST AND SHE HAS NO COMPLAINTS. PT HAD A NORMAL BM THIS AM. LEFT LEG NOTED TO BE WEAKER THAN THE RIGHT WHICH SHE STATES HAS BEEN PRESENT SINCE HER CVA BUT STATES IT IS GETTING STRONGER.
--- NOTE | 2019-02-19 11:09 | NUR ---
Pt resting in her chair visiting with her spouse. She states she is doing well "just a little tired" after having worked with physical therapy. MANAGER NUCLEAR now checking her vital signs.
--- NOTE | 2019-02-19 12:49 | NUR ---
Pt continues to deny any new problems and her spouse states she is "getting stronger". Pt ambulated to the BR with her FWW and a SBA and was steady on her feet. Pt back to the chair and is visiting with her .
--- NOTE | 2019-02-19 13:35 | NUR ---
PATIENT IN CHAIR RESTING WITH EYES CLOSED. CALL LIGHT IN REACH. NO FURTHER NEEDS AT THIS TIME.
--- NOTE | 2019-02-19 14:42 | NUR ---
Pt resting in her chair looking at her phone. She denies any new problems or any complaints.
--- NOTE | 2019-02-19 16:27 | NUR ---
PT STATES THAT SHE WALKED WITH THE MANUFACTURING ENGINEER PAINT A SHORT WHILE AGO AND WALKED 2 LAPS SHE STATES THAT SHE FEELS THAT SHE CONTINUES TO GET STRONGER. PT STATES SHE WOULD LIKE TO GO FOR A WALK AGAIN LATER THIS EVENING.
--- NOTE | 2019-02-19 17:32 | NUR ---
Pt walking to the sink following using the BR with her FFW and a SBA and she stumbled. Pt did not fall and quickly regained her balance. She states she is feeling a bit tired at this time.
--- NOTE | 2019-02-19 18:23 | NUR ---
Pt just ambulated a lap in the halls and tolerated it well. This was her 5th lap that she walked today. Pt now back in her chair and she is watching football and visiting with her and she has no complaints.
--- NOTE | 2019-02-19 20:05 | NUR ---
Up to br, voided, back to bed, 1PSBA?FWW, denies CP, slight L sided weakness present. Denies further problems at this time. On room air, Continues on swing bed/transitional care status. fluids and call light at bedside
--- NOTE | 2019-02-19 23:00 | NUR ---
resting, eyes closed, resp even, unlabored, call light at bedside, high fall precautions inplace
--- NOTE | 2019-02-20 02:00 | NUR ---
Resting, eyes closed, resp even, unlabored. fluids and call light at bedside
--- NOTE | 2019-02-20 02:24 | NUR ---
pt up to bathroom x1 sba. lex activity well. back to bed, call light in reach. denies further needs
--- NOTE | 2019-02-20 05:50 | NUR ---
Pt continues on Transition care/Swing bed status, No c/o CP or sob, slight L sided weakness, 1PSBA/FWW, on room air. voiding QS, Tolerating diet and fluids well, no N/v. Call light and fluids at bedside
--- NOTE | 2019-02-20 07:17 | NUR ---
0658: Report recieved from Gloria GREENE.
--- NOTE | 2019-02-20 07:47 | NUR ---
PT RESTING IN HER RECLINER WITH HER FEET ELEVATED. SHE DENIE ANY PAIN OR NEW PROBLEMS. SHE STATES SHE FEELS SHE CONTINUES TO GET STRONGER. LEFT LEG WEAKNESS STILL NOTED AT THIS TIME, NONE IN HER ARMS.
--- NOTE | 2019-02-20 10:02 | NUR ---
Pt sitting in her chair reading a book with no compalints at this time. Call within reach.
--- NOTE | 2019-02-20 10:33 | NUR ---
Pt walking in the halls with physical therapy at this time.
--- NOTE | 2019-02-20 13:02 | NUR ---
Pt resting in her bed and she appears in no distress and she denies any new problems. Call calhoun within reach.
--- NOTE | 2019-02-20 13:39 | NUR ---
Pt ambulated and walked 2 laps with a SBA and the FFW. Pt was steady with the walker and tolerated the walk well.
--- NOTE | 2019-02-20 17:47 | NUR ---
Pt eating her dinner and states that her GANDHI is improving.
--- NOTE | 2019-02-20 18:16 | NUR ---
Pt visiting with her and continues to deny any problems.
--- NOTE | 2019-02-20 19:43 | NUR ---
REPORT RECEIVED FROM DAY SHIFT RN. PT SITTING ON THE SIDE OF THE BED PLAYING CARDS WITH HER SPOUSE. PT ALERT AND ORIENTED. DENIES NEEDS AT THIS TIME. CALL LIGHT IN REACH.
--- NOTE | 2019-02-20 20:30 | NUR ---
EVENING ASSESSMENT COMPLETE. PT DENIES PAIN. STATES SHE IS FEELING STRONGER AND IS HOPING TO GO HOME SOON. SLIGHT WEAKNESS NOTED IN LEFT FOOT. NO QUESTIONS OR CONCERNS AT THIS TIME. CALL LIGHT IN REACH.
--- NOTE | 2019-02-20 21:29 | NUR ---
ANSWERED CALL LIGHT. SBA TO THE BATHROOM AND BACK TO BED. DENIES ANY MORE NEEDS. CALL LIGHT IN REACH.
--- NOTE | 2019-02-20 23:50 | NUR ---
PT LYING ON BACK, EYES CLOSED. RR EVEN AND UNLABORED.
--- NOTE | 2019-02-21 02:39 | NUR ---
PT RESTING IN BED WITH EYES CLOSED, NAD. CALL LIGHT IN REACH.
--- NOTE | 2019-02-21 05:50 | NUR ---
PT RESTED WELL THROUGH OUT THE NIGHT. ALERT AND ORIENTED, USES CALL LIGHT APPROPRIATELY. SBA WITH FWW. LEFT FOOT/LEG WEAKNESS. PT/OT. TOLERATING REGULAR DIET. SWING BED STATUS.
--- NOTE | 2019-02-21 07:39 | NUR ---
PT AWAKE FOR BEDSIDE REPORT DENIES NEEDS OR DISCOMFORTS. UP TO TOILET SBA ONLY PT USING WALKER ANTICIPATES SHOWER WITH O/T PRESENT THIS SHIFT.
--- NOTE | 2019-02-21 09:43 | NUR ---
PATIENT SHOWERD WITH OT. PATIENT NOW IN CHAIR READING. LINENS CHANGED. CALL LIGHT IN REACH. NO FURTHER NEEDS AT THIS TIME.
--- NOTE | 2019-02-21 11:01 | NUR ---
PT UP IN THE CHAIR WORKS WITH OT, DENIES NEEDS AT THIS TIME
--- NOTE | 2019-02-21 12:32 | NUR ---
PT WORKS WITH P/T STATES SHE FEELS SHE HAS MADE GOOD PROGRESS AND IS "PASSING ALL THE TESTS" GOALS REVIEWED WITH PT WRITTEN ON THE BOARD IN HER ROOM. PT SITS UP IN RECLINER FOR NOON MEAL READING A BOOK, RETURNS TO BED TO NAP BEFORE P/T RETURNS FOR ANOTHER ROUND.
--- NOTE | 2019-02-21 14:09 | NUR ---
PT UP AMBULATING WITH Choco CERRATO IN HALLWAY. SHE IS ALERT, ORIENTED AND WORKING HARD AT RECOVERY. HAD PLEASANT VISIT, GAVE ENCOURAGEMENT. WILL FOLLOW NEEDED
--- NOTE | 2019-02-21 14:41 | NUR ---
PT USING CALL LIGHT APPROPRIATELY SBA TO THE TOILET PT AMBULATES WELL USING A WALKER APPEARS STEADY ON HER FEET. RETURNS TO CHAIR TO READ
--- NOTE | 2019-02-21 17:54 | NUR ---
PT'S COMES IN AND HAS EVENING MEAL WITH HER. SHE EATS 100% THEN UP WORKING WITH P/T. DENIES NEEDS OR DISCOMFORTS.
--- NOTE | 2019-02-21 19:22 | NUR ---
REPORT RECEIVED FROM DAY SHIFT RN. PT SITTING AT THE SIDE OF THE BED, ALERT AND ORIENTED, PLAYING CARDS WITH SPOUSE. FRESH WATER GIVEN. NO ADDITIONAL NEEDS AT THIS TIME. CALL LIGHT IN REACH.
--- NOTE | 2019-02-21 20:50 | NUR ---
EVENING ASSESSMENT COMPLETE. PT UP TO BR WITH SBA AND FWW. GAIT STEADY. BACK TO BED, SÁNCHEZ WELL. DENIES PAIN. VSS. NO FURTHER NEEDS AT THIS TIME. CALL LIGHT IN REACH.
--- NOTE | 2019-02-22 01:32 | NUR ---
CALL LIGHT ANSWERED. PT UP TO BR WITH FWW AND SBA. GAIT STEADY. BACK TO BED, SÁNCHEZ WELL. NO FURTHER NEEDS AT THIS TIME. CALL LIGHT IN REACH.
--- NOTE | 2019-02-22 05:20 | NUR ---
CALL LIGHT ANSWERED. PT UP TO BR WITH SBA AND FWW. GAIT STEADY. BACK TO BED, SÁNCHEZ WELL. CALL LIGHT IN REACH.
--- NOTE | 2019-02-22 05:48 | NUR ---
PT SLEPT WELL. ALERT AND ORIENTED, USES CALL LIGHT. SBA WITH FWW. LEFT FOOT/LEG WEAKNESS. PT/OT. SÁNCHEZ REG DIET.
--- NOTE | 2019-02-22 07:15 | NUR ---
BEDSIDE HANDOFF REPORT RECEIVED FROM MANAGER CASINO RN. PT RESTING IN BED, PT DENIES NEEDS AT THIS TIME.
--- NOTE | 2019-02-22 08:00 | NUR ---
PT SITTING ON EDGE OF BED FOR BREAKFAST. PT DENIES PAIN. PT ON ROOM AIR, LUNG SOUNDS CLEAR, DENIES SOB. PT WITHOUT EDEMA, CMS INTACT, PT CONTINUES TO REPORT OCCASIONAL BUCKLING OF LEFT LEG BUT STATES IT IS IMPROVING. PT WITHOUT IVC ACCESS. MORNING MEDICATIONS ADMINISTERED PER ORDER. PT DENIES OTHER NEEDS AT THIS TIME.
--- NOTE | 2019-02-22 09:38 | NUR ---
PATIENT UP TO BATHROOM AND BACK TO BED, SBA. PATIENT CHANGED ATTENDS. CALL LIGHT IN REACH. NO FURTHER NEEDS AT THIS TIME.
--- NOTE | 2019-02-22 10:40 | NUR ---
PT WALKING IN PADILLA WITH Choco
--- NOTE | 2019-02-22 12:15 | NUR ---
TALKED WITH PT AND HER AGAIN, THEY DENY ANY QUESTIONS OR CONCERNS. PT STATES SHE IS STILL WORKING WITH PT AND THINGS ARE GOING WELL WITH THAT.
--- NOTE | 2019-02-22 13:31 | NUR ---
PATIENT SITTING IN CHAIR, IN ROOM. CALL LIGHT IN REACH. NO FURTHER NEEDS AT THIS TIME. PATIENT REFUSED SHOWER SAID SHE WOULD TAKE ONE WITH OT TOMORROW.
--- NOTE | 2019-02-22 15:18 | NUR ---
In and spoke with Rosalind. Feels she is doing well with PT. Frustrated as her leg remains weak. Plans on discharging on Thu and has already scheduled OP PT for thursday. Denies needs, walker was delivered from [facility] last week.
--- NOTE | 2019-02-22 16:19 | NUR ---
PT RESTING IN BED, READING ON IPHONE. PT DNIES NEEDS AT THIS TIME.
--- NOTE | 2019-02-22 17:58 | NUR ---
PATIENT IN BED READING A BOOK. CALL LIGHT IN REACH. NO FURTHER NEEDS AT THIS TIME.
--- NOTE | 2019-02-22 18:22 | NUR ---
PT HAD UNEVENTFUL DAY. PT ON ROOM ANN MARIE, LUNG SOUNDS CLEAR. PT TOLERATING REGULAR DIET. PT WALKED IN PADILLA WITH P.T. CMS INTACT, WITHOUT EDEMA. VOIDING QS.
--- NOTE | 2019-02-22 19:31 | NUR ---
REPORT RECEIVED FROM DAY SHIFT RN. PT LYING IN BED, ALERT AND ORIENTED READING A BOOK. DENIES NEEDS AT THIS TIME. CALL LIGHT IN REACH.
--- NOTE | 2019-02-22 20:30 | NUR ---
EVENING ASSESSMENT COMPLETE. UP TO BR WITH SBA AND FWW, SÁNCHEZ WELL. GAIT STEADY. BACK TO BED. PT DENIES PAIN. NO FURTHER NEEDS AT THIS TIME. CALL LIGHT IN REACH.
--- NOTE | 2019-02-23 00:42 | NUR ---
SBA TO THE BATHROOM AAND BACK TO BED. DRINKING WATER REFILLED. NO OTHER NEEDS AT THIS TIME.
--- NOTE | 2019-02-23 02:37 | NUR ---
PT RESTING IN BED WITH EYES CLOSED, NAD.
--- NOTE | 2019-02-23 05:39 | NUR ---
PATIENT CALLED TO USE THE BATHROOM. SBA. PATIENT IS BACK IN BED. NO OTHER NEEDS AT THIS TIME.
--- NOTE | 2019-02-23 06:05 | NUR ---
PT SLEPT WELL. ALERT AND ORIENTED. USES CALL LIGHT. SBA WITH FWW. GAIT STEADY. DENIES PAIN. SÁNCHEZ REG DIET. PT/OT.
--- NOTE | 2019-02-23 07:10 | NUR ---
HANDOFF REPORT RECEIVED FROM SHEET ROCK APPLICATOR RN.
--- NOTE | 2019-02-23 08:10 | NUR ---
PATIENT RESTING IN BED. PATIENT GOES TO USE THE BATHROOM. PATIENT USES WALKER. ONE PERSON ASSISTING. PATIENT BACKS TO BED. CALL LIGHT WITHIN REACH. NO OTHER NEEDS AT THIS TIME
--- NOTE | 2019-02-23 09:45 | NUR ---
PT SITTING IN CHAIR, READING A BOOK. PT ON ROOM AIR, LUNG SOUNDS CLEAR. PT BOWEL TONES ACTIVE, DENIES NAUSEA, TOLERATING REGULAR DIET. CMS INTACT, PT WITHOUT EDEMA. PT WITHOUT IV ACCESS. PT DENIES OTHER NEEDS AT THIS TIME. MORNING MEDICATIONS ADMINISTERED PER ORDER.
--- NOTE | 2019-02-23 09:59 | NUR ---
PATIENT SITTING UP CHAIR. RN IN ROOM. I&O DONE. VITAL SIGNS DONE BY RN. PATIENT TOOK HER SHOWER ASSISTED BY OCCUPATIONAL THERAPIST. CALL LIGHT WITHIN REACH. NO OTHER NEEDS AT THIS TIME
--- NOTE | 2019-02-23 12:20 | NUR ---
PT SITTING IN CHAIR, AT BEDSIDE. PT DENIES NEEDS AT THIS TIME. PT WITH GOODAPPETITE, ATE 100% OF LUNCH.
[2019-02-23] MEDS ORDERED: METOPROLOL SUCC50 MG PO (13:39)
[2019-02-23] MEDS ORDERED: PRAVASTATIN SOD20 MG PO (13:39)
[2019-02-23] MEDS ORDERED: ASPIRIN EC81 MG PO (13:40)
--- NOTE | 2019-02-23 14:15 | NUR ---
PATIENT SITTING UP IN CHAIR. IN ROOM. I&O DONE. CALL LIGHT WITHIN REACH. NO OTHER NEEDS AT THIS TIME
--- NOTE | 2019-02-23 17:00 | NUR ---
Letter of notice to discharge given and explained to Rosalind.
--- NOTE | 2019-02-23 17:15 | NUR ---
EVENING MEDICATIONS GIVEN PER ORDER. PT SITTING IN CHAIR, PLAYING CARDS WITH . DINNER AT BEDSIDE, PT REQUESTING TARTAR SAUCE FOR SALMON, UNAVAILABLE PROVIDED WITH [facility]. PT DENIES OTHER NEEDS AT THIS TIME.
--- NOTE | 2019-02-23 17:47 | NUR ---
PT HAD UNEVENTFUL DAY. PT ON ROOM AIR LUNG SOUNDS CLEAR. PT TOLERATING REGULAR DIET, GOOD APPETITE. PT DENIES PAIN. CMS INTACT, WITHOUT EDEMA. PT SBA WITH FWW. PLAN FOR DC TOMORROW PENDING P.T.
--- NOTE | 2019-02-23 18:09 | NUR ---
PATIENT SITTING UP IN CHAIR. IN ROOM. I&O DONE. CALL LIGHT WITHIN REACH. NO OTHER NEEDS AT THIS TIME
--- NOTE | 2019-02-23 20:18 | NUR ---
CALL LIGHT ANSWERED. SBA TO THE BATHROOM. PATIENT IS BACK IN BED.
--- NOTE | 2019-02-23 20:36 | NUR ---
PT AWAKE, UP IN CHAIR. TO BR WITH 1PA/FWW, VOIDED, BACK TO BED, TOLERATED WELL, 1+ EDEMA BELOW KNES BILAT, GOOD CMS. ON ROOM AIR, CLEAR LUNGS, NO SOB OR PAIN STATED. CALL LITH AND FLUIDS AT BEDSIDE. COOP WITH ASSESSMENT
--- NOTE | 2019-02-23 21:17 | NUR ---
ROUNDED CHARGE. PATIENT IS RESTING IN BED. PATIENT DENIES ANY COMMENTS, QUESTIONS OR CONCERNS. CALL LIGHT IN REACH.
--- NOTE | 2019-02-24 00:42 | NUR ---
Resting, no distress, cll light at bedside, continues on transition care/swing bed status
--- NOTE | 2019-02-24 01:09 | NUR ---
SBA TO THE BATHROOM AND BACK TO BED. DENIES ANY OTHER NEEDS AT THIS TIME. CALL OGHT IN REACH.
--- NOTE | 2019-02-24 01:09 | NUR ---
Up to br, voided, dark yellow urine, tolerated well, back to bed. 4 lap sites with old drainage, CELI bowel tones, denies passing gas. C/o abd pain 10/26, medicated with Ibuprofen 600mg po. IVf infusing, tolerating ice chips, waterand had taken bites of jello and apple sauce. CPOX in place, scds off at this time at her requests
--- NOTE | 2019-02-24 05:34 | NUR ---
ANSWERED CALL LIGHT. SBA TO THE BATHROOM. PATIENT IS BACK IN BED. NO OTHER NEEDS AT THIS TIME.
--- NOTE | 2019-02-24 05:43 | NUR ---
Pt has slept most of this shift. Up to br with minimum of help and FWW, improved gait, no c/o pain. No c/o CP or SOB. Pt states she is going home today, Tolerating fluids and diet well, no n/v. Call light and fluids at bedside
--- NOTE | 2019-02-24 07:20 | NUR ---
HANDOFF REPORT RECEIVED FROM MANAGER OF COMPLIANCE RN.
--- NOTE | 2019-02-24 08:30 | NUR ---
PT SITTING ON EDGE OF BED, COMPLETED WITH BREAKFAST. PT ON ROOM AIR, LUNG SOUNDS CLEAR. PT DENIES PAIN. CMS INTACT, WITHOUT EDEMA. PT WITHOUT IV ACCESS. PLAN FOR DISCHARGE THIS AFTERNOON, SPOUSE HAS TO ATTEND THIS AM. PT DENIES OTHER NEEDS AT THIS TIME.
--- NOTE | 2019-02-24 09:15 | NUR ---
IDT meeting for discharge completed with Rosalind. She has met and surpassed goals for PT/OT and plans on going to OP therapy for continued therapy for weakness in LLE. Pt denies questions from other IDT members. Plans on discharging this afternoon. Denies further needs for dc, [facility] delivered her walker last week.
--- NOTE | 2019-02-24 16:28 | NUR ---
Notified by Jeanmarie at Dr. Sunshine's office, he will order OP PT for Rosalind.
--- NOTE | 2019-02-24 17:19 | NUR ---
FAXED CHART NOTES INCLUDING FACE SHEET, H AND P, DC SUMMARY, OT AND PT EVAL AND NOTES TO [facility]. RECIEVED FAX CONFIRMATION OF THIS.
== END 2019-02-24 13:50 | disposition home or self-care (01) | DRG 57 ==
LOC: MS 11:35
PROVIDERS: ADMIT Internal Medicine
DX: I69.344 Monoplegia of lower limb following cerebral infarction affecting left non-dominant side (principal); I10 Essential (primary) hypertension; K21.9 Gastro-esophageal reflux disease without esophagitis; I34.0 Nonrheumatic mitral (valve) insufficiency; I48.0 Paroxysmal atrial fibrillation; Z79.899 Other long term (current) drug therapy; Z88.1 Allergy status to other antibiotic agents
CPT/HCPCS: 97110; 97112; 97116; 97162; 97165; 97535; J1650

== ENCOUNTER 2019-08-28 14:45 | Emergency (ER) | payer MEDICARE, OTHER ==
[~2019-08-28] VITALS: Ht 157.5 cm; Wt 68.0 kg
[~2019-08-28 14:45] MED LIST changes: +METOPROLOL SUCC50 MG PO; +PRAVASTATIN SOD20 MG PO
[2019-08-28] MEDS ORDERED: PRAVACHOL40 MG PO (15:04)
[2019-08-28] MEDS ORDERED: PLAVIX75 MG PO (15:04)
[2019-08-28] MEDS ORDERED: LISINOPRIL10 MG PO (15:05)
[2019-08-28] MEDS ORDERED: FISH OIL 1,0001 EAC6 (15:05)
== END 2019-08-28 16:59 | disposition home or self-care (01) ==
LOC: ED 14:45
PROC: 0HQ0XZZ Repair Scalp Skin, External Approach (ICD-10-PCS; principal; 2019-08-28)
DX: S01.01XA Laceration without foreign body of scalp, initial encounter (principal); K21.9 Gastro-esophageal reflux disease without esophagitis; I10 Essential (primary) hypertension; Z23 Encounter for immunization; Z88.8 Allergy status to other drugs, medicaments and biological substances; Z79.899 Other long term (current) drug therapy; Z79.02 Long term (current) use of antithrombotics/antiplatelets; W18.30XA Fall on same level, unspecified, initial encounter
CPT/HCPCS: 12002; 70450; 90471; 90715; 99283-25